=== PATIENT | female | born 1965 | race Caucasian/White ===

== ENCOUNTER → 2019-09-06 14:06 | Outpatient (BNVA) | payer SELFPAY | PROVIDERS: Family Provider Family Medicine; PCP Family Medicine; Visit Provider Family Medicine | DX: E11.9 Type 2 diabetes mellitus without complications (principal) | CPT/HCPCS: 36415; 80053; 80061; 83036; 85025 ==

== ENCOUNTER → 2019-10-10 14:45 | Outpatient (BNVA) | payer SELFPAY | PROVIDERS: Family Provider Family Medicine; PCP Family Medicine; Visit Provider Emergency Medicine | DX: J98.8 Other specified respiratory disorders (principal); I51.7 Cardiomegaly | CPT/HCPCS: 71046 ==

== ENCOUNTER 2019-11-17 16:22 | Emergency (ER) | payer SELFPAY ==
[2019-11-17 16:25] VITALS: BP 167/88; PULSE 112; RESP 20; TEMP 36.6; O2SAT 87; BMI 45.8
--- NOTE | 2019-11-17 16:35 | ED_ITS ---
Entered by Alem Mak, acting as scribe for Brandon Holder DO Documented by User: Brandon Holder DO 11/17/19 18:20 HPI - SOB/Dyspnea General: Chief Complaint: Shortness of Breath/Dyspnea Stated Complaint: SOB Time Seen by Provider: 11/17/19 16:33 Source: patient Mode of arrival: ambulatory Limitations: no limitations History of Present Illness: HPI Narrative: 54 yo Female presents to ED with complaint of shortness of breath. MD elicited complaint: shortness of breath Pertinent past history: COPD Onset (ago): day(s) Context: recent illness Timing: progressively worsening Exacerbating factors: exertion Relieving factors: rest Known history of: COPD Associated symptoms: Reports chest congestion and cough; Deny chest pain or fever(s) Treatment prior to arrival: none Review of Systems General: Reports: 10 or more systems reviewed and unremarkable except in HPI and below Const: Denies: fever Card: Denies: chest pain Resp: Reports: shortness of breath, productive cough and chest congestion PFSH ED PFSH: Medical History COPD (chronic obstructive pulmonary disease) COPD exacerbation Prediabetes Reducible umbilical hernia Type 2 diabetes mellitus, without long-term current use of insulin Surgical History H/O tubal ligation Family History Father COPD (chronic obstructive pulmonary disease) Mother CAD (coronary artery disease) Social History Smoking and tobacco status: former smoker Second hand smoke exposure: No Alcohol intake: never Physical Exam Const: COMMON NORMALS: no apparent distress, average body habitus, oriented x3, no limitations, healthy appearing, alert and well nourished HENMT: COMMON NORMALS: normocephalic, head/scalp atraumatic, hearing grossly normal bilaterally, external ears normal, EAC's normal, TM's normal bilaterally, external nose normal, nasal mucous membranes and turbinates normal, moist oral mucous membranes, oropharynx normal, dentition normal and gingiva normal HEAD & SCALP: normocephalic and atraumatic NOSE: external nose normal and nasal mucous membranes and turbinates normal EXTERNAL EAR: Yes external ears normal EXTERNAL AUDITORY CANAL: EAC's normal TYMPANIC MEMBRANE: TM's normal bilaterally Eye: COMMON NORMALS: PERRL, EOMs intact bilaterally, conjunctivae normal, no scleral icterus, no papilledema, normal visual blair by confrontation and fundi normal bilaterally CONJUNCTIVA: Yes conjunctivae normal PUPIL: Yes PERRL DIRECT OPHTHALMOSCOPY: Yes no papilledema and Yes fundi normal bilaterally Neck/C-Spine: COMMON NORMALS: full ROM, no lymphadenopathy, supple, no meningeal signs, no JVD, thyroid normal and no carotid bruits THYROID: thyroid normal Chest: COMMONS NORMALS: inspection of chest normal and palpation of chest normal Resp: COMMON NORMALS: normal respiratory effort, no retractions, no use of accessory muscles and percussion normal; negative for clear to auscultation bilaterally AUSCULTATION: not clear to auscultation bilaterally and rhonchi right upper PERCUSSION: percussion normal Cardio: COMMON NORMALS: no JVD, regular rate, regular rhythm, S1 normal heart sound, S2 normal heart sound, no gallops, no clicks, no murmurs, no rub and peripheral pulses 2+ throughout RATE: regular rate RHYTHM: regular rhythm HEART SOUNDS: S1 normal and S2 normal PERIPHERAL PULSES: pulses 2+ throughout GI: COMMON NORMALS: normal to inspection, nondistended, normoactive bowel sounds, soft to palpation, non-tender, no hepatosplenomegaly, no masses and no bruits PALPATION: Yes soft and Yes no hepatosplenomegaly : COMMON NORMALS: Yes no CVA tenderness and Yes external appearance normal BLADDER/KIDNEY EXAM: Yes no CVA tenderness Back/Pelvis: COMMON NORMALS: no CVA tenderness, thoracic and lumbar spine normal to inspection, no thoracic nor lumbar tenderness, thoraco-lumbar ROM normal and straight leg raise negative bilaterally Extremity: COMMON NORMALS: normal to inspection, full ROM, normal capillary refill, no joint enlargement, no clubbing, cyanosis or edema, no calf tenderness and no pedal edema Neuro: COMMON NORMALS: oriented x3 SENSORIUM/ORIENTATION: Yes alert MENINGEAL SIGNS: Yes no meningeal signs Skin: COMMON NORMALS: no rashes or lesions noted, no wounds, skin turgor normal, no jaundice, no petechiae and no mottling GENERAL SKIN EXAM: no rashes or lesions noted and turgor normal Course Vital Signs: Vital signs: Vital Signs Temperature 97.8 F 11/17/19 16:25 Pulse Rate 96 11/17/19 22:41 Respiratory Rate 22 H 11/17/19 22:41 Blood Pressure 138/90 11/17/19 22:41 Pulse Oximetry 90 11/17/19 22:41 MDM - SOB/Dyspnea Lab Data: Labs: Lab Results 11/17/19 11/17/19 11/17/19 Range/Units 16:55 17:01 17:37 WBC 8.3 (4.0-10.0) 10^3/ uL RBC 4.89 (4.1-5.3) 10^6/u L Hgb 15.7 H (11.5-15.3) g/dL Hct 47.7 H (37.0-47.0) % MCV 97.5 (81-99) fL MCH 32.1 (28.0-34.0) pg MCHC 32.9 (30.0-36.0) g/dL RDW 12.5 (12.1-15.1) % Plt Count 239 (130-400) 10^3/c mm MPV 11.4 H (7.4-10.4) fL Neut % (Auto) 86.8 % Lymph % (Auto) 9.0 % Vermilion % (Auto) 2.0 % Eos % (Auto) 0.0 % Baso % (Auto) 0.5 % Neut # (Auto) 7.2 (1.8-7.7) 10^3/u L Lymph # (Auto) 0.8 (0.8-4.8) 10^3/u L Vermilion # (Auto) 0.2 (0.2-0.9) 10^3/u L Eos # (Auto) 0.0 (0.0-0.8) 10^3/u L Baso # (Auto) 0.0 (0.0-0.1) 10^3/u L Nucleated RBC % (a uto) 0 % Nucleated RBCs # 0.0 /100WBC Sodium 136 (136-145) mmol/L Potassium 4.9 (3.5-5.1) mmol/L Chloride 97 L (98-107) mmol/L Carbon Dioxide 27 (22-29) mmol/L Anion Gap 16.9 (5-19) BUN 20 (6-20) mg/dL Creatinine 1.0 H (0.5-0.9) mg/dL GFR Calculation 57.6 L (90-130) mL/min Glucose 334 H (65-115) mg/dL Calculated Osmolal ity 292 (285-295) mOsm/k g Calcium 9.5 (8.5-10.5) mg/dL Total Bilirubin 0.2 (0.15-1.2) mg/dL AST 22 (0-32) U/L ALT 35 H (0-33) U/L Alkaline Phosphata se 59 (35-105) IU/L NT-Pro-B Natriuret Pep 557 H (0-125) pg/mL Total Protein 6.8 (6.6-8.7) g/dL Albumin 3.5 (3.5-5.2) g/dL Globulin 3.3 (1.3-4.6) g/dL Influenza Type A A g Negative (Negative) POC Influenza B Ag Negative (Negative) Imaging Data^: CXR: Radiologist's impression: [place] [address] XRay Report Signed Patient: Ameya Thakur #: [id number] : 1965Acct#:[id number] Age/Sex: 54 / FADM Date: 11/17/19 [facility] Attending Dr: Ordering Provider/Ordering MD: Brandon Holder DO Date of Service: 11/17/19 Procedure(s): XR chest 1V portable [id number] Accession Number(s): [id number] Report Number: [id number] PROCEDURE INFORMATION: Exam: XR Chest, 1 View Exam date and time: 11/17/2019 4:46 PM Age: 54 years old Clinical indication: Dyspnea TECHNIQUE: Imaging protocol: XR of the chest Views: 1 view. COMPARISON: CR XR chest 2V* [id number] 10/10/2019 2:54 PM FINDINGS: Lungs: Changes of emphysema. Linear atelectasis in the right lung base. Patchy opacities in the peripheral left lung base. Pleural space: Unremarkable. No pleural effusion. No pneumothorax. Heart/Mediastinum: Unremarkable. No cardiomegaly. Bones/joints: Unremarkable. XR/XR chest 1V portable [id number] IMPRESSION: 1. Left base atelectasis versus pneumonia. Dictated By:Inderjit Lopez Signed By:John Lopez Date/Time:11/17/191811 DD/ 10 Discharge Plan Discharge Patient Disposition: Home, Self-Care Clinical Impression: COPD exacerbation Community acquired pneumonia Qualifiers: Laterality: left Lung location: lower lobe of lung Qualified Code(s): J18.9 - Pneumonia, unspecified organism Condition: Stable Prescriptions: New prednisone 10 mg tablet 10 mg PO DAILY Qty: 34 RF: 0 Zithromax 250 mg tablet 250 mg PO DAILY Qty: 4 RF: 0 No Action albuterol sulfate [ProAir HFA] 90 mcg/actuation HFA aerosol inhaler 2 puff INHALATION Q6H PRNRF: 0 Trelegy Ellipta 100-62.5-25 mcg blister with device 1 inh INHALATION Q24H RF: 0 albuterol sulfate 2.5 mg /3 mL (0.083 %) solution for nebulization 2.5 mg INHALATION Q6H Qty: 90 RF: 0 metformin 500 mg tablet extended release 24 hr 500 mg PO BID RF: 0 doxycycline hyclate 100 mg capsule 100 mg PO BID 5 Days Qty: 10 RF: 0 prednisone 20 mg tablet 40 mg PO .q AM 5 Days Qty: 10 RF: 0 furosemide 20 mg tablet See Rx Instructions PO QAM 5 Days Qty: 5 RF: 0 Discharge Orders: Discharge Order (Routine); Ordered 11/17/19 Ordered By: Margarito Mills Referrals: Ann Pinon DO [Primary Care Provider] - 4-7 days Discharge Diet: Usual diet Discharge Activity: Increase activity as tolerated Patient Instructions: Chronic Obstructive Pulmonary Disease (ED), Pneumonia (ED) Activity Restrictions/Additional Instructions: Return for worsening shortness of breath despite treatment, return for fever greater than 100 despite 2 doses of antibiotics, chest discomfort, other concerning symptoms. Discharge Date/Time: 11/17/19 22:41 Coding Level of Care Code ED Ethnology Professor for Chg Fwd Exam Comprehensive Documented by User: Margarito Richardson Gene, 11/17/19 22:58 HPI - SOB/Dyspnea General: Chief Complaint: Shortness of Breath/Dyspnea Stated Complaint: SOB Time Seen by Provider: 11/17/19 16:33 PFSH ED PFSH: Medical History COPD (chronic obstructive pulmonary disease) COPD exacerbation Prediabetes Reducible umbilical hernia Type 2 diabetes mellitus, without long-term current use of insulin Surgical History H/O tubal ligation Family History Father COPD (chronic obstructive pulmonary disease) Mother CAD (coronary artery disease) Social History Smoking and tobacco status: former smoker Second hand smoke exposure: No Alcohol intake: never Course Vital Signs: Vital signs: Vital Signs Temperature 97.8 F 11/17/19 16:25 Pulse Rate 96 11/17/19 22:41 Respiratory Rate 22 H 11/17/19 22:41 Blood Pressure 138/90 11/17/19 22:41 Pulse Oximetry 90 11/17/19 22:41 MDM - SOB/Dyspnea MDM Narrative: Medical decision making narrative: 54-year-old lady checked out to me by Dr. Ochoa. She has a history of COPD. She presents short of breath. Her white blood cell count is 8.3. She has a left basilar pneumonia. She has clear sputum, it was green. She has been on doxycycline and prednisone, and is feeling better, but is been having problems lately getting her lungs to clear up. She has pulmonology appointment in a couple of weeks. She has PFT testing next week. She runs out of prednisone and antibiotics tomorrow. We will switch her antibiotic. We will put her on a slow taper of prednisone. She walked in the ER with sats sinking to 86%. She does have a condenser at home, but has not used it in quite some time. She states the filter is bad. We discussed this with her home oxygen company, and they states she should be able to pull the filter and use it until she can get a new filter tomorrow. Admission was offered, but the patient would really like to go home. Lab Data: Labs: Lab Results 11/17/19 11/17/19 11/17/19 Range/Units 16:55 17:01 17:37 WBC 8.3 (4.0-10.0) 10^3/ uL RBC 4.89 (4.1-5.3) 10^6/u L Hgb 15.7 H (11.5-15.3) g/dL Hct 47.7 H (37.0-47.0) % MCV 97.5 (81-99) fL MCH 32.1 (28.0-34.0) pg MCHC 32.9 (30.0-36.0) g/dL RDW 12.5 (12.1-15.1) % Plt Count 239 (130-400) 10^3/c mm MPV 11.4 H (7.4-10.4) fL Neut % (Auto) 86.8 % Lymph % (Auto) 9.0 % Vermilion % (Auto) 2.0 % Eos % (Auto) 0.0 % Baso % (Auto) 0.5 % Neut # (Auto) 7.2 (1.8-7.7) 10^3/u L Lymph # (Auto) 0.8 (0.8-4.8) 10^3/u L Vermilion # (Auto) 0.2 (0.2-0.9) 10^3/u L Eos # (Auto) 0.0 (0.0-0.8) 10^3/u L Baso # (Auto) 0.0 (0.0-0.1) 10^3/u L Nucleated RBC % (a uto) 0 % Nucleated RBCs # 0.0 /100WBC Sodium 136 (136-145) mmol/L Potassium 4.9 (3.5-5.1) mmol/L Chloride 97 L (98-107) mmol/L Carbon Dioxide 27 (22-29) mmol/L Anion Gap 16.9 (5-19) BUN 20 (6-20) mg/dL Creatinine 1.0 H (0.5-0.9) mg/dL GFR Calculation 57.6 L (90-130) mL/min Glucose 334 H (65-115) mg/dL Calculated Osmolal ity 292 (285-295) mOsm/k g Calcium 9.5 (8.5-10.5) mg/dL Total Bilirubin 0.2 (0.15-1.2) mg/dL AST 22 (0-32) U/L ALT 35 H (0-33) U/L Alkaline Phosphata se 59 (35-105) IU/L NT-Pro-B Natriuret Pep 557 H (0-125) pg/mL Total Protein 6.8 (6.6-8.7) g/dL Albumin 3.5 (3.5-5.2) g/dL Globulin 3.3 (1.3-4.6) g/dL Influenza Type A A g Negative (Negative) POC Influenza B Ag Negative (Negative) Discharge Plan Discharge Patient Disposition: Home, Self-Care Clinical Impression: COPD exacerbation Community acquired pneumonia Qualifiers: Laterality: left Lung location: lower lobe of lung Qualified Code(s): J18.9 - Pneumonia, unspecified organism Condition: Stable Prescriptions: New prednisone 10 mg tablet 10 mg PO DAILY Qty: 34 RF: 0 Zithromax 250 mg tablet 250 mg PO DAILY Qty: 4 RF: 0 No Action albuterol sulfate [ProAir HFA] 90 mcg/actuation HFA aerosol inhaler 2 puff INHALATION Q6H PRNRF: 0 Trelegy Ellipta 100-62.5-25 mcg blister with device 1 inh INHALATION Q24H RF: 0 albuterol sulfate 2.5 mg /3 mL (0.083 %) solution for nebulization 2.5 mg INHALATION Q6H Qty: 90 RF: 0 metformin 500 mg tablet extended release 24 hr 500 mg PO BID RF: 0 doxycycline hyclate 100 mg capsule 100 mg PO BID 5 Days Qty: 10 RF: 0 prednisone 20 mg tablet 40 mg PO .q AM 5 Days Qty: 10 RF: 0 furosemide 20 mg tablet See Rx Instructions PO QAM 5 Days Qty: 5 RF: 0 Discharge Orders: Discharge Order (Routine); Ordered 11/17/19 Ordered By: Margarito Mills Referrals: Ann Pinon DO [Primary Care Provider] - 4-7 days Discharge Diet: Usual diet Discharge Activity: Increase activity as tolerated Patient Instructions: Chronic Obstructive Pulmonary Disease (ED), Pneumonia (E D) Activity Restrictions/Additional Instructions: Return for worsening shortness of breath despite treatment, return for fever greater than 100 despite 2 doses of antibiotics, chest discomfort, other concerning symptoms. Discharge Date/Time: 11/17/19 22:41 Coding Level of Care Code ED Ethnology Professor for Connie Fwmiguel Exam Comprehensive
--- NOTE | 2019-11-17 16:43 | XRR_ITS ---
PROCEDURE INFORMATION: Exam: XR Chest, 1 View Exam date and time: 11/17/2019 4:46 PM Age: 54 years old Clinical indication: Dyspnea TECHNIQUE: Imaging protocol: XR of the chest Views: 1 view. COMPARISON: CR XR chest 2V* [id number] 10/10/2019 2:54 PM FINDINGS: Lungs: Changes of emphysema. Linear atelectasis in the right lung base. Patchy opacities in the peripheral left lung base. Pleural space: Unremarkable. No pleural effusion. No pneumothorax. Heart/Mediastinum: Unremarkable. No cardiomegaly. Bones/joints: Unremarkable. XR/XR chest 1V portable [id number] IMPRESSION: 1. Left base atelectasis versus pneumonia.
[2019-11-17 17:02] VITALS: O2SAT 91
[2019-11-17 17:17] LABS: Basophils % 0.5 %; Hematocrit 47.7 % (37.0-47.0); Hemoglobin 15.7 g/dL (11.5-15.3); Lymphocytes # 0.8 10^3/uL (0.8-4.8); Mean Corpuscular HGB Conc 32.9 g/dL (30.0-36.0); Mean Corpuscular Hemoglobin 32.1 pg (28.0-34.0); Mean Corpuscular Volume 97.5 fL (81-99); Mean Platelet Volume 11.4 fL (7.4-10.4); Monocytes # 0.2 10^3/uL (0.2-0.9); Neutrophils # 7.2 10^3/uL (1.8-7.7); Neutrophils % 86.8 %; Nucleated Red Blood Cells % 0 %; Platelet Count 239 10^3/cmm (130-400); Red Blood Count 4.89 10^6/uL (4.1-5.3); Red Cell Distribution Width 12.5 % (12.1-15.1); White Blood Count 8.3 10^3/uL (4.0-10.0)
[2019-11-17] MEDS: sodium chloride 0.9% 500 ML 999 ML IV (17:21)
--- NOTE | 2019-11-17 17:26 | PC.NURSE ---
portable chest xray at bedside
[2019-11-17] MEDS: ipratropium-albuterol 3 mL Neb INHALATION (17:30)
[2019-11-17 17:31] VITALS: PULSE 88; RESP 18; O2SAT 91
[2019-11-17 17:36] LABS: Influenza A by IFA Negative (Negative); Influenza B by IFA Negative (Negative)
[2019-11-17 17:38] VITALS: PULSE 89; RESP 18; O2SAT 94
[2019-11-17 18:29] LABS: Alanine Aminotransferase 35 U/L (0-33); Albumin Level 3.5 g/dL (3.5-5.2); Alkaline Phosphatase 59 IU/L (35-105); Anion Gap 16.9 (5-19); Blood Urea Nitrogen 20 mg/dL (6-20); Calcium 9.5 mg/dL (8.5-10.5); Carbon Dioxide 27 mmol/L (22-29); Chloride 97 mmol/L (98-107); Creatinine Clr Calc Pharmacy 78.7043; Globulin 3.3 g/dL (1.3-4.6); Glomerular Filtration Rate 57.6 mL/min (90-130); Glucose 334 mg/dL (65-115); NT Pro B Type Natriuretic Pept 557 pg/mL (0-125); Osmolality Calculated 292 mOsm/kg (285-295); Potassium 4.9 mmol/L (3.5-5.1); Sodium 136 mmol/L (136-145); Total Bilirubin 0.2 mg/dL (0.15-1.2); Total Protein 6.8 g/dL (6.6-8.7)
[2019-11-17 18:45] VITALS: BP 146/87; PULSE 105; RESP 30; O2SAT 90
[2019-11-17 19:09] LABS: Aspartate Amino Transferase 22 U/L (0-32)
[2019-11-17] MEDS: azithromycin 250 mg Tablet 500 MG PO (22:30)
[2019-11-17 22:41] VITALS: BP 138/90; PULSE 96; RESP 22; O2SAT 90
--- NOTE | 2019-11-17 22:48 | PC.NURSE ---
RN reviewed and agrees with assessment.
== END 2019-11-17 22:41 | disposition home or self-care (01) ==
PROVIDERS: Family Medicine; Emergency Provider Emergency Medicine; Family Provider Family Medicine; PCP Family Medicine
DX: J44.1 Chronic obstructive pulmonary disease with (acute) exacerbation (principal); J44.0 Chronic obstructive pulmonary disease with (acute) lower respiratory infection; J18.9 Pneumonia, unspecified organism; E11.9 Type 2 diabetes mellitus without complications; Z87.891 Personal history of nicotine dependence; Z82.5 Family history of asthma and other chronic lower respiratory diseases
CPT/HCPCS: 12345; 36415; 71045; 80053; 83880; 85025; 87040; 87804; 94640; 96374; 99283; 99284; J2930; J7040; Q0144

== ENCOUNTER 2019-11-26 15:00 | Outpatient (CLI) | payer SELFPAY ==
--- NOTE | 2019-11-26 15:45 | USCV_ITS ---
Virginia Thakur Age: 54 Gender: F : 1965 Exam Date: 11/26/2019 15:24 Ordering Phys: Ann Pinon DO Technologist: Rebecca Gonzales Exam Location: [facility] – [place] Indication: SWEET BP: 123 / 60 HR: 86 Rhythm: Sinus Technical Quality: Poor because of body habitus MEASUREMENTS (Male / Female) Normal Values 2D ECHO LV Chamber Size 3.2 cm RV Chamber Size 2.6 cm LVOT Diameter 2.1 cm LV Ejection Fraction MOD 2C 65.1 % LV Ejection Fraction 2C AL 68.8 % LA Diameter 4.8 cm LA Width 3.5 cm LA Height 4.5 cm RA Width 2.7 cm RA Height 3.0 cm Aorta at Sinotubular Diameter 2.2 cm M-MODE Aortic Annulus Diameter 3.1 cm LA Ao Ratio MM 1.5 MV E Point Septal Separation 1.3 cm DOPPLER AV Peak Velocity 127.0 cm/s LVOT Peak Velocity 100.0 cm/s AV Area Cont Eq vti 2.5 cm squared AV Area Cont Eq pk 2.6 cm squared MV Area PHT 6.9 cm squared Mitral E to A Ratio 1.1 MV E' Velocity 9.0 cm/s Mitral E to MV E' Ratio 8.1 Mitral E to LV E' Lateral Ratio 7.7 Mitral E to LV E' Septal Ratio 8.6 TR Peak Velocity 166.0 cm/s TR Peak Gradient 11.0 mmHg TV Peak E Velocity 39.0 cm/s Right Atrial Pressure 3.0 mmHg Pulmonary Artery Systolic Pressu 14.0 mmHg PV Peak Velocity 92.0 cm/s RV Acceleration Time 0.1 s RV Ejection Time 0.3 s RV AcT/ET 0.4 FINDINGS Left Ventricle Possibly normal LV size ejection fraction. Segmental wall motion analysis difficult because of the poor ultrasonic window. Right Ventricle Could not be visualized well Right Atrium Could not be visualized well Left Atrium Possibly of normal size Mitral Valve No gross abnormalities noted Aortic Valve No gross abnormalities noted Tricuspid Valve Could not be visualized well Pulmonic Valve Pulmonic valve not well visualized. Pericardium Trivial pericardial effusion. Aorta Normal aortic annulus size. CONCLUSIONS Possibly normal LV size ejection fraction. Segmental wall motion analysis difficult because of the poor ultrasonic window. Trivial pericardial effusion. Technically difficult study because of the poor ultrasonic window. Dr Rochelle Mart MD FACC (Electronically Signed) Final Date: 26 November 2019 19:41 S
== END 2019-11-26 15:01 | disposition home or self-care (01) ==
LOC: RAD 15:03
PROVIDERS: Family Provider Family Medicine; PCP Family Medicine; Visit Provider Family Medicine
DX: I31.3 Pericardial effusion (noninflammatory) (principal); R06.01 Orthopnea; R06.09 Other forms of dyspnea
CPT/HCPCS: 93306

== ENCOUNTER → 2020-01-10 08:27 | Outpatient (BNVA) | payer SELFPAY | PROVIDERS: Family Provider Family Medicine; PCP Family Medicine; Visit Provider Family Medicine | DX: E11.9 Type 2 diabetes mellitus without complications (principal); J44.1 Chronic obstructive pulmonary disease with (acute) exacerbation | CPT/HCPCS: 80053; 80061; 82044; 83036 ==

== ENCOUNTER 2020-01-14 08:35 | Outpatient (CLI) | payer SELFPAY ==
--- NOTE | 2020-01-14 | CT_ITS ---
WS: [id number] CT LUNG CANCER SCREENING DLP: 87.56 mGy.cm DIvol: 2.71 mGy CLINICAL INFORMATION SCREENING VISIT: Baseline COMPARISON: None available. FINDINGS Diagnostic quality: Satisfactory Comments: None. Lung Nodules: Nonsolid nodule nodule (groundglass nodule) RIGHT upper lobe, image 166 of series 3. Di ameter of 17 mm. There are no additional solid or nonsolid nodules. No endobronchial lesions. Lungs: Linear areas of scarring or atelectasis. These are most significant and subsegmental in the RI GHT middle and RIGHT lower lobes and also at the lingula. Heart: Normal size heart. Mild increase in pericardial fat. There are very few scattered coronary art connor calcifications. Other findings: No adenopathy. Mild atherosclerosis aorta. Pulmonary artery measures 3.4 cm at the ro ot. CT/CT lung screening [id number] IMPRESSION: LUNG-RADS: 2S-Benign Appearance or Behavior with Significant Findings FOLLOW UP: 12 Month: Continue annual screening with LDCT 1. Pulmonary arterial hypertension.
== END 2020-01-14 08:36 | disposition home or self-care (01) ==
LOC: RAD 08:37
PROVIDERS: Family Provider Family Medicine; PCP Family Medicine; Visit Provider Internal Medicine Critical Care Medicine
DX: Z12.2 Encounter for screening for malignant neoplasm of respiratory organs (principal); F17.210 Nicotine dependence, cigarettes, uncomplicated; I27.21 Secondary pulmonary arterial hypertension
CPT/HCPCS: G0297

== ENCOUNTER 2020-01-23 07:58 | Outpatient (CLI) | payer SELFPAY ==
--- NOTE | 2020-01-23 14:09 | PFTS_ITS ---
Date of Study:01/23/20 Date of Dictation: MECHANICS: Forced vital capacity (FVC) is reduced. Forced expiratory volume in one second (FEV1) is reduced. FEV1/FVC is reduced. FLOW VOLUME LOOP: Decreased flow at all lung volumes with significant scooping. LUNG VOLUMES: Not performed DIFFUSING CAPACITY FOR CARBON MONOXIDE: Not performed INTERPRETATION: The pulmonary function tests are consistent with severe obstruction. There is no significant postbronchodilator response. MTDD
== END 2020-01-23 07:59 | disposition home or self-care (01) ==
LOC: RT 08:01
PROVIDERS: PCP Family Medicine; Visit Provider Family Medicine
DX: J44.1 Chronic obstructive pulmonary disease with (acute) exacerbation (principal)
CPT/HCPCS: 94060; 94729; J7611

== ENCOUNTER 2020-02-04 20:00 | Outpatient (CLI) | payer SELFPAY | END 2020-02-04 20:01 | disposition home or self-care (01) | LOC: SLEEP 02-05 10:04 | PROVIDERS: PCP Family Medicine; Visit Provider Internal Medicine Critical Care Medicine | DX: G47.10 Hypersomnia, unspecified (principal); G47.33 Obstructive sleep apnea (adult) (pediatric) | CPT/HCPCS: 95810 ==

== ENCOUNTER → 2020-02-13 10:10 | Outpatient (BNVA) | payer SELFPAY | PROVIDERS: PCP Family Medicine; Visit Provider Family Medicine | DX: E11.9 Type 2 diabetes mellitus without complications (principal); K21.9 Gastro-esophageal reflux disease without esophagitis | CPT/HCPCS: 80053 ==

== ENCOUNTER → 2020-04-14 09:01 | Outpatient (BNVA) | payer SELFPAY | PROVIDERS: PCP Family Medicine; Visit Provider Family Medicine | DX: E11.9 Type 2 diabetes mellitus without complications (principal) | CPT/HCPCS: 80053; 83036 ==

== ENCOUNTER → 2020-05-04 08:14 | Outpatient (BNVA) | payer SELFPAY | PROVIDERS: PCP Family Medicine; Referring Provider Family Medicine; Visit Provider Family Medicine | DX: R79.89 Other specified abnormal findings of blood chemistry (principal) | CPT/HCPCS: 80053 ==

== ENCOUNTER → 2020-06-04 08:23 | Outpatient (BNVA) | payer SELFPAY | PROVIDERS: PCP Family Medicine; Visit Provider Family Medicine | DX: R79.89 Other specified abnormal findings of blood chemistry (principal) | CPT/HCPCS: 80053 ==

== ENCOUNTER → 2020-07-15 08:13 | Outpatient (BNVA) | payer SELFPAY | PROVIDERS: PCP Family Medicine; Visit Provider Family Medicine | DX: E11.9 Type 2 diabetes mellitus without complications (principal) | CPT/HCPCS: 80053; 80061; 83036; 85025 ==

== ENCOUNTER → 2021-02-03 08:40 | Outpatient (BNVA) | payer SELFPAY | PROVIDERS: PCP Family Medicine; Visit Provider Family Medicine | DX: E11.9 Type 2 diabetes mellitus without complications (principal) | CPT/HCPCS: 80053; 82043; 83036 ==

== ENCOUNTER 2021-02-05 10:50 | Outpatient (CLI) | payer SELFPAY ==
--- NOTE | 2021-02-05 11:15 | CT_ITS ---
WS: [id number] LDCT LUNG CANCER SCREENING TECHNIQUE: Noncontrast CT of the chest with coronal and sagittal reformatted images. CLINICAL INFORMATION: Z87.891 - Personal history of nicotine dependence COMPARISON: CT January 14, 2020 DLP: 53.0 mGy.cm DIvol: 1.[address] scans at [facility] use at least one of these dose optimization techniques: automat ed exposure control; mA and/or kV adjustment per patient size (includes targeted exams where dose is matched to clinical indication); or iterative reconstruction. FINDINGS: Previously described hazy groundglass nodule right upper lobe no longer visualized. Subsegmental atel ectasis in the lingula and right middle lobe and right lower lobe. No mediastinal or hilar lymphadenopathy. Aortic calcification. Normal GE junction. Adrenal glands are normal. CT/CT lung screening [id number] IMPRESSION: LUNG-RADS: 2-Benign Appearance or Behavior FOLLOW UP: 12 Month: Continue annual screening with LDCT
== END 2021-02-05 10:51 | disposition home or self-care (01) ==
LOC: RAD 10:53
PROVIDERS: PCP Family Medicine; Visit Provider Internal Medicine Critical Care Medicine
DX: Z87.891 Personal history of nicotine dependence (principal); Z12.2 Encounter for screening for malignant neoplasm of respiratory organs; I70.0 Atherosclerosis of aorta
CPT/HCPCS: 71271

== ENCOUNTER 2021-04-07 13:43 | Outpatient (CLI) | payer SELFPAY ==
--- NOTE | 2021-04-07 13:51 | USCV_ITS ---
Blaze [place] Age: 55 Gender: F : 1965 Exam Date: 04/07/2021 14:09 Ordering Phys: Arturo Crandall APN Technologist: SARBJIT GALINDO [place] [facility] [place]ication: SWELLING LLE PROCEDURES: On the left side, the common femoral, superficial femoral, profunda femoral, popliteal, posterior tibial, greater saphenous veins, and the peroneal trunk were identified and interrogated in the standard fashion. FINDINGS: Normal 2-D Doppler and augmentation and compressibility throughout the lower extremity venous structures. Additional imaging through the proximal calf veins also reveals no thrombus. Limited evaluation of the greater saphenous vein is patent with no thrombus. CONCLUSIONS No DVT left lower extremity. Dr. Marie Lamas DO (Electronically Signed) Final Date: 07 April 2021 15:52 S
== END 2021-04-07 13:44 | disposition home or self-care (01) ==
LOC: US 13:47
PROVIDERS: PCP Family Medicine; Visit Provider Nurse Practitioner Family
DX: R60.0 Localized edema (principal); M79.89 Other specified soft tissue disorders
CPT/HCPCS: 93971

== ENCOUNTER 2021-04-23 07:32 | Outpatient (CLI) | payer SELFPAY ==
--- NOTE | 2021-04-23 08:00 | USCV_ITS ---
Blaze [place] Age: 55 Gender: F : 1965 Exam Date: 04/23/2021 08:11 Ordering Phys: Arturo Crandall APN Technologist: Nadja Daley [place] [facility] [place]: localized edema Risk Factors: Previous Vascular Surgery: None RIGHT LEFT BP: / BP: 136.0/ 76.00 0 Waveform Velocity (cm/s) Velocity (cm/s) Waveform Iliac Prox 149.7 Triphasic Iliac Mid 110.5 Triphasic Iliac Distal Triphasic 124.5 BRANCH LENDING OFFICER 85.4 Triphasic SFA Prox 78.6 Triphasic SFA Mid 66.8 Triphasic SFA Dist 71.5 Triphasic POP 59.4 Triphasic BILLING REPRESENTATIVE 54.6 Biphasic DPA 40.8 Triphasic SARTHAK 0.9 FINDINGS Lt DPA - 126 LT BILLING REPRESENTATIVE - 128 Near normal Doppler waveforms SARTHAK 0.9 on the left side CONCLUSIONS 1. Borderline SARTHAK on the left side. 2. No significant arterial obstruction, based on the above findings Dr Rochelle Mart MD FACC (Electronically Signed) Final Date: 23 April 2021 18:38 S
== END 2021-04-23 07:33 | disposition home or self-care (01) ==
LOC: RAD 07:35
PROVIDERS: PCP Family Medicine; Visit Provider Nurse Practitioner Family
DX: R60.0 Localized edema (principal)
CPT/HCPCS: 93926

== ENCOUNTER 2021-11-28 07:39 | Emergency (ER) | payer SELFPAY ==
[2021-11-28 07:53] VITALS: BP 143/84; PULSE 90; RESP 21; TEMP 36.6; O2SAT 86; BMI 46.0
--- NOTE | 2021-11-28 08:02 | CTR_ITS ---
PROCEDURE INFORMATION: Exam: CT Abdomen And Pelvis With Contrast Exam date and time: 11/28/2021 8:49 AM Age: 56 years old Clinical indication: Other: Hematochezia; Additional info: Abd pain TECHNIQUE: Imaging protocol: Computed tomography of the abdomen and pelvis with contrast. Radiation optimization: All CT scans at this facility use at least one of these dose optimization techniques: automated exposure control; mA and/or kV adjustment per patient size (includes targeted exams where dose is matched to clinical indication); or iterative reconstruction. Contrast material: OMNIPAQUE 300; Contrast volume: 95 ml; Contrast route: INTRAVENOUS (IV); COMPARISON: CT lung screening [id number] 02/05/2021 11:05 AM RADIATION DOSE METRICS: Total DLP (mGy-cm): 1733.63 FINDINGS: Lungs: Streaky bibasilar atelectasis. No consolidation. Liver: There is multiple rim enhancing masses scattered throughout the liver, the largest in segment Jose Alfredo measuring 4.9 cm. Gallbladder and bile ducts: Normal. No calcified stones. No ductal dilation. Pancreas: Normal. No ductal dilation. Spleen: Normal. No splenomegaly. Adrenal glands: Normal. No mass. Kidneys and ureters: Normal. No hydronephrosis. Stomach and bowel: Unremarkable. No obstruction. No mucosal thickening. Appendix: No evidence of appendicitis. Intraperitoneal space: There is an ill-defined and spiculated soft tissue mass about the central aspect of the mesenteric fat in the upper pelvis, measuring approximately 2.6 x 3.0 x 4.3 cm, concerning for carcinoid tumor with desmoplastic reaction. No calcification identified. An additional mesenteric nodule measuring approximately 1.0 cm is seen superior to this mass. Vasculature: Unremarkable. No abdominal aortic aneurysm. Lymph nodes: Unremarkable. No enlarged lymph nodes. Urinary bladder: Unremarkable as visualized. Reproductive: Unremarkable as visualized. Bones/joints: Unremarkable. No acute fracture. Soft tissues: A small fat containing umbilical hernia is present. 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
--- NOTE | 2021-11-28 08:09 | ED_ITS ---
HPI - GI Bleed General: Chief complaint: GI Bleed Stated complaint: bloody stool Time Seen by Provider: 11/28/21 07:44 Source: patient Mode of arrival: ambulatory Limitations: no limitations History of Present Illness: 56-year-old female states she woke up this morning and has had 2 bowel movements with blood in it. States been bright red blood. She states that it was pure blood moderate amount denies any black tarry stool denies any vomiting she denies any abdominal pain no history of GI bleeds in the past. Associated symptoms: Denies chills, easy bruising, fever(s), headache(s) or rash Review of Systems Const: Denies: fever(s), chills, body aches or change in appetite Eyes: Denies: blurry vision or eye discomfort ENMT: Denies: throat pain or dental pain Card: Denies: chest pain Resp: Denies: dyspnea GI: Reports: hematochezia : Denies: dysuria Musc: Denies: neck pain or back pain Skin/Breast: Denies: rash Neuro: Denies: headache(s) Psych: Denies: depression José Luis/Lymph: Denies: easy bruising All/Imm: Denies: urticaria PFSH ED PFSH: Medical History (Updated 11/28/21 @ 09:24 by Brittany Montes De Oca MD) COPD (chronic obstructive pulmonary disease) Reducible umbilical hernia Type 2 diabetes mellitus, without long-term current use of insulin Surgical History H/O tubal ligation Family History Father COPD (chronic obstructive pulmonary disease) Mother CAD (coronary artery disease) Social History Smoking and tobacco status: former smoker (Started age 13) Quit status (tobacco): has quit using tobacco Year quit tobacco: 2012 - 1PPD x 35 years Former quit date comment: Started age 13years Second hand smoke exposure: No Alcohol intake: never Lives independently: Yes Household members: children Current occupational status: employed History of recent travel: No Current gender identity: Female Physical Exam Const: COMMON NORMALS: no acute distress, patient oriented x3 and healthy appearing HENMT: COMMON NORMALS: normocephalic and atraumatic HEAD & SCALP: normocephalic and atraumatic Eye: COMMON NORMALS: Equal, round and reactive pupils present and EOMs intact bilaterally PUPIL: Yes Equal, round and reactive pupils present Neck/C-Spine: COMMON NORMALS: full ROM and supple Chest: COMMONS NORMALS: normal inspection of the chest and normal palpation of entire chest wall Resp: COMMON NORMALS: normal respiratory effort, No retractions, No use of a ccessory muscles and clear to auscultation bilaterally AUSCULTATION: clear to auscultation bilaterally Cardio: COMMON NORMALS: regular rate, regular rhythm and No murmurs present (Cardio) RATE: regular rate RHYTHM: regular rhythm GI: COMMON NORMALS: Normal to inspection, nondistended, normoactive bowel sounds present, Soft to palpation, non-tender and no masses PALPATION: Yes Soft to palpation Extremity: COMMON NORMALS: normal to inspection and full ROM Neuro: COMMON NORMALS: patient oriented x3, moves all extremities and no focal motor deficits Psych: COMMON NORMALS: mental status grossly normal, Normal thought process present and cooperative THOUGHT PROCESS: Normal thought process present Skin: COMMON NORMALS: no rashes or lesions noted and no wounds GENERAL SKIN EXAM: no rashes or lesions noted Course Vital Signs: Vital signs: Vital Signs Temperature 97.9 F 11/28/21 07:53 Pulse Rate 92 11/28/21 09:50 Respiratory Rate 16 11/28/21 09:50 Blood Pressure 123/91 11/28/21 09:50 Pulse Oximetry 92 11/28/21 09:50 MDM - GI Bleed Medical Decision Making Patient presents with lower GI bleed her hemoglobin here is normal no signs of large amount of blood did inform her CT findings of possible carcinoid tumor with liver mets we will get her follow-up with oncology and GI she is to return if she has worsening bleeding she understands agrees to plan. 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 Laboratory Results WBC 8.2 10^3/uL (4.0-10.0) 11/28/21 08:36 RBC 4.84 10^6/uL (4.1-5.3) 11/28/21 08:36 Hgb 15.5 g/dL (11.5-15.3) H 11/28/21 08:36 Hct 46.7 % (37.0-47.0) 11/28/21 08:36 MCV 96.5 fl (81-99) 11/28/21 08:36 MCH 32.0 pg (28.0-34.0) 11/28/21 08:36 MCHC 33.2 g/dL (30.0-36.0) 11/28/21 08:36 RDW 12.7 % (12.1-15.1) 11/28/21 08:36 Plt Count 199 10^3/cmm (130-400) 11/28/21 08:36 MPV 10.6 fL (7.4-10.4) H 11/28/21 08:36 Neut % (Auto) 78.6 % 11/28/21 08:36 Lymph % (Auto) 10.1 % 11/28/21 08:36 [place] % (Auto) 6.3 % 11/28/21 08:36 Eos % (Auto) 3.7 % 11/28/21 08:36 Baso % (Auto) 0.7 % 11/28/21 08:36 Neut # (Auto) 6.45 10^3/uL (1.8-7.7) 11/28/21 08:36 Lymph # (Auto) 0.8 10^3/uL (0.8-4.8) 11/28/21 08:36 [place] # (Auto) 0.5 10^3/uL (0.2-0.9) 11/28/21 08:36 Eos # (Auto) 0.3 10^3/uL (0.0-0.8) 11/28/21 08:36 Baso # (Auto) 0.1 10^3/uL (0.0-0.1) 11/28/21 08:36 Nucleated RBC % (auto) 0 % 11/28/21 08:36 Nucleated RBCs # 0.0 /100WBC 11/28/21 08:36 Sodium 137 mmol/L (136-145) 11/28/21 08:36 Potassium 4.7 mmol/L (3.5-5.1) 11/28/21 08:36 Chloride 100 mmol/L (98-107) 11/28/21 08:36 Carbon Dioxide 27 mmol/L (22-29) 11/28/21 08:36 Anion Gap 14.7 (5-19) 11/28/21 08:36 BUN 12 mg/dL (6-20) 11/28/21 08:36 Creatinine 0.7 mg/dL (0.5-0.9) 11/28/21 08:36 GFR Calculation 86.2 mL/min (90-130) L 11/28/21 08:36 Glucose 162 mg/dL (65-115) H 11/28/21 08:36 Calculated Osmolality 287 mOsm/kg (285-295) 11/28/21 08:36 Calcium 9.4 mg/dL (8.5-10.5) 11/28/21 08:36 Total Bilirubin 0.2 mg/dL (0.15-1.2) 11/28/21 08:36 AST 38 U/L (0-32) H 11/28/21 08:36 ALT 59 U/L (0-33) H 11/28/21 08:36 Alkaline Phosphatase 79 IU/L (35-105) 11/28/21 08:36 Total Protein 7.3 g/dL (6.6-8.7) 11/28/21 08:36 Albumin 3.8 g/dL (3.5-5.2) 11/28/21 08:36 Globulin 3.5 g/dL (1.3-4.6) 11/28/21 08:36 Lipase 51 U/L (13-60) 11/28/21 08:36 Discharge Plan Discharge Patient Disposition: Home Clinical Impression: Lower gastrointestinal hemorrhage Condition: Stable Prescriptions: No Action Spiriva with HandiHaler 18 mcg capsule, w/inhalation device 1 cap INHALATION DAILY 30 Days Qty: 60 3RF Rx Instructions: puncture 1 cap using device; one dose = 2 inhalations hydrochlorothiazide 25 mg tablet 25 mg PO DAILY Qty: 30 0RF albuterol sulfate 2.5 mg /3 mL (0.083 %) solution for nebulization 2.5 mg INHALATION Q6H Qty: 90 0RF Spiriva Respimat 2.5 mcg/actuation mist 2 puff inhalation DAILY 30 Days Qty: 4 6RF albuterol sulfate [ProAir HFA] 90 mcg/actuation HFA aerosol inhaler 2 puff INHALATION Q6H PRN (Reason: shortness of breath or wheezing) Qty: 8.5 0RF Rx Instructions: 340 B [id number] [Bromfed DM] 2-30-10 mg/5 mL syrup 7.5 ml PO Q6H PRN (Reason: cold symptoms) Qty: 160 0RF (DME) lancets [Comfort EZ Lancets] 28 gauge misc See Rx Instructions .ROUTE .MEDSUPPLY Qty: 100 2RF Rx Instructions: once daily (DME) blood sugar diagnostic [Contour Next Test Strips] Strip See Rx Instructions .ROUTE .MEDSUPPLY Qty: 100 0RF Rx Instructions: three times daily budesonide-formoterol [Symbicort] 80-4.5 mcg/actuation HFA aerosol inhaler 2 puff INHALATION Q12H 30 Days Qty: 10.2 5RF metformin 500 mg tablet extended release 24 hr 500 mg PO BID Qty: 60 4RF Januvia 100 mg tablet 100 mg PO DAILY Qty: 90 1RF Rx Instructions: 340B Discharge Orders: Discharge ED (Routine); Ordered 11/28/21 Ordered By: Brittany Montes De Oca Referrals: Juan Wright MD [Physician] - 1-3 days Ann Pinon DO [Primary Care Provider] - Discharge Diet: Advance as tolerated Discharge Activity: Resume usual activity Patient Instructions: Gastrointestinal Bleeding (ED) Coding Level of Care Code ED Assistant Project Engineer for Chg Fwd Exam Comprehensive
[2021-11-28 08:25] VITALS: BP 123/91; PULSE 92; RESP 16; O2SAT 92
[2021-11-28] MEDS: iohexol 300 mg/mL 100 mL Btl IV (08:48)
[2021-11-28 09:09] LABS: Basophils # 0.1 10^3/uL (0.0-0.1); Basophils % 0.7 %; Eosinophils # 0.3 10^3/uL (0.0-0.8); Eosinophils % 3.7 %; Hematocrit 46.7 % (37.0-47.0); Hemoglobin 15.5 g/dL (11.5-15.3); Lymphocytes # 0.8 10^3/uL (0.8-4.8); Lymphocytes % 10.1 %; Mean Corpuscular HGB Conc 33.2 g/dL (30.0-36.0); Mean Corpuscular Volume 96.5 fl (81-99); Mean Platelet Volume 10.6 fL (7.4-10.4); Monocytes # 0.5 10^3/uL (0.2-0.9); Monocytes % 6.3 %; Neutrophils # 6.45 10^3/uL (1.8-7.7); Neutrophils % 78.6 %; Nucleated Red Blood Cells % 0 %; Platelet Count 199 10^3/cmm (130-400); Red Blood Count 4.84 10^6/uL (4.1-5.3); Red Cell Distribution Width 12.7 % (12.1-15.1); White Blood Count 8.2 10^3/uL (4.0-10.0)
[2021-11-28 09:25] LABS: Alanine Aminotransferase 59 U/L (0-33); Albumin Level 3.8 g/dL (3.5-5.2); Alkaline Phosphatase 79 IU/L (35-105); Anion Gap 14.7 (5-19); Aspartate Amino Transferase 38 U/L (0-32); Blood Urea Nitrogen 12 mg/dL (6-20); Calcium 9.4 mg/dL (8.5-10.5); Carbon Dioxide 27 mmol/L (22-29); Chloride 100 mmol/L (98-107); Globulin 3.5 g/dL (1.3-4.6); Glomerular Filtration Rate 86.2 mL/min (90-130); Glucose 162 mg/dL (65-115); Lipase 51 U/L (13-60); Osmolality Calculated 287 mOsm/kg (285-295); Potassium 4.7 mmol/L (3.5-5.1); Sodium 137 mmol/L (136-145); Total Bilirubin 0.2 mg/dL (0.15-1.2); Total Protein 7.3 g/dL (6.6-8.7)
[2021-11-28 09:50] VITALS: BP 123/91; PULSE 92; RESP 16; O2SAT 92
--- NOTE | 2021-11-29 15:13 | DCPLANNER ---
[employer] had message to schedule a follow up appointment for patient with Dr. Wright. [employer] faxed patients information to the office of Dr. Wright. Patients information will be reviewed, clinic will call patient with appointment information.
--- NOTE | 2021-11-29 15:49 | DCPLANNER ---
Addendum entered by Zoraida Villalba 12/08/21 15:11: Patient has a follow up appointment scheduled for Tuesday, December 14, [address] at 3:[address] Wright. Clinic will call patient with appointment information. Addendum entered by Zoraida Villalba 11/30/21 14:57: [facility] case fitter stating that patient will need to have a biopsy completed before patient is seen at the clinic. sawmill manager called the office of , and informed the clinic that patient would need a biopsy. Original Note: sawmill manager had message to refer patient to [facility]. sawmill manager called Jeanna Frias the household coordinator at the treatment center. sawmill manager was told that patients information would be printed and reviewed. Clinic will call patient with appointment information.
== END 2021-11-28 09:52 | disposition home or self-care (01) ==
PROVIDERS: Emergency Provider Emergency Medicine; PCP Family Medicine
DX: K92.2 Gastrointestinal hemorrhage, unspecified (principal); J44.9 Chronic obstructive pulmonary disease, unspecified; E11.9 Type 2 diabetes mellitus without complications; Z87.891 Personal history of nicotine dependence
CPT/HCPCS: 74177; 80053; 83690; 85025; 99283; Q9967

== ENCOUNTER → 2022-02-01 13:39 | Outpatient (BNVA) | payer SELFPAY | PROVIDERS: PCP Family Medicine; Visit Provider Internal Medicine Critical Care Medicine | DX: J44.9 Chronic obstructive pulmonary disease, unspecified (principal); R91.1 Solitary pulmonary nodule; Z87.891 Personal history of nicotine dependence; R79.89 Other specified abnormal findings of blood chemistry | CPT/HCPCS: 83497; 84156; 84260; 86316 ==

== ENCOUNTER 2022-02-08 10:20 | Oncology outpatient (recurring) (ONCR) | payer SELFPAY | END 2022-03-03 23:59 | disposition home or self-care (01) | PROVIDERS: PCP Family Medicine; Visit Provider Internal Medicine Medical Oncology | DX: R93.2 Abnormal findings on diagnostic imaging of liver and biliary tract (principal); K76.89 Other specified diseases of liver; R19.07 Generalized intra-abdominal and pelvic swelling, mass and lump | CPT/HCPCS: 99203 ==

== ENCOUNTER 2022-04-06 21:58 | Emergency (ER) | payer SELFPAY ==
[2022-04-06 22:42] VITALS: BMI 42.9
[2022-04-06 22:47] VITALS: BP 160/68; PULSE 85; RESP 17; TEMP 36.8; O2SAT 93
--- NOTE | 2022-04-07 01:50 | CTR_ITS ---
PROCEDURE INFORMATION: Exam: CT Head Without Contrast Exam date and time: 04/07/2022 2:21 AM Age: 56 years old Clinical indication: Pain; Patient HX: C/O persistent recurring headaches with hypertension; Additional info: Headache for past 3 weeks. No migraine history TECHNIQUE: Imaging protocol: Computed tomography of the head without contrast. Radiation optimization: All CT scans at this facility use at least one of these dose optimization techniques: automated exposure control; mA and/or kV adjustment per patient size (includes targeted exams where dose is matched to clinical indication); or iterative reconstruction. COMPARISON: No relevant prior studies available. RADIATION DOSE METRICS: Total DLP (mGy-cm): 1026.78 FINDINGS: Brain: No acute hemorrhage identified. No large territorial areas of hypoattenuation concerning for ischemic infarct identified. No intracranial mass effect. Cerebral ventricles: The ventricles are within normal limits. Paranasal sinuses: The visualized sinuses are unremarkable. Mastoid air cells: The visualized mastoid air cells are well aerated. Bones/joints: The osseous structures are intact. Soft tissues: Unremarkable. CT/CT head wo con* [id number] IMPRESSION: No acute intracranial abnormality.
--- NOTE | 2022-04-07 01:51 | ED_ITS ---
Documented by User: DOT Bejarano 04/07/22 17:15 HPI - Headache General: Chief Complaint: Headache Stated Complaint: High Blood Pressure Time Seen by Provider: 04/07/22 00:14 History of Present Illness: Patient is a 56-year-old female comes to the ED with headache. Patient has a history of GERD, type 2 diabetes and is having a biopsy done of some lesions found on her liver this coming Monday. Patient has been having an hour and off headache for the past 3 weeks. Headaches come and go and vary in intensity throughout the day. Today her headache is rated a 10 out of 10. Headache pain is located in the back of her head. She states that she checked her blood pressure at home today and she had a reading that was elevated where her systolic was around 200. She is not currently on any blood pressure medications. Denies any history of migraines and states she has never had headaches like this before. Denies any nausea, vomiting, fevers. Denies any neuro symptoms such as vision changes, numbness/tingling or weakness to face or extremities. Associated symptoms: Deny chest pain, fever(s), nausea, rash or vomiting Review of Systems Const: Denies: fever(s), chills or fatigue Eyes: Denies: change in vision or eye discomfort ENMT: Denies: throat pain, odynophagia, nasal discharge or nasal congestion Card: Denies: chest pain, palpitations, edema, swelling of feet/ankles, dyspnea on exertion or orthopnea Resp: Denies: dyspnea, productive cough or non-productive cough GI: Denies: abdominal pain, nausea, vomiting, diarrhea, constipation or hematochezia : Denies: flank pain, dysuria or hematuria Musc: Denies: neck pain, back pain or extremity swelling Skin/Breast: Denies: rash or new lesions Neuro: Reports: headache(s); Denies: numbness in extremities or weakness in extremities PFSH ED PFSH: Medical History COPD (chronic obstructive pulmonary disease) Obstructive sleep apnea Reducible umbilical hernia Type 2 diabetes mellitus, without long-term current use of insulin Surgical History H/O tubal ligation Family History Father COPD (chronic obstructive pulmonary disease) Lung disease Mother CAD (coronary artery disease) Grandfather CAD (coronary artery disease) Cancer Skin cancer Brother Diabetes Sister Cancer Lung cancer Grandmother Lung disease Other Hypertension Denies family history of Clotting disorder Dementia Hyperlipidemia Psychiatric illness Chronic kidney disease (CKD) Suicide Anesthesia complication Bleeding disorder Stroke Social History Smoking and tobacco status: former smoker Quit status (tobacco): has quit using tobacco Year quit tobacco: 2012 - 1PPD x 35 years Former quit date comment: Started age 13years Second hand smoke exposure: No Alcohol intake: never Lives independently: Yes Household members: children Current occupational status: employed History of recent travel: No Current gender identity: Female Physical Exam 2 Const: COMMON NORMALS: no acute distress, patient oriented x3 and alert GENERAL APPEARANCE: cooperative HENMT: COMMON NORMALS: normocephalic HEAD & SCALP: normocephalic MOUTH: Normal oral and palatal mucosa present THROAT: posterior oropharynx normal and uvula midline Eye: COMMON NORMALS: Equal, round and reactive pupils present and EOMs intact bilaterally GENERAL EYE: appearance normal, both eyes and all related structures PUPIL: Yes Equal, round and reactive pupils present Neck/C-Spine: COMMON NORMALS: supple GENERAL: Yes normal visual inspection Lymph: LYMPHATIC: no lymphadenopathy noted Resp: COMMON NORMALS: normal respiratory effort, No retractions, No use of accessory muscles and clear to auscultation bilaterally AUSCULTATION: clear to auscultation bilaterally Cardio: COMMON NORMALS: regular rate, regular rhythm, S1 normal heart sound present, S2 normal heart sound present, No gallops present (Cardio), No clicks present (Cardio), No murmurs present (Cardio) and Peripheral pulses 2+ thro ughout RATE: regular rate RHYTHM: regular rhythm HEART SOUNDS: S1 normal heart sound present and S2 normal heart sound present PERIPHERAL PULSES: Peripheral pulses 2+ throughout GI: COMMON NORMALS: Normal to inspection, nondistended, normoactive bowel sounds present, Soft to palpation, non-tender and no masses PALPATION: Yes Soft to palpation : COMMON NORMALS: Yes no CVA tenderness BLADDER/KIDNEY EXAM: Yes no CVA tenderness Back/Pelvis: COMMON NORMALS: no CVA tenderness Extremity: GENERAL: Yes normal exam except as noted Neuro: COMMON NORMALS: patient oriented x3, CN's II-XII intact bilaterally, moves all extremities, no focal motor deficits and no sensory deficits noted SENSORIUM/ORIENTATION: Yes alert SENSORY EXAM: Yes extremities (intact) MOTOR EXAM: 5/5 motor strength present throughout Skin: COMMON NORMALS: no rashes or lesions noted GENERAL SKIN EXAM: no rashes or lesions noted and dry skin Course Vital Signs: Vital signs: Vital Signs Temperature 98.3 F 04/07/22 05:15 Pulse Rate 80 04/07/22 05:15 Respiratory Rate 17 04/07/22 05:15 Blood Pressure 149/75 04/07/22 05:15 Pulse Oximetry 95 04/07/22 05:15 Oxygen Delivery Me thod 04/07/22 05:14 MDM - Headache Lab Data Radiology Impressions Head CT 04/07/22 01:50 IMPRESSION: No acute intracranial abnormality. Discharge Plan Discharge Patient Disposition: Home Clinical Impression: Hypertension Headache Qualifiers: Headache type: unspecified Headache chronicity pattern: unspecified pattern Intractability: not intractable Qualified Code(s): R51.9 - Headache, unspecified Condition: Stable Prescriptions: New Norvasc 5 mg tablet 5 mg PO DAILY Qty: 30 0RF No Action Spiriva with HandiHaler 18 mcg capsule, w/inhalation device 1 cap INHALATION DAILY 30 Days Qty: 60 3RF Rx Instructions: puncture 1 cap using device; one dose = 2 inhalations albuterol sulfate 2.5 mg /3 mL (0.083 %) solution for nebulization 2.5 mg INHALATION Q6H Qty: 90 0RF hydrochlorothiazide 25 mg tablet 25 mg PO DAILY PRN (DME) lancets [Comfort EZ Lancets] 28 gauge misc See Rx Instructions .ROUTE .MEDSUPPLY Qty: 100 2RF Rx Instructions: once daily (DME) blood sugar diagnostic [Contour Next Test Strips] Strip See Rx Instructions .ROUTE .MEDSUPPLY Qty: 100 0RF Rx Instructions: three times daily metformin 500 mg tablet extended release 24 hr 500 mg PO BID Qty: 60 4RF budesonide-formoterol [Symbicort] 160-4.5 mcg/actuation HFA aerosol inhaler 2 puff inhalation BID Qty: 10.2 3RF Januvia 100 mg tablet 100 mg PO DAILY Qty: 90 1RF Rx Instructions: 340B albuterol sulfate [ProAir HFA] 90 mcg/actuation HFA aerosol inhaler See Rx Instructions .ROUTE .COMPLEX Qty: 8.5 0RF Dose Instruction: 2 PUFF(S) EVERY 6 HOURS NEEDED FOR SHORTNESS OF BREATH/WHEEZING Rx Instructions: 2 PUFF(S) EVERY 6 HOURS NEEDED FOR SHORTNESS OF BREATH/WHEEZING Discharge Orders: Discharge ED (Routine); Ordered 04/07/22 Ordered By: Brittany Montes De Oca Referrals: Ann Pinon DO [Primary Care Provider] - 1-3 days Discharge Diet: Advance as tolerated Discharge Activity: Resume usual activity Patient Instructions: Acute Headache (ED), Hypertension (ED) Coding Level of Care Code ED Trademark Attorney for Chg Fwd Exam Comprehensive Documented by User: Brittany Montes De Oca MD 04/07/22 05:01 HPI - Headache General: Chief Complaint: Headache Stated Complaint: High Blood Pressure Time Seen by Provider: 04/07/22 00:14 [facility] PFSH: Medical History COPD (chronic obstructive pulmonary disease) Obstructive sleep apnea Reducible umbilical hernia Type 2 diabetes mellitus, without long-term current use of insulin Surgical History H/O tubal ligation Family History Father COPD (chronic obstructive pulmonary disease) Lung disease Mother CAD (coronary artery disease) Grandfather CAD (coronary artery disease) Cancer Skin cancer Brother Diabetes Sister Cancer Lung cancer Grandmother Lung disease Other Hypertension Denies family history of Clotting disorder Dementia Hyperlipidemia Psychiatric illness Chronic kidney disease (CKD) Suicide Anesthesia complication Bleeding disorder Stroke Social History Smoking and tobacco status: former smoker Quit status (tobacco): has quit using tobacco Year quit tobacco: 2012 - 1PPD x 35 years Former quit date comment: Started age 13years Second hand smoke exposure: No Alcohol intake: never Lives independently: Yes Household members: children Current occupational status: employed History of recent travel: No Current gender identity: Female Course Vital Signs: Vital signs: Vital Signs Temperature 98.3 F 04/07/22 05:15 Pulse Rate 80 04/07/22 05:15 Respiratory Rate 17 04/07/22 05:15 Blood Pressure 149/75 04/07/22 05:15 Pulse Oximetry 95 04/07/22 05:15 Oxygen Delivery Me thod 04/07/22 05:14 MDM - Headache Medical Decision Making Patient presents here with headache along with hypertension. Headaches much improved here head CT is normal we will place her on Norvasc for home she is to follow-up with PCP and return if worsening. Lab Data Radiology Impressions Head CT 04/07/22 01:50 IMPRESSION: No acute intracranial abnormality. Discharge Plan Discharge Patient Disposition: Home Clinical Impression: Hypertension Headache Qualifiers: Headache type: unspecified Headache chronicity pattern: unspecified pattern Intractability: not intractable Qualified Code(s): R51.9 - Headache, unspecified Condition: Stable Prescriptions: New Norvasc 5 mg tablet 5 mg PO DAILY Qty: 30 0RF No Action Spiriva with HandiHaler 18 mcg capsule, w/inhalation device 1 cap INHALATION DAILY 30 Days Qty: 60 3RF Rx Instructions: puncture 1 cap using device; one dose = 2 inhalations albuterol sulfate 2.5 mg /3 mL (0.083 %) solution for nebulization 2.5 mg INHALATION Q6H Qty: 90 0RF hydrochlorothiazide 25 mg tablet 25 mg PO DAILY PRN (DME) lancets [Comfort EZ Lancets] 28 gauge misc See Rx Instructions .ROUTE .MEDSUPPLY Qty: 100 2RF Rx Instructions: once daily (DME) blood sugar diagnostic [Contour Next Test Strips] Strip See Rx Instructions .ROUTE .MEDSUPPLY Qty: 100 0RF Rx Instructions: three times daily metformin 500 mg tablet extended release 24 hr 500 mg PO BID Qty: 60 4RF budesonide-formoterol [Symbicort] 160-4.5 mcg/actuation HFA aerosol inhaler 2 puff inhalation BID Qty: 10.2 3RF Januvia 100 mg tablet 100 mg PO DAILY Qty: 90 1RF Rx Instructions: 340B albuterol sulfate [ProAir HFA] 90 mcg/actuation HFA aerosol inhaler See Rx Instructions .ROUTE .COMPLEX Qty: 8.5 0RF Dose Instruction: 2 PUFF(S) EVERY 6 HOURS NEEDED FOR SHORTNESS OF BREATH/WHEEZING Rx Instructions: 2 PUFF(S) EVERY 6 HOURS NEEDED FOR SHORTNESS OF BREATH/WHEEZING Discharge Orders: Discharge ED (Routine); Ordered 04/07/22 Ordered By: Brittany Montes De Oca Referrals: Ann Pinon DO [Primary Care Provider] - 1-3 days Discharge Diet: Advance as tolerated Discharge Activity: Resume usual activity Patient Instructions: Acute Headache (ED), Hypertension (ED) Coding Level of Care Code ED Trademark Attorney for Connie Fwd Exam Comprehensive
[2022-04-07 01:53] VITALS: BP 157/81; PULSE 80; RESP 17; TEMP 36.8; O2SAT 94
[2022-04-07] MEDS: acetaminophen 500 mg Tablet 1000 MG PO (01:58)
[2022-04-07 03:00] VITALS: BP 151/78; PULSE 75; RESP 17; TEMP 36.8; O2SAT 96
[2022-04-07 05:14] VITALS: BP 149/75; PULSE 80; RESP 17; TEMP 36.8; O2SAT 95
[2022-04-07 05:15] VITALS: BP 149/75; PULSE 80; RESP 17; TEMP 36.8; O2SAT 95
== END 2022-04-07 05:18 | disposition home or self-care (01) ==
PROVIDERS: Emergency Provider Emergency Medicine; PCP Family Medicine
DX: R51.9 Headache, unspecified (principal); I10 Essential (primary) hypertension; Z79.84 Long term (current) use of oral hypoglycemic drugs; J44.9 Chronic obstructive pulmonary disease, unspecified; E11.9 Type 2 diabetes mellitus without complications; Z87.891 Personal history of nicotine dependence
CPT/HCPCS: 70450; 99284

== ENCOUNTER 2022-04-26 08:57 | Oncology outpatient (recurring) (ONCR) | payer SELFPAY | END 2022-05-04 23:59 | disposition home or self-care (01) | PROVIDERS: PCP Family Medicine; Visit Provider Internal Medicine Medical Oncology | DX: C18.7 Malignant neoplasm of sigmoid colon | CPT/HCPCS: 80503 ==

== ENCOUNTER → 2022-04-28 14:09 | Outpatient (BNVA) | payer SELFPAY | PROVIDERS: PCP Family Medicine; Visit Provider Family Medicine | DX: E11.9 Type 2 diabetes mellitus without complications (principal) | CPT/HCPCS: 80053; 83036 ==

== ENCOUNTER 2022-06-01 09:00 | Oncology outpatient (recurring) (ONCR) | payer SELFPAY ==
[2022-05-25 08:25] LABS: Basophils # 0.1 10^3/uL (0.0-0.1); Basophils % 0.7 %; Eosinophils # 0.8 10^3/uL (0.0-0.8); Eosinophils % 10.5 %; Hematocrit 44.9 % (37.0-47.0); Hemoglobin 14.6 g/dL (11.5-15.3); Lymphocytes # 1.2 10^3/uL (0.8-4.8); Lymphocytes % 15.8 %; Mean Corpuscular HGB Conc 32.5 g/dL (30.0-36.0); Mean Corpuscular Hemoglobin 29.2 pg (28.0-34.0); Mean Corpuscular Volume 89.8 fl (81-99); Mean Platelet Volume 10.1 fL (7.4-10.4); Monocytes # 0.6 10^3/uL (0.2-0.9); Monocytes % 8.2 %; Neutrophils # 4.75 10^3/uL (1.8-7.7); Neutrophils % 64.5 %; Nucleated Red Blood Cells % 0 %; Platelet Count 220 10^3/cmm (130-400); Red Cell Distribution Width 14.5 % (12.1-15.1); White Blood Count 7.4 10^3/uL (4.0-10.0)
[2022-05-25 08:46] LABS: Alanine Aminotransferase 49 U/L (0-33); Albumin Level 3.7 g/dL (3.5-5.2); Alkaline Phosphatase 91 U/L (35-105); Anion Gap 15.6 (5-19); Aspartate Amino Transferase 41 U/L (0-32); Blood Urea Nitrogen 10 mg/dL (6-20); Calcium 9.3 mg/dL (8.5-10.5); Carbon Dioxide 30 mmol/L (22-29); Chloride 97 mmol/L (98-107); Globulin 3.5 g/dL (1.3-4.6); Glomerular Filtration Rate 86.2 mL/min (90-130); Glucose 138 mg/dL (65-115); Osmolality Calculated 287 mOsm/kg (285-295); Potassium 4.6 mmol/L (3.5-5.1); Sodium 138 mmol/L (136-145); Total Bilirubin 0.4 mg/dL (0.15-1.2); Total Protein 7.2 g/dL (6.6-8.7)
[2022-05-25] MEDS: dextrose 5% 250 ML 100 ML IV (10:07)
[2022-05-25] MEDS: palonosetron 0.25 mg/5 mL SDV IVP (10:12)
[2022-05-25] MEDS: bevacizumab-awwb 400 MG, bevacizumab-awwb 160 MG in sodium chloride 0.9% (100 ml) 100 ML 45 MG IV (10:34)
[2022-05-25] MEDS: oxaliplatin 180 MG in dextrose 5% 250 ML 71.5 MG IV (12:13)
[2022-05-25] MEDS: leucovorin 860 MG in dextrose 5% 250 ML 84 MG IV (12:13)
[2022-05-25 12:26] LABS: Add Urine Culture? Yes; Bacteria Urine 2+ /hpf; Bilirubin Urine Neg (Negative); Blood Urine Neg (Negative); Glucose Urine UA Norm (Normal); Ketones Urine Negative (Negative); Leukocyte Esterase Urine Negative (Negative); Nitrate Urine Negative (Negative); Protein Urine Neg (Negative); RBC Urine 0-4 /hpf (0-2); Specific Gravity, Urine 1.005 (1.005-1.030); Squamous Epithelial Cell Urine 0-4 /hpf (0-5); Urine Appearance Clear (CLEAR); Urine Color Yellow (Yellow); Urobilinogen Urine Norm (Negative); WBC Urine 0-4 /hpf (0-5); pH Urine 6.5 (5-7)
[2022-05-25] MEDS: fluorouraciL 50 mg/ml MDV 100 mL 850 MG IVP (15:39)
[2022-05-25] MEDS: fluorouraciL 5,150 MG, elastomeric pump 1 PUMP in sodium chloride 0.9% (100 ml) 127 ML IV (15:40)
[2022-05-25 15:49] VITALS: BP 138/85; PULSE 75; RESP 18; TEMP 36.4; O2SAT 93
[2022-06-01] MEDS: alteplase 1 mg/mL SDV 2 mL 2 MG INTRACATH (09:20)
[2022-06-01 10:00] LABS: Basophils % 0.4 %; Eosinophils # 0.2 10^3/uL (0.0-0.8); Eosinophils % 3.5 %; Hematocrit 42.4 % (37.0-47.0); Hemoglobin 13.8 g/dL (11.5-15.3); Lymphocytes # 0.9 10^3/uL (0.8-4.8); Mean Corpuscular HGB Conc 32.5 g/dL (30.0-36.0); Mean Corpuscular Hemoglobin 29.2 pg (28.0-34.0); Mean Corpuscular Volume 89.6 fl (81-99); Mean Platelet Volume 10.3 fL (7.4-10.4); Monocytes # 0.2 10^3/uL (0.2-0.9); Monocytes % 3.7 %; Neutrophils # 3.57 10^3/uL (1.8-7.7); Nucleated Red Blood Cells % 0 %; Platelet Count 155 10^3/cmm (130-400); Red Blood Count 4.73 10^6/uL (4.1-5.3); White Blood Count 4.8 10^3/uL (4.0-10.0)
[2022-06-01 10:37] LABS: Alanine Aminotransferase 46 U/L (0-33); Albumin Level 3.3 g/dL (3.5-5.2); Alkaline Phosphatase 84 U/L (35-105); Anion Gap 12.2 (5-19); Aspartate Amino Transferase 36 U/L (0-32); Blood Urea Nitrogen 10 mg/dL (6-20); Calcium 8.9 mg/dL (8.5-10.5); Carbon Dioxide 30 mmol/L (22-29); Chloride 97 mmol/L (98-107); Globulin 3.5 g/dL (1.3-4.6); Glucose 183 mg/dL (65-115); Osmolality Calculated 284 mOsm/kg (285-295); Potassium 4.2 mmol/L (3.5-5.1); Sodium 135 mmol/L (136-145); Total Bilirubin 0.3 mg/dL (0.15-1.2); Total Protein 6.8 g/dL (6.6-8.7)
== END 2022-06-03 23:59 | disposition home or self-care (01) ==
PROVIDERS: Nurse Practitioner; PCP Family Medicine; Visit Provider Internal Medicine Medical Oncology
DX: C18.7 Malignant neoplasm of sigmoid colon; C78.7 Secondary malignant neoplasm of liver and intrahepatic bile duct; K12.31 Oral mucositis (ulcerative) due to antineoplastic therapy
CPT/HCPCS: 36415; 36591; 36593; 80053; 81001; 85025; 87086; 96367; 96368; 96375; 96413; 96415; 96416; 96417; 96523; J0640; J1100; J2469; J2997; J9190; J9263

== ENCOUNTER 2022-06-22 01:53 | Emergency (ER) | payer SELFPAY ==
[2022-06-22 02:02] VITALS: BP 170/95; PULSE 87; RESP 16; TEMP 36.6; O2SAT 91; BMI 37.8
--- NOTE | 2022-06-22 02:07 | CTR_ITS ---
PROCEDURE INFORMATION: Exam: CT Abdomen And Pelvis Without Contrast Exam date and time: 06/22/2022 2:16 AM Age: 56 years old Clinical indication: Abdominal pain; Localized; Prior surgery; Surgery type: Tubal ligation; Patient HX: C/O lower abd pain. History of metastatic colon cancer. TECHNIQUE: Imaging protocol: Computed tomography of the abdomen and pelvis without contrast. Radiation optimization: All CT scans at this facility use at least one of these dose optimization techniques: automated exposure control; mA and/or kV adjustment per patient size (includes targeted exams where dose is matched to clinical indication); or iterative reconstruction. COMPARISON: CT abdomen pelvis w con* [id number] 11/28/2021 8:49 AM RADIATION DOSE METRICS: Total DLP (mGy-cm): 1130.82 FINDINGS: Lungs: Minimal streaky bilateral atelectasis noted. No consolidation. No discrete lung nodule or mass identified. Liver: Interval increase in size and number of rim enhancing hepatic masses, the largest in segment Jose Alfredo, measuring approximately 7.0 cm (previously 4.9 cm). Gallbladder and bile ducts: Normal. No calcified stones. No ductal dilation. Pancreas: Normal. No ductal dilation. Spleen: Normal. No splenomegaly. Adrenal glands: Normal. No mass. Kidneys and ureters: Normal. No hydronephrosis. Stomach and bowel: See Intraperitoneal space finding. Appendix: No evidence of appendicitis. Intraperitoneal space: Interval decrease in size of ill-defined mesenteric mass in the mid pelvis, measuring approximately 4.1 x 2.0 x 3.4 cm. This mass is seen abutting the adjacent distal colon wall, which appears thickened, resulting in mild luminal narrowing, and possibly partial bowel obstruction. No discrete fluid collection or free air identified. Vasculature: Mild diffuse atherosclerotic disease is present. Lymph nodes: Unremarkable. No enlarged lymph nodes. Urinary bladder: Unremarkable as visualized. Reproductive: Unremarkable as visualized. Bones/joints: Old healed fracture deformities noted in the left ribcage. Soft tissues: A small fat containing umbilical hernia is present. CT/CT abdomen pelvis wo con [id number] IMPRESSION: 1. Interval increase in size of central pelvic mesenteric mass, involving the adjacent distal sigmoid colon wall, resulting in luminal narrowing and possible partial bowel obstruction. 2. Interval increase in size and number of hepatic metastatic lesions.
--- NOTE | 2022-06-22 02:07 | W.ED.ABDPA2 ---
HPI - Abdominal Pain General: Chief Complaint: Abdominal Pain Stated Complaint: ABD Pains Time Seen by Provider: 06/22/22 02:09 Source: patient Mode of arrival: ambulatory Limitations: no limitations History of Present Illness: 56-year-old female who has a history of colon cancer she is currently on chemotherapy states over the last 2 days she has been having worsening left lower quadrant abdominal pain states pain is sharp in nature rates it a 7 out of 10 denies any vomiting or diarrhea denies any fevers. Denies any dysuria. Associated Symptoms: Denies chills, dysuria and fever(s) Review of Systems Const: Denies: fever(s), chills, body aches or change in appetite Eyes: Denies: blurry vision or eye discomfort ENMT: Denies: throat pain or dental pain Card: Denies: chest pain Resp: Denies: dyspnea GI: Reports: abdominal pain : Denies: dysuria Musc: Denies: neck pain or back pain Skin/Breast: Denies: rash Neuro: Denies: headache(s) Psych: Denies: depression José Luis/Lymph: Denies: easy bruising All/Imm: Denies: urticaria PFSH ED PFSH: Medical History Colon cancer COPD (chronic obstructive pulmonary disease) GERD (gastroesophageal reflux disease) Obstructive sleep apnea Reducible umbilical hernia Type 2 diabetes mellitus, without long-term current use of insulin Surgical History H/O tubal ligation Port-A-Cath in place Family History Father COPD (chronic obstructive pulmonary disease) Lung disease Mother CAD (coronary artery disease) Grandfather CAD (coronary artery disease) Cancer Skin cancer Brother Diabetes Sister Cancer Lung cancer Grandmother Lung disease Other Hypertension Denies family history of Clotting disorder Dementia Hyperlipidemia Psychiatric illness Chronic kidney disease (CKD) Suicide Anesthesia complication Bleeding disorder Stroke Social History Smoking and tobacco status: former smoker Quit status (tobacco): has quit using tobacco Year quit tobacco: 2012 - 1PPD x 35 years Former quit date comment: Started age 13years Second hand smoke exposure: No Alcohol intake: never Lives independently: Yes Household members: children Current occupational status: employed History of recent travel: No Current gender identity: Female Physical Exam Const: COMMON NORMALS: no acute distress, patient oriented x3 and healthy appearing HENMT: COMMON NORMALS: normocephalic and atraumatic HEAD & SCALP: normocephalic and atraumatic Eye: COMMON NORMALS: Equal, round and reactive pupils present and EOMs intact bilaterally PUPIL: Yes Equal, round and reactive pupils present Neck/C-Spine: COMMON NORMALS: full ROM and supple Chest: COMMONS NORMALS: normal inspection of the chest and normal palpation of entire chest wall Resp: COMMON NORMALS: normal respiratory effort, No retractions, No use of accessory muscles and clear to auscultation bilaterally AUSCULTATION: clear to auscultation bilaterally Cardio: COMMON NORMALS: regular rate, regular rhythm and No murmurs present (Cardio) RATE: regular rate RHYTHM: regular rhythm GI: COMMON NORMALS: Normal to inspection, nondistended, normoactive bowel sounds present, Soft to palpation and no masses PALPATION: Yes Soft to palpation and Yes Tenderness to palpation present (GI) Details: LLQ Extremity: COMMON NORMALS: normal to inspection and full ROM Neuro: COMMON NORMALS: patient oriented x3, moves all extremities and no focal motor deficits Psych: COMMON NORMALS: mental status grossly normal, Normal thought process present and cooperative THOUGHT PROCESS: Normal thought process present Skin: COMMON NORMALS: no rashes or lesions noted and no wounds GENERAL SKIN EXAM: no rashes or lesions noted Course Vital Signs: Vital signs: Vital Signs Temperature 97.9 F 06/22/22 02:02 Pulse Rate 86 06/22/22 04:18 Respiratory Rate 18 06/22/22 04:18 Blood Pressure 122/76 06/22/22 04:18 Pulse Oximetry 94 06/22/22 04:18 Oxygen Delivery Me thod 06/22/22 04:18 Oxygen Flow Rate 2 06/22/22 04:18 MDM - Abdominal Pain Medical Decision Making Patient presents here with abdominal pain likely from her cancer CT scan showed no acute findings she has a slight UTI she has follow-up with her oncologist tomorrow we will prescribe her pain meds she is return if worsening. Lab Data : 06/22/22 02:09 06/22/22 02:09 Labs/Radiology: Radiology Impressions Abdomen/Pelvis CT 06/22/22 02:07 IMPRESSION: 1. Interval increase in size of central pelvic mesenteric mass, involving the adjacent distal sigmoid colon wall, resulting in luminal narrowing and possible partial bowel obstruction. 2. Interval increase in size and number of hepatic metastatic lesions. Laboratory Results WBC 8.5 10^3/uL (4.0-10.0) 06/22/22 02:09 RBC 4.99 10^6/uL (4.1-5.3) 06/22/22 02:09 Hgb 14.9 g/dL (11.5-15.3) 06/22/22 02:09 Hct 44.6 % (37.0-47.0) 06/22/22 02:09 MCV 89.4 fl (81-99) 06/22/22 02:09 MCH 29.9 pg (28.0-34.0) 06/22/22 02:09 MCHC 33.4 g/dL (30.0-36.0) 06/22/22 02:09 RDW 14.2 % (12.1-15.1) 06/22/22 02:09 Plt Count 117 10^3/cmm (130-400) L 06/22/22 02:09 MPV 10.9 fL (7.4-10.4) H 06/22/22 02:09 Neut % (Auto) 82.9 % 06/22/22 02:09 Lymph % (Auto) 10.6 % 06/22/22 02:09 [place] % (Auto) 4.6 % 06/22/22 02:09 Eos % (Auto) 0.6 % 06/22/22 02:09 Baso % (Auto) 0.8 % 06/22/22 02:09 Neut # (Auto) 7.01 10^3/uL (1.8-7.7) 06/22/22 02:09 Lymph # (Auto) 0.9 10^3/uL (0.8-4.8) 06/22/22 02:09 [place] # (Auto) 0.4 10^3/uL (0.2-0.9) 06/22/22 02:09 Eos # (Auto) 0.1 10^3/uL (0.0-0.8) 06/22/22 02:09 Baso # (Auto) 0.1 10^3/uL (0.0-0.1) 06/22/22 02:09 Nucleated RBC % (auto) 0 % 06/22/22 02:09 Nucleated RBCs # 0.0 /100WBC 06/22/22 02:09 Sodium 135 mmol/L (136-145) L 06/22/22 02:09 Potassium 4.2 mmol/L (3.5-5.1) 06/22/22 02:09 Chloride 98 mmol/L (98-107) 06/22/22 02:09 Carbon Dioxide 28 mmol/L (22-29) 06/22/22 02:09 Anion Gap 13.2 (5-19) 06/22/22 02:09 BUN 12 mg/dL (6-20) 06/22/22 02:09 Creatinine 0.7 mg/dL (0.5-0.9) 06/22/22 02:09 GFR Calculation 86.2 mL/min (90-130) L 06/22/22 02:09 Glucose 167 mg/dL (65-115) H 06/22/22 02:09 Calculated Osmolality 284 mOsm/kg (285-295) L 06/22/22 02:09 Calcium 9.2 mg/dL (8.5-10.5) 06/22/22 02:09 Total Bilirubin 0.5 mg/dL (0.15-1.2) 06/22/22 02:09 AST 38 U/L (0-32) H 06/22/22 02:09 ALT 76 U/L (0-33) H 06/22/22 02:09 Alkaline Phosphatase 92 U/L (35-105) 06/22/22 02:09 Total Protein 6.9 g/dL (6.6-8.7) 06/22/22 02:09 Albumin 3.6 g/dL (3.5-5.2) 06/22/22 02:09 Globulin 3.3 g/dL (1.3-4.6) 06/22/22 02:09 Lipase 185 U/L (13-60) H 06/22/22 02:09 Urine Color Dark yellow (Yellow) 06/22/22 02:09 Urine Appearance Clear (CLEAR) 06/22/22 02:09 Urine pH 5 (5-7) 06/22/22 02:09 Ur Specific [place] 1.020 (1.005-1.030) 06/22/22 02:09 Urine Protein 1+ (Negative) H 06/22/22 02:09 Urine Glucose (UA) Norm (Normal) 06/22/22 02:09 Urine Ketones 1+ (Negative) H 06/22/22 02:09 Urine Blood Neg (Negative) 06/22/22 02:09 Urine Nitrate Negative (Negative) 06/22/22 02:09 Urine Bilirubin 1+ (Negative) H 06/22/22 02:09 Urine Urobilinogen 4 mg/dL (Negative) H 06/22/22 02:09 Ur Leukocyte Esterase 1+ (Negative) H 06/22/22 02:09 Urine RBC 0-4 /hpf (0-2) H 06/22/22 02:09 Urine WBC 5-10 /hpf (0-5) H 06/22/22 02:09 Ur Squamous Epith Cells 5-10 /hpf (0-5) H 06/22/22 02:09 Amorphous Sediment Not Reportable 06/22/22 02:09 Urine Bacteria 3+ /hpf (NONE) H 06/22/22 02:09 Discharge Plan Discharge Patient Disposition: Home Clinical Impression: Abdominal pain, Acute cystitis Condition: Stable Prescriptions: New hydrocodone-acetaminophen 5-325 mg tablet 1 tab PO Q6H PRN (Reason: pain) Qty: 14 0RF cephalexin 500 mg capsule 500 mg PO TID 7 Days Qty: 21 0RF No Action Spiriva with HandiHaler 18 mcg capsule, w/inhalation device 1 cap INHALATION DAILY 30 Days Qty: 60 3RF Rx Instructions: puncture 1 cap using device; one dose = 2 inhalations albuterol sulfate 2.5 mg /3 mL (0.083 %) solution for nebulization 2.5 mg INHALATION Q6H Qty: 90 0RF hydrochlorothiazide 25 mg tablet 25 mg PO DAILY Qty: 30 1RF Compazine 10 mg tablet 10 mg PO Q4H PRN (Reason: Mild Nausea) Qty: 30 3RF famciclovir 500 mg tablet 500 mg PO Q8H PRN lorazepam 1 mg tablet 0.5 - 1 mg PO Q6H PRN (Reason: Severe Nausea) Qty: 30 3RF (DME) lancets [Comfort EZ Lancets] 28 gauge misc See Rx Instructions .ROUTE .MEDSUPPLY Qty: 100 2RF Rx Instructions: once daily (DME) blood sugar diagnostic [Contour Next Test Strips] Strip See Rx Instructions .ROUTE .MEDSUPPLY Qty: 100 0RF Rx Instructions: three times daily budesonide-formoterol [Symbicort] 160-4.5 mcg/actuation HFA aerosol inhaler 2 puff inhalation BID Qty: 10.2 3RF Januvia 100 mg tablet 100 mg PO DAILY Qty: 90 1RF Rx Instructions: 340B albuterol sulfate [ProAir HFA] 90 mcg/actuation HFA aerosol inhaler See Rx Instructions .ROUTE .COMPLEX Qty: 8.5 0RF Dose Instruction: 2 PUFF(S) EVERY 6 HOURS NEEDED FOR SHORTNESS OF BREATH/WHEEZING Rx Instructions: 2 PUFF(S) EVERY 6 HOURS NEEDED FOR SHORTNESS OF BREATH/WHEEZING Norvasc 5 mg tablet 5 mg PO DAILY Qty: 30 1RF Discharge Orders: Discharge ED (Routine); Ordered 06/22/22 Ordered By: Brittany Montes De Oca Referrals: Ann Pinon DO [Primary Care Provider] - Discharge Diet: Advance as tolerated Discharge Activity: Resume usual activity Patient Instructions: Urinary Tract Infection in Women (ED), Abdominal Pain (ED) Coding Level of Care Code ED Blown Film Extrusion Operator for Radhag Fwd Exam Comprehensive
[2022-06-22 02:11] VITALS: BP 170/95; PULSE 92; RESP 16; O2SAT 92; O2SAT 95
[2022-06-22] MEDS: sodium chloride 0.9% 1,000 ML 999 ML IV (02:11)
[2022-06-22] MEDS: ondansetron 2 mg/ML SDV 2 mL 4 MG IVP (02:11)
[2022-06-22] MEDS: HYDROmorphone 1 mg/mL INJ 1 mL 0.5 MG IVP (02:11)
[2022-06-22 02:15] LABS: Basophils # 0.1 10^3/uL (0.0-0.1); Basophils % 0.8 %; Eosinophils # 0.1 10^3/uL (0.0-0.8); Eosinophils % 0.6 %; Hematocrit 44.6 % (37.0-47.0); Hemoglobin 14.9 g/dL (11.5-15.3); Lymphocytes # 0.9 10^3/uL (0.8-4.8); Lymphocytes % 10.6 %; Mean Corpuscular HGB Conc 33.4 g/dL (30.0-36.0); Mean Corpuscular Hemoglobin 29.9 pg (28.0-34.0); Mean Corpuscular Volume 89.4 fl (81-99); Mean Platelet Volume 10.9 fL (7.4-10.4); Monocytes # 0.4 10^3/uL (0.2-0.9); Monocytes % 4.6 %; Neutrophils # 7.01 10^3/uL (1.8-7.7); Neutrophils % 82.9 %; Nucleated Red Blood Cells % 0 %; Platelet Count 117 10^3/cmm (130-400); Red Blood Count 4.99 10^6/uL (4.1-5.3); Red Cell Distribution Width 14.2 % (12.1-15.1); White Blood Count 8.5 10^3/uL (4.0-10.0)
[2022-06-22 02:34] VITALS: BP 141/74; PULSE 80; RESP 16; O2SAT 94
[2022-06-22 02:35] LABS: Alanine Aminotransferase 76 U/L (0-33); Albumin Level 3.6 g/dL (3.5-5.2); Alkaline Phosphatase 92 U/L (35-105); Anion Gap 13.2 (5-19); Aspartate Amino Transferase 38 U/L (0-32); Blood Urea Nitrogen 12 mg/dL (6-20); Calcium 9.2 mg/dL (8.5-10.5); Carbon Dioxide 28 mmol/L (22-29); Chloride 98 mmol/L (98-107); Globulin 3.3 g/dL (1.3-4.6); Glomerular Filtration Rate 86.2 mL/min (90-130); Glucose 167 mg/dL (65-115); Lipase 185 U/L (13-60); Osmolality Calculated 284 mOsm/kg (285-295); Potassium 4.2 mmol/L (3.5-5.1); Sodium 135 mmol/L (136-145); Total Bilirubin 0.5 mg/dL (0.15-1.2); Total Protein 6.9 g/dL (6.6-8.7)
[2022-06-22 03:14] LABS: Glucose Urine UA Norm (Normal); Ketones Urine 1+ (Negative); Protein Urine 1+ (Negative); Urine Appearance Clear (CLEAR); Urine Color Dark Yellow (Yellow); pH Urine 5 (5-7)
[2022-06-22 03:15] LABS: Add Urine Microscopic? YES; Bilirubin Urine 1+ (Negative); Blood Urine Neg (Negative); Leukocyte Esterase Urine 1+ (Negative); Nitrate Urine Negative (Negative); Urobilinogen Urine 4 mg/dL (Negative)
[2022-06-22 03:16] LABS: Add Urine Culture? Yes; Bacteria Urine 3+ /hpf; RBC Urine 0-4 /hpf (0-2)
[2022-06-22 04:18] VITALS: BP 122/76; PULSE 86; RESP 18; O2SAT 94
== END 2022-06-22 04:46 | disposition home or self-care (01) ==
PROVIDERS: Emergency Provider Emergency Medicine; PCP Family Medicine
DX: N30.00 Acute cystitis without hematuria (principal); Z87.891 Personal history of nicotine dependence; Z85.038 Personal history of other malignant neoplasm of large intestine; J44.9 Chronic obstructive pulmonary disease, unspecified; E11.9 Type 2 diabetes mellitus without complications
CPT/HCPCS: 74176; 80053; 81001; 83690; 85025; 96374; 96375; 99285; J1170; J2405; J7030

== ENCOUNTER 2022-07-01 10:00 | Oncology outpatient (recurring) (ONCR) | payer SELFPAY ==
[2022-06-08 08:39] LABS: Basophils % 1.5 %; Eosinophils # 0.1 10^3/uL (0.0-0.8); Hematocrit 42.7 % (37.0-47.0); Hemoglobin 13.7 g/dL (11.5-15.3); Lymphocytes # 0.7 10^3/uL (0.8-4.8); Lymphocytes % 33.3 %; Mean Corpuscular HGB Conc 32.1 g/dL (30.0-36.0); Mean Corpuscular Volume 90.5 fl (81-99); Mean Platelet Volume 10.6 fL (7.4-10.4); Monocytes # 0.5 10^3/uL (0.2-0.9); Monocytes % 23.4 %; Neutrophils % 34.8 %; Nucleated Red Blood Cells % 0 %; Platelet Count 176 10^3/cmm (130-400); Red Blood Count 4.72 10^6/uL (4.1-5.3); Red Cell Distribution Width 14.3 % (12.1-15.1)
[2022-06-08 08:55] LABS: Alanine Aminotransferase 34 U/L (0-33); Albumin Level 3.5 g/dL (3.5-5.2); Alkaline Phosphatase 96 U/L (35-105); Anion Gap 13.5 (5-19); Aspartate Amino Transferase 29 U/L (0-32); Blood Urea Nitrogen 11 mg/dL (6-20); Calcium 8.6 mg/dL (8.5-10.5); Carbon Dioxide 31 mmol/L (22-29); Chloride 97 mmol/L (98-107); Glomerular Filtration Rate 86.2 mL/min (90-130); Glucose 163 mg/dL (65-115); Osmolality Calculated 287 mOsm/kg (285-295); Potassium 4.5 mmol/L (3.5-5.1); Sodium 137 mmol/L (136-145); Total Bilirubin 0.5 mg/dL (0.15-1.2); Total Protein 6.5 g/dL (6.6-8.7)
[2022-06-08 11:50] LABS: Carcinoembryonic Antigen 863.6 ng/mL (0.0-4.7)
[2022-06-15 08:47] LABS: Basophils # 0.1 10^3/uL (0.0-0.1); Basophils % 1.4 %; Eosinophils # 0.1 10^3/uL (0.0-0.8); Eosinophils % 1.6 %; Hematocrit 43.7 % (37.0-47.0); Hemoglobin 14.6 g/dL (11.5-15.3); Lymphocytes # 1.4 10^3/uL (0.8-4.8); Lymphocytes % 27.1 %; Mean Corpuscular HGB Conc 33.4 g/dL (30.0-36.0); Mean Corpuscular Hemoglobin 30.1 pg (28.0-34.0); Mean Corpuscular Volume 90.1 fl (81-99); Mean Platelet Volume 10.3 fL (7.4-10.4); Monocytes # 0.8 10^3/uL (0.2-0.9); Monocytes % 15.9 %; Neutrophils # 2.62 10^3/uL (1.8-7.7); Neutrophils % 52.2 %; Nucleated Red Blood Cells % 0 %; Platelet Count 299 10^3/cmm (130-400); Red Blood Count 4.85 10^6/uL (4.1-5.3); Red Cell Distribution Width 14.7 % (12.1-15.1)
[2022-06-15] MEDS: palonosetron 0.25 mg/5 mL SDV IVP (10:20)
[2022-06-15] MEDS: dextrose 5% 250 ML 75 ML IV (10:20)
[2022-06-15] MEDS: bevacizumab-awwb 400 MG, bevacizumab-awwb 160 MG in sodium chloride 0.9% (100 ml) 100 ML 300 MG IV (10:41)
[2022-06-15] MEDS: leucovorin 860 MG in dextrose 5% 250 ML 84 MG IV (11:21)
[2022-06-15] MEDS: oxaliplatin 160 MG in dextrose 5% 250 ML 70.5 MG IV (11:21)
[2022-06-15] MEDS: fluorouraciL 5,150 MG, elastomeric pump 1 PUMP in sodium chloride 0.9% (100 ml) 127 ML IV (14:52)
[2022-06-15 14:55] VITALS: BP 126/82; PULSE 78; RESP 16; TEMP 36.3; O2SAT 95
[2022-06-29 08:25] LABS: Basophils % 0.4 %; Eosinophils # 0.2 10^3/uL (0.0-0.8); Eosinophils % 4.4 %; Hematocrit 42.5 % (37.0-47.0); Hemoglobin 13.6 g/dL (11.5-15.3); Lymphocytes # 0.9 10^3/uL (0.8-4.8); Lymphocytes % 19.8 %; Mean Corpuscular Hemoglobin 29.5 pg (28.0-34.0); Mean Corpuscular Volume 92.2 fl (81-99); Mean Platelet Volume 11.6 fL (7.4-10.4); Monocytes # 0.6 10^3/uL (0.2-0.9); Monocytes % 13.2 %; Neutrophils # 2.81 10^3/uL (1.8-7.7); Neutrophils % 61.8 %; Nucleated Red Blood Cells % 0 %; Platelet Count 141 10^3/cmm (130-400); Red Blood Count 4.61 10^6/uL (4.1-5.3); Red Cell Distribution Width 15.2 % (12.1-15.1); White Blood Count 4.6 10^3/uL (4.0-10.0)
[2022-06-29 08:45] LABS: Alanine Aminotransferase 68 U/L (0-33); Albumin Level 3.4 g/dL (3.5-5.2); Alkaline Phosphatase 87 U/L (35-105); Anion Gap 12.6 (5-19); Aspartate Amino Transferase 46 U/L (0-32); Blood Urea Nitrogen 9 mg/dL (6-20); Carbon Dioxide 29 mmol/L (22-29); Chloride 101 mmol/L (98-107); Globulin 2.8 g/dL (1.3-4.6); Glomerular Filtration Rate 86.2 mL/min (90-130); Glucose 183 mg/dL (65-115); Osmolality Calculated 289 mOsm/kg (285-295); Potassium 4.6 mmol/L (3.5-5.1); Sodium 138 mmol/L (136-145); Total Bilirubin 0.2 mg/dL (0.15-1.2); Total Protein 6.2 g/dL (6.6-8.7)
[2022-06-29 09:58] LABS: Carcinoembryonic Antigen 292.4 ng/mL (0.0-4.7)
[2022-06-29] MEDS: palonosetron 0.25 mg/5 mL SDV IVP (10:26)
[2022-06-29] MEDS: oxaliplatin 160 MG in dextrose 5% 250 ML 70.5 MG IV (11:29)
[2022-06-29] MEDS: leucovorin 860 MG in dextrose 5% 250 ML 62.5 MG IV (11:30)
[2022-06-29] MEDS: dextrose 5% 250 ML 75 ML IV (11:37)
[2022-06-29] MEDS: fluorouraciL 5,150 MG, elastomeric pump 1 PUMP in sodium chloride 0.9% (100 ml) 127 ML IV (15:13)
[2022-06-29 15:48] VITALS: BP 152/78; PULSE 86; RESP 18; TEMP 36.3; O2SAT 97
[2022-07-01] MEDS: pegfilgrastim-bmez 6 mg/0.6 mL SYR SUBCUT (10:15)
[2022-07-01 10:17] VITALS: BP 114/76; PULSE 76; RESP 18; TEMP 36.1; O2SAT 96
== END 2022-07-04 23:59 | disposition home or self-care (01) ==
PROVIDERS: PCP Family Medicine; Visit Provider Internal Medicine Medical Oncology
DX: Z45.2 Encounter for adjustment and management of vascular access device (principal); Z79.899 Other long term (current) drug therapy
CPT/HCPCS: 36591; 80053; 82378; 85025; 96367; 96368; 96372; 96375; 96413; 96415; 96416; 96417; 96523; J0640; J1100; J2469; J7060; J9035; J9190; J9263; Q5120

== ENCOUNTER 2022-07-21 17:57 | Emergency (ER) | payer SELFPAY ==
--- NOTE | 2022-07-21 18:03 | XRR_ITS ---
PROCEDURE INFORMATION: Exam: XR Abdomen Exam date and time: 07/21/2022 7:24 PM Age: 56 years old Clinical indication: Constipation TECHNIQUE: Imaging protocol: Radiologic exam of the abdomen. Views: Frontal supine view of the abdomen. 1 View. COMPARISON: CT abdomen pelvis con [id number] 06/22/2022 2:16 AM FINDINGS: Gastrointestinal tract: No evidence for bowel obstruction or perforation. Intraperitoneal space: No free intraperitoneal air. Organs: No organomegaly. Bones/joints: Unremarkable. XR/XR KUB [id number] IMPRESSION: No evidence for bowel obstruction or perforation.
[2022-07-21 18:23] VITALS: BMI 41.5
[2022-07-21 18:29] VITALS: BP 117/81; PULSE 91; RESP 18; TEMP 36.6; O2SAT 93
--- NOTE | 2022-07-21 20:03 | W.ED.GENADLT ---
HPI - General Adult General: Chief complaint: General Medical Stated complaint: constipation Time Seen by Provider: 07/21/22 19:50 History of Present Illness: Mr. Thakur is a 56-year-old lady with significant past medical history of stage IV colon cancer presenting to the emergency department due to constipation and discomfort. She recalls 5 to 7 days since last bowel movement and increasing lower rectal pressure and abdominal discomfort. She had a previously scheduled outpatient CT scan and was told that there was no blockage. Intensity symptoms is moderate. Does have a history of similar but not this bad. No nausea or vomiting. No fevers chills. No other specific changes in health, exacerbating, or alleviating factors identified. Onset (ago): day(s) Location: abdomen Severity: moderate Quality: other Associated symptoms: Reports other Review of Systems General: Reports: 10 or more systems reviewed and unremarkable except in HPI and below PFSH ED PFSH: Medical History Colon cancer COPD (chronic obstructive pulmonary disease) GERD (gastroesophageal reflux disease) Obstructive sleep apnea Reducible umbilical hernia Type 2 diabetes mellitus, without long-term current use of insulin Surgical History H/O tubal ligation Port-A-Cath in place Family History Father COPD (chronic obstructive pulmonary disease) Lung disease Mother CAD (coronary artery disease) Grandfather CAD (coronary artery disease) Cancer Skin cancer Brother Diabetes Sister Cancer Lung cancer Grandmother Lung disease Other Hypertension Denies family history of Clotting disorder Dementia Hyperlipidemia Psychiatric illness Chronic kidney disease (CKD) Suicide Anesthesia complication Bleeding disorder Stroke Social History Smoking and tobacco status: former smoker Quit status (tobacco): has quit using tobacco Year quit tobacco: 2013 - 1PPD x 35 years Former quit date comment: Started age 13years Second hand smoke exposure: No Alcohol intake: never Lives independently: Yes Household members: children Current occupational status: employed History of recent travel: No Current gender identity: Female Physical Exam Const: COMMON NORMALS: alert GENERAL APPEARANCE: cooperative and well developed HENMT: COMMON NORMALS: normocephalic and atraumatic HEAD & SCALP: normocephalic and atraumatic Eye: COMMON NORMALS: conjunctivae normal CONJUNCTIVA: Yes conjunctivae normal SCLERA: sclerae normal Neck/C-Spine: COMMON NORMALS: supple GENERAL: Yes trachea midline Resp: COMMON NORMALS: clear to auscultation bilaterally EFFORT & INSPECTION: Yes able to speak in complete sentences AUSCULTATION: clear to auscultation bilaterally Cardio: COMMON NORMALS: regular rate and regular rhythm RATE: regular rate RHYTHM: regular rhythm GI: COMMON NORMALS: Soft to palpation PALPATION: Yes Soft to palpation and No Tenderness to palpation present (GI) Extremity: GENERAL: Yes normal exam except as noted and No edema Neuro: COMMON NORMALS: moves all extremities SENSORIUM/ORIENTATION: Yes alert and No Orientation impaired Psych: COMMON NORMALS: mental status grossly normal and Normal thought process present THOUGHT PROCESS: Normal thought process present Course Vital Signs: Vital signs: Vital Signs Temperature 97.9 F 07/21/22 18:29 Pulse Rate 92 07/21/22 22:55 Respiratory Rate 17 07/21/22 22:55 Blood Pressure 123/92 07/21/22 22:55 Pulse Oximetry 91 07/21/22 22:55 Oxygen Delivery Me thod 07/21/22 22:29 [facility] - General Adult Medical Decision Making 56-year-old lady presenting with constipation and rectal pain. Exam as above. No evidence of acute surgical abdomen or peritonitis. No evidence of bowel obstruction or perforation on abdominal x-ray. Rectal exam performed with litigation manager present. Large stool ball palpated in the rectal vault and manual disimpaction was performed. Patient tolerated procedure without apparent complication. Patient treated with both oral and VT treatment for constipation. Also administered analgesia and antiemetic. Patient had large bowel movement with improvement in symptoms. Most likely etiology of patient symptoms is rectal fecal impaction and constipation. The results of ED evaluation were discussed with the patient including prescriptions and/or symptomatic cares (if applicable) including appropriate and responsible use, followup plan, and return precautions. The patient verbalized understanding and felt safe for discharge. Medical Records I reviewed the patient's medical records. Lab Data I reviewed the patient's lab results. Radiology Impressions KUB X-Ray 07/21/22 18:03 IMPRESSION: No evidence for bowel obstruction or perforation. Discharge Plan Discharge Patient Disposition: Home Clinical Impression: Constipation, Malignant neoplasm of sigmoid colon, Fecal impaction in rectum Condition: Stable Prescriptions: New Miralax 17 gram powder in packet 17 g PO QID Qty: 100 0RF Rx Instructions: titrate to effect for applesauce consistency stools No Action Spiriva with HandiHaler 18 mcg capsule, w/inhalation device 1 cap INHALATION DAILY 30 Days Qty: 60 3RF Rx Instructions: puncture 1 cap using device; one dose = 2 inhalations Compazine 10 mg tablet 10 mg PO Q4H PRN (Reason: Mild Nausea) Qty: 30 3RF famciclovir 500 mg tablet 500 mg PO Q8H PRN albuterol sulfate 2.5 mg /3 mL (0.083 %) solution for nebulization 2.5 mg INHALATION Q6H PRN Norvasc 5 mg tablet 5 mg PO DAILY Qty: 90 1RF hydrochlorothiazide 25 mg tablet 25 mg PO DAILY Qty: 90 1RF Januvia 100 mg tablet 100 mg PO DAILY Qty: 90 1RF Rx Instructions: 340B (DME) auto titrating CPAP and supplies See Rx Instructions .Route .MEDSUPPLY Qty: 1 0RF Rx Instructions: As directed lorazepam 1 mg tablet 0.5 - 1 mg PO Q6H PRN (Reason: Severe Nausea) Qty: 30 3RF (DME) lancets [Comfort EZ Lancets] 28 gauge misc See Rx Instructions .ROUTE .MEDSUPPLY Qty: 100 2RF Rx Instructions: once daily (DME) blood sugar diagnostic [Contour Next Test Strips] Strip See Rx Instructions .ROUTE .MEDSUPPLY Qty: 100 0RF Rx Instructions: three times daily budesonide-formoterol [Symbicort] 160-4.5 mcg/actuation HFA aerosol inhaler 2 puff inhalation BID Qty: 10.2 3RF albuterol sulfate [ProAir HFA] 90 mcg/actuation HFA aerosol inhaler See Rx Instructions .ROUTE .COMPLEX Qty: 8.5 0RF Dose Instruction: 2 PUFF(S) EVERY 6 HOURS NEEDED FOR SHORTNESS OF BREATH/WHEEZING Rx Instructions: 2 PUFF(S) EVERY 6 HOURS NEEDED FOR SHORTNESS OF BREATH/WHEEZING Ziextenzo 6 mg/0.6 mL syringe 6 mg SUBCUT Q14D Qty: 0.6 11RF hydrocodone-acetaminophen 5-325 mg tablet 1 tab PO Q6H PRN (Reason: pain) Qty: 14 0RF Discharge Orders: Discharge ED (Routine); Ordered 07/21/22 Ordered By: Hubert Reynolds Referrals: Ann Pinon DO [Primary Care Provider] - Discharge Diet: Usual diet Discharge Activity: Increase activity as tolerated Patient Instructions: Constipation (ED), Fecal Impaction (ED) Activity Restrictions/Additional Instructions: Thank you for visiting the emergency department. You were seen and evaluate for constipation. We are pleased that you had bowel movement with treatment and manual disimpaction. I recommend MiraLAX 1 capful mixed with electrolyte solution at least 4 times daily starting tomorrow and then adjust as needed for multiple applesauce consistency stools per day. Please follow-up with your oncology team and primary care provider. Return to the emergency department for recurrence of symptoms, abdominal pain, bleeding per rectum, or anything else that you are concerned about a feel needs emergency department evaluation. Coding Level of Care Code ED Therapeutic Specialist for Connie Holliday
[2022-07-21 20:31] VITALS: RESP 18
[2022-07-21] MEDS: HYDROmorphone 1 mg/mL INJ 1 mL 0.5 MG IVP (20:31)
[2022-07-21] MEDS: lidocaine 2% Urojet 20 mL TOPICAL (20:34)
[2022-07-21] MEDS: mineral oil 30 mL UDC PO (21:19)
[2022-07-21] MEDS: magnesium hydroxide 30 mL UDC PO (21:19)
[2022-07-21] MEDS: lactulose oral liq 20 gm/30 mL UDC PO (21:19)
[2022-07-21] MEDS: ondansetron 2 mg/ML SDV 2 mL 4 MG IVP (21:48)
[2022-07-21 22:29] VITALS: BP 123/92; PULSE 92; RESP 17; O2SAT 91
[2022-07-21 22:55] VITALS: BP 123/92; PULSE 92; RESP 17; O2SAT 91
== END 2022-07-21 22:56 | disposition home or self-care (01) ==
PROVIDERS: Emergency Provider Emergency Medicine; PCP Family Medicine
DX: K59.00 Constipation, unspecified (principal); C18.7 Malignant neoplasm of sigmoid colon
CPT/HCPCS: 45915; 74018; 96374; 96375; 99285; J1170; J2405

== ENCOUNTER 2022-08-02 09:00 | Oncology outpatient (recurring) (ONCR) | payer SELFPAY ==
[2022-07-06 14:35] LABS: Basophils % 0.3 %; Eosinophils # 0.3 10^3/uL (0.0-0.8); Eosinophils % 2.1 %; Hemoglobin 14.3 g/dL (11.5-15.3); Lymphocytes # 1.7 10^3/uL (0.8-4.8); Lymphocytes % 13.9 %; Mean Corpuscular HGB Conc 32.5 g/dL (30.0-36.0); Mean Corpuscular Hemoglobin 29.7 pg (28.0-34.0); Mean Corpuscular Volume 91.5 fl (81-99); Mean Platelet Volume 11.4 fL (7.4-10.4); Monocytes % 16.8 %; Neutrophils # 7.57 10^3/uL (1.8-7.7); Neutrophils % 63.5 %; Nucleated Red Blood Cells % 0.2 %; Platelet Count 141 10^3/cmm (130-400); Red Blood Count 4.81 10^6/uL (4.1-5.3); Red Cell Distribution Width 15.8 % (12.1-15.1); White Blood Count 11.9 10^3/uL (4.0-10.0)
[2022-07-06 15:30] LABS: Slide Review Slide Review Perform
[2022-07-13 09:03] LABS: Alanine Aminotransferase 89 U/L (0-33); Albumin Level 3.6 g/dL (3.5-5.2); Alkaline Phosphatase 107 U/L (35-105); Anion Gap 13.1 (5-19); Aspartate Amino Transferase 53 U/L (0-32); Blood Urea Nitrogen 12 mg/dL (6-20); Calcium 9.2 mg/dL (8.5-10.5); Carbon Dioxide 29 mmol/L (22-29); Chloride 99 mmol/L (98-107); Globulin 3.1 g/dL (1.3-4.6); Glomerular Filtration Rate 86.2 mL/min (90-130); Glucose 144 mg/dL (65-115); Osmolality Calculated 286 mOsm/kg (285-295); Potassium 4.1 mmol/L (3.5-5.1); Sodium 137 mmol/L (136-145); Total Bilirubin 0.4 mg/dL (0.15-1.2); Total Protein 6.7 g/dL (6.6-8.7)
[2022-07-13 09:05] LABS: Basophils # 0.1 10^3/uL (0.0-0.1); Basophils % 1.1 %; Eosinophils # 0.1 10^3/uL (0.0-0.8); Eosinophils % 0.8 %; Hematocrit 42.7 % (37.0-47.0); Lymphocytes % 14.1 %; Mean Corpuscular HGB Conc 32.8 g/dL (30.0-36.0); Mean Corpuscular Hemoglobin 30.5 pg (28.0-34.0); Mean Platelet Volume 12.4 fL (7.4-10.4); Monocytes # 0.5 10^3/uL (0.2-0.9); Monocytes % 7.3 %; Nucleated Red Blood Cells % 0 %; Platelet Count 65 10^3/cmm (130-400); Red Blood Count 4.59 10^6/uL (4.1-5.3); Red Cell Distribution Width 16.9 % (12.1-15.1); White Blood Count 7.2 10^3/uL (4.0-10.0)
[2022-07-13 09:54] LABS: Slide Review Slide Review Perform
[2022-07-13] MEDS: dextrose 5% 250 ML 100 ML IV (11:13)
[2022-07-13] MEDS: palonosetron 0.25 mg/5 mL SDV IVP (11:14)
[2022-07-13] MEDS: sodium chloride 0.9% (100 ml) 100 ML (11:47)
[2022-07-13] MEDS: leucovorin 860 MG in dextrose 5% 250 ML 62.5 MG IV (12:15)
[2022-07-13] MEDS: oxaliplatin 160 MG in dextrose 5% 250 ML 70.5 MG IV (12:15)
[2022-07-13] MEDS: fluorouraciL 3,850 MG, elastomeric pump 1 PUMP in sodium chloride 0.9% (100 ml) 15 ML IV (15:47)
[2022-07-13 16:00] VITALS: BP 124/80; PULSE 90; RESP 18; TEMP 36.8; O2SAT 96
[2022-07-25 09:36] LABS: Basophils % 0.2 %; Eosinophils % 0.9 %; Hematocrit 40.9 % (37.0-47.0); Hemoglobin 13.3 g/dL (11.5-15.3); Lymphocytes # 0.7 10^3/uL (0.8-4.8); Lymphocytes % 16.3 %; Mean Corpuscular HGB Conc 32.5 g/dL (30.0-36.0); Mean Corpuscular Hemoglobin 30.5 pg (28.0-34.0); Mean Corpuscular Volume 93.8 fl (81-99); Mean Platelet Volume 11.6 fL (7.4-10.4); Monocytes # 0.5 10^3/uL (0.2-0.9); Monocytes % 12.7 %; Neutrophils # 2.95 10^3/uL (1.8-7.7); Neutrophils % 69.7 %; Nucleated Red Blood Cells % 0 %; Platelet Count 118 10^3/cmm (130-400); Red Blood Count 4.36 10^6/uL (4.1-5.3); Red Cell Distribution Width 17.7 % (12.1-15.1); White Blood Count 4.2 10^3/uL (4.0-10.0)
[2022-07-25 09:56] LABS: Alanine Aminotransferase 105 U/L (0-33); Albumin Level 3.3 g/dL (3.5-5.2); Alkaline Phosphatase 80 U/L (35-105); Anion Gap 11.6 (5-19); Aspartate Amino Transferase 64 U/L (0-32); Blood Urea Nitrogen 8 mg/dL (6-20); Carbon Dioxide 30 mmol/L (22-29); Chloride 99 mmol/L (98-107); Globulin 3.3 g/dL (1.3-4.6); Glucose 155 mg/dL (65-115); Osmolality Calculated 285 mOsm/kg (285-295); Potassium 3.6 mmol/L (3.5-5.1); Sodium 137 mmol/L (136-145); Total Bilirubin 0.3 mg/dL (0.15-1.2); Total Protein 6.6 g/dL (6.6-8.7)
[2022-07-25 15:23] LABS: Carcinoembryonic Antigen 128.7 ng/mL (0.0-4.7)
[2022-08-02 09:11] VITALS: BP 119/76; PULSE 87; RESP 16; TEMP 36.4; O2SAT 95
[2022-08-02 09:24] LABS: Basophils % 0.7 %; Eosinophils # 0.1 10^3/uL (0.0-0.8); Eosinophils % 1.2 %; Hematocrit 43.5 % (37.0-47.0); Hemoglobin 14.1 g/dL (11.5-15.3); Lymphocytes # 0.9 10^3/uL (0.8-4.8); Lymphocytes % 21.1 %; Mean Corpuscular HGB Conc 32.4 g/dL (30.0-36.0); Mean Corpuscular Hemoglobin 31.2 pg (28.0-34.0); Mean Corpuscular Volume 96.2 fl (81-99); Mean Platelet Volume 11.2 fL (7.4-10.4); Monocytes # 0.5 10^3/uL (0.2-0.9); Monocytes % 13.4 %; Neutrophils # 2.55 10^3/uL (1.8-7.7); Neutrophils % 63.4 %; Nucleated Red Blood Cells % 0 %; Platelet Count 177 10^3/cmm (130-400); Red Blood Count 4.52 10^6/uL (4.1-5.3); Red Cell Distribution Width 18.1 % (12.1-15.1)
[2022-08-02] MEDS: palonosetron 0.25 mg/5 mL SDV IVP (10:08)
[2022-08-02] MEDS: dextrose 5% 250 ML 75 ML IV (10:08)
[2022-08-02] MEDS: oxaliplatin 160 MG in dextrose 5% 250 ML 70.5 MG IV (10:40)
[2022-08-02] MEDS: leucovorin 850 MG in dextrose 5% 250 ML 62.5 MG IV (10:41)
[2022-08-02] MEDS: diphenhydrAMINE 50 mg/mL SDV 1mL 25 MG IVP (14:05)
[2022-08-02 14:11] VITALS: BP 135/83; PULSE 80; RESP 16; TEMP 36.9; O2SAT 93
[2022-08-02] MEDS: fluorouraciL 3,800 MG, elastomeric pump 1 PUMP in sodium chloride 0.9% (100 ml) 16 ML IV (14:41)
[2022-08-02 15:00] VITALS: BP 126/72; PULSE 76; RESP 16; TEMP 36.8; O2SAT 93
== END 2022-08-03 23:59 | disposition home or self-care (01) ==
PROVIDERS: PCP Family Medicine; Visit Provider Internal Medicine Medical Oncology
DX: C18.7 Malignant neoplasm of sigmoid colon (principal); Z51.11 Encounter for antineoplastic chemotherapy; Z79.52 Long term (current) use of systemic steroids; Z79.899 Other long term (current) drug therapy
CPT/HCPCS: 36591; 80053; 82378; 85025; 96367; 96368; 96375; 96413; 96415; 96416; 96417; 96523; J0640; J1100; J1200; J2469; J2930; J7060; J9035; J9190; J9263

== ENCOUNTER 2022-08-18 08:30 | Oncology outpatient (recurring) (ONCR) | payer SELFPAY ==
[2022-08-04] MEDS: pegfilgrastim-bmez 6 mg/0.6 mL SYR SUBCUT (12:56)
[2022-08-16 08:18] LABS: Basophils % 0.6 %; Eosinophils # 0.1 10^3/uL (0.0-0.8); Eosinophils % 1.3 %; Hematocrit 43.5 % (37.0-47.0); Hemoglobin 14.5 g/dL (11.5-15.3); Lymphocytes # 1.2 10^3/uL (0.8-4.8); Mean Corpuscular HGB Conc 33.3 g/dL (30.0-36.0); Mean Platelet Volume 12.5 fL (7.4-10.4); Monocytes # 0.8 10^3/uL (0.2-0.9); Monocytes % 12.1 %; Neutrophils # 4.59 10^3/uL (1.8-7.7); Neutrophils % 67.1 %; Nucleated Red Blood Cells % 0 %; Platelet Count 111 10^3/cmm (130-400); Red Blood Count 4.53 10^6/uL (4.1-5.3); Red Cell Distribution Width 18.7 % (12.1-15.1); White Blood Count 6.8 10^3/uL (4.0-10.0)
[2022-08-16 08:24] LABS: Slide Review Slide Review Perform
[2022-08-16 08:40] LABS: Carcinoembryonic Antigen 74.6 ng/mL (0.0-4.7)
[2022-08-16 08:55] LABS: Alanine Aminotransferase 136 U/L (0-33); Albumin Level 3.5 g/dL (3.5-5.2); Alkaline Phosphatase 128 U/L (35-105); Blood Urea Nitrogen 9 mg/dL (6-20); Calcium 9.4 mg/dL (8.5-10.5); Carbon Dioxide 30 mmol/L (22-29); Chloride 102 mmol/L (98-107); Globulin 3.4 g/dL (1.3-4.6); Glomerular Filtration Rate 73.9 mL/min (90-130); Glucose 146 mg/dL (65-115); Osmolality Calculated 293 mOsm/kg (285-295); Sodium 141 mmol/L (136-145); Total Bilirubin 0.4 mg/dL (0.15-1.2); Total Protein 6.9 g/dL (6.6-8.7)
[2022-08-16 08:57] LABS: Anion Gap 13.5 (5-19); Aspartate Amino Transferase 91 U/L (0-32); Potassium 4.5 mmol/L (3.5-5.1)
[2022-08-16] MEDS: palonosetron 0.25 mg/5 mL SDV IVP (09:12)
[2022-08-16] MEDS: dextrose 5% 250 ML 75 ML IV (09:12)
[2022-08-16] MEDS: leucovorin 840 MG in dextrose 5% 250 ML 500 MG IV (09:50)
[2022-08-16] MEDS: fluorouraciL 3,800 MG, elastomeric pump 1 PUMP in sodium chloride 0.9% (100 ml) 16 ML IV (10:36)
[2022-08-16] MEDS: fluorouraciL 50 mg/ml MDV 100 mL 850 MG IVP (10:36)
[2022-08-16 10:49] VITALS: BP 114/74; PULSE 73; RESP 16; TEMP 36.4; O2SAT 94
== END 2022-09-03 23:59 | disposition home or self-care (01) ==
PROVIDERS: PCP Family Medicine; Visit Provider Internal Medicine Medical Oncology
DX: Z45.2 Encounter for adjustment and management of vascular access device
CPT/HCPCS: 80053; 82378; 85025; 96367; 96372; 96375; 96409; 96416; 96523; J0640; J1100; J2469; J7060; J9190; Q5120

== ENCOUNTER → 2022-08-30 13:42 | Outpatient (BNVA) | payer SELFPAY | PROVIDERS: PCP Family Medicine; Visit Provider Emergency Medicine | DX: J02.9 Acute pharyngitis, unspecified (principal); R53.81 Other malaise; R68.89 Other general symptoms and signs; R09.82 Postnasal drip; Z98.890 Other specified postprocedural states | CPT/HCPCS: 85018; 87071; 87400; 87880 ==

== ENCOUNTER 2022-09-04 11:47 | Emergency (ER) | payer SELFPAY ==
[2022-09-04 11:54] VITALS: BP 113/80; PULSE 96; RESP 16; TEMP 36.1; O2SAT 94
--- NOTE | 2022-09-04 12:25 | CTR_ITS ---
PROCEDURE INFORMATION: Exam: CT Abdomen And Pelvis With Contrast Exam date and time: 09/04/2022 1:29 PM Age: 56 years old Clinical indication: Condition or disease; Cancer; Intestine, large; Patient HX: Colon and liver CA; Additional info: Follow up on cancer with anorexia TECHNIQUE: Imaging protocol: Computed tomography of the abdomen and pelvis with contrast. Radiation optimization: All CT scans at this facility use at least one of these dose optimization techniques: automated exposure control; mA and/or kV adjustment per patient size (includes targeted exams where dose is matched to clinical indication); or iterative reconstruction. Contrast material: OMNI 350; Contrast volume: 100 ml; Contrast route: INTRAVENOUS (IV); COMPARISON: CT abdomen pelvis wo con [id number] 06/22/2022 2:16 AM RADIATION DOSE METRICS: Total DLP (mGy-cm): 1024.03 FINDINGS: Lungs: Minor atelectatic changes lower lung zones, stable. Liver: Liver is enlarged with diffuse fatty infiltration of liver with multiple hypodense liver masses measuring up to 4 cm relatively stable consistent with multiple liver metastasis. Gallbladder and bile ducts: Normal. No calcified stones. No ductal dilation. Pancreas: Normal. No ductal dilation. Spleen: Normal. No splenomegaly. Adrenal glands: Normal. No mass. Kidneys and ureters: There are few small cortical cysts otherwise kidneys are unremarkable. Stomach and bowel: Moderate degree of retained stool throughout the large bowel. Remainder of the GI tract is unremarkable. Appendix: No evidence of acute appendicitis. Intraperitoneal space: Unremarkable. No free air. No significant fluid collection. Vasculature: Abdominal aorta and iliac vessels are diffusely calcified. There is no aortic aneurysm. Lymph nodes: Unremarkable. No enlarged lymph nodes. Urinary bladder: Unremarkable as visualized. Reproductive: Unremarkable as visualized. Bones/joints: There is a 3 cm irregular shaped in partially calcified mesenteric mass within the mid pelvis abutting loop of sigmoid colon that is a unchanged Impression: Soft tissues: Small fat containing umbilical hernia, stable. CT/CT abdomen pelvis w con* [id number] IMPRESSION: 1. Hepatomegaly with fatty infiltration. Multiple liver Mets, stable. 2. Three views cm mesenteric mass mid pelvis unchanged possibly metastatic in nature or represent superimposed carcinoid tumor. 3. Moderate degree of retained stool throughout the large bowel likely reflecting some degree of constipation.
--- NOTE | 2022-09-04 12:26 | ED_ITS ---
HPI - Weakness General: Chief complaint: Weakness Stated complaint: Haven't eaten in a while, has cancer Time Seen by Provider: 09/04/22 12:00 Source: patient and family Mode of arrival: ambulatory Limitations: no limitations History of Present Illness: This patient with known history of colon cancer un dergoing chemotherapy by oncologist at this facility presents because of generalized weakness and poor appetite and intake over the past 10 to 12 days. She is been now receiving ongoing chemotherapy and then also had an embolization procedure at [facility] on 22 August. Since that last procedure she has not felt well with acid reflux, decreased appetite decreased intake, global weakness and decreased urine and stool output. She denies any fevers or chills. She has not had any vomiting that she is aware. She denies any black tarry stools etc. She has had tubal ligation but no other abdominal surgeries. MD Complaint: generalized weakness Associated symptoms: Reports nausea; Denies chest pain, chills, dysuria, fever(s), headache(s), syncope or vomiting Review of Systems Const: Reports: change in appetite; Denies: fever(s) or chills Eyes: Denies: change in vision ENMT: Denies: throat pain, odynophagia or nasal congestion Card: Denies: chest pain, palpitations, irregular heart rhythm, syncope or pre-syncope Resp: Denies: dyspnea, productive cough or non-productive cough GI: Reports: nausea; Denies: vomiting : Reports: oliguria; Denies: flank pain, dysuria or urinary frequency Musc: Denies: neck pain, back pain, extremity pain or extremity swelling Skin/Breast: Denies: rash or pruritus Neuro: Denies: headache(s) or numbness in extremities Psych: Denies: anxiety or depression PFSH ED PFSH: Medical History Colon cancer COPD (chronic obstructive pulmonary disease) GERD (gastroesophageal reflux disease) Obstructive sleep apnea Reducible umbilical hernia Type 2 diabetes mellitus, without long-term current use of insulin Surgical History H/O tubal ligation Port-A-Cath in place Family History Father COPD (chronic obstructive pulmonary disease) Lung disease Mother CAD (coronary artery disease) Grandfather CAD (coronary artery disease) Cancer Skin cancer Brother Diabetes Sister Cancer Lung cancer Grandmother Lung disease Other Hypertension Denies family history of Clotting disorder Dementia Hyperlipidemia Psychiatric illness Chronic kidney disease (CKD) Suicide Anesthesia complication Bleeding disorder Stroke Social History Smoking and tobacco status: former smoker Quit status (tobacco): has quit using tobacco Year quit tobacco: 2013 - 1PPD x 35 years Former quit date comment: Started age 13years Second hand smoke exposure: No Alcohol intake: never Lives independently: Yes Household members: children Current occupational status: employed History of recent travel: No Current gender identity: Female Physical Exam Narrative: EXAM NARRATIVE: The patient is alert makes good eye contact she appears to be in no acute distress. Const: COMMON NORMALS: patient oriented x3 and alert GENERAL APPEARANCE: cooperative and comfortable NUTRITIONAL APPEARANCE: overweight ORIENTATION/CONSCIOUSNESS: Yes awake HENMT: COMMON NORMALS: normocephalic, Normal nasal mucous membranes and turbinates present, moist oral mucous membranes and oropharynx normal HEAD & SCALP: normocephalic NOSE: Normal nasal mucous membranes and turbinates present Eye: COMMON NORMALS: Equal, round and reactive pupils present, EOMs intact bilaterally and no scleral icterus PUPIL: Yes Equal, round and reactive pupils present Neck/C-Spine: COMMON NORMALS: full ROM, no lymphadenopathy and no JVD Chest: COMMONS NORMALS: normal inspection of the chest Resp: COMMON NORMALS: normal respiratory effort, No retractions and No use of accessory muscles Cardio: COMMON NORMALS: no JVD, regular rate, No murmurs present (Cardio) and Peripheral pulses 2+ throughout RATE: regular rate PERIPHERAL PULSES: Peripheral pulses 2+ throughout GI: COMMON NORMALS: Normal to inspection, nondistended, normoactive bowel sounds present : COMMON NORMALS: Yes no CVA tenderness BLADDER/KIDNEY EXAM: Yes no CVA tenderness Back/Pelvis: COMMON NORMALS: no CVA tenderness, thoracic and lumbar spine normal to inspection and no thoracic nor lumbar tenderness Extremity: COMMON NORMALS: normal to inspection, full ROM, capillary refill normal, no calf tenderness and no pedal edema Neuro: COMMON NORMALS: patient oriented x3 SENSORIUM/ORIENTATION: Yes alert Psych: COMMON NORMALS: mental status grossly normal Skin: COMMON NORMALS: no rashes or lesions noted, turgor normal and no jaundice GENERAL SKIN EXAM: no rashes or lesions noted and turgor normal Course Reevaluation(s): Reevaluation #1: Patient was reevaluated and shared her current findings. No new or focal findings and her vital signs are normal. Patient is stable and suitable to be discharged for outpatient follow-up. Time: 15:09 Vital Signs: Vital signs: Vital Signs Temperature 97.0 F L 09/04/22 14:17 Pulse Rate 83 09/04/22 14:17 Respiratory Rate 17 09/04/22 14:17 Blood Pressure 121/83 09/04/22 14:17 Pulse Oximetry 96 09/04/22 14:17 MDM - Weakness Medical Decision Making Patient with a known history of colon cancer who has been a embolization pro cedure on 22 August at [facility] who has had diminished appetite and just general global weakness since that time was evaluated in our emergency department. Her clinical examination was nonfocal and nonrevealing for any evidence of peritoneal signs or surgical abdomen however because of her history additional laboratories and imaging were obtained in addition to IV hydration. Her imaging did not reveal any evidence of an acute change from prior imaging studies. Clearly has metastatic disease but no evidence of bowel obstruction or other surgical findings. Laboratories are unremarkable for any concerns such as anemia electrolyte disturbance etc. Her subjective symptoms may be multifact orial likely related to her ongoing medical condition as well as her recent procedure. She does have evidence of constipation on her CT scan as well as a history of significant reflux and esophagitis likely either related to her procedure, her ongoing therapy for her cancer etc. We will go and place her on Pepcid high-dose for the next 2 weeks. Of also advised her to use MiraLAX 1 packet twice daily and then once her stools are regular she can go back to 1 packet daily. Also advised her to start with protein drinks and shakes and then advance to more complete diet as she tolerates it. She voiced understanding of our discussion. She is stable discharge with return precautions also reviewed. Lab Data I reviewed the patient's lab results. 09/04/22 13:00 09/04/22 13:00 Radiology Impressions Abdomen/Pelvis CT 09/04/22 12:25 IMPRESSION: 1. Hepatomegaly with fatty infiltration. Multiple liver Mets, stable. 2. Three views cm mesenteric mass mid pelvis unchanged possibly metastatic in nature or represent superimposed carcinoid tumor. 3. Moderate degree of retained stool throughout the large bowel likely reflecting some degree of constipation. Laboratory Results WBC 5.8 10^3/uL (4.0-10.0) 09/04/22 13:00 RBC 4.63 10^6/uL (4.1-5.3) 09/04/22 13:00 Hgb 15.5 g/dL (11.5-15.3) H 09/04/22 13:00 Hct 45.3 % (37.0-47.0) 09/04/22 13:00 MCV 97.8 fl (81-99) 09/04/22 13:00 MCH 33.5 pg (28.0-34.0) 09/04/22 13:00 MCHC 34.2 g/dL (30.0-36.0) 09/04/22 13:00 RDW 17.7 % (12.1-15.1) H 09/04/22 13:00 Plt Count 296 10^3/cmm (130-400) 09/04/22 13:00 MPV 11.1 fL (7.4-10.4) H 09/04/22 13:00 Neut % (Auto) 66.0 % 09/04/22 13:00 Lymph % (Auto) 16.5 % 09/04/22 13:00 [place] % (Auto) 14.8 % 09/04/22 13:00 Eos % (Auto) 1.0 % 09/04/22 13:00 Baso % (Auto) 0.7 % 09/04/22 13:00 Neut # (Auto) 3.84 10^3/uL (1.8-7.7) 09/04/22 13:00 Lymph # (Auto) 1.0 10^3/uL (0.8-4.8) 09/04/22 13:00 [place] # (Auto) 0.9 10^3/uL (0.2-0.9) 09/04/22 13:00 Eos # (Auto) 0.1 10^3/uL (0.0-0.8) 09/04/22 13:00 Baso # (Auto) 0.0 10^3/uL (0.0-0.1) 09/04/22 13:00 Nucleated RBC % (auto) 0 % 09/04/22 13:00 Nucleated RBCs # 0.0 /100WBC 09/04/22 13:00 Sodium 130 mmol/L (136-145) L 09/04/22 13:00 Potassium 4.3 mmol/L (3.5-5.1) 09/04/22 13:00 Chloride 90 mmol/L (98-107) L 09/04/22 13:00 Carbon Dioxide 28 mmol/L (22-29) 09/04/22 13:00 Anion Gap 16.3 (5-19) 09/04/22 13:00 BUN 10 mg/dL (6-20) 09/04/22 13:00 Creatinine 0.6 mg/dL (0.5-0.9) 09/04/22 13:00 GFR Calculation 103.0 mL/min (90-130) 09/04/22 13:00 Glucose 95 mg/dL (65-115) 09/04/22 13:00 Calculated Osmolality 269 mOsm/kg (285-295) L 09/04/22 13:00 Calcium 9.4 mg/dL (8.5-10.5) 09/04/22 13:00 Total Bilirubin 0.6 mg/dL (0.15-1.2) 09/04/22 13:00 AST 30 U/L (0-32) 09/04/22 13:00 ALT 38 U/L (0-33) H 09/04/22 13:00 Alkaline Phosphatase 128 U/L (35-105) H 09/04/22 13:00 Total Protein 7.7 g/dL (6.6-8.7) 09/04/22 13:00 Albumin 3.6 g/dL (3.5-5.2) 09/04/22 13:00 Globulin 4.1 g/dL (1.3-4.6) 09/04/22 13:00 Discharge Plan Discharge Patient Disposition: Home Clinical Impression: Malignant neoplasm of sigmoid colon, Esophageal reflux, Constipation Condition: Stable Prescriptions: New famotidine [Pepcid] 40 mg tablet 40 mg PO DAILY Qty: 14 0RF No Action Spiriva with HandiHaler 18 mcg capsule, w/inhalation device 1 cap INHALATION DAILY 30 Days Qty: 60 3RF Rx Instructions: puncture 1 cap using device; one dose = 2 inhalations Compazine 10 mg tablet 10 mg PO Q4H PRN (Reason: Mild Nausea) Qty: 30 3RF famciclovir 500 mg tablet 500 mg PO Q8H PRN albuterol sulfate 2.5 mg /3 mL (0.083 %) solution for nebulization 2.5 mg INHALATION Q6H PRN fexofenadine-pseudoephedrine [Joanne-D 12 Hour] 60-120 mg tablet extended release 12 hr 1 tab PO Q12H PRN (Reason: sinus symptoms) 14 Days Qty: 30 0RF Norvasc 5 mg tablet 5 mg PO DAILY Qty: 90 1RF hydrochlorothiazide 25 mg tablet 25 mg PO DAILY Qty: 90 1RF Januvia 100 mg tablet 100 mg PO DAILY Qty: 90 1RF Rx Instructions: 340B (DME) auto titrating CPAP and supplies See Rx Instructions .Route .MEDSUPPLY Qty: 1 0RF Rx Instructions: As directed lorazepam 1 mg tablet 0.5 - 1 mg PO Q6H PRN (Reason: Severe Nausea) Qty: 30 3RF (DME) lancets [Comfort EZ Lancets] 28 gauge misc See Rx Instructions .ROUTE .MEDSUPPLY Qty: 100 2RF Rx Instructions: once daily (DME) blood sugar diagnostic [Contour Next Test Strips] Strip See Rx Instructions .ROUTE .MEDSUPPLY Qty: 100 0RF Rx Instructions: three times daily budesonide-formoterol [Symbicort] 160-4.5 mcg/actuation HFA aerosol inhaler 2 puff inhalation BID Qty: 10.2 3RF albuterol sulfate [ProAir HFA] 90 mcg/actuation HFA aerosol inhaler See Rx Instructions .ROUTE .COMPLEX Qty: 8.5 0RF Dose Instruction: 2 PUFF(S) EVERY 6 HOURS NEEDED FOR SHORTNESS OF BREATH/WHEEZING Rx Instructions: 2 PUFF(S) EVERY 6 HOURS NEEDED FOR SHORTNESS OF BREATH/WHEEZING Ziextenzo 6 mg/0.6 mL syringe 6 mg SUBCUT Q14D Qty: 0.6 11RF hydrocodone-acetaminophen 5-325 mg tablet 1 tab PO Q6H PRN (Reason: pain) Qty: 14 0RF Miralax 17 gram powder in packet 17 g PO QID Qty: 100 0RF Rx Instructions: titrate to effect for applesauce consistency stools Discharge Orders: Discharge ED (Routine); Ordered 09/04/22 Ordered By: Skyler Rider Referrals: Ann Pinon DO [Primary Care Provider] - Discharge Diet: Advance as tolerated and Full LIquid Discharge Activity: Increase activity as tolerated Patient Instructions: Opioid Safety, Pain Management Activity Restrictions/Additional Instructions: As we discussed your findings during your emergency department evaluation did not reveal any evidence of a serious condition today. You do have evidence of constipation and we recommend restarting your MiraLAX 1 packet twice daily until your stools become soft and then you may resume back to 1 packet daily. We have also provided a prescription for Pepcid to take once daily for the next 2 weeks. Aloe up with your oncologist and/or your primary care doctor as previously scheduled. If you have any increasing symptoms, persistent symptoms or other concerns return to this emergency department for reevaluation. Coding Level of Care Code ED Locker Room Supervisor for Connie Holliday Exam Comprehensive
[2022-09-04 13:09] LABS: Basophils % 0.7 %; Eosinophils # 0.1 10^3/uL (0.0-0.8); Hematocrit 45.3 % (37.0-47.0); Hemoglobin 15.5 g/dL (11.5-15.3); Lymphocytes % 16.5 %; Mean Corpuscular HGB Conc 34.2 g/dL (30.0-36.0); Mean Corpuscular Hemoglobin 33.5 pg (28.0-34.0); Mean Corpuscular Volume 97.8 fl (81-99); Mean Platelet Volume 11.1 fL (7.4-10.4); Monocytes # 0.9 10^3/uL (0.2-0.9); Monocytes % 14.8 %; Neutrophils # 3.84 10^3/uL (1.8-7.7); Nucleated Red Blood Cells % 0 %; Platelet Count 296 10^3/cmm (130-400); Red Blood Count 4.63 10^6/uL (4.1-5.3); Red Cell Distribution Width 17.7 % (12.1-15.1); White Blood Count 5.8 10^3/uL (4.0-10.0)
[2022-09-04 13:32] LABS: Alanine Aminotransferase 38 U/L (0-33); Albumin Level 3.6 g/dL (3.5-5.2); Alkaline Phosphatase 128 U/L (35-105); Blood Urea Nitrogen 10 mg/dL (6-20); Calcium 9.4 mg/dL (8.5-10.5); Carbon Dioxide 28 mmol/L (22-29); Chloride 90 mmol/L (98-107); Globulin 4.1 g/dL (1.3-4.6); Glucose 95 mg/dL (65-115); Osmolality Calculated 269 mOsm/kg (285-295); Sodium 130 mmol/L (136-145); Total Bilirubin 0.6 mg/dL (0.15-1.2); Total Protein 7.7 g/dL (6.6-8.7)
[2022-09-04 13:35] LABS: Anion Gap 16.3 (5-19); Aspartate Amino Transferase 30 U/L (0-32); Potassium 4.3 mmol/L (3.5-5.1)
[2022-09-04] MEDS: iohexol 350 mg/mL 500 mL Btl (per mL) IV (13:35)
[2022-09-04 14:17] VITALS: BP 121/83; PULSE 83; RESP 17; TEMP 36.1; O2SAT 96
[2022-09-04] MEDS: famotidine 20 mg/2 mL INJ 40 MG IVP (15:11)
== END 2022-09-04 15:25 | disposition home or self-care (01) ==
PROVIDERS: Emergency Provider Emergency Medicine; PCP Family Medicine
DX: K59.00 Constipation, unspecified (principal); K21.9 Gastro-esophageal reflux disease without esophagitis; C18.7 Malignant neoplasm of sigmoid colon; Z87.891 Personal history of nicotine dependence; J44.9 Chronic obstructive pulmonary disease, unspecified; E11.9 Type 2 diabetes mellitus without complications
CPT/HCPCS: 74177; 80053; 85025; 96374; 99285; J3490; Q9967

== ENCOUNTER → 2022-09-30 08:55 | Outpatient (BNVA) | payer SELFPAY | PROVIDERS: PCP Family Medicine; Visit Provider Family Medicine | DX: E11.9 Type 2 diabetes mellitus without complications (principal); J44.1 Chronic obstructive pulmonary disease with (acute) exacerbation | CPT/HCPCS: 80061; 83036 ==

== ENCOUNTER 2022-10-31 07:51 | Oncology outpatient (recurring) (ONCR) | payer SELFPAY ==
[2022-10-31 08:27] LABS: Basophils # 0.1 10^3/uL (0.0-0.1); Basophils % 0.8 %; Eosinophils # 0.2 10^3/uL (0.0-0.8); Eosinophils % 3.5 %; Hematocrit 42.1 % (37.0-47.0); Lymphocytes # 1.4 10^3/uL (0.8-4.8); Lymphocytes % 22.9 %; Mean Corpuscular HGB Conc 33.3 g/dL (30.0-36.0); Mean Corpuscular Hemoglobin 32.9 pg (28.0-34.0); Mean Corpuscular Volume 99.1 fl (81-99); Mean Platelet Volume 10.8 fL (7.4-10.4); Monocytes # 0.6 10^3/uL (0.2-0.9); Monocytes % 9.4 %; Neutrophils % 62.9 %; Nucleated Red Blood Cells % 0 %; Platelet Count 147 10^3/cmm (130-400); Red Blood Count 4.25 10^6/uL (4.1-5.3); Red Cell Distribution Width 12.8 % (12.1-15.1); White Blood Count 6.2 10^3/uL (4.0-10.0)
[2022-10-31 08:49] LABS: Carcinoembryonic Antigen 28.3 ng/mL (0.0-4.7)
[2022-10-31 09:00] LABS: Alanine Aminotransferase 119 U/L (0-33); Albumin Level 3.7 g/dL (3.5-5.2); Alkaline Phosphatase 80 U/L (35-105); Aspartate Amino Transferase 65 U/L (0-32); Blood Urea Nitrogen 12 mg/dL (6-20); Calcium 9.1 mg/dL (8.5-10.5); Carbon Dioxide 28 mmol/L (22-29); Chloride 99 mmol/L (98-107); Globulin 3.2 g/dL (1.3-4.6); Glomerular Filtration Rate 85.9 mL/min (90-130); Glucose 148 mg/dL (65-115); Osmolality Calculated 285 mOsm/kg (285-295); Sodium 136 mmol/L (136-145); Total Bilirubin 0.3 mg/dL (0.15-1.2); Total Protein 6.9 g/dL (6.6-8.7)
== END 2022-11-01 23:59 | disposition home or self-care (01) ==
PROVIDERS: PCP Family Medicine; Visit Provider Nurse Practitioner
DX: C18.7 Malignant neoplasm of sigmoid colon; C78.7 Secondary malignant neoplasm of liver and intrahepatic bile duct; Z79.899 Other long term (current) drug therapy
CPT/HCPCS: 80053; 82378; 85025

== ENCOUNTER → 2022-11-21 09:16 | Outpatient (BNVA) | payer MEDICAID, SELFPAY | PROVIDERS: PCP Family Medicine; Visit Provider Nurse Practitioner | DX: C78.7 Secondary malignant neoplasm of liver and intrahepatic bile duct (principal); C18.7 Malignant neoplasm of sigmoid colon | CPT/HCPCS: 99214 ==

== ENCOUNTER 2022-11-23 12:00 | Oncology outpatient (recurring) (ONCR) | payer MEDICAID, SELFPAY ==
[2022-11-09 08:40] LABS: Basophils % 0.5 %; Eosinophils # 0.3 10^3/uL (0.0-0.8); Eosinophils % 4.9 %; Hematocrit 42.3 % (37.0-47.0); Hemoglobin 13.9 g/dL (11.5-15.3); Lymphocytes # 1.1 10^3/uL (0.8-4.8); Lymphocytes % 17.6 %; Mean Corpuscular HGB Conc 32.9 g/dL (30.0-36.0); Mean Corpuscular Hemoglobin 32.7 pg (28.0-34.0); Mean Corpuscular Volume 99.5 fl (81-99); Mean Platelet Volume 10.5 fL (7.4-10.4); Monocytes # 0.4 10^3/uL (0.2-0.9); Monocytes % 6.8 %; Neutrophils # 4.28 10^3/uL (1.8-7.7); Neutrophils % 69.7 %; Nucleated Red Blood Cells % 0 %; Platelet Count 162 10^3/cmm (130-400); Red Blood Count 4.25 10^6/uL (4.1-5.3); Red Cell Distribution Width 12.6 % (12.1-15.1); White Blood Count 6.1 10^3/uL (4.0-10.0)
[2022-11-09 09:02] LABS: Alanine Aminotransferase 101 U/L (0-33); Albumin Level 3.5 g/dL (3.5-5.2); Alkaline Phosphatase 85 U/L (35-105); Anion Gap 11.1 (5-19); Aspartate Amino Transferase 58 U/L (0-32); Blood Urea Nitrogen 14 mg/dL (6-20); Calcium 9.2 mg/dL (8.5-10.5); Carbon Dioxide 31 mmol/L (22-29); Chloride 98 mmol/L (98-107); Creatinine Clr Calc Pharmacy 104.9334; Globulin 3.3 g/dL (1.3-4.6); Glomerular Filtration Rate 85.9 mL/min (90-130); Glucose 272 mg/dL (65-115); Osmolality Calculated 292 mOsm/kg (285-295); Potassium 4.1 mmol/L (3.5-5.1); Sodium 136 mmol/L (136-145); Total Bilirubin 0.3 mg/dL (0.15-1.2); Total Protein 6.8 g/dL (6.6-8.7)
[2022-11-09] MEDS: sodium chloride 0.9% 250 ML IV (10:12)
[2022-11-09] MEDS: palonosetron 0.25 mg/5 mL SDV IVP (10:12)
[2022-11-09] MEDS: leucovorin 860 MG in dextrose 5% 250 ML 500 MG IV (11:50)
[2022-11-09] MEDS: fluorouraciL 50 mg/ml MDV 100 mL 850 MG IVP (12:34)
[2022-11-09] MEDS: fluorouraciL 3,850 MG, elastomeric pump 1 PUMP in sodium chloride 0.9% (100 ml) 15 ML IV (12:35)
[2022-11-09 12:50] VITALS: BP 121/74; PULSE 75; TEMP 36.7; O2SAT 94
[2022-11-21 10:08] LABS: Basophils % 0.4 %; Eosinophils # 0.2 10^3/uL (0.0-0.8); Hematocrit 42.4 % (37.0-47.0); Lymphocytes # 1.2 10^3/uL (0.8-4.8); Lymphocytes % 16.5 %; Mean Platelet Volume 10.9 fL (7.4-10.4); Monocytes # 0.6 10^3/uL (0.2-0.9); Neutrophils # 5.32 10^3/uL (1.8-7.7); Neutrophils % 72.7 %; Nucleated Red Blood Cells % 0 %; Platelet Count 137 10^3/cmm (130-400); Red Blood Count 4.24 10^6/uL (4.1-5.3); White Blood Count 7.3 10^3/uL (4.0-10.0)
[2022-11-21 10:25] LABS: Add Urine Culture? No; Add Urine Microscopic? YES; Bacteria Urine 1+ /hpf; Bilirubin Urine Neg (Negative); Blood Urine Neg (Negative); Glucose Urine UA Trace (Normal); Ketones Urine Negative (Negative); Leukocyte Esterase Urine Trace (Negative); Nitrate Urine Negative (Negative); Protein Urine Neg (Negative); RBC Urine RARE /hpf (0-2); Urine Appearance Clear (CLEAR); Urine Color Yellow (Yellow); Urobilinogen Urine Neg (Negative); WBC Urine 0-4 /hpf (0-5); pH Urine 5 (5-7)
[2022-11-21 10:27] LABS: Specific Gravity, Urine 1.015 (1.005-1.030)
[2022-11-21 10:35] LABS: Carcinoembryonic Antigen 37.7 ng/mL (0.0-4.7)
[2022-11-21 10:46] LABS: Alanine Aminotransferase 55 U/L (0-33); Albumin Level 3.6 g/dL (3.5-5.2); Alkaline Phosphatase 70 U/L (35-105); Aspartate Amino Transferase 29 U/L (0-32); Blood Urea Nitrogen 12 mg/dL (6-20); Calcium 8.7 mg/dL (8.5-10.5); Carbon Dioxide 28 mmol/L (22-29); Chloride 97 mmol/L (98-107); Globulin 3.1 g/dL (1.3-4.6); Glomerular Filtration Rate 85.9 mL/min (90-130); Glucose 268 mg/dL (65-115); Osmolality Calculated 285 mOsm/kg (285-295); Sodium 133 mmol/L (136-145); Total Bilirubin 0.4 mg/dL (0.15-1.2); Total Protein 6.7 g/dL (6.6-8.7)
[2022-11-21 10:48] LABS: Anion Gap 12.1 (5-19); Potassium 4.1 mmol/L (3.5-5.1)
[2022-11-21] MEDS: dextrose 5% 250 ML 75 ML IV (11:58)
[2022-11-21] MEDS: palonosetron 0.25 mg/5 mL SDV IVP (12:00)
[2022-11-21] MEDS: cefTRIAXone 1,000 MG in sodium chloride 0.9% (plus) 50 ML 100 MG IV (12:45)
[2022-11-21] MEDS: leucovorin 860 MG in dextrose 5% 250 ML 500 MG IV (13:41)
[2022-11-21] MEDS: fluorouraciL 50 mg/ml MDV 100 mL 850 MG IVP (14:20)
[2022-11-21] MEDS: fluorouraciL 3,850 MG, elastomeric pump 1 PUMP in sodium chloride 0.9% (100 ml) 15 ML IV (14:20)
[2022-11-21 14:34] VITALS: BP 112/76; PULSE 72; RESP 16; TEMP 36.6; O2SAT 95
[2022-11-23 11:51] VITALS: BP 112/67; PULSE 67; O2SAT 95
[2022-11-23] MEDS: cefTRIAXone 1,000 MG in sodium chloride 0.9% (plus) 50 ML 100 MG IV (12:34)
[2022-11-23 13:10] VITALS: BP 110/71; PULSE 66; TEMP 36.7; O2SAT 93
== END 2022-12-02 23:59 | disposition home or self-care (01) ==
PROVIDERS: PCP Family Medicine; Visit Provider Nurse Practitioner
DX: C18.7 Malignant neoplasm of sigmoid colon (principal); C78.7 Secondary malignant neoplasm of liver and intrahepatic bile duct; Z79.899 Other long term (current) drug therapy
CPT/HCPCS: 80053; 81001; 82378; 85025; 96365; 96367; 96368; 96375; 96411; 96413; 96416; 96417; 96523; 99214; J0640; J0696; J1100; J2469; J7050; J7060; J9035; J9190

== ENCOUNTER → 2022-11-25 14:56 | Outpatient (BNVA) | payer MEDICAID, SELFPAY | PROVIDERS: PCP Family Medicine; Visit Provider Family Medicine | DX: L02.91 Cutaneous abscess, unspecified (principal) | CPT/HCPCS: 87070; 87075; 87077; 87184; 87205 ==

== ENCOUNTER → 2022-12-14 13:28 | Outpatient (BNVA) | payer MEDICAID, SELFPAY | PROVIDERS: PCP Family Medicine; Visit Provider Emergency Medicine | DX: J02.9 Acute pharyngitis, unspecified (principal) | CPT/HCPCS: 87071; 87420; 87880 ==

== ENCOUNTER 2022-12-21 10:30 | Oncology outpatient (recurring) (ONCR) | payer MEDICAID, SELFPAY ==
[2022-12-05 09:00] VITALS: BP 110/69; PULSE 82; TEMP 36.6; O2SAT 94
[2022-12-05 09:11] LABS: Basophils % 0.9 %; Eosinophils # 0.1 10^3/uL (0.0-0.8); Eosinophils % 1.8 %; Hematocrit 41.9 % (37.0-47.0); Hemoglobin 14.1 g/dL (11.5-15.3); Lymphocytes # 0.9 10^3/uL (0.8-4.8); Lymphocytes % 19.2 %; Mean Corpuscular HGB Conc 33.7 g/dL (30.0-36.0); Mean Corpuscular Hemoglobin 32.9 pg (28.0-34.0); Mean Corpuscular Volume 97.9 fl (81-99); Mean Platelet Volume 10.6 fL (7.4-10.4); Monocytes # 0.6 10^3/uL (0.2-0.9); Monocytes % 13.7 %; Neutrophils # 2.91 10^3/uL (1.8-7.7); Neutrophils % 64.2 %; Nucleated Red Blood Cells % 0 %; Platelet Count 123 10^3/cmm (130-400); Red Blood Count 4.28 10^6/uL (4.1-5.3); Red Cell Distribution Width 13.7 % (12.1-15.1); White Blood Count 4.5 10^3/uL (4.0-10.0)
[2022-12-05 09:51] LABS: Alanine Aminotransferase 45 U/L (0-33); Albumin Level 3.6 g/dL (3.5-5.2); Alkaline Phosphatase 79 U/L (35-105); Anion Gap 14.9 (5-19); Aspartate Amino Transferase 32 U/L (0-32); Blood Urea Nitrogen 11 mg/dL (6-20); Carbon Dioxide 25 mmol/L (22-29); Chloride 96 mmol/L (98-107); Glomerular Filtration Rate 56.9 mL/min (90-130); Glucose 211 mg/dL (65-115); Osmolality Calculated 280 mOsm/kg (285-295); Potassium 3.9 mmol/L (3.5-5.1); Sodium 132 mmol/L (136-145); Total Bilirubin 0.4 mg/dL (0.15-1.2); Total Protein 6.6 g/dL (6.6-8.7)
[2022-12-05] MEDS: alteplase 1 mg/mL SDV 2 mL 2 MG INTRACATH (12:23)
[2022-12-05] MEDS: sodium chloride 0.9% 250 ML IV (12:59)
[2022-12-05] MEDS: palonosetron 0.25 mg/5 mL SDV IVP (13:00)
[2022-12-05] MEDS: leucovorin 840 MG in dextrose 5% 250 ML 500 MG IV (14:02)
[2022-12-05] MEDS: fluorouraciL 50 mg/ml MDV 100 mL 850 MG IVP (14:39)
[2022-12-05] MEDS: fluorouraciL 3,800 MG, elastomeric pump 1 PUMP in sodium chloride 0.9% (100 ml) 16 ML IV (14:39)
[2022-12-05 14:59] VITALS: BP 103/69; PULSE 73; TEMP 36.7; O2SAT 94
[2022-12-07 13:02] VITALS: BP 112/77; PULSE 65; RESP 18; TEMP 36.3; O2SAT 91
[2022-12-19 08:00] VITALS: BP 99/68; PULSE 84; RESP 16; TEMP 36.4; O2SAT 94
[2022-12-19 08:40] LABS: Add Urine Microscopic? YES; Bilirubin Urine 1+ (Negative); Blood Urine Neg (Negative); Glucose Urine UA Norm (Normal); Ketones Urine 1+ (Negative); Leukocyte Esterase Urine Trace (Negative); Nitrate Urine Negative (Negative); Protein Urine Neg (Negative); Urine Appearance Clear (CLEAR); Urine Color Dark Yellow (Yellow); Urobilinogen Urine 1 mg/dL (Negative); pH Urine 5 (5-7)
[2022-12-19 08:44] LABS: Basophils % 0.5 %; Eosinophils # 0.1 10^3/uL (0.0-0.8); Eosinophils % 3.3 %; Hematocrit 43.3 % (37.0-47.0); Hemoglobin 14.5 g/dL (11.5-15.3); Lymphocytes # 1.1 10^3/uL (0.8-4.8); Lymphocytes % 26.3 %; Mean Corpuscular HGB Conc 33.5 g/dL (30.0-36.0); Mean Corpuscular Hemoglobin 32.9 pg (28.0-34.0); Mean Corpuscular Volume 98.2 fl (81-99); Mean Platelet Volume 10.9 fL (7.4-10.4); Monocytes # 0.6 10^3/uL (0.2-0.9); Neutrophils # 2.37 10^3/uL (1.8-7.7); Neutrophils % 56.2 %; Nucleated Red Blood Cells % 0 %; Platelet Count 111 10^3/cmm (130-400); Red Blood Count 4.41 10^6/uL (4.1-5.3); Red Cell Distribution Width 14.1 % (12.1-15.1); White Blood Count 4.2 10^3/uL (4.0-10.0)
[2022-12-19 08:45] LABS: Add Urine Culture? No; Bacteria Urine 2+ /hpf
[2022-12-19 08:56] LABS: Alanine Aminotransferase 46 U/L (0-33); Albumin Level 3.5 g/dL (3.5-5.2); Alkaline Phosphatase 79 U/L (35-105); Aspartate Amino Transferase 28 U/L (0-32); Blood Urea Nitrogen 12 mg/dL (6-20); Calcium 8.9 mg/dL (8.5-10.5); Carbon Dioxide 26 mmol/L (22-29); Chloride 97 mmol/L (98-107); Globulin 3.1 g/dL (1.3-4.6); Glomerular Filtration Rate 85.9 mL/min (90-130); Glucose 191 mg/dL (65-115); Osmolality Calculated 281 mOsm/kg (285-295); Sodium 133 mmol/L (136-145); Total Bilirubin 0.4 mg/dL (0.15-1.2); Total Protein 6.6 g/dL (6.6-8.7)
[2022-12-19] MEDS: dextrose 5% 250 ML 75 ML IV (10:06)
[2022-12-19] MEDS: palonosetron 0.25 mg/5 mL SDV IVP (10:07)
[2022-12-19] MEDS: BEVACIZUMAB AWWB IV (10:51)
[2022-12-19] MEDS: [UNRECOGNIZED DRUG - OTHER] IV (10:51)
[2022-12-19] MEDS: leucovorin 840 MG in dextrose 5% 250 ML 500 MG IV (11:25)
[2022-12-19] MEDS: fluorouraciL 50 mg/ml MDV 100 mL 850 MG IVP (12:27)
[2022-12-19] MEDS: fluorouraciL 3,800 MG, elastomeric pump 1 PUMP in sodium chloride 0.9% (100 ml) 16 ML IV (12:27)
[2022-12-19 12:40] VITALS: BP 120/79; PULSE 77; RESP 16; TEMP 36.4; O2SAT 95
[2022-12-21 11:00] VITALS: BP 94/50; PULSE 63; RESP 16; TEMP 36.3; O2SAT 93
== END 2023-01-01 23:59 | disposition home or self-care (01) ==
PROVIDERS: PCP Family Medicine; Visit Provider Nurse Practitioner
DX: C18.7 Malignant neoplasm of sigmoid colon (principal); C78.7 Secondary malignant neoplasm of liver and intrahepatic bile duct
CPT/HCPCS: 36593; 80053; 81001; 82378; 85025; 96368; 96375; 96413; 96416; 96417; 96523; J0640; J1100; J2469; J2997; J7050; J7060; J9035; J9190; Q5107

== ENCOUNTER 2022-12-22 16:41 | Outpatient (CLI) | payer MEDICAID, SELFPAY ==
--- NOTE | 2022-12-22 16:50 | XRR_ITS ---
PROCEDURE INFORMATION: Exam: XR Chest Exam date and time: 12/22/2022 4:51 PM Age: 57 years old Clinical indication: Cough and shortness of breath; Prior surgery; Surgery type: Port; Additional info: Cough, shortness of breath TECHNIQUE: Imaging protocol: Radiologic exam of the chest. Views: 2 views. COMPARISON: CT lung screening [id number] 02/05/2021 11:05 AM FINDINGS: Tubes, catheters and devices: A right IJ [id number] is noted, which terminates in the SVC. Lungs: Mild scarring versus subsegmental atelectasis is present in the lingula. The lungs are the lungs clear. Pleural spaces: Unremarkable. No pleural effusion. No pneumothorax. Heart/Mediastinum: Unremarkable. No cardiomegaly. Bones/joints: Unremarkable. XR/XR chest 2V* [id number] IMPRESSION: No acute cardiopulmonary abnormality.
== END 2022-12-22 16:42 | disposition home or self-care (01) ==
LOC: RAD 16:42
PROVIDERS: PCP Family Medicine; Visit Provider Internal Medicine Medical Oncology
DX: R06.02 Shortness of breath (principal); R05.9 Cough, unspecified
CPT/HCPCS: 71046

== ENCOUNTER → 2022-12-23 09:34 | Outpatient (BNVA) | payer MEDICAID, SELFPAY | PROVIDERS: PCP Family Medicine; Visit Provider Nurse Practitioner Family | DX: J44.9 Chronic obstructive pulmonary disease, unspecified (principal); B37.0 Candidal stomatitis; R05.9 Cough, unspecified | CPT/HCPCS: 87070 ==

== ENCOUNTER 2023-01-16 09:30 | Oncology outpatient (recurring) (ONCR) | payer MEDICAID, SELFPAY ==
[2023-01-02 09:00] VITALS: BP 125/78; PULSE 77; RESP 18; TEMP 36.4; O2SAT 94
[2023-01-02 09:59] LABS: Basophils % 0.7 %; Eosinophils # 0.1 10^3/uL (0.0-0.8); Eosinophils % 3.4 %; Hematocrit 42.9 % (37.0-47.0); Hemoglobin 14.4 g/dL (11.5-15.3); Lymphocytes # 1.2 10^3/uL (0.8-4.8); Lymphocytes % 29.7 %; Mean Corpuscular HGB Conc 33.6 g/dL (30.0-36.0); Mean Corpuscular Volume 98.4 fl (81-99); Mean Platelet Volume 11.5 fL (7.4-10.4); Monocytes # 0.5 10^3/uL (0.2-0.9); Monocytes % 12.2 %; Neutrophils # 2.21 10^3/uL (1.8-7.7); Neutrophils % 53.8 %; Nucleated Red Blood Cells % 0 %; Platelet Count 109 10^3/cmm (130-400); Red Blood Count 4.36 10^6/uL (4.1-5.3); Red Cell Distribution Width 14.7 % (12.1-15.1); White Blood Count 4.1 10^3/uL (4.0-10.0)
[2023-01-02 10:22] LABS: Add Urine Culture? No; Add Urine Microscopic? YES; Bacteria Urine 2+ /hpf; Bilirubin Urine Neg (Negative); Blood Urine Neg (Negative); Glucose Urine UA Norm (Normal); Ketones Urine Negative (Negative); Leukocyte Esterase Urine Trace (Negative); Nitrate Urine Negative (Negative); Protein Urine Neg (Negative); Urine Appearance Clear (CLEAR); Urine Color Yellow (Yellow); Urobilinogen Urine Norm (Negative); pH Urine 5 (5-7)
[2023-01-02 10:28] LABS: Carcinoembryonic Antigen 33.8 ng/mL (0.0-4.7)
[2023-01-02 10:39] LABS: Alanine Aminotransferase 32 U/L (0-33); Albumin Level 3.6 g/dL (3.5-5.2); Alkaline Phosphatase 79 U/L (35-105); Aspartate Amino Transferase 22 U/L (0-32); Blood Urea Nitrogen 13 mg/dL (6-20); Carbon Dioxide 28 mmol/L (22-29); Chloride 100 mmol/L (98-107); Globulin 2.9 g/dL (1.3-4.6); Glomerular Filtration Rate 102.7 mL/min (90-130); Glucose 135 mg/dL (65-115); Osmolality Calculated 284 mOsm/kg (285-295); Sodium 136 mmol/L (136-145); Total Bilirubin 0.4 mg/dL (0.15-1.2); Total Protein 6.5 g/dL (6.6-8.7)
[2023-01-02 10:41] LABS: Anion Gap 12.2 (5-19); Potassium 4.2 mmol/L (3.5-5.1)
[2023-01-02] MEDS: sodium chloride 0.9% 250 ML 75 ML IV (11:04)
[2023-01-02] MEDS: palonosetron 0.25 mg/5 mL SDV IVP (11:05)
[2023-01-02] MEDS: BEVACIZUMAB AWWB IV (11:42)
[2023-01-02] MEDS: [UNRECOGNIZED DRUG - OTHER] IV (11:42)
[2023-01-02] MEDS: dextrose 5% 250 ML 75 ML IV (12:19)
[2023-01-02] MEDS: leucovorin 840 MG in dextrose 5% 250 ML 500 MG IV (12:20)
[2023-01-02] MEDS: fluorouraciL 50 mg/ml MDV 100 mL 850 MG IVP (13:06)
[2023-01-02] MEDS: fluorouraciL 3,800 MG, elastomeric pump 1 PUMP in sodium chloride 0.9% (100 ml) 16 ML IV (13:06)
[2023-01-02 13:20] VITALS: BP 122/77; PULSE 70; RESP 18; TEMP 36.3; O2SAT 94
[2023-01-04 11:44] VITALS: BP 116/76; PULSE 68; TEMP 36.5; O2SAT 94
[2023-01-16 09:02] VITALS: BP 123/79; PULSE 78; RESP 16; TEMP 36; O2SAT 96
[2023-01-16 09:13] LABS: Basophils % 0.7 %; Eosinophils # 0.1 10^3/uL (0.0-0.8); Eosinophils % 2.8 %; Hematocrit 41.8 % (37.0-47.0); Hemoglobin 14.1 g/dL (11.5-15.3); Lymphocytes % 22.7 %; Mean Corpuscular HGB Conc 33.7 g/dL (30.0-36.0); Mean Corpuscular Hemoglobin 33.4 pg (28.0-34.0); Mean Corpuscular Volume 99.1 fl (81-99); Mean Platelet Volume 10.7 fL (7.4-10.4); Monocytes # 0.6 10^3/uL (0.2-0.9); Monocytes % 14.4 %; Neutrophils # 2.56 10^3/uL (1.8-7.7); Neutrophils % 59.2 %; Nucleated Red Blood Cells % 0 %; Platelet Count 113 10^3/cmm (130-400); Red Blood Count 4.22 10^6/uL (4.1-5.3); Red Cell Distribution Width 15.4 % (12.1-15.1); White Blood Count 4.3 10^3/uL (4.0-10.0)
[2023-01-16 09:37] LABS: Alanine Aminotransferase 38 U/L (0-33); Albumin Level 3.5 g/dL (3.5-5.2); Alkaline Phosphatase 82 U/L (35-105); Anion Gap 13.8 (5-19); Aspartate Amino Transferase 36 U/L (0-32); Blood Urea Nitrogen 10 mg/dL (6-20); Calcium 8.7 mg/dL (8.5-10.5); Carbon Dioxide 29 mmol/L (22-29); Chloride 98 mmol/L (98-107); Globulin 3.1 g/dL (1.3-4.6); Glomerular Filtration Rate 85.9 mL/min (90-130); Glucose 268 mg/dL (65-115); Osmolality Calculated 292 mOsm/kg (285-295); Potassium 3.8 mmol/L (3.5-5.1); Sodium 137 mmol/L (136-145); Total Bilirubin 0.4 mg/dL (0.15-1.2); Total Protein 6.6 g/dL (6.6-8.7)
[2023-01-16] MEDS: dextrose 5% 250 ML 75 ML IV (10:32)
[2023-01-16] MEDS: palonosetron 0.25 mg/5 mL SDV IVP (10:33)
[2023-01-16] MEDS: BEVACIZUMAB AWWB IV (11:04)
[2023-01-16] MEDS: [UNRECOGNIZED DRUG - OTHER] IV (11:04)
[2023-01-16] MEDS: leucovorin 840 MG in dextrose 5% 250 ML 500 MG IV (11:37)
[2023-01-16 12:24] VITALS: BP 138/88; PULSE 71; RESP 16; TEMP 36.6; O2SAT 96
[2023-01-16] MEDS: fluorouraciL 3,800 MG, elastomeric pump 1 PUMP in sodium chloride 0.9% (100 ml) 16 ML IV (12:30)
== END 2023-01-16 23:59 | disposition home or self-care (01) ==
PROVIDERS: Internal Medicine Medical Oncology; PCP Family Medicine; Visit Provider Nurse Practitioner
DX: C18.7 Malignant neoplasm of sigmoid colon (principal); Z51.11 Encounter for antineoplastic chemotherapy; C78.7 Secondary malignant neoplasm of liver and intrahepatic bile duct; Z79.899 Other long term (current) drug therapy
CPT/HCPCS: 80053; 81001; 82378; 85025; 96367; 96368; 96374; 96375; 96411; 96413; 96416; 96417; 96523; J0640; J1100; J1642; J2469; J7050; J7060; J9190; Q5107

== ENCOUNTER 2023-01-18 10:04 | Oncology outpatient (recurring) (ONCR) | payer MEDICAID, SELFPAY ==
[2023-01-18 10:21] VITALS: BP 96/66; PULSE 62; RESP 16; TEMP 36.6; O2SAT 95
== END 2023-02-01 23:59 | disposition home or self-care (01) ==
PROVIDERS: PCP Family Medicine; Visit Provider Nurse Practitioner
DX: Z45.2 Encounter for adjustment and management of vascular access device
CPT/HCPCS: 96523; J1642

== ENCOUNTER 2023-02-27 07:24 | Oncology outpatient (recurring) (ONCR) | payer MEDICAID, SELFPAY ==
[2023-02-06 09:08] VITALS: BP 142/77; PULSE 92; RESP 18; TEMP 36.2; O2SAT 92
[2023-02-06 09:25] LABS: Basophils % 0.6 %; Eosinophils # 0.2 10^3/uL (0.0-0.8); Hematocrit 44.2 % (37.0-47.0); Hemoglobin 15.2 g/dL (11.5-15.3); Lymphocytes # 1.1 10^3/uL (0.8-4.8); Lymphocytes % 21.3 %; Mean Corpuscular HGB Conc 34.4 g/dL (30.0-36.0); Mean Corpuscular Hemoglobin 33.9 pg (28.0-34.0); Mean Corpuscular Volume 98.7 fl (81-99); Mean Platelet Volume 11.1 fL (7.4-10.4); Monocytes # 0.7 10^3/uL (0.2-0.9); Monocytes % 12.2 %; Neutrophils # 3.33 10^3/uL (1.8-7.7); Neutrophils % 62.3 %; Nucleated Red Blood Cells % 0 %; Platelet Count 174 10^3/cmm (130-400); Red Blood Count 4.48 10^6/uL (4.1-5.3); Red Cell Distribution Width 14.5 % (12.1-15.1); White Blood Count 5.3 10^3/uL (4.0-10.0)
[2023-02-06 09:51] LABS: Carcinoembryonic Antigen 56.3 ng/mL (0.0-4.7)
[2023-02-06 10:02] LABS: Alanine Aminotransferase 38 U/L (0-33); Albumin Level 3.6 g/dL (3.5-5.2); Alkaline Phosphatase 85 U/L (35-105); Anion Gap 14.2 (5-19); Aspartate Amino Transferase 28 U/L (0-32); Blood Urea Nitrogen 12 mg/dL (6-20); Calcium 9.2 mg/dL (8.5-10.5); Carbon Dioxide 27 mmol/L (22-29); Chloride 97 mmol/L (98-107); Globulin 3.1 g/dL (1.3-4.6); Glomerular Filtration Rate 102.7 mL/min (90-130); Glucose 275 mg/dL (65-115); Osmolality Calculated 288 mOsm/kg (285-295); Potassium 4.2 mmol/L (3.5-5.1); Sodium 134 mmol/L (136-145); Total Bilirubin 0.4 mg/dL (0.15-1.2); Total Protein 6.7 g/dL (6.6-8.7)
[2023-02-06] MEDS: palonosetron 0.25 mg/5 mL SDV IVP (11:10)
[2023-02-06] MEDS: dextrose 5% 250 ML 75 ML IV (11:10)
[2023-02-06] MEDS: BEVACIZUMAB AWWB IV (11:55)
[2023-02-06] MEDS: [UNRECOGNIZED DRUG - OTHER] IV (11:55)
[2023-02-06] MEDS: leucovorin 840 MG in dextrose 5% 250 ML 500 MG IV (12:32)
[2023-02-06] MEDS: fluorouraciL 3,800 MG, elastomeric pump 1 PUMP in sodium chloride 0.9% (100 ml) 16 ML IV (13:12)
[2023-02-06 13:35] VITALS: BP 135/87; PULSE 69; RESP 16; TEMP 36.3; O2SAT 92
[2023-02-08 11:20] VITALS: BP 122/77; PULSE 71; RESP 16; TEMP 36.3; O2SAT 93
[2023-02-20 08:16] VITALS: BP 116/76; PULSE 92; RESP 18; TEMP 36.1; O2SAT 95
[2023-02-20 08:47] LABS: Basophils % 0.7 %; Eosinophils # 0.1 10^3/uL (0.0-0.8); Eosinophils % 2.4 %; Hematocrit 43.2 % (37.0-47.0); Hemoglobin 14.5 g/dL (11.5-15.3); Lymphocytes % 21.9 %; Mean Corpuscular HGB Conc 33.6 g/dL (30.0-36.0); Mean Corpuscular Hemoglobin 33.8 pg (28.0-34.0); Mean Corpuscular Volume 100.7 fl (81-99); Mean Platelet Volume 11.6 fL (7.4-10.4); Monocytes # 0.5 10^3/uL (0.2-0.9); Monocytes % 10.7 %; Neutrophils # 2.93 10^3/uL (1.8-7.7); Neutrophils % 64.3 %; Nucleated Red Blood Cells % 0 %; Platelet Count 130 10^3/cmm (130-400); Red Blood Count 4.29 10^6/uL (4.1-5.3); Red Cell Distribution Width 14.3 % (12.1-15.1); White Blood Count 4.6 10^3/uL (4.0-10.0)
[2023-02-20 09:03] LABS: Estmated Average Glucose 240
[2023-02-20 09:12] LABS: Carcinoembryonic Antigen 47.9 ng/mL (0.0-4.7)
[2023-02-20 09:23] LABS: Alanine Aminotransferase 51 U/L (0-33); Albumin Level 3.5 g/dL (3.5-5.2); Alkaline Phosphatase 81 U/L (35-105); Aspartate Amino Transferase 31 U/L (0-32); Blood Urea Nitrogen 11 mg/dL (6-20); Calcium 8.6 mg/dL (8.5-10.5); Carbon Dioxide 25 mmol/L (22-29); Chloride 99 mmol/L (98-107); Globulin 2.7 g/dL (1.3-4.6); Glomerular Filtration Rate 85.9 mL/min (90-130); Glucose 330 mg/dL (65-115); Osmolality Calculated 290 mOsm/kg (285-295); Sodium 134 mmol/L (136-145); Total Bilirubin 0.4 mg/dL (0.15-1.2); Total Protein 6.2 g/dL (6.6-8.7)
[2023-02-20 09:28] LABS: Anion Gap 14.3 (5-19); Potassium 4.3 mmol/L (3.5-5.1)
[2023-02-27 07:29] VITALS: BP 139/88; PULSE 82; RESP 18; TEMP 36; O2SAT 94
[2023-02-27 07:48] LABS: Add Urine Microscopic? NO; Charge for UA Resulting for Rev
[2023-02-27 07:57] LABS: Basophils % 0.8 %; Eosinophils # 0.2 10^3/uL (0.0-0.8); Eosinophils % 3.7 %; Hematocrit 47.1 % (37.0-47.0); Hemoglobin 15.9 g/dL (11.5-15.3); Lymphocytes # 1.7 10^3/uL (0.8-4.8); Mean Corpuscular HGB Conc 33.8 g/dL (30.0-36.0); Mean Corpuscular Hemoglobin 33.8 pg (28.0-34.0); Mean Platelet Volume 11.5 fL (7.4-10.4); Monocytes # 0.8 10^3/uL (0.2-0.9); Neutrophils # 2.11 10^3/uL (1.8-7.7); Neutrophils % 43.1 %; Nucleated Red Blood Cells % 0 %; Platelet Count 171 10^3/cmm (130-400); Red Blood Count 4.71 10^6/uL (4.1-5.3); Red Cell Distribution Width 13.9 % (12.1-15.1); White Blood Count 4.9 10^3/uL (4.0-10.0)
[2023-02-27 08:08] LABS: Alanine Aminotransferase 79 U/L (0-33); Albumin Level 3.8 g/dL (3.5-5.2); Alkaline Phosphatase 84 U/L (35-105); Anion Gap 14.6 (5-19); Aspartate Amino Transferase 56 U/L (0-32); Blood Urea Nitrogen 15 mg/dL (6-20); Calcium 9.6 mg/dL (8.5-10.5); Carbon Dioxide 26 mmol/L (22-29); Chloride 99 mmol/L (98-107); Globulin 3.1 g/dL (1.3-4.6); Glomerular Filtration Rate 85.9 mL/min (90-130); Glucose 205 mg/dL (65-115); Osmolality Calculated 287 mOsm/kg (285-295); Potassium 4.6 mmol/L (3.5-5.1); Sodium 135 mmol/L (136-145); Total Bilirubin 0.4 mg/dL (0.15-1.2); Total Protein 6.9 g/dL (6.6-8.7)
[2023-02-27 08:25] LABS: Bilirubin Urine Neg (Negative); Blood Urine Neg (Negative); Glucose Urine UA Norm (Normal); Ketones Urine 1+ (Negative); Leukocyte Esterase Urine Negative (Negative); Nitrate Urine Negative (Negative); Protein Urine Neg (Negative); Urine Appearance Clear (CLEAR); Urine Color Yellow (Yellow); Urobilinogen Urine Norm (Negative); pH Urine 5 (5-7)
[2023-02-27] MEDS: sodium chloride 0.9% 250 ML 75 ML IV (09:34)
[2023-02-27] MEDS: palonosetron 0.25 mg/5 mL SDV IVP (09:39)
[2023-02-27] MEDS: leucovorin 830 MG in dextrose 5% 250 ML 500 MG IV (10:21)
[2023-02-27] MEDS: fluorouraciL 3,750 MG, elastomeric pump 1 PUMP in sodium chloride 0.9% (100 ml) 17 ML IV (11:02)
[2023-02-27 11:07] VITALS: BP 125/85; PULSE 64; RESP 18; TEMP 36.2; O2SAT 95
== END 2023-02-27 23:59 | disposition home or self-care (01) ==
PROVIDERS: Internal Medicine Medical Oncology; PCP Family Medicine; Visit Provider Nurse Practitioner
DX: Z51.11 Encounter for antineoplastic chemotherapy (principal); C18.7 Malignant neoplasm of sigmoid colon; C78.7 Secondary malignant neoplasm of liver and intrahepatic bile duct
CPT/HCPCS: 80053; 81003; 82378; 83036; 85025; 96367; 96375; 96413; 96416; 96523; J0640; J1100; J1642; J2469; J7050; J7060; J9190; Q5107

== ENCOUNTER 2023-03-01 11:00 | Oncology outpatient (recurring) (ONCR) | payer MEDICAID, SELFPAY ==
[2023-03-01 11:00] VITALS: BP 113/54; BP 114/74; PULSE 54; PULSE 74; RESP 18; TEMP 36.2; TEMP 36.6; O2SAT 96; O2SAT 98
== END 2023-03-03 23:59 | disposition home or self-care (01) ==
PROVIDERS: PCP Family Medicine; Visit Provider Nurse Practitioner
DX: Z45.2 Encounter for adjustment and management of vascular access device (principal)
CPT/HCPCS: 96523; J1642

== ENCOUNTER 2023-03-14 12:53 | Outpatient (CLI) | payer MEDICAID, SELFPAY ==
--- NOTE | 2023-03-14 13:15 | CT_ITS ---
WS: [id number] LDCT LUNG CANCER SCREENING TECHNIQUE: Noncontrast CT of the chest with coronal and sagittal reformatted images. CLINICAL INFORMATION: Cancer Screen COMPARISON: February 05, 2021 and PET/CT March 25, 2022 DLP: 101.10 mGy.cm DIvol: Mean CTDIvol: 2.50 (mGy) All CT scans at [facility] use at least one of these dose optimization techniques: automat ed exposure control; mA and/or kV adjustment per patient size (includes targeted exams where dose is matched to clinical indication); or iterative reconstruction. 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 Multiple new noncalcified nodules in the RIGHT upper lobe and RIGHT lower lobe some subpleural in loc ation the largest measuring 8 mm. A few tiny nodules in the LEFT upper and lower lobes also new from previous with a LEFT upper lobe [place] bpleural nodule. Normal caliber thoracic aorta. No axillary lymphadenopathy. Adrenal glands are normal. CT/CT lung screening [id number] IMPRESSION: Multiple new bilateral pulmonary nodules have developed in patient with known carcinoid tumor. Largest in the RIGHT upper lobe subpleural in locat ion measuring 8 mm. Consider PET/CT in further evaluation. Findings suspicious for metastatic disease. LUNG-RADS: 4B-Suspicious FOLLOW UP: See Report
== END 2023-03-14 12:54 | disposition home or self-care (01) ==
LOC: RAD 12:55
PROVIDERS: PCP Family Medicine; Visit Provider Internal Medicine Pulmonary Disease
DX: Z12.2 Encounter for screening for malignant neoplasm of respiratory organs (principal); Z87.891 Personal history of nicotine dependence
CPT/HCPCS: 71271

== ENCOUNTER 2023-04-03 10:30 | Oncology outpatient (recurring) (ONCR) | payer MEDICAID, SELFPAY ==
[2023-03-20 08:35] VITALS: BP 119/77; PULSE 79; RESP 18; TEMP 36.6; O2SAT 93
[2023-03-20 08:49] LABS: Add Urine Microscopic? NO; Charge for UA Resulting for Rev
[2023-03-20 08:55] LABS: Basophils % 0.7 %; Eosinophils # 0.2 10^3/uL (0.0-0.8); Eosinophils % 4.1 %; Hematocrit 45.8 % (37.0-47.0); Hemoglobin 15.3 g/dL (11.5-15.3); Lymphocytes # 1.4 10^3/uL (0.8-4.8); Lymphocytes % 31.6 %; Mean Corpuscular HGB Conc 33.4 g/dL (30.0-36.0); Mean Corpuscular Hemoglobin 33.1 pg (28.0-34.0); Mean Corpuscular Volume 99.1 fl (81-99); Mean Platelet Volume 10.4 fL (7.4-10.4); Monocytes # 0.6 10^3/uL (0.2-0.9); Monocytes % 13.8 %; Neutrophils % 49.6 %; Nucleated Red Blood Cells % 0 %; Platelet Count 195 10^3/cmm (130-400); Red Blood Count 4.62 10^6/uL (4.1-5.3); Red Cell Distribution Width 13.4 % (12.1-15.1); White Blood Count 4.4 10^3/uL (4.0-10.0)
[2023-03-20 08:58] LABS: Bilirubin Urine Neg (Negative); Blood Urine Neg (Negative); Glucose Urine UA Norm (Normal); Ketones Urine Negative (Negative); Leukocyte Esterase Urine Negative (Negative); Nitrate Urine Negative (Negative); Protein Urine Neg (Negative); Urine Appearance Clear (CLEAR); Urine Color Yellow (Yellow); Urobilinogen Urine Norm (Negative); pH Urine 5 (5-7)
[2023-03-20 09:18] LABS: Alanine Aminotransferase 67 U/L (0-33); Albumin Level 3.8 g/dL (3.5-5.2); Alkaline Phosphatase 62 U/L (35-105); Anion Gap 11.9 (5-19); Aspartate Amino Transferase 50 U/L (0-32); Blood Urea Nitrogen 12 mg/dL (6-20); Calcium 9.7 mg/dL (8.5-10.5); Carbon Dioxide 28 mmol/L (22-29); Chloride 101 mmol/L (98-107); Globulin 2.8 g/dL (1.3-4.6); Glomerular Filtration Rate 85.9 mL/min (90-130); Glucose 115 mg/dL (65-115); Osmolality Calculated 285 mOsm/kg (285-295); Potassium 3.9 mmol/L (3.5-5.1); Sodium 137 mmol/L (136-145); Total Bilirubin 0.4 mg/dL (0.15-1.2); Total Protein 6.6 g/dL (6.6-8.7)
[2023-03-20 09:46] LABS: Carcinoembryonic Antigen 29.1 ng/mL (0.0-4.7)
[2023-03-20] MEDS: sodium chloride 0.9% 250 ML IV (11:31)
[2023-03-20] MEDS: palonosetron 0.25 mg/5 mL SDV IVP (11:34)
[2023-03-20] MEDS: leucovorin 830 MG in dextrose 5% 250 ML 500 MG IV (12:29)
[2023-03-20] MEDS: fluorouraciL 3,750 MG, elastomeric pump 1 PUMP in sodium chloride 0.9% (100 ml) 17 ML IV (13:11)
[2023-03-20] MEDS: fluorouraciL 50 mg/ml MDV 100 mL 832 MG IVP (13:11)
[2023-03-20 14:00] VITALS: BP 134/83; PULSE 61; TEMP 36.4; O2SAT 97
[2023-03-22 11:15] VITALS: BP 124/78; PULSE 74; RESP 18; TEMP 36.6; O2SAT 98
[2023-03-22 11:35] VITALS: BP 124/78; PULSE 74; RESP 18; TEMP 36.6; O2SAT 98
[2023-04-03 10:30] VITALS: BMI 39.3
[2023-04-03 10:31] VITALS: BP 121/80; PULSE 73; TEMP 36.6; O2SAT 96
[2023-04-03 10:49] LABS: Basophils % 0.5 %; Eosinophils # 0.1 10^3/uL (0.0-0.8); Eosinophils % 2.2 %; Hematocrit 44.5 % (37.0-47.0); Lymphocytes # 1.2 10^3/uL (0.8-4.8); Mean Corpuscular HGB Conc 33.7 g/dL (30.0-36.0); Mean Corpuscular Hemoglobin 33.6 pg (28.0-34.0); Mean Corpuscular Volume 99.8 fl (81-99); Mean Platelet Volume 11.1 fL (7.4-10.4); Monocytes # 0.5 10^3/uL (0.2-0.9); Monocytes % 8.3 %; Neutrophils # 4.35 10^3/uL (1.8-7.7); Neutrophils % 69.7 %; Nucleated Red Blood Cells % 0 %; Platelet Count 119 10^3/cmm (130-400); Red Blood Count 4.46 10^6/uL (4.1-5.3); Red Cell Distribution Width 13.7 % (12.1-15.1); White Blood Count 6.3 10^3/uL (4.0-10.0)
[2023-04-03 11:23] LABS: Alanine Aminotransferase 43 U/L (0-33); Albumin Level 3.9 g/dL (3.5-5.2); Alkaline Phosphatase 72 U/L (35-105); Aspartate Amino Transferase 28 U/L (0-32); Blood Urea Nitrogen 10 mg/dL (6-20); Calcium 9.2 mg/dL (8.5-10.5); Carbon Dioxide 26 mmol/L (22-29); Chloride 104 mmol/L (98-107); Globulin 2.4 g/dL (1.3-4.6); Glomerular Filtration Rate 73.7 mL/min (90-130); Glucose 110 mg/dL (65-115); Osmolality Calculated 290 mOsm/kg (285-295); Sodium 140 mmol/L (136-145); Total Bilirubin 0.4 mg/dL (0.15-1.2); Total Protein 6.3 g/dL (6.6-8.7)
[2023-04-03 11:24] LABS: Anion Gap 14.4 (5-19); Potassium 4.4 mmol/L (3.5-5.1)
[2023-04-03] MEDS: dextrose 5% 250 ML 75 ML IV (12:40)
[2023-04-03] MEDS: palonosetron 0.25 mg/5 mL SDV IVP (12:41)
[2023-04-03] MEDS: sodium chloride 0.9% 250 ML IV (12:45)
[2023-04-03] MEDS: leucovorin 830 MG in dextrose 5% 250 ML 666 MG IV (13:33)
[2023-04-03 14:15] VITALS: BP 111/76; PULSE 73; TEMP 36.5; O2SAT 94
[2023-04-03] MEDS: fluorouraciL 3,750 MG, elastomeric pump 1 PUMP in sodium chloride 0.9% (100 ml) 17 ML IV (14:16)
== END 2023-04-03 23:59 | disposition home or self-care (01) ==
PROVIDERS: PCP Family Medicine; Visit Provider Internal Medicine Medical Oncology
DX: Z51.11 Encounter for antineoplastic chemotherapy (principal); C18.7 Malignant neoplasm of sigmoid colon
CPT/HCPCS: 80053; 81003; 82378; 85025; 96367; 96375; 96413; 96416; 96417; 96523; J0640; J1642; J2469; J7050; J7060; J9190; Q5107

== ENCOUNTER 2023-05-01 08:30 | Oncology outpatient (recurring) (ONCR) | payer MEDICAID, SELFPAY ==
[2023-04-05 16:39] VITALS: BP 116/78; PULSE 73; RESP 17; TEMP 36.6; O2SAT 95
[2023-04-17 08:58] VITALS: BMI 39.3
[2023-04-17 08:59] VITALS: BP 133/84; PULSE 75; RESP 18; TEMP 36.4; O2SAT 93
[2023-04-17 09:28] LABS: Basophils % 0.6 %; Eosinophils # 0.2 10^3/uL (0.0-0.8); Eosinophils % 2.6 %; Hematocrit 45.6 % (37.0-47.0); Hemoglobin 15.3 g/dL (11.5-15.3); Lymphocytes # 1.4 10^3/uL (0.8-4.8); Lymphocytes % 19.5 %; Mean Corpuscular HGB Conc 33.6 g/dL (30.0-36.0); Mean Corpuscular Volume 98.3 fl (81-99); Mean Platelet Volume 11.1 fL (7.4-10.4); Monocytes # 0.6 10^3/uL (0.2-0.9); Monocytes % 8.8 %; Neutrophils # 4.75 10^3/uL (1.8-7.7); Neutrophils % 68.2 %; Nucleated Red Blood Cells % 0 %; Platelet Count 122 10^3/cmm (130-400); Red Blood Count 4.64 10^6/uL (4.1-5.3)
[2023-04-17 09:57] LABS: Carcinoembryonic Antigen 24.8 ng/mL (0.0-4.7)
[2023-04-17 10:08] LABS: Alanine Aminotransferase 43 U/L (0-33); Albumin Level 3.9 g/dL (3.5-5.2); Alkaline Phosphatase 71 U/L (35-105); Aspartate Amino Transferase 32 U/L (0-32); Blood Urea Nitrogen 13 mg/dL (6-20); Calcium 9.1 mg/dL (8.5-10.5); Carbon Dioxide 27 mmol/L (22-29); Chloride 104 mmol/L (98-107); Globulin 2.9 g/dL (1.3-4.6); Glomerular Filtration Rate 85.9 mL/min (90-130); Glucose 118 mg/dL (65-115); Osmolality Calculated 293 mOsm/kg (285-295); Sodium 141 mmol/L (136-145); Total Bilirubin 0.4 mg/dL (0.15-1.2); Total Protein 6.8 g/dL (6.6-8.7)
[2023-04-17 10:12] LABS: Anion Gap 14.2 (5-19); Potassium 4.2 mmol/L (3.5-5.1)
[2023-04-17] MEDS: sodium chloride 0.9% 250 ML 75 ML IV (11:45)
[2023-04-17] MEDS: palonosetron 0.25 mg/5 mL SDV IVP (11:50)
[2023-04-17] MEDS: bevacizumab-awwb 400 MG, bevacizumab-awwb 120 MG in sodium chloride 0.9% (100 ml) 100 ML 340 MG IV (12:48)
[2023-04-17] MEDS: dextrose 5% 250 ML 50 ML IV (13:36)
[2023-04-17] MEDS: leucovorin 830 MG in dextrose 5% 250 ML 500 MG IV (13:37)
[2023-04-17] MEDS: fluorouraciL 3,750 MG, elastomeric pump 1 PUMP in sodium chloride 0.9% (100 ml) 17 ML IV (14:57)
[2023-04-17 15:00] VITALS: BP 120/78; PULSE 70; RESP 16; TEMP 36.5; O2SAT 97
[2023-04-19 12:55] VITALS: BP 124/69; PULSE 85; RESP 16; TEMP 36.4; O2SAT 94
[2023-05-01 08:34] VITALS: BP 118/80; PULSE 79; RESP 18; TEMP 36.1; O2SAT 93; BMI 39.4
[2023-05-01 08:59] LABS: Basophils % 0.5 %; Eosinophils # 0.2 10^3/uL (0.0-0.8); Eosinophils % 3.1 %; Hematocrit 44.8 % (36-47); Lymphocytes # 1.4 10^3/uL (0.8-4.8); Lymphocytes % 22.8 %; Mean Corpuscular Hemoglobin 33.2 pg (27-33); Mean Corpuscular Volume 100.4 fl (85-98); Monocytes # 0.6 10^3/uL (0.2-0.9); Monocytes % 10.3 %; Neutrophils # 3.92 10^3/uL (1.8-7.7); Nucleated Red Blood Cells % 0 %; Platelet Count 122 10^3/cmm (157-399); Red Blood Count 4.46 10^6/uL (3.85-5.65); Red Cell Distribution Width 14.1 % (12.1-15.1); White Blood Count 6.22 10^3/uL (3.29-11.43)
[2023-05-01 09:17] LABS: Alanine Aminotransferase 35 U/L (0-33); Albumin Level 4.1 g/dL (3.5-5.2); Alkaline Phosphatase 69 U/L (35-105); Anion Gap 12.3 (5-19); Aspartate Amino Transferase 23 U/L (0-32); Blood Urea Nitrogen 13 mg/dL (6-20); Calcium 9.2 mg/dL (8.5-10.5); Carbon Dioxide 28 mmol/L (22-29); Chloride 103 mmol/L (98-107); Globulin 2.8 g/dL (1.3-4.6); Glomerular Filtration Rate 85.9 mL/min (90-130); Glucose 117 mg/dL (65-115); Osmolality Calculated 289 mOsm/kg (285-295); Potassium 4.3 mmol/L (3.5-5.1); Sodium 139 mmol/L (136-145); Total Bilirubin 0.3 mg/dL (0.15-1.2); Total Protein 6.9 g/dL (6.6-8.7)
[2023-05-01 10:25] VITALS: BP 133/80; PULSE 74; RESP 16; TEMP 35.9; O2SAT 97
[2023-05-01] MEDS: palonosetron 0.25 mg/5 mL SDV IVP (10:36)
[2023-05-01] MEDS: dextrose 5% 250 ML 75 ML IV (10:36)
[2023-05-01] MEDS: bevacizumab-awwb 400 MG, bevacizumab-awwb 120 MG in sodium chloride 0.9% (100 ml) 100 ML 240 MG IV (11:47)
[2023-05-01] MEDS: leucovorin 830 MG in dextrose 5% 250 ML 500 MG IV (12:36)
[2023-05-01] MEDS: fluorouraciL 50 mg/ml MDV 100 mL 850 MG IVP (13:35)
[2023-05-01] MEDS: fluorouraciL 3,750 MG, elastomeric pump 1 PUMP in sodium chloride 0.9% (100 ml) 17 ML IV (14:24)
== END 2023-05-01 23:59 | disposition home or self-care (01) ==
PROVIDERS: PCP Family Medicine; Visit Provider Internal Medicine Medical Oncology
DX: Z51.11 Encounter for antineoplastic chemotherapy (principal); C18.7 Malignant neoplasm of sigmoid colon; C78.7 Secondary malignant neoplasm of liver and intrahepatic bile duct
CPT/HCPCS: 80053; 82378; 85025; 96368; 96375; 96411; 96413; 96416; 96417; 96523; J0640; J1642; J2469; J7050; J7060; J9190; Q5107

== ENCOUNTER 2023-05-03 14:12 | Oncology outpatient (recurring) (ONCR) | payer MEDICAID, SELFPAY ==
[2023-05-03 14:48] VITALS: BP 107/62; PULSE 84; RESP 17; TEMP 36.3; O2SAT 92
== END 2023-05-04 23:59 | disposition home or self-care (01) ==
LOC: ONCMED 14:13
PROVIDERS: PCP Family Medicine; Visit Provider Internal Medicine Medical Oncology
DX: Z45.1 Encounter for adjustment and management of infusion pump
CPT/HCPCS: 96523; J1642

== ENCOUNTER 2023-05-17 11:00 | Oncology outpatient (recurring) (ONCR) | payer MEDICAID, SELFPAY ==
[2023-05-15 08:14] VITALS: BMI 38.7
[2023-05-15 08:15] VITALS: BP 114/75; PULSE 59; RESP 18; TEMP 36.2; O2SAT 92
[2023-05-15 08:29] LABS: Basophils % 0.2 %; Eosinophils # 0.1 10^3/uL (0.0-0.8); Eosinophils % 1.6 %; Hematocrit 44.7 % (36-47); Lymphocytes # 1.3 10^3/uL (0.8-4.8); Lymphocytes % 15.4 %; Mean Corpuscular HGB Conc 33.6 g/dL (30-55); Mean Corpuscular Hemoglobin 33.5 pg (27-33); Mean Corpuscular Volume 99.8 fl (85-98); Mean Platelet Volume 10.7 fL (7.4-10.4); Monocytes # 0.8 10^3/uL (0.2-0.9); Monocytes % 9.1 %; Neutrophils # 6.28 10^3/uL (1.8-7.7); Neutrophils % 73.3 %; Nucleated Red Blood Cells % 0 %; Platelet Count 137 10^3/cmm (157-399); Red Blood Count 4.48 10^6/uL (3.85-5.65); Red Cell Distribution Width 14.5 % (12.1-15.1); White Blood Count 8.57 10^3/uL (3.29-11.43)
[2023-05-15 08:42] LABS: Estmated Average Glucose 137; Hemoglobin A1C 6.4 % (4.0-6.0)
[2023-05-15 08:57] LABS: Carcinoembryonic Antigen 26.3 ng/mL (0.0-4.7)
[2023-05-15 09:07] LABS: Alanine Aminotransferase 33 U/L (0-33); Albumin Level 3.9 g/dL (3.5-5.2); Alkaline Phosphatase 73 U/L (35-105); Anion Gap 15.3 (5-19); Aspartate Amino Transferase 27 U/L (0-32); Blood Urea Nitrogen 14 mg/dL (6-20); Calcium 9.5 mg/dL (8.5-10.5); Carbon Dioxide 28 mmol/L (22-29); Chloride 99 mmol/L (98-107); Glomerular Filtration Rate 85.9 mL/min (90-130); Glucose 123 mg/dL (65-115); Osmolality Calculated 288 mOsm/kg (285-295); Potassium 4.3 mmol/L (3.5-5.1); Sodium 138 mmol/L (136-145); Total Bilirubin 0.6 mg/dL (0.15-1.2); Total Protein 6.9 g/dL (6.6-8.7)
[2023-05-15] MEDS: dextrose 5% 250 ML 75 ML IV (10:48)
[2023-05-15] MEDS: palonosetron 0.25 mg/5 mL SDV IVP (10:49)
[2023-05-15] MEDS: BEVACIZUMAB AWWB IV (11:10)
[2023-05-15] MEDS: [UNRECOGNIZED DRUG - OTHER] IV (11:10)
[2023-05-15] MEDS: sodium chloride 0.9% 250 ML 75 ML IV (11:19)
[2023-05-15] MEDS: leucovorin 820 MG in dextrose 5% 250 ML 500 MG IV (11:56)
[2023-05-15] MEDS: fluorouraciL 50 mg/ml MDV 100 mL 800 MG IVP (12:52)
[2023-05-15] MEDS: SODIUM CHLORIDE IV (13:00)
[2023-05-15] MEDS: FLUOROURACIL IV (13:00)
[2023-05-15] MEDS: ELASTOMERIC PUMP PUMP IV (13:00)
[2023-05-15 13:06] VITALS: BP 104/61; PULSE 76; RESP 16; TEMP 36.5; O2SAT 94
[2023-05-17 10:50] VITALS: BP 124/64; PULSE 77; RESP 16; TEMP 36.7; O2SAT 94
== END 2023-06-03 23:59 | disposition home or self-care (01) ==
PROVIDERS: PCP Family Medicine; Visit Provider Internal Medicine Medical Oncology
DX: Z45.1 Encounter for adjustment and management of infusion pump
CPT/HCPCS: 80053; 82378; 83036; 85025; 96375; 96413; 96416; 96417; 96523; J0640; J1642; J2469; J7050; J7060; J9190; Q5107

== ENCOUNTER 2023-05-22 20:00 | Outpatient (CLI) | payer MEDICAID, SELFPAY | END 2023-05-22 20:01 | disposition home or self-care (01) | LOC: SLEEP 05-23 06:12 | PROVIDERS: PCP Family Medicine; Visit Provider Family Medicine | DX: G47.33 Obstructive sleep apnea (adult) (pediatric) (principal) | CPT/HCPCS: 95810 ==

== ENCOUNTER 2023-05-24 13:40 | Outpatient (CLI) | payer MEDICAID, SELFPAY ==
--- NOTE | 2023-05-24 14:00 | MR_ITS ---
WS: [id number] MRI BRAIN WITH AND WITHOUT CONTRAST HISTORY: nausea, headache, colon ca COMPARISON: None available. TECHNIQUE: Multiplanar imaging performed through the brain with MultiHance 20 ml's IV. No acute infarcts are seen. Saldaña-white matter differentiation is well preserved. Very minimal scatter ed T2 and FLAIR signal hyperintensities. Prior lacunar infarcts in the LEFT cerebellum. No hemorrhage or susceptibility artifact. Ventricles and extra-axial spaces are normal. Clivus and pituitary gland are normal. Visualized posterior fossa and brainstem are also normal. Postcontrast images are negative for masses or vascular malformations. Dural venous sinuses are normal. Paranasal sinuses: Well aerated with no significant disease. Mastoid air cells: Normal. Calvarium and scalp: Normal. IMPRESSION: 1. No metastatic disease to the brain. 2. Very minimal small vessel ischemic disease. Prior lacunar infarcts in the LEFT cerebellum. 3. No hydrocephalus.
[2023-05-24] MEDS: gadobenate dimeglumine 20 mL vial IV (15:10)
== END 2023-05-24 13:41 | disposition home or self-care (01) ==
LOC: RAD 13:42
PROVIDERS: PCP Family Medicine; Visit Provider Internal Medicine Medical Oncology
DX: C18.7 Malignant neoplasm of sigmoid colon (principal); R11.0 Nausea; R51.9 Headache, unspecified
CPT/HCPCS: 70553; A9577

== ENCOUNTER → 2023-05-30 08:59 | Outpatient (BNVA) | payer MEDICAID, SELFPAY | PROVIDERS: PCP Family Medicine; Visit Provider Family Medicine | DX: G47.33 Obstructive sleep apnea (adult) (pediatric) (principal); R05.9 Cough, unspecified; R50.9 Fever, unspecified; R68.89 Other general symptoms and signs; J01.90 Acute sinusitis, unspecified; B96.89 Other specified bacterial agents as the cause of diseases classified elsewhere | CPT/HCPCS: 87400; 87426 ==

== ENCOUNTER 2023-06-19 08:30 | Oncology outpatient (recurring) (ONCR) | payer MEDICAID, SELFPAY ==
[2023-06-05 07:34] VITALS: BP 121/84; PULSE 84; RESP 16; TEMP 36.3; O2SAT 94
[2023-06-05 07:56] LABS: Basophils # 0.1 10^3/uL (0.0-0.1); Basophils % 0.7 %; Eosinophils # 0.2 10^3/uL (0.0-0.8); Eosinophils % 2.8 %; Hematocrit 44.1 % (36-47); Lymphocytes # 1.4 10^3/uL (0.8-4.8); Lymphocytes % 20.9 %; Mean Corpuscular HGB Conc 33.3 g/dL (30-55); Mean Corpuscular Hemoglobin 33.3 pg (27-33); Mean Platelet Volume 10.4 fL (7.4-10.4); Monocytes # 0.6 10^3/uL (0.2-0.9); Monocytes % 8.8 %; Neutrophils # 4.47 10^3/uL (1.8-7.7); Neutrophils % 66.1 %; Nucleated Red Blood Cells % 0 %; Platelet Count 196 10^3/cmm (157-399); Red Blood Count 4.41 10^6/uL (3.85-5.65); Red Cell Distribution Width 14.9 % (12.1-15.1); White Blood Count 6.78 10^3/uL (3.29-11.43)
[2023-06-05 08:17] LABS: Alanine Aminotransferase 14 U/L (0-33); Albumin Level 3.7 g/dL (3.5-5.2); Alkaline Phosphatase 80 U/L (35-105); Anion Gap 12.2 (5-19); Aspartate Amino Transferase 17 U/L (0-32); Blood Urea Nitrogen 10 mg/dL (6-20); Calcium 9.2 mg/dL (8.5-10.5); Carbon Dioxide 29 mmol/L (22-29); Chloride 103 mmol/L (98-107); Globulin 3.5 g/dL (1.3-4.6); Glomerular Filtration Rate 85.9 mL/min (90-130); Glucose 124 mg/dL (65-115); Osmolality Calculated 290 mOsm/kg (285-295); Potassium 4.2 mmol/L (3.5-5.1); Sodium 140 mmol/L (136-145); Total Bilirubin 0.3 mg/dL (0.15-1.2); Total Protein 7.2 g/dL (6.6-8.7)
[2023-06-05 08:28] LABS: Add Urine Culture? No; Add Urine Microscopic? YES; Bacteria Urine 1+ /hpf; Bilirubin Urine Neg (Negative); Blood Urine Neg (Negative); Glucose Urine UA Norm (Normal); Ketones Urine Negative (Negative); Leukocyte Esterase Urine Trace (Negative); Nitrate Urine Negative (Negative); Protein Urine Neg (Negative); RBC Urine 0-4 /hpf (0-2); Urine Appearance Hazy (CLEAR); Urine Color Yellow (Yellow); Urobilinogen Urine Norm (Negative); WBC Urine 0-4 /hpf (0-5); pH Urine 5 (5-7)
[2023-06-05] MEDS: sodium chloride 0.9% 250 ML IV (10:01)
[2023-06-05] MEDS: palonosetron 0.25 mg/5 mL SDV IVP (10:04)
[2023-06-05] MEDS: bevacizumab-awwb 400 MG, bevacizumab-awwb 120 MG in sodium chloride 0.9% (100 ml) 100 ML 240 MG IV (10:15)
[2023-06-05] MEDS: leucovorin 830 MG in dextrose 5% 250 ML 500 MG IV (10:51)
[2023-06-05] MEDS: fluorouraciL 50 mg/ml MDV 100 mL 850 MG IVP (11:30)
[2023-06-05] MEDS: fluorouraciL 3,750 MG, elastomeric pump 1 PUMP in sodium chloride 0.9% (100 ml) 17 ML IV (11:40)
[2023-06-05 11:50] VITALS: BP 148/76; PULSE 62; RESP 16; TEMP 36.4; O2SAT 91
[2023-06-07 13:43] VITALS: BP 126/91; PULSE 80; RESP 16; TEMP 36.6; O2SAT 91
[2023-06-19 08:51] VITALS: BP 142/80; PULSE 71; RESP 16; TEMP 36.4; O2SAT 92
[2023-06-19 09:14] LABS: Basophils % 0.6 %; Eosinophils # 0.2 10^3/uL (0.0-0.8); Lymphocytes % 21.7 %; Mean Corpuscular HGB Conc 33.1 g/dL (30-55); Mean Corpuscular Hemoglobin 33.9 pg (27-33); Mean Corpuscular Volume 102.4 fl (85-98); Mean Platelet Volume 10.5 fL (7.4-10.4); Monocytes # 0.6 10^3/uL (0.2-0.9); Monocytes % 13.5 %; Neutrophils # 2.85 10^3/uL (1.8-7.7); Nucleated Red Blood Cells % 0 %; Platelet Count 137 10^3/cmm (157-399); Red Cell Distribution Width 15.7 % (12.1-15.1); White Blood Count 4.75 10^3/uL (3.29-11.43)
[2023-06-19 09:53] LABS: Carcinoembryonic Antigen 28.6 ng/mL (0.0-4.7)
[2023-06-19 10:05] LABS: Alanine Aminotransferase 27 U/L (0-33); Albumin Level 3.5 g/dL (3.5-5.2); Alkaline Phosphatase 64 U/L (35-105); Anion Gap 11.2 (5-19); Aspartate Amino Transferase 22 U/L (0-32); Blood Urea Nitrogen 12 mg/dL (6-20); Carbon Dioxide 29 mmol/L (22-29); Chloride 105 mmol/L (98-107); Glomerular Filtration Rate 73.7 mL/min (90-130); Glucose 181 mg/dL (65-115); Osmolality Calculated 296 mOsm/kg (285-295); Potassium 4.2 mmol/L (3.5-5.1); Sodium 141 mmol/L (136-145); Total Bilirubin 0.3 mg/dL (0.15-1.2); Total Protein 6.5 g/dL (6.6-8.7)
[2023-06-19] MEDS: sodium chloride 0.9% 250 ML IV (11:04)
[2023-06-19] MEDS: palonosetron 0.25 mg/5 mL SDV IVP (11:04)
[2023-06-19] MEDS: bevacizumab-awwb 400 MG, bevacizumab-awwb 120 MG in sodium chloride 0.9% (100 ml) 100 ML 240 MG IV (11:42)
[2023-06-19] MEDS: leucovorin 830 MG in dextrose 5% 250 ML 500 MG IV (12:21)
[2023-06-19] MEDS: fluorouraciL 50 mg/ml MDV 100 mL 850 MG IVP (13:20)
[2023-06-19] MEDS: fluorouraciL 3,750 MG, elastomeric pump 1 PUMP in sodium chloride 0.9% (100 ml) 17 ML IV (13:25)
== END 2023-06-19 23:59 | disposition home or self-care (01) ==
PROVIDERS: Nurse Practitioner Family; PCP Family Medicine; Visit Provider Internal Medicine Medical Oncology
DX: Z51.11 Encounter for antineoplastic chemotherapy; C18.7 Malignant neoplasm of sigmoid colon
CPT/HCPCS: 80053; 81001; 82378; 85025; 96375; 96409; 96411; 96413; 96416; 96417; 96523; J0640; J1642; J2469; J7050; J7060; J9190; Q5107

== ENCOUNTER 2023-06-21 14:44 | Oncology outpatient (recurring) (ONCR) | payer MEDICAID, SELFPAY ==
[2023-06-21 15:09] VITALS: BP 133/72; PULSE 81; RESP 16; TEMP 36.9; O2SAT 94
== END 2023-07-04 13:48 | disposition home or self-care (01) ==
PROVIDERS: PCP Family Medicine; Visit Provider Internal Medicine Medical Oncology
DX: Z45.1 Encounter for adjustment and management of infusion pump (principal); Z51.11 Encounter for antineoplastic chemotherapy; C18.7 Malignant neoplasm of sigmoid colon; R11.0 Nausea; R51.9 Headache, unspecified; Z79.899 Other long term (current) drug therapy
CPT/HCPCS: 96523; J1642

== ENCOUNTER 2023-07-03 08:26 | Oncology outpatient (recurring) (ONCR) | payer MEDICAID, SELFPAY ==
[2023-07-03 08:58] LABS: Basophils % 0.3 %; Eosinophils # 0.2 10^3/uL (0.0-0.8); Eosinophils % 2.4 %; Hematocrit 42.3 % (36-47); Mean Corpuscular HGB Conc 32.6 g/dL (30-55); Mean Corpuscular Hemoglobin 33.2 pg (27-33); Mean Corpuscular Volume 101.7 fl (85-98); Mean Platelet Volume 10.5 fL (7.4-10.4); Monocytes # 0.6 10^3/uL (0.2-0.9); Monocytes % 9.8 %; Neutrophils # 4.37 10^3/uL (1.8-7.7); Neutrophils % 71.2 %; Nucleated Red Blood Cells % 0 %; Platelet Count 114 10^3/cmm (157-399); Red Blood Count 4.16 10^6/uL (3.85-5.65); Red Cell Distribution Width 15.2 % (12.1-15.1); White Blood Count 6.14 10^3/uL (3.29-11.43)
[2023-07-03 09:22] LABS: Alanine Aminotransferase 25 U/L (0-33); Alkaline Phosphatase 68 U/L (35-105); Anion Gap 12.5 (5-19); Aspartate Amino Transferase 20 U/L (0-32); Blood Urea Nitrogen 10 mg/dL (6-20); Calcium 9.3 mg/dL (8.5-10.5); Carbon Dioxide 29 mmol/L (22-29); Chloride 103 mmol/L (98-107); Globulin 2.6 g/dL (1.3-4.6); Glomerular Filtration Rate 102.7 mL/min (90-130); Glucose 126 mg/dL (65-115); Osmolality Calculated 291 mOsm/kg (285-295); Potassium 4.5 mmol/L (3.5-5.1); Sodium 140 mmol/L (136-145); Total Bilirubin 0.3 mg/dL (0.15-1.2); Total Protein 6.6 g/dL (6.6-8.7)
[2023-07-03] MEDS: palonosetron 0.25 mg/5 mL SDV IVP (11:12)
[2023-07-03] MEDS: sodium chloride 0.9% 250 ML IV (11:12)
[2023-07-03] MEDS: bevacizumab-awwb 400 MG, bevacizumab-awwb 120 MG in sodium chloride 0.9% (100 ml) 100 ML 300 MG IV (11:39)
[2023-07-03] MEDS: leucovorin 830 MG in dextrose 5% 250 ML 500 MG IV (12:14)
[2023-07-03] MEDS: fluorouraciL 50 mg/ml MDV 100 mL 850 MG IVP (12:45)
[2023-07-03] MEDS: fluorouraciL 3,750 MG, elastomeric pump 1 PUMP in sodium chloride 0.9% (100 ml) 17 ML IV (12:45)
[2023-07-03 12:54] VITALS: BP 133/82; PULSE 71; RESP 18; O2SAT 95
== END 2023-07-04 23:59 | disposition home or self-care (01) ==
PROVIDERS: Internal Medicine Medical Oncology; PCP Family Medicine; Visit Provider Radiology Radiation Oncology
DX: Z45.1 Encounter for adjustment and management of infusion pump (principal); Z51.11 Encounter for antineoplastic chemotherapy; C18.7 Malignant neoplasm of sigmoid colon; R51.9 Headache, unspecified; R11.0 Nausea
CPT/HCPCS: 80053; 85025; 96375; 96411; 96413; 96416; 96417; J0640; J2469; J7050; J7060; J9190; Q5107

== ENCOUNTER 2023-07-31 08:20 | Oncology outpatient (recurring) (ONCR) | payer MEDICAID, SELFPAY ==
[2023-07-05 13:26] VITALS: BP 134/82; PULSE 76; RESP 17; TEMP 36.6; O2SAT 96
[2023-07-17 08:15] VITALS: BP 136/80; PULSE 78; RESP 16; TEMP 36.8; O2SAT 94
[2023-07-17 08:39] LABS: Basophils % 0.5 %; Eosinophils # 0.1 10^3/uL (0.0-0.8); Eosinophils % 2.4 %; Hematocrit 42.2 % (36-47); Lymphocytes # 1.7 10^3/uL (0.8-4.8); Mean Corpuscular HGB Conc 32.5 g/dL (30-55); Mean Corpuscular Hemoglobin 33.6 pg (27-33); Mean Corpuscular Volume 103.4 fl (85-98); Mean Platelet Volume 10.9 fL (7.4-10.4); Monocytes # 0.7 10^3/uL (0.2-0.9); Monocytes % 11.8 %; Neutrophils # 3.28 10^3/uL (1.8-7.7); Nucleated Red Blood Cells % 0 %; Platelet Count 125 10^3/cmm (157-399); Red Blood Count 4.08 10^6/uL (3.85-5.65); Red Cell Distribution Width 14.9 % (12.1-15.1); White Blood Count 5.86 10^3/uL (3.29-11.43)
[2023-07-17 08:52] LABS: Alanine Aminotransferase 26 U/L (0-33); Albumin Level 3.6 g/dL (3.5-5.2); Alkaline Phosphatase 74 U/L (35-105); Anion Gap 12.1 (5-19); Aspartate Amino Transferase 22 U/L (0-32); Blood Urea Nitrogen 10 mg/dL (6-20); Calcium 9.1 mg/dL (8.5-10.5); Carbon Dioxide 27 mmol/L (22-29); Chloride 104 mmol/L (98-107); Globulin 3.6 g/dL (1.3-4.6); Glomerular Filtration Rate 73.7 mL/min (90-130); Glucose 102 mg/dL (65-115); Osmolality Calculated 287 mOsm/kg (285-295); Potassium 4.1 mmol/L (3.5-5.1); Sodium 139 mmol/L (136-145); Total Bilirubin 0.4 mg/dL (0.15-1.2); Total Protein 7.2 g/dL (6.6-8.7)
[2023-07-17 10:16] LABS: Carcinoembryonic Antigen 36.4 ng/mL (0.0-4.7)
[2023-07-17] MEDS: alteplase 1 mg/mL SDV 2 mL 2 MG INTRACATH (10:51)
[2023-07-17] MEDS: sodium chloride 0.9% 250 ML IV (11:38)
[2023-07-17] MEDS: palonosetron 0.25 mg/5 mL SDV IVP (11:39)
[2023-07-17] MEDS: bevacizumab-awwb 400 MG, bevacizumab-awwb 120 MG in sodium chloride 0.9% (100 ml) 100 ML IV (11:46)
[2023-07-17] MEDS: leucovorin 830 MG in dextrose 5% 250 ML 500 MG IV (12:38)
[2023-07-17] MEDS: fluorouraciL 50 mg/ml MDV 100 mL 850 MG IVP (13:14)
[2023-07-17] MEDS: fluorouraciL 3,750 MG, elastomeric pump 1 PUMP in sodium chloride 0.9% (100 ml) 17 ML IV (13:15)
[2023-07-17 13:29] VITALS: BP 139/80; PULSE 63; RESP 18; TEMP 36.3; O2SAT 94
[2023-07-19 13:40] VITALS: BP 127/82; PULSE 77; RESP 18; TEMP 36.5; O2SAT 95
[2023-07-31 08:33] VITALS: BP 151/84; PULSE 81; RESP 16; TEMP 36.6; O2SAT 94
[2023-07-31 08:52] LABS: Basophils % 0.5 %; Eosinophils # 0.1 10^3/uL (0.0-0.8); Hematocrit 43.7 % (36-47); Lymphocytes # 1.2 10^3/uL (0.8-4.8); Lymphocytes % 18.1 %; Mean Corpuscular HGB Conc 32.5 g/dL (30-55); Mean Corpuscular Hemoglobin 33.5 pg (27-33); Mean Corpuscular Volume 103.1 fl (85-98); Mean Platelet Volume 10.7 fL (7.4-10.4); Monocytes # 0.6 10^3/uL (0.2-0.9); Monocytes % 8.8 %; Neutrophils # 4.53 10^3/uL (1.8-7.7); Neutrophils % 70.3 %; Nucleated Red Blood Cells % 0 %; Platelet Count 136 10^3/cmm (157-399); Red Blood Count 4.24 10^6/uL (3.85-5.65); Red Cell Distribution Width 14.6 % (12.1-15.1); White Blood Count 6.45 10^3/uL (3.29-11.43)
[2023-07-31 09:19] LABS: Alanine Aminotransferase 22 U/L (0-33); Albumin Level 3.7 g/dL (3.5-5.2); Alkaline Phosphatase 78 U/L (35-105); Anion Gap 13.4 (5-19); Aspartate Amino Transferase 18 U/L (0-32); Blood Urea Nitrogen 15 mg/dL (6-20); Calcium 9.3 mg/dL (8.5-10.5); Carbon Dioxide 28 mmol/L (22-29); Chloride 98 mmol/L (98-107); Globulin 3.6 g/dL (1.3-4.6); Glomerular Filtration Rate 73.7 mL/min (90-130); Glucose 153 mg/dL (65-115); Osmolality Calculated 284 mOsm/kg (285-295); Potassium 4.4 mmol/L (3.5-5.1); Sodium 135 mmol/L (136-145); Total Bilirubin 0.4 mg/dL (0.15-1.2); Total Protein 7.3 g/dL (6.6-8.7)
--- NOTE | 2023-07-31 09:47 | XR_ITS ---
WS: [id number] CHEST 2 VIEWS HISTORY: shortness of breath COMPARISON: 12/22/2022, 05/29/2023 Lungs: Patient has known pulmonary nodules. No large masses are identified. There is a very vague nod ule in the central RIGHT lung measuring 5 mm which does correspond to the one of the nodule seen by C T. No areas of consolidation. No effusion. Cardiac size: Normal. Mediastinum/Aorta: Normal mediastinum. Bones: Normal. RIGHT IJ Mediport. IMPRESSION: No areas of dense consolidation or pneumonia. Patient has known pulmonary nodules. 5 mm nodule noted in the central RIGHT lung was previously described.
[2023-07-31] MEDS: sodium chloride 0.9% 250 ML IV (11:38)
[2023-07-31] MEDS: palonosetron 0.25 mg/5 mL SDV IVP (11:40)
[2023-07-31] MEDS: bevacizumab-awwb 400 MG, bevacizumab-awwb 120 MG in sodium chloride 0.9% (100 ml) 100 ML 250 MG IV (11:45)
[2023-07-31] MEDS: leucovorin 830 MG in dextrose 5% 250 ML 500 MG IV (12:32)
[2023-07-31] MEDS: fluorouraciL 50 mg/ml MDV 100 mL 850 MG IVP (13:10)
[2023-07-31] MEDS: fluorouraciL 3,750 MG, elastomeric pump 1 PUMP in sodium chloride 0.9% (100 ml) 17 ML IV (13:11)
== END 2023-07-31 23:59 | disposition home or self-care (01) ==
PROVIDERS: Nurse Practitioner Family; PCP Family Medicine; Visit Provider Radiology Radiation Oncology
DX: Z51.11 Encounter for antineoplastic chemotherapy; C18.7 Malignant neoplasm of sigmoid colon
CPT/HCPCS: 36593; 71046; 80053; 82378; 85025; 96367; 96374; 96375; 96411; 96413; 96416; 96417; 96523; J0640; J1642; J2469; J2997; J7050; J7060; J9190; Q5107

== ENCOUNTER 2023-08-02 13:07 | Oncology outpatient (recurring) (ONCR) | payer MEDICAID, SELFPAY ==
[2023-08-02 13:30] VITALS: BP 114/75; PULSE 82; RESP 17; TEMP 36; O2SAT 95
== END 2023-08-03 23:59 | disposition home or self-care (01) ==
PROVIDERS: PCP Family Medicine; Visit Provider Radiology Radiation Oncology
DX: Z45.1 Encounter for adjustment and management of infusion pump
CPT/HCPCS: 96523; J1642

== ENCOUNTER 2023-08-25 11:02 | Oncology outpatient (recurring) (ONCR) | payer MEDICAID, SELFPAY ==
[2023-08-23 07:53] VITALS: BP 140/86; PULSE 82; RESP 16; TEMP 36.1; O2SAT 95
[2023-08-23 08:07] LABS: Basophils % 0.6 %; Eosinophils # 0.2 10^3/uL (0.0-0.8); Eosinophils % 2.5 %; Hematocrit 41.7 % (36-47); Lymphocytes # 1.1 10^3/uL (0.8-4.8); Mean Corpuscular HGB Conc 32.9 g/dL (30-55); Mean Corpuscular Hemoglobin 33.2 pg (27-33); Mean Platelet Volume 10.5 fL (7.4-10.4); Monocytes # 0.6 10^3/uL (0.2-0.9); Monocytes % 8.7 %; Neutrophils # 4.59 10^3/uL (1.8-7.7); Neutrophils % 70.9 %; Nucleated Red Blood Cells % 0 %; Platelet Count 164 10^3/cmm (157-399); Red Blood Count 4.13 10^6/uL (3.85-5.65); Red Cell Distribution Width 14.4 % (12.1-15.1); White Blood Count 6.47 10^3/uL (3.29-11.43)
[2023-08-23 08:35] LABS: Carcinoembryonic Antigen 76.6 ng/mL (0.0-4.7)
[2023-08-23 08:47] LABS: Alanine Aminotransferase 29 U/L (0-33); Albumin Level 3.7 g/dL (3.5-5.2); Alkaline Phosphatase 96 U/L (35-105); Anion Gap 13.5 (5-19); Aspartate Amino Transferase 23 U/L (0-32); Blood Urea Nitrogen 11 mg/dL (6-20); Calcium 9.4 mg/dL (8.5-10.5); Carbon Dioxide 28 mmol/L (22-29); Chloride 99 mmol/L (98-107); Globulin 3.5 g/dL (1.3-4.6); Glomerular Filtration Rate 85.9 mL/min (90-130); Glucose 146 mg/dL (65-115); Osmolality Calculated 284 mOsm/kg (285-295); Potassium 4.5 mmol/L (3.5-5.1); Sodium 136 mmol/L (136-145); Total Bilirubin 0.3 mg/dL (0.15-1.2); Total Protein 7.2 g/dL (6.6-8.7)
[2023-08-23] MEDS: sodium chloride 0.9% 250 ML IV (10:48)
[2023-08-23] MEDS: palonosetron 0.25 mg/5 mL SDV IVP (10:49)
[2023-08-23] MEDS: bevacizumab-awwb 400 MG, bevacizumab-awwb 120 MG in sodium chloride 0.9% (100 ml) 100 ML 300 MG IV (11:17)
[2023-08-23] MEDS: leucovorin 830 MG in dextrose 5% 250 ML 500 MG IV (11:53)
[2023-08-23] MEDS: fluorouraciL 50 mg/ml MDV 100 mL 850 MG IVP (12:33)
[2023-08-23] MEDS: fluorouraciL 3,750 MG, elastomeric pump 1 PUMP in sodium chloride 0.9% (100 ml) 17 ML IV (12:34)
[2023-08-23 12:45] VITALS: BP 144/87; PULSE 71; RESP 16; TEMP 36.4; O2SAT 95
[2023-08-25 11:10] VITALS: BP 140/93; PULSE 77; RESP 16; TEMP 36.4; O2SAT 92
== END 2023-09-03 23:59 | disposition home or self-care (01) ==
PROVIDERS: Internal Medicine Medical Oncology; PCP Family Medicine; Visit Provider Radiology Radiation Oncology
DX: Z45.1 Encounter for adjustment and management of infusion pump; Z53.9 Procedure and treatment not carried out, unspecified reason
CPT/HCPCS: 80053; 82378; 85025; 96367; 96375; 96411; 96413; 96416; 96523; J0640; J1642; J2469; J7050; J7060; J9190; Q5107

== ENCOUNTER 2023-10-04 08:15 | Oncology outpatient (recurring) (ONCR) | payer MEDICAID, SELFPAY ==
[2023-09-06 10:35] VITALS: BP 136/85; PULSE 84; RESP 16; TEMP 36.3; O2SAT 92
[2023-09-06 10:53] LABS: Basophils % 0.4 %; Eosinophils # 0.1 10^3/uL (0.0-0.8); Eosinophils % 2.3 %; Hematocrit 43.1 % (36-47); Lymphocytes # 1.6 10^3/uL (0.8-4.8); Lymphocytes % 27.6 %; Mean Corpuscular HGB Conc 33.2 g/dL (30-55); Mean Corpuscular Hemoglobin 33.3 pg (27-33); Mean Corpuscular Volume 100.2 fl (85-98); Mean Platelet Volume 10.4 fL (7.4-10.4); Monocytes # 0.4 10^3/uL (0.2-0.9); Monocytes % 7.8 %; Neutrophils # 3.48 10^3/uL (1.8-7.7); Neutrophils % 61.4 %; Nucleated Red Blood Cells % 0 %; Platelet Count 164 10^3/cmm (157-399); Red Cell Distribution Width 14.6 % (12.1-15.1); White Blood Count 5.66 10^3/uL (3.29-11.43)
[2023-09-06 11:42] LABS: Alanine Aminotransferase 23 U/L (0-33); Albumin Level 3.6 g/dL (3.5-5.2); Alkaline Phosphatase 81 U/L (35-105); Anion Gap 13.4 (5-19); Aspartate Amino Transferase 20 U/L (0-32); Blood Urea Nitrogen 11 mg/dL (6-20); Carbon Dioxide 28 mmol/L (22-29); Chloride 99 mmol/L (98-107); Globulin 3.9 g/dL (1.3-4.6); Glomerular Filtration Rate 102.7 mL/min (90-130); Glucose 132 mg/dL (65-115); Osmolality Calculated 283 mOsm/kg (285-295); Potassium 4.4 mmol/L (3.5-5.1); Sodium 136 mmol/L (136-145); Total Bilirubin 0.4 mg/dL (0.15-1.2); Total Protein 7.5 g/dL (6.6-8.7)
[2023-09-06] MEDS: sodium chloride 0.9% 250 ML IV (12:25)
[2023-09-06] MEDS: palonosetron 0.25 mg/5 mL SDV IVP (12:26)
[2023-09-06 12:35] LABS: Carcinoembryonic Antigen 51.1 ng/mL (0.0-4.7)
[2023-09-06] MEDS: bevacizumab-awwb 400 MG, bevacizumab-awwb 120 MG in sodium chloride 0.9% (100 ml) 100 ML 250 MG IV (13:09)
[2023-09-06] MEDS: leucovorin 830 MG in dextrose 5% 250 ML 666 MG IV (13:46)
[2023-09-06] MEDS: fluorouraciL 50 mg/ml MDV 100 mL 850 MG IVP (14:29)
[2023-09-06] MEDS: fluorouraciL 3,750 MG, elastomeric pump 1 PUMP in sodium chloride 0.9% (100 ml) 17 ML IV (14:30)
[2023-09-06 14:37] VITALS: BP 132/67; PULSE 56; O2SAT 93
[2023-09-08 10:11] VITALS: BP 115/79; PULSE 73; TEMP 35.9; O2SAT 94
[2023-09-20 08:50] VITALS: BP 146/79; PULSE 93; RESP 16; TEMP 36.6; O2SAT 92
[2023-09-20 08:58] LABS: Basophils % 0.4 %; Eosinophils # 0.2 10^3/uL (0.0-0.8); Eosinophils % 2.3 %; Hematocrit 43.7 % (36-47); Lymphocytes # 1.3 10^3/uL (0.8-4.8); Lymphocytes % 17.3 %; Mean Corpuscular HGB Conc 33.4 g/dL (30-55); Mean Corpuscular Hemoglobin 33.2 pg (27-33); Mean Corpuscular Volume 99.3 fl (85-98); Mean Platelet Volume 10.5 fL (7.4-10.4); Monocytes # 0.8 10^3/uL (0.2-0.9); Monocytes % 10.1 %; Neutrophils # 5.18 10^3/uL (1.8-7.7); Neutrophils % 69.6 %; Nucleated Red Blood Cells % 0 %; Platelet Count 122 10^3/cmm (157-399); Red Cell Distribution Width 15.1 % (12.1-15.1); White Blood Count 7.44 10^3/uL (3.29-11.43)
[2023-09-20 09:22] LABS: Carcinoembryonic Antigen 93.4 ng/mL (0.0-4.7)
[2023-09-20 09:33] LABS: Alanine Aminotransferase 25 U/L (0-33); Albumin Level 3.8 g/dL (3.5-5.2); Alkaline Phosphatase 83 U/L (35-105); Anion Gap 15.6 (5-19); Aspartate Amino Transferase 24 U/L (0-32); Blood Urea Nitrogen 15 mg/dL (6-20); Calcium 9.8 mg/dL (8.5-10.5); Carbon Dioxide 29 mmol/L (22-29); Chloride 97 mmol/L (98-107); Globulin 3.7 g/dL (1.3-4.6); Glomerular Filtration Rate 85.9 mL/min (90-130); Glucose 135 mg/dL (65-115); Osmolality Calculated 287 mOsm/kg (285-295); Potassium 4.6 mmol/L (3.5-5.1); Sodium 137 mmol/L (136-145); Total Bilirubin 0.5 mg/dL (0.15-1.2); Total Protein 7.5 g/dL (6.6-8.7)
[2023-09-20] MEDS: palonosetron 0.25 mg/5 mL SDV IVP (10:29)
[2023-09-20] MEDS: leucovorin 830 MG in dextrose 5% 250 ML 666 MG IV (11:14)
[2023-09-20] MEDS: fluorouraciL 50 mg/ml MDV 100 mL 850 MG IVP (11:54)
[2023-09-20] MEDS: fluorouraciL 3,750 MG, elastomeric pump 1 PUMP in sodium chloride 0.9% (100 ml) 17 ML IV (11:54)
[2023-09-20 12:06] VITALS: BP 153/87; PULSE 77; O2SAT 94
[2023-09-22 10:21] VITALS: BP 110/73; PULSE 77; RESP 18; TEMP 36.1; O2SAT 92
[2023-10-04 08:41] VITALS: BP 122/82; PULSE 72; TEMP 36; O2SAT 93
[2023-10-04 08:53] LABS: Basophils % 0.6 %; Eosinophils # 0.2 10^3/uL (0.0-0.8); Eosinophils % 2.8 %; Hematocrit 42.9 % (36-47); Lymphocytes # 1.4 10^3/uL (0.8-4.8); Lymphocytes % 21.1 %; Mean Corpuscular HGB Conc 33.1 g/dL (30-55); Mean Corpuscular Volume 99.8 fl (85-98); Mean Platelet Volume 10.9 fL (7.4-10.4); Monocytes # 0.7 10^3/uL (0.2-0.9); Monocytes % 10.7 %; Neutrophils # 4.21 10^3/uL (1.8-7.7); Neutrophils % 64.5 %; Nucleated Red Blood Cells % 0 %; Platelet Count 132 10^3/cmm (157-399); Red Cell Distribution Width 15.4 % (12.1-15.1); White Blood Count 6.53 10^3/uL (3.29-11.43)
[2023-10-04 09:13] LABS: Alanine Aminotransferase 21 U/L (0-33); Albumin Level 3.8 g/dL (3.5-5.2); Alkaline Phosphatase 91 U/L (35-105); Anion Gap 13.4 (5-19); Aspartate Amino Transferase 20 U/L (0-32); Blood Urea Nitrogen 15 mg/dL (6-20); Calcium 9.5 mg/dL (8.5-10.5); Carbon Dioxide 28 mmol/L (22-29); Chloride 99 mmol/L (98-107); Globulin 3.6 g/dL (1.3-4.6); Glomerular Filtration Rate 102.7 mL/min (90-130); Glucose 139 mg/dL (65-115); Osmolality Calculated 285 mOsm/kg (285-295); Potassium 4.4 mmol/L (3.5-5.1); Sodium 136 mmol/L (136-145); Total Bilirubin 0.4 mg/dL (0.15-1.2); Total Protein 7.4 g/dL (6.6-8.7)
[2023-10-04] MEDS: sodium chloride 0.9% 250 ML IV (11:12)
[2023-10-04] MEDS: palonosetron 0.25 mg/5 mL SDV IVP (11:16)
[2023-10-04] MEDS: leucovorin 830 MG in dextrose 5% 250 ML 666 MG IV (11:36)
[2023-10-04] MEDS: fluorouraciL 50 mg/ml MDV 100 mL 850 MG IVP (12:19)
[2023-10-04] MEDS: fluorouraciL 3,750 MG, elastomeric pump 1 PUMP in sodium chloride 0.9% (100 ml) 17 ML IV (12:27)
[2023-10-04 12:35] VITALS: BP 148/87; PULSE 61; RESP 18; TEMP 35.9; O2SAT 95
== END 2023-10-04 23:59 | disposition home or self-care (01) ==
PROVIDERS: Internal Medicine Medical Oncology; Nurse Practitioner Family; PCP Family Medicine; Visit Provider Radiology Radiation Oncology
DX: Z51.11 Encounter for antineoplastic chemotherapy (principal); Z53.9 Procedure and treatment not carried out, unspecified reason; C18.7 Malignant neoplasm of sigmoid colon
CPT/HCPCS: 80053; 82378; 85025; 96365; 96367; 96375; 96409; 96411; 96413; 96416; 96523; J0640; J1642; J2469; J7050; J7060; J9190; Q5107

== ENCOUNTER 2023-10-07 00:06 | Emergency (ER) | payer MEDICAID, SELFPAY ==
[2023-10-07 00:12] VITALS: BP 144/83; PULSE 89; RESP 18; TEMP 36.6; O2SAT 92; BMI 37.8
[2023-10-07 00:20] VITALS: BP 128/73; PULSE 85; RESP 14; O2SAT 92
--- NOTE | 2023-10-07 00:26 | ED_ITS ---
HPI - Abdominal Pain 2 General: Stated Complaint: abdomen pain Time Seen by Provider: 10/07/23 00:21 History of Present Illness: Patient presents to the ER today complaining of abdominal pain secondary constipation. Patient s x-ray was reviewed and showed large amounts of stool. Ays she seen her oncologist today and told him about this they ordered an x-ray and said she was backed up with stool but had no blockage. Patient was told to come to the ER if she had worsening pain. Review of Systems 2 General: Reports: 10 or more systems reviewed and unremarkable except in HPI and below PFSH ED 2 PFSH: Medical History Colon cancer Obstructive sleep apnea GERD (gastroesophageal reflux disease) Type 2 diabetes mellitus, without long-term current use of insulin Reducible umbilical hernia COPD (chronic obstructive pulmonary disease) Surgical History Port-A-Cath in place H/O tubal ligation Family History Father COPD (chronic obstructive pulmonary disease) Lung disease Mother CAD (coronary artery disease) Grandfather CAD (coronary artery disease) Cancer Skin cancer Brother Diabetes Sister Cancer Lung cancer Grandmother Lung disease Other Hypertension Denies family history of Clotting disorder Dementia Hyperlipidemia Psychiatric illness Chronic kidney disease (CKD) Suicide Anesthesia complication Bleeding disorder Stroke Social History Smoking and tobacco/nicotine status: former use of tobacco/nicotine Quit status (tobacco/nicotine): has quit using Year quit tobacco: 2013 - 1PPD x 35 years Former quit date comment: Started age 13years Second hand smoke exposure: No Alcohol intake: never Substance/Drug Use: never Lives independently: Yes Household members: children Current occupational status: employed Do you think of yourself as: Straight/Heterosexual Current gender identity: Female Physical Exam 2 Const: COMMON NORMALS: no acute distress, average body habitus, patient oriented x3, no limitations, healthy appearing, alert and well nourished HENMT: COMMON NORMALS: normocephalic, atraumatic, hearing grossly normal bilaterally, external ears normal, EAC's normal, Normal external nose present, moist oral mucous membranes and oropharynx normal HEAD & SCALP: normocephalic and atraumatic NOSE: Normal external nose present EXTERNAL EAR: Yes external ears normal EXTERNAL AUDITORY CANAL: EAC's normal Neck/C-Spine: COMMON NORMALS: no JVD Chest: COMMONS NORMALS: normal inspection of the chest and normal palpation of entire chest wall Resp: COMMON NORMALS: normal respiratory effort, No retractions, No use of accessory muscles and clear to auscultation bilaterally AUSCULTATION: clear to auscultation bilaterally Cardio: COMMON NORMALS: no JVD, regular rate, regular rhythm, S1 normal heart sound present, S2 normal heart sound present, No gallops present (Cardio), No clicks present (Cardio) and No murmurs present (Cardio) RATE: regular rate RHYTHM: regular rhythm HEART SOUNDS: S1 normal heart sound present and S2 normal heart sound present GI: COMMON NORMALS: Normal to inspection, nondistended, normoactive bowel sounds present, Soft to palpation, No hepatosplenomegaly present and no masses; negative for non-tender (Mild diffuse abdominal pain) PALPATION: Yes Soft to palpation and Yes No hepatosplenomegaly present Neuro: COMMON NORMALS: patient oriented x3 SENSORIUM/ORIENTATION: Yes alert Course 2 Vital Signs: Vital signs: Vital Signs Temperature 97.9 F 10/07/23 00:12 Pulse Rate 85 10/07/23 00:20 Respiratory Rate 14 10/07/23 00:20 Blood Pressure 128/73 10/07/23 00:20 Pulse Oximetry 92 10/07/23 00:20 Oxygen Delivery Me thod Room Air 10/07/23 00:20 MDM - Abdominal Pain Medical Decision Making CBC CMP was obtained which are pending. Patient was given 2 senna. Patient be discharged home with prescription for senna and should follow-up with her PCP for further evaluation and treatment. Differential Diagnosis Likely abdominal pain and constipation; Unlikely acute appendicitis, calculus of kidney, diverticulitis, endometriosis, gastroenteritis, pancreatitis or small bowel obstruction Medical Records I reviewed the patient's medical records. Lab Data I reviewed the patient's lab results. 10/07/23 01:04 10/07/23 01:04 Labs/Radiology: Laboratory Results WBC 7.14 10^3/uL (3.29-11.43) 10/07/23 01:04 RBC 4.29 10^6/uL (3.85-5.65) 10/07/23 01:04 Hgb 14.20 g/dL (11.27-16.99) 10/07/23 01:04 Hct 43.0 % (36-47) 10/07/23 01:04 MCV 100.2 fl (85-98) H 10/07/23 01:04 MCH 33.1 pg (27-33) H 10/07/23 01:04 MCHC 33.0 g/dL (30-55) 10/07/23 01:04 RDW 15.3 % (12.1-15.1) H 10/07/23 01:04 Plt Count 155 10^3/cmm (157-399) L 10/07/23 01:04 MPV 11.1 fL (7.4-10.4) H 10/07/23 01:04 Neut % (Auto) 74.2 % 10/07/23 01:04 Lymph % (Auto) 19.0 % 10/07/23 01:04 Mcmullen % (Auto) 4.2 % 10/07/23 01:04 Eos % (Auto) 2.1 % 10/07/23 01:04 Baso % (Auto) 0.4 % 10/07/23 01:04 Neut # (Auto) 5.29 10^3/uL (1.8-7.7) 10/07/23 01:04 Lymph # (Auto) 1.4 10^3/uL (0.8-4.8) 10/07/23 01:04 Mcmullen # (Auto) 0.3 10^3/uL (0.2-0.9) 10/07/23 01:04 Eos # (Auto) 0.2 10^3/uL (0.0-0.8) 10/07/23 01:04 Baso # (Auto) 0.0 10^3/uL (0.0-0.1) 10/07/23 01:04 Nucleated RBC % (auto) 0 % 10/07/23 01:04 Nucleated RBCs # 0.0 /100WBC 10/07/23 01:04 Sodium 136 mmol/L (136-145) 10/07/23 01:04 Potassium 4.6 mmol/L (3.5-5.1) 10/07/23 01:04 Chloride 99 mmol/L (98-107) 10/07/23 01:04 Carbon Dioxide 28 mmol/L (22-29) 10/07/23 01:04 Anion Gap 13.6 (5-19) 10/07/23 01:04 BUN 14 mg/dL (6-20) 10/07/23 01:04 Creatinine 0.7 mg/dL (0.5-0.9) 10/07/23 01:04 GFR Calculation 85.9 mL/min (90-130) L 10/07/23 01:04 Glucose 161 mg/dL (65-115) H 10/07/23 01:04 Calculated Osmolality 286 mOsm/kg (285-295) 10/07/23 01:04 Calcium 9.6 mg/dL (8.5-10.5) 10/07/23 01:04 Total Bilirubin 0.5 mg/dL (0.15-1.2) 10/07/23 01:04 AST 22 U/L (0-32) 10/07/23 01:04 ALT 25 U/L (0-33) 10/07/23 01:04 Alkaline Phosphatase 95 U/L (35-105) 10/07/23 01:04 Total Protein 7.6 g/dL (6.6-8.7) 10/07/23 01:04 Albumin 3.8 g/dL (3.5-5.2) 10/07/23 01:04 Globulin 3.8 g/dL (1.3-4.6) 10/07/23 01:04 Lipase 17 U/L (13-60) 10/07/23 01:04 All radiology interpretation(s) finalized by discharge Discharge Plan Discharge Patient Disposition: Home Clinical Impression: Constipation Qualifiers: Constipation type: unspecified constipation type Qualified Code(s): K59.00 - Constipation, unspecified Condition: Stable Prescriptions: New Senna-S 8.6-50 mg tablet 2 tab-cap PO BID PRN (Reason: constipation) Qty: 30 0RF No Action Compazine 10 mg tablet 10 mg PO Q4H PRN (Reason: Mild Nausea) Qty: 30 3RF (DME) CPAP 6-16 cm with mask and supplies See Rx Instructions .Route .MEDSUPPLY Qty: 1 0RF Rx Instructions: As directed promethazine-DM 6.25-15 mg/5 mL syrup 5 ml PO Q6H PRN (Reason: cough) Qty: 118 0RF povidone-iodine [Betadine Swabsticks] 10 % swab 1 applic topical ONCE Qty: 1 0RF lidocaine (PF) 20 mg/mL (2 %) solution 3 mg SUBCUT ONCE PRN (Reason: anesthesia) Qty: 0.15 0RF albuterol sulfate 2.5 mg /3 mL (0.083 %) solution for nebulization 2.5 mg INHALATION Q6H PRN (Reason: shortness of breath or wheezing) Qty: 180 3RF (DME) Contour Next Test Strips Strip See Rx Instructions .ROUTE .MEDSUPPLY Qty: 100 5RF Rx Instructions: three times daily (DME) Blood Glucose Monitor, test strips and Lancets to be used in blood sugar testing 2 times daily See Rx Instructions .Route .MEDSUPPLY Qty: 200 0RF Rx Instructions: As directed amlodipine 5 mg tablet See Rx Instructions .ROUTE .COMPLEX PRN Dose Instruction: TAKE ONE TABLET BY MOUTH DAILY Rx Instructions: TAKE ONE TABLET BY MOUTH DAILY PRN; hydrochlorothiazide 12.5 mg capsule 12.5 mg PO DAILY PRN (Reason: blood pressure) omeprazole 20 mg capsule,delayed release(DR/EC) 20 mg PO BID Qty: 60 3RF (DME) lancets [Comfort EZ Lancets] 28 gauge misc See Rx Instructions .ROUTE .MEDSUPPLY Qty: 100 2RF Rx Instructions: once daily lidocaine-prilocaine 2.5-2.5 % cream 1 applic topical DIRECTED Qty: 30 0RF Rx Instructions: quarter size amount over port site 30-45 min prior to access, cover with plastic plastic wrap albuterol sulfate 90 mcg/actuation HFA aerosol inhaler 2 puff inhalation Q6H PRN (Reason: shortness of breath or wheezing) Qty: 8.5 3RF Januvia 100 mg tablet See Rx Instructions .ROUTE .COMPLEX Qty: 90 1RF Dose Instruction: TAKE ONE TABLET BY MOUTH EVERY DAY Rx Instructions: TAKE ONE TABLET BY MOUTH EVERY DAY metformin 500 mg tablet extended release 24 hr 500 mg PO BID Qty: 180 1RF budesonide-formoterol [Symbicort] 160-4.5 mcg/actuation HFA aerosol inhaler 2 puff inhalation BID Qty: 10.2 6RF Spiriva Respimat 2.5 mcg/actuation mist See Rx Instructions .ROUTE .COMPLEX Qty: 4 3RF Dose Instruction: 2 PUFF(S) DAILY FOR 30 DAYS Rx Instructions: 2 PUFF(S) DAILY FOR 30 DAYS ropinirole 0.25 mg tablet See Rx Instructions .ROUTE .COMPLEX Qty: 90 0RF Dose Instruction: TAKE ONE TABLET BY MOUTH DAILY AT BEDTIME Rx Instructions: TAKE ONE TABLET BY MOUTH DAILY AT BEDTIME (DME) test strips See Rx Instructions .Route .MEDSUPPLY Qty: 100 0RF Rx Instructions: use 2 times daily As directed atorvastatin 20 mg tablet See Rx Instructions .ROUTE .COMPLEX Qty: 90 0RF Dose Instruction: TAKE ONE TABLET BY MOUTH DAILY AT BEDTIME Rx Instructions: TAKE ONE TABLET BY MOUTH DAILY AT BEDTIME hydrocodone-acetaminophen 5-325 mg tablet 1 tab PO Q6H PRN (Reason: pain) Qty: 14 0RF Discharge Orders: Discharge ED (Routine); Ordered 10/07/23 Ordered By: Tre Mclean Referrals: Ann Pinon DO [Primary Care Provider] - 1 week Patient Instructions: Constipation (ED), High Fiber Diet (ED), Fleet Enema (ED) Activity Restrictions/Additional Instructions: Please take all medicine as prescribed as needed. Please follow-up with your family practice physician within the next 7 to 10 days for further evaluation and treatment. Coding Level of Care Code ED [employer] Worker for Connie Holliday
[2023-10-07] MEDS: sennosides-docusate Tablet 2 TAB PO (00:31)
[2023-10-07 01:12] LABS: Basophils % 0.4 %; Eosinophils # 0.2 10^3/uL (0.0-0.8); Eosinophils % 2.1 %; Lymphocytes # 1.4 10^3/uL (0.8-4.8); Mean Corpuscular Hemoglobin 33.1 pg (27-33); Mean Corpuscular Volume 100.2 fl (85-98); Mean Platelet Volume 11.1 fL (7.4-10.4); Monocytes # 0.3 10^3/uL (0.2-0.9); Monocytes % 4.2 %; Neutrophils # 5.29 10^3/uL (1.8-7.7); Neutrophils % 74.2 %; Nucleated Red Blood Cells % 0 %; Platelet Count 155 10^3/cmm (157-399); Red Blood Count 4.29 10^6/uL (3.85-5.65); Red Cell Distribution Width 15.3 % (12.1-15.1); White Blood Count 7.14 10^3/uL (3.29-11.43)
[2023-10-07 01:42] LABS: Alanine Aminotransferase 25 U/L (0-33); Albumin Level 3.8 g/dL (3.5-5.2); Alkaline Phosphatase 95 U/L (35-105); Anion Gap 13.6 (5-19); Aspartate Amino Transferase 22 U/L (0-32); Blood Urea Nitrogen 14 mg/dL (6-20); Calcium 9.6 mg/dL (8.5-10.5); Carbon Dioxide 28 mmol/L (22-29); Chloride 99 mmol/L (98-107); Globulin 3.8 g/dL (1.3-4.6); Glomerular Filtration Rate 85.9 mL/min (90-130); Glucose 161 mg/dL (65-115); Lipase 17 U/L (13-60); Osmolality Calculated 286 mOsm/kg (285-295); Potassium 4.6 mmol/L (3.5-5.1); Sodium 136 mmol/L (136-145); Total Bilirubin 0.5 mg/dL (0.15-1.2); Total Protein 7.6 g/dL (6.6-8.7)
== END 2023-10-07 01:44 | disposition home or self-care (01) ==
PROVIDERS: Emergency Provider Emergency Medicine; PCP Family Medicine
DX: K59.00 Constipation, unspecified (principal); Z79.84 Long term (current) use of oral hypoglycemic drugs; Z87.891 Personal history of nicotine dependence; Z85.038 Personal history of other malignant neoplasm of large intestine; E11.9 Type 2 diabetes mellitus without complications; J44.9 Chronic obstructive pulmonary disease, unspecified
CPT/HCPCS: 36415; 80053; 83690; 85025; 99283

== ENCOUNTER 2023-11-01 09:45 | Oncology outpatient (recurring) (ONCR) | payer MEDICAID, SELFPAY ==
--- NOTE | 2023-10-06 11:28 | XR_ITS ---
WS: [id number] KUB, AP view, 10/06/2023 Clinical Data: abdominal pain Comparison: KUB, 07/21/2022 Findings: No abnormal intraabdominal masses or calcifications are seen. There is no dilatated small bowel or ev idence of obstruction. There is a large amount of fecal material throughout the colon. Impression: Large amount of fecal material in the colon.
[2023-10-06 11:30] VITALS: BP 104/72; PULSE 70; RESP 17; TEMP 36.2; O2SAT 95
[2023-10-18 08:01] VITALS: BP 111/69; PULSE 79; RESP 17; TEMP 36.3; O2SAT 95
[2023-10-18 08:05] LABS: Basophils % 0.4 %; Eosinophils # 0.3 10^3/uL (0.0-0.8); Eosinophils % 3.7 %; Hematocrit 41.5 % (36-47); Lymphocytes # 1.2 10^3/uL (0.8-4.8); Lymphocytes % 14.3 %; Mean Corpuscular HGB Conc 32.8 g/dL (30-55); Mean Corpuscular Volume 100.7 fl (85-98); Mean Platelet Volume 10.5 fL (7.4-10.4); Monocytes # 0.7 10^3/uL (0.2-0.9); Monocytes % 8.6 %; Neutrophils # 5.96 10^3/uL (1.8-7.7); Neutrophils % 72.8 %; Nucleated Red Blood Cells % 0 %; Platelet Count 131 10^3/cmm (157-399); Red Blood Count 4.12 10^6/uL (3.85-5.65); Red Cell Distribution Width 15.6 % (12.1-15.1); White Blood Count 8.18 10^3/uL (3.29-11.43)
[2023-10-18 08:29] LABS: Carcinoembryonic Antigen 87.3 ng/mL (0.0-4.7)
[2023-10-18 08:40] LABS: Alanine Aminotransferase 23 U/L (0-33); Albumin Level 3.6 g/dL (3.5-5.2); Alkaline Phosphatase 99 U/L (35-105); Aspartate Amino Transferase 21 U/L (0-32); Blood Urea Nitrogen 14 mg/dL (6-20); Calcium 8.7 mg/dL (8.5-10.5); Carbon Dioxide 25 mmol/L (22-29); Chloride 100 mmol/L (98-107); Creatinine Clr Calc Pharmacy 102.8329; Globulin 3.7 g/dL (1.3-4.6); Glomerular Filtration Rate 85.6 mL/min (90-130); Glucose 164 mg/dL (65-115); Osmolality Calculated 286 mOsm/kg (285-295); Sodium 136 mmol/L (136-145); Total Bilirubin 0.4 mg/dL (0.15-1.2); Total Protein 7.3 g/dL (6.6-8.7)
[2023-10-18 08:55] LABS: Anion Gap 15.3 (5-19); Potassium 4.3 mmol/L (3.5-5.1)
[2023-10-18] MEDS: sodium chloride 0.9% 250 ML IV (10:27)
[2023-10-18] MEDS: palonosetron 0.25 mg/5 mL SDV IVP (10:30)
[2023-10-18] MEDS: leucovorin 830 MG in dextrose 5% 250 ML 500 MG IV (10:36)
[2023-10-18] MEDS: fluorouraciL 3,750 MG, elastomeric pump 1 PUMP in sodium chloride 0.9% (100 ml) 17 ML IV (11:34)
[2023-10-18] MEDS: fluorouraciL 50 mg/ml MDV 100 mL 850 MG IVP (11:34)
[2023-10-18 11:51] VITALS: BP 150/77; PULSE 72; RESP 17; O2SAT 97
[2023-10-20 10:18] VITALS: BP 110/73; PULSE 89; TEMP 36.3; O2SAT 92
[2023-11-01 09:54] LABS: Basophils % 0.4 %; Eosinophils # 0.2 10^3/uL (0.0-0.8); Eosinophils % 2.3 %; Hematocrit 40.7 % (36-47); Lymphocytes # 0.8 10^3/uL (0.8-4.8); Lymphocytes % 11.9 %; Mean Corpuscular HGB Conc 33.2 g/dL (30-55); Mean Corpuscular Hemoglobin 33.1 pg (27-33); Mean Corpuscular Volume 99.8 fl (85-98); Mean Platelet Volume 11.2 fL (7.4-10.4); Monocytes # 0.8 10^3/uL (0.2-0.9); Monocytes % 10.9 %; Neutrophils % 73.9 %; Nucleated Red Blood Cells % 0 %; Platelet Count 143 10^3/cmm (157-399); Red Blood Count 4.08 10^6/uL (3.85-5.65); Red Cell Distribution Width 16.2 % (12.1-15.1)
[2023-11-01 10:13] LABS: Alanine Aminotransferase 34 U/L (0-33); Albumin Level 3.6 g/dL (3.5-5.2); Alkaline Phosphatase 147 U/L (35-105); Anion Gap 14.6 (5-19); Aspartate Amino Transferase 22 U/L (0-32); Blood Urea Nitrogen 9 mg/dL (6-20); Calcium 9.2 mg/dL (8.5-10.5); Carbon Dioxide 27 mmol/L (22-29); Chloride 97 mmol/L (98-107); Creatinine Clr Calc Pharmacy 119.9718; Globulin 3.8 g/dL (1.3-4.6); Glomerular Filtration Rate 102.3 mL/min (90-130); Glucose 157 mg/dL (65-115); Osmolality Calculated 280 mOsm/kg (285-295); Potassium 4.6 mmol/L (3.5-5.1); Sodium 134 mmol/L (136-145); Total Bilirubin 0.6 mg/dL (0.15-1.2); Total Protein 7.4 g/dL (6.6-8.7)
[2023-11-01] MEDS: palonosetron 0.25 mg/5 mL SDV IVP (12:04)
[2023-11-01] MEDS: sodium chloride 0.9% 250 ML IV (12:04)
[2023-11-01] MEDS: leucovorin 830 MG in dextrose 5% 250 ML 500 MG IV (12:34)
[2023-11-01] MEDS: fluorouraciL 3,750 MG, elastomeric pump 1 PUMP in sodium chloride 0.9% (100 ml) 17 ML IV (13:18)
[2023-11-01] MEDS: fluorouraciL 50 mg/ml MDV 100 mL 850 MG IVP (13:18)
[2023-11-01 13:40] VITALS: BP 120/78; PULSE 78; RESP 18; TEMP 36.6; O2SAT 98
== END 2023-11-02 23:59 | disposition home or self-care (01) ==
PROVIDERS: Internal Medicine Medical Oncology; PCP Family Medicine; Visit Provider Radiology Radiation Oncology
DX: Z51.11 Encounter for antineoplastic chemotherapy (principal); Z53.9 Procedure and treatment not carried out, unspecified reason; C18.7 Malignant neoplasm of sigmoid colon
CPT/HCPCS: 36415; 74018; 80053; 82378; 85025; 96365; 96375; 96409; 96413; 96416; 96523; J0640; J1642; J2469; J7050; J7060; J9190

== ENCOUNTER 2023-12-01 11:00 | Oncology outpatient (recurring) (ONCR) | payer MEDICAID, SELFPAY ==
[2023-11-03 11:27] VITALS: BP 96/59; PULSE 82; RESP 16; TEMP 36.4; O2SAT 94
[2023-11-15 10:49] LABS: Basophils % 0.5 %; Eosinophils # 0.1 10^3/uL (0.0-0.8); Eosinophils % 2.2 %; Hematocrit 41.2 % (36-47); Lymphocytes # 0.8 10^3/uL (0.8-4.8); Lymphocytes % 14.3 %; Mean Corpuscular HGB Conc 33.5 g/dL (30-55); Mean Corpuscular Hemoglobin 33.7 pg (27-33); Mean Corpuscular Volume 100.5 fl (85-98); Mean Platelet Volume 10.6 fL (7.4-10.4); Monocytes # 0.5 10^3/uL (0.2-0.9); Monocytes % 8.3 %; Neutrophils % 74.2 %; Nucleated Red Blood Cells % 0 %; Platelet Count 137 10^3/cmm (157-399); Red Cell Distribution Width 16.1 % (12.1-15.1)
[2023-11-15 11:33] LABS: Carcinoembryonic Antigen 60.4 ng/mL (0.0-4.7)
[2023-11-15 11:46] LABS: Alanine Aminotransferase 18 U/L (0-33); Albumin Level 3.8 g/dL (3.5-5.2); Alkaline Phosphatase 113 U/L (35-105); Anion Gap 16.3 (5-19); Aspartate Amino Transferase 18 U/L (0-32); Blood Urea Nitrogen 12 mg/dL (6-20); Calcium 9.2 mg/dL (8.5-10.5); Carbon Dioxide 26 mmol/L (22-29); Chloride 97 mmol/L (98-107); Globulin 3.3 g/dL (1.3-4.6); Glomerular Filtration Rate 73.4 mL/min (90-130); Glucose 176 mg/dL (65-115); Osmolality Calculated 284 mOsm/kg (285-295); Potassium 4.3 mmol/L (3.5-5.1); Sodium 135 mmol/L (136-145); Total Bilirubin 0.5 mg/dL (0.15-1.2); Total Protein 7.1 g/dL (6.6-8.7)
[2023-11-15] MEDS: palonosetron 0.25 mg/5 mL SDV IVP (12:43)
[2023-11-15] MEDS: sodium chloride 0.9% 250 ML IV (12:43)
[2023-11-15] MEDS: leucovorin 830 MG in dextrose 5% 250 ML 500 MG IV (13:19)
[2023-11-15] MEDS: fluorouraciL 50 mg/ml MDV 100 mL 850 MG IVP (14:12)
[2023-11-15] MEDS: fluorouraciL 3,750 MG, elastomeric pump 1 PUMP in sodium chloride 0.9% (100 ml) 17 ML IV (14:12)
[2023-11-15 14:34] VITALS: BP 120/74; PULSE 84; RESP 18; TEMP 36.6; O2SAT 98
[2023-11-17 11:05] VITALS: BP 128/79; PULSE 68; RESP 16; TEMP 36; O2SAT 92
[2023-11-29 10:47] LABS: Basophils % 0.3 %; Eosinophils # 0.1 10^3/uL (0.0-0.8); Eosinophils % 2.3 %; Hematocrit 40.6 % (36-47); Lymphocytes # 0.8 10^3/uL (0.8-4.8); Lymphocytes % 14.1 %; Mean Corpuscular HGB Conc 33.3 g/dL (30-55); Mean Corpuscular Hemoglobin 33.9 pg (27-33); Mean Platelet Volume 11.2 fL (7.4-10.4); Monocytes # 0.6 10^3/uL (0.2-0.9); Monocytes % 10.6 %; Neutrophils # 4.29 10^3/uL (1.8-7.7); Nucleated Red Blood Cells % 0 %; Platelet Count 144 10^3/cmm (157-399); Red Blood Count 3.98 10^6/uL (3.85-5.65); Red Cell Distribution Width 16.2 % (12.1-15.1); White Blood Count 5.96 10^3/uL (3.29-11.43)
[2023-11-29 11:11] LABS: Carcinoembryonic Antigen 75.3 ng/mL (0.0-4.7)
[2023-11-29 11:22] LABS: Alanine Aminotransferase 27 U/L (0-33); Albumin Level 3.8 g/dL (3.5-5.2); Alkaline Phosphatase 112 U/L (35-105); Anion Gap 14.3 (5-19); Aspartate Amino Transferase 20 U/L (0-32); Blood Urea Nitrogen 12 mg/dL (6-20); Calcium 9.4 mg/dL (8.5-10.5); Carbon Dioxide 27 mmol/L (22-29); Chloride 99 mmol/L (98-107); Creatinine Clr Calc Pharmacy 101.5936; Globulin 3.4 g/dL (1.3-4.6); Glomerular Filtration Rate 85.6 mL/min (90-130); Glucose 132 mg/dL (65-115); Osmolality Calculated 284 mOsm/kg (285-295); Potassium 4.3 mmol/L (3.5-5.1); Sodium 136 mmol/L (136-145); Total Bilirubin 0.5 mg/dL (0.15-1.2); Total Protein 7.2 g/dL (6.6-8.7)
[2023-11-29] MEDS: palonosetron 0.25 mg/5 mL SDV IVP (11:47)
[2023-11-29] MEDS: leucovorin 830 MG in dextrose 5% 250 ML 500 MG IV (12:22)
[2023-11-29] MEDS: fluorouraciL 50 mg/ml MDV 100 mL 850 MG IVP (13:05)
[2023-11-29] MEDS: SODIUM CHLORIDE IV (13:14)
[2023-11-29] MEDS: ELASTOMERIC PUMP PUMP IV (13:14)
[2023-11-29] MEDS: FLUOROURACIL IV (13:14)
[2023-11-29 13:19] VITALS: BP 118/68; PULSE 71; RESP 16; TEMP 36.4; O2SAT 93
[2023-12-01 10:25] VITALS: BP 118/74; PULSE 75; O2SAT 91
== END 2023-12-03 23:59 | disposition home or self-care (01) ==
PROVIDERS: Internal Medicine; PCP Family Medicine; Visit Provider Radiology Radiation Oncology
DX: Z45.1 Encounter for adjustment and management of infusion pump (principal); Z53.9 Procedure and treatment not carried out, unspecified reason
CPT/HCPCS: 80053; 82378; 85025; 96365; 96375; 96409; 96411; 96413; 96416; 96523; J0640; J1642; J2469; J7050; J7060; J9190

== ENCOUNTER → 2023-12-18 09:38 | Outpatient (BNVA) | payer MEDICAID, SELFPAY | PROVIDERS: PCP Family Medicine; Visit Provider Family Medicine | DX: E11.9 Type 2 diabetes mellitus without complications (principal); J44.9 Chronic obstructive pulmonary disease, unspecified; F40.243 Fear of flying; I10 Essential (primary) hypertension; C18.7 Malignant neoplasm of sigmoid colon | CPT/HCPCS: 80061 ==

== ENCOUNTER 2023-12-27 09:00 | Oncology outpatient (recurring) (ONCR) | payer MEDICAID, SELFPAY ==
[2023-12-13 10:20] LABS: Basophils % 0.7 %; Eosinophils # 0.2 10^3/uL (0.0-0.8); Eosinophils % 2.7 %; Hematocrit 40.7 % (36-47); Lymphocytes # 0.9 10^3/uL (0.8-4.8); Lymphocytes % 15.4 %; Mean Corpuscular HGB Conc 33.7 g/dL (30-55); Mean Corpuscular Hemoglobin 34.1 pg (27-33); Mean Corpuscular Volume 101.2 fl (85-98); Mean Platelet Volume 10.2 fL (7.4-10.4); Monocytes # 0.5 10^3/uL (0.2-0.9); Monocytes % 8.7 %; Neutrophils # 4.23 10^3/uL (1.8-7.7); Neutrophils % 72.2 %; Nucleated Red Blood Cells % 0 %; Platelet Count 119 10^3/cmm (157-399); Red Blood Count 4.02 10^6/uL (3.85-5.65); Red Cell Distribution Width 15.8 % (12.1-15.1); White Blood Count 5.86 10^3/uL (3.29-11.43)
[2023-12-13 10:37] LABS: Alanine Aminotransferase 23 U/L (0-33); Albumin Level 3.8 g/dL (3.5-5.2); Alkaline Phosphatase 113 U/L (35-105); Anion Gap 13.2 (5-19); Aspartate Amino Transferase 21 U/L (0-32); Blood Urea Nitrogen 11 mg/dL (6-20); Calcium 9.1 mg/dL (8.5-10.5); Carbon Dioxide 26 mmol/L (22-29); Chloride 101 mmol/L (98-107); Globulin 3.3 g/dL (1.3-4.6); Glomerular Filtration Rate 73.4 mL/min (90-130); Glucose 130 mg/dL (65-115); Osmolality Calculated 283 mOsm/kg (285-295); Potassium 4.2 mmol/L (3.5-5.1); Sodium 136 mmol/L (136-145); Total Bilirubin 0.6 mg/dL (0.15-1.2); Total Protein 7.1 g/dL (6.6-8.7)
[2023-12-13 10:46] LABS: Carcinoembryonic Antigen 48.3 ng/mL (0.0-4.7)
[2023-12-13] MEDS: palonosetron 0.25 mg/5 mL SDV IVP (12:11)
[2023-12-13] MEDS: sodium chloride 0.9% 250 ML IV (12:11)
[2023-12-13 12:40] LABS: Vitamin B12 294 pg/mL (232-1245)
[2023-12-13] MEDS: bevacizumab-awwb 400 MG, bevacizumab-awwb 120 MG in sodium chloride 0.9% (100 ml) 100 ML 240 MG IV (12:44)
[2023-12-13 13:03] LABS: Folate Level > 20.0 ng/mL (4.8-37.3)
[2023-12-13] MEDS: leucovorin 830 MG in dextrose 5% 250 ML 500 MG IV (13:17)
[2023-12-13] MEDS: fluorouraciL 50 mg/ml MDV 100 mL 850 MG IVP (13:55)
[2023-12-13] MEDS: fluorouraciL 3,750 MG, elastomeric pump 1 PUMP in sodium chloride 0.9% (100 ml) 17 ML IV (13:57)
[2023-12-15 10:00] VITALS: BP 117/75; PULSE 72; RESP 16; TEMP 36.3; O2SAT 92
[2023-12-16 04:41] LABS: Methylmalonic Acid 163 nmol/L (87-318)
[2023-12-27 09:32] LABS: Basophils % 0.4 %; Eosinophils # 0.2 10^3/uL (0.0-0.8); Eosinophils % 2.5 %; Hematocrit 39.2 % (36-47); Lymphocytes # 0.7 10^3/uL (0.8-4.8); Lymphocytes % 9.4 %; Mean Corpuscular HGB Conc 33.7 g/dL (30-55); Mean Corpuscular Hemoglobin 34.6 pg (27-33); Mean Corpuscular Volume 102.6 fl (85-98); Mean Platelet Volume 10.7 fL (7.4-10.4); Monocytes # 0.5 10^3/uL (0.2-0.9); Monocytes % 7.3 %; Neutrophils # 5.78 10^3/uL (1.8-7.7); Nucleated Red Blood Cells % 0 %; Platelet Count 126 10^3/cmm (157-399); Red Blood Count 3.82 10^6/uL (3.85-5.65); Red Cell Distribution Width 15.7 % (12.1-15.1); White Blood Count 7.23 10^3/uL (3.29-11.43)
[2023-12-27 09:56] LABS: Carcinoembryonic Antigen 44.7 ng/mL (0.0-4.7)
[2023-12-27 10:07] LABS: Alanine Aminotransferase 20 U/L (0-33); Albumin Level 3.6 g/dL (3.5-5.2); Alkaline Phosphatase 117 U/L (35-105); Anion Gap 13.4 (5-19); Aspartate Amino Transferase 18 U/L (0-32); Blood Urea Nitrogen 12 mg/dL (6-20); Calcium 8.8 mg/dL (8.5-10.5); Carbon Dioxide 27 mmol/L (22-29); Chloride 101 mmol/L (98-107); Creatinine Clr Calc Pharmacy 101.8412; Globulin 3.4 g/dL (1.3-4.6); Glomerular Filtration Rate 85.6 mL/min (90-130); Glucose 171 mg/dL (65-115); Osmolality Calculated 288 mOsm/kg (285-295); Potassium 4.4 mmol/L (3.5-5.1); Sodium 137 mmol/L (136-145); Total Bilirubin 0.6 mg/dL (0.15-1.2)
[2023-12-27] MEDS: sodium chloride 0.9% 250 ML IV (11:29)
[2023-12-27] MEDS: palonosetron 0.25 mg/5 mL SDV IVP (11:33)
[2023-12-27] MEDS: bevacizumab-awwb 400 MG, bevacizumab-awwb 120 MG in sodium chloride 0.9% (100 ml) 100 ML 300 MG IV (12:48)
[2023-12-27] MEDS: leucovorin 830 MG in dextrose 5% 250 ML 500 MG IV (13:40)
[2023-12-27] MEDS: fluorouraciL 50 mg/ml MDV 100 mL 850 MG IVP (14:28)
[2023-12-27] MEDS: fluorouraciL 3,750 MG, elastomeric pump 1 PUMP in sodium chloride 0.9% (100 ml) 17 ML IV (14:29)
[2023-12-27 14:35] VITALS: BP 145/92; PULSE 68; RESP 17; TEMP 36.2; O2SAT 95
[2023-12-27 14:44] VITALS: BP 145/92; PULSE 68; RESP 16; TEMP 36.2; O2SAT 95
== END 2023-12-27 23:59 | disposition home or self-care (01) ==
PROVIDERS: Internal Medicine; Nurse Practitioner Family; PCP Family Medicine; Visit Provider Radiology Radiation Oncology
DX: Z51.11 Encounter for antineoplastic chemotherapy (principal); Z53.9 Procedure and treatment not carried out, unspecified reason; C18.7 Malignant neoplasm of sigmoid colon; Z79.899 Other long term (current) drug therapy; Z51.12 Encounter for antineoplastic immunotherapy; Z95.828 Presence of other vascular implants and grafts
CPT/HCPCS: 80053; 82378; 82607; 82746; 83921; 85025; 96365; 96367; 96375; 96409; 96411; 96413; 96416; 96523; J0640; J2469; J7050; J7060; J9190; Q5107

== ENCOUNTER 2023-12-29 09:58 | Oncology outpatient (recurring) (ONCR) | payer MEDICAID, SELFPAY ==
[2023-12-29 10:33] VITALS: BP 142/81; PULSE 72; O2SAT 96
== END 2024-01-02 23:59 | disposition home or self-care (01) ==
LOC: ONCMED 09:59
PROVIDERS: PCP Family Medicine; Visit Provider Radiology Radiation Oncology
DX: Z45.1 Encounter for adjustment and management of infusion pump
CPT/HCPCS: 96523

== ENCOUNTER 2024-01-31 08:30 | Oncology outpatient (recurring) (ONCR) | payer MEDICAID, SELFPAY ==
[2024-01-10 09:09] LABS: Basophils % 0.4 %; Eosinophils # 0.1 10^3/uL (0.0-0.8); Eosinophils % 1.5 %; Hematocrit 41.7 % (36-47); Lymphocytes # 0.8 10^3/uL (0.8-4.8); Lymphocytes % 11.2 %; Mean Corpuscular HGB Conc 33.3 g/dL (30-55); Mean Corpuscular Hemoglobin 33.7 pg (27-33); Mean Platelet Volume 11.1 fL (7.4-10.4); Monocytes # 0.7 10^3/uL (0.2-0.9); Monocytes % 9.5 %; Neutrophils # 5.52 10^3/uL (1.8-7.7); Nucleated Red Blood Cells % 0 %; Platelet Count 139 10^3/cmm (157-399); Red Blood Count 4.13 10^6/uL (3.85-5.65); Red Cell Distribution Width 15.1 % (12.1-15.1); White Blood Count 7.17 10^3/uL (3.29-11.43)
[2024-01-10 09:39] LABS: Carcinoembryonic Antigen 49.3 ng/mL (0.0-4.7)
[2024-01-10 09:51] LABS: Alanine Aminotransferase 18 U/L (0-33); Albumin Level 3.8 g/dL (3.5-5.2); Alkaline Phosphatase 118 U/L (35-105); Anion Gap 16.4 (5-19); Aspartate Amino Transferase 17 U/L (0-32); Blood Urea Nitrogen 13 mg/dL (6-20); Calcium 9.1 mg/dL (8.5-10.5); Carbon Dioxide 26 mmol/L (22-29); Chloride 99 mmol/L (98-107); Creatinine Clr Calc Pharmacy 88.4603; Globulin 3.5 g/dL (1.3-4.6); Glomerular Filtration Rate 73.4 mL/min (90-130); Glucose 132 mg/dL (65-115); Osmolality Calculated 286 mOsm/kg (285-295); Potassium 4.4 mmol/L (3.5-5.1); Sodium 137 mmol/L (136-145); Total Bilirubin 1.1 mg/dL (0.15-1.2); Total Protein 7.3 g/dL (6.6-8.7)
[2024-01-10] MEDS: sodium chloride 0.9% 250 ML IV (10:18)
[2024-01-10] MEDS: palonosetron 0.25 mg/5 mL SDV IVP (10:19)
[2024-01-10] MEDS: bevacizumab-awwb 400 MG, bevacizumab-awwb 120 MG in sodium chloride 0.9% (100 ml) 100 ML 240 MG IV (10:40)
[2024-01-10] MEDS: leucovorin 830 MG in dextrose 5% 250 ML 500 MG IV (11:11)
[2024-01-10] MEDS: fluorouraciL 50 mg/ml MDV 100 mL 850 MG IVP (11:53)
[2024-01-10] MEDS: fluorouraciL 3,750 MG, elastomeric pump 1 PUMP in sodium chloride 0.9% (100 ml) 17 ML IV (12:02)
[2024-01-10 12:23] LABS: Add Urine Microscopic? NO; Charge for UA Resulting for Rev
[2024-01-10 12:34] LABS: Blood Urine Neg (Negative); Glucose Urine UA 1+ (Normal); Ketones Urine Negative (Negative); Nitrate Urine Negative (Negative); Protein Urine Neg (Negative); Urine Appearance Clear (CLEAR); Urine Color Yellow (Yellow); pH Urine 5 (5-7)
[2024-01-10 12:35] LABS: Bilirubin Urine Neg (Negative); Leukocyte Esterase Urine Negative (Negative); Urobilinogen Urine Norm (Negative)
[2024-01-12 10:56] VITALS: BP 136/78; PULSE 72; RESP 17; TEMP 36.4; O2SAT 95
[2024-01-31 09:02] LABS: Basophils % 0.5 %; Eosinophils % 0.2 %; Hematocrit 41.1 % (36-47); Lymphocytes # 1.3 10^3/uL (0.8-4.8); Lymphocytes % 19.6 %; Mean Corpuscular HGB Conc 32.4 g/dL (30-55); Mean Corpuscular Hemoglobin 33.3 pg (27-33); Mean Corpuscular Volume 102.8 fl (85-98); Mean Platelet Volume 10.4 fL (7.4-10.4); Monocytes # 0.8 10^3/uL (0.2-0.9); Monocytes % 11.9 %; Neutrophils # 4.17 10^3/uL (1.8-7.7); Neutrophils % 64.4 %; Nucleated Red Blood Cells % 0 %; Platelet Count 170 10^3/cmm (157-399); Red Cell Distribution Width 14.7 % (12.1-15.1); White Blood Count 6.47 10^3/uL (3.29-11.43)
[2024-01-31 09:25] LABS: Carcinoembryonic Antigen 59.7 ng/mL (0.0-4.7)
[2024-01-31 09:37] LABS: Alanine Aminotransferase 15 U/L (0-33); Albumin Level 3.4 g/dL (3.5-5.2); Alkaline Phosphatase 89 U/L (35-105); Aspartate Amino Transferase 16 U/L (0-32); Blood Urea Nitrogen 13 mg/dL (6-20); Calcium 9.3 mg/dL (8.5-10.5); Carbon Dioxide 28 mmol/L (22-29); Chloride 104 mmol/L (98-107); Creatinine Clr Calc Pharmacy 101.0975; Globulin 3.5 g/dL (1.3-4.6); Glomerular Filtration Rate 85.6 mL/min (90-130); Glucose 82 mg/dL (65-115); Osmolality Calculated 289 mOsm/kg (285-295); Sodium 140 mmol/L (136-145); Total Bilirubin 0.2 mg/dL (0.15-1.2); Total Protein 6.9 g/dL (6.6-8.7)
[2024-01-31 09:38] LABS: Anion Gap 12.1 (5-19); Potassium 4.1 mmol/L (3.5-5.1)
[2024-01-31 11:35] VITALS: BMI 40.4
[2024-01-31] MEDS: palonosetron 0.25 mg/5 mL SDV IVP (11:37)
[2024-01-31] MEDS: sodium chloride 0.9% 250 ML 75 ML IV (11:37)
[2024-01-31] MEDS: bevacizumab-awwb 400 MG, bevacizumab-awwb 120 MG in sodium chloride 0.9% (100 ml) 100 ML 250 MG IV (11:53)
[2024-01-31] MEDS: leucovorin 830 MG in dextrose 5% 250 ML 500 MG IV (12:40)
[2024-01-31] MEDS: fluorouraciL 3,750 MG, elastomeric pump 1 PUMP in sodium chloride 0.9% (100 ml) 17 ML IV (13:40)
[2024-01-31] MEDS: fluorouraciL 50 mg/ml MDV 100 mL 850 MG IVP (13:40)
[2024-01-31 13:56] VITALS: BP 163/83; PULSE 67; RESP 17; TEMP 36.6; O2SAT 92
== END 2024-01-31 23:59 | disposition home or self-care (01) ==
PROVIDERS: Nurse Practitioner Family; PCP Family Medicine; Visit Provider Radiology Radiation Oncology
DX: Z51.11 Encounter for antineoplastic chemotherapy (principal); Z53.9 Procedure and treatment not carried out, unspecified reason; C18.7 Malignant neoplasm of sigmoid colon; Z79.899 Other long term (current) drug therapy
CPT/HCPCS: 80053; 81003; 82378; 85025; 96367; 96375; 96411; 96413; 96416; 96417; 96523; J0640; J2469; J7050; J7060; J9190; Q5107

== ENCOUNTER 2024-02-02 10:15 | Oncology outpatient (recurring) (ONCR) | payer MEDICAID, SELFPAY ==
[2024-02-02 11:06] VITALS: BP 127/85; PULSE 82; RESP 17; TEMP 36.3; O2SAT 93
== END 2024-02-02 23:59 | disposition home or self-care (01) ==
PROVIDERS: PCP Family Medicine; Visit Provider Radiology Radiation Oncology
DX: Z53.9 Procedure and treatment not carried out, unspecified reason (principal); Z45.1 Encounter for adjustment and management of infusion pump; Z51.11 Encounter for antineoplastic chemotherapy; C18.7 Malignant neoplasm of sigmoid colon
CPT/HCPCS: 96523

== ENCOUNTER 2024-02-28 13:00 | Oncology outpatient (recurring) (ONCR) | payer MEDICAID, SELFPAY ==
[2024-02-14 12:02] LABS: Basophils % 0.5 %; Eosinophils # 0.1 10^3/uL (0.0-0.8); Eosinophils % 1.8 %; Hematocrit 42.8 % (36-47); Lymphocytes # 0.8 10^3/uL (0.8-4.8); Lymphocytes % 14.9 %; Mean Corpuscular HGB Conc 32.9 g/dL (30-55); Mean Corpuscular Hemoglobin 32.5 pg (27-33); Mean Corpuscular Volume 98.6 fl (85-98); Mean Platelet Volume 11.1 fL (7.4-10.4); Monocytes # 0.6 10^3/uL (0.2-0.9); Monocytes % 10.5 %; Neutrophils # 4.04 10^3/uL (1.8-7.7); Neutrophils % 71.9 %; Nucleated Red Blood Cells % 0 %; Platelet Count 131 10^3/cmm (157-399); Red Blood Count 4.34 10^6/uL (3.85-5.65); Red Cell Distribution Width 14.9 % (12.1-15.1); White Blood Count 5.62 10^3/uL (3.29-11.43)
[2024-02-14 12:25] LABS: Alanine Aminotransferase 25 U/L (0-33); Albumin Level 3.9 g/dL (3.5-5.2); Alkaline Phosphatase 105 U/L (35-105); Anion Gap 12.3 (5-19); Aspartate Amino Transferase 20 U/L (0-32); Blood Urea Nitrogen 10 mg/dL (6-20); Calcium 9.4 mg/dL (8.5-10.5); Carbon Dioxide 29 mmol/L (22-29); Chloride 99 mmol/L (98-107); Globulin 3.3 g/dL (1.3-4.6); Glomerular Filtration Rate 85.6 mL/min (90-130); Glucose 156 mg/dL (65-115); Osmolality Calculated 284 mOsm/kg (285-295); Potassium 4.3 mmol/L (3.5-5.1); Sodium 136 mmol/L (136-145); Total Bilirubin 0.8 mg/dL (0.15-1.2); Total Protein 7.2 g/dL (6.6-8.7)
[2024-02-14] MEDS: sodium chloride 0.9% 250 ML IV (13:40)
[2024-02-14] MEDS: palonosetron 0.25 mg/5 mL SDV IVP (13:42)
[2024-02-14 14:49] LABS: Carcinoembryonic Antigen 96.2 ng/mL (0.0-4.7)
[2024-02-14] MEDS: leucovorin 830 MG in dextrose 5% 250 ML 500 MG IV (14:56)
[2024-02-14] MEDS: alteplase 1 mg/mL SDV 2 mL 2 MG INTRACATH (16:01)
[2024-02-14 16:40] LABS: Glucose Urine UA Norm (Normal); Ketones Urine Negative (Negative); Protein Urine Neg (Negative); Specific Gravity, Urine 1.015 (1.005-1.030); Urine Appearance Clear (CLEAR); Urine Color Yellow (Yellow); pH Urine 5 (5-7)
[2024-02-14 16:41] LABS: Bacteria Urine 1+ /hpf; Bilirubin Urine Neg (Negative); Blood Urine Neg (Negative); Leukocyte Esterase Urine Trace (Negative); Nitrate Urine Negative (Negative); RBC Urine RARE /hpf (0-2); Urobilinogen Urine Norm (Negative); WBC Urine 0-4 /hpf (0-5)
[2024-02-14] MEDS: fluorouraciL 50 mg/ml MDV 100 mL 850 MG IVP (16:44)
[2024-02-14] MEDS: fluorouraciL 3,750 MG, elastomeric pump 1 PUMP in sodium chloride 0.9% (100 ml) 17 ML IV (16:44)
[2024-02-14 16:54] VITALS: BP 134/88; PULSE 84; RESP 17; TEMP 36.5; O2SAT 96
[2024-02-16 11:30] VITALS: BP 113/69; PULSE 85; RESP 16; TEMP 36.8; O2SAT 92
[2024-02-28 12:55] VITALS: BP 143/92; PULSE 71; RESP 16; TEMP 36.8; O2SAT 96
[2024-02-28 13:10] LABS: Basophils % 0.5 %; Eosinophils # 0.1 10^3/uL (0.0-0.8); Eosinophils % 2.1 %; Lymphocytes % 17.3 %; Mean Corpuscular HGB Conc 33.3 g/dL (30-55); Mean Corpuscular Hemoglobin 32.4 pg (27-33); Mean Corpuscular Volume 97.5 fl (85-98); Mean Platelet Volume 10.9 fL (7.4-10.4); Monocytes # 0.5 10^3/uL (0.2-0.9); Monocytes % 9.1 %; Neutrophils # 4.13 10^3/uL (1.8-7.7); Neutrophils % 70.7 %; Nucleated Red Blood Cells % 0 %; Platelet Count 108 10^3/cmm (157-399); Red Blood Count 4.41 10^6/uL (3.85-5.65); Red Cell Distribution Width 15.2 % (12.1-15.1); White Blood Count 5.84 10^3/uL (3.29-11.43)
[2024-02-28 13:26] LABS: Alanine Aminotransferase 19 U/L (0-33); Alkaline Phosphatase 110 U/L (35-105); Anion Gap 13.3 (5-19); Aspartate Amino Transferase 19 U/L (0-32); Blood Urea Nitrogen 12 mg/dL (6-20); Carbon Dioxide 27 mmol/L (22-29); Chloride 100 mmol/L (98-107); Globulin 3.2 g/dL (1.3-4.6); Glomerular Filtration Rate 102.3 mL/min (90-130); Glucose 133 mg/dL (65-115); Osmolality Calculated 284 mOsm/kg (285-295); Potassium 4.3 mmol/L (3.5-5.1); Sodium 136 mmol/L (136-145); Total Bilirubin 0.6 mg/dL (0.15-1.2); Total Protein 7.2 g/dL (6.6-8.7)
[2024-02-28] MEDS: palonosetron 0.25 mg/5 mL SDV IVP (14:14)
[2024-02-28] MEDS: sodium chloride 0.9% 250 ML IV (14:14)
[2024-02-28] MEDS: bevacizumab-awwb 400 MG, bevacizumab-awwb 120 MG in sodium chloride 0.9% (100 ml) 100 ML 240 MG IV (14:33)
[2024-02-28] MEDS: leucovorin 830 MG in dextrose 5% 250 ML 500 MG IV (15:09)
[2024-02-28] MEDS: fluorouraciL 50 mg/ml MDV 100 mL 850 MG IVP (15:50)
[2024-02-28] MEDS: fluorouraciL 3,750 MG, elastomeric pump 1 PUMP in sodium chloride 0.9% (100 ml) 17 ML IV (15:59)
[2024-02-28 16:05] VITALS: BP 154/93; PULSE 84; RESP 16; O2SAT 92
[2024-02-28 16:52] LABS: Add Urine Microscopic? NO; Charge for UA Resulting for Rev
[2024-02-28 17:11] LABS: Bilirubin Urine Neg (Negative); Blood Urine Neg (Negative); Glucose Urine UA Norm (Normal); Ketones Urine Negative (Negative); Leukocyte Esterase Urine Negative (Negative); Nitrate Urine Negative (Negative); Protein Urine Neg (Negative); Specific Gravity, Urine 1.015 (1.005-1.030); Urine Appearance Clear (CLEAR); Urine Color Yellow (Yellow); Urobilinogen Urine Norm (Negative); pH Urine 6 (5-7)
== END 2024-02-28 23:59 | disposition home or self-care (01) ==
PROVIDERS: Internal Medicine Medical Oncology; Nurse Practitioner Family; PCP Family Medicine; Visit Provider Radiology Radiation Oncology
DX: Z51.11 Encounter for antineoplastic chemotherapy (principal); Z53.9 Procedure and treatment not carried out, unspecified reason; C18.7 Malignant neoplasm of sigmoid colon; C78.7 Secondary malignant neoplasm of liver and intrahepatic bile duct
CPT/HCPCS: 36593; 80053; 81001; 81003; 82378; 85025; 96367; 96375; 96409; 96411; 96413; 96416; 96417; 96523; J0640; J2469; J2997; J7050; J7060; J9190; Q5107

== ENCOUNTER 2024-03-01 10:50 | Oncology outpatient (recurring) (ONCR) | payer MEDICAID, SELFPAY ==
[2024-03-01 10:55] VITALS: BP 124/72; PULSE 78; RESP 16; TEMP 36.6; O2SAT 94
== END 2024-03-03 23:59 | disposition home or self-care (01) ==
LOC: ONCMED 10:51
PROVIDERS: PCP Family Medicine; Visit Provider Radiology Radiation Oncology
DX: Z45.1 Encounter for adjustment and management of infusion pump; C18.7 Malignant neoplasm of sigmoid colon
CPT/HCPCS: 96523

== ENCOUNTER 2024-04-03 09:30 | Oncology outpatient (recurring) (ONCR) | payer MEDICAID, SELFPAY ==
[2024-03-13 12:23] LABS: Basophils % 0.6 %; Eosinophils # 0.2 10^3/uL (0.0-0.8); Eosinophils % 2.9 %; Hematocrit 43.4 % (36-47); Lymphocytes # 0.9 10^3/uL (0.8-4.8); Lymphocytes % 13.3 %; Mean Corpuscular HGB Conc 32.9 g/dL (30-55); Mean Corpuscular Hemoglobin 32.1 pg (27-33); Mean Corpuscular Volume 97.5 fl (85-98); Monocytes # 0.6 10^3/uL (0.2-0.9); Monocytes % 8.9 %; Nucleated Red Blood Cells % 0 %; Platelet Count 124 10^3/cmm (157-399); Red Blood Count 4.45 10^6/uL (3.85-5.65); Red Cell Distribution Width 15.7 % (12.1-15.1); White Blood Count 6.62 10^3/uL (3.29-11.43)
[2024-03-13 12:52] LABS: Carcinoembryonic Antigen 81.2 ng/mL (0.0-4.7)
[2024-03-13 13:03] LABS: Alanine Aminotransferase 22 U/L (0-33); Albumin Level 3.8 g/dL (3.5-5.2); Alkaline Phosphatase 112 U/L (35-105); Aspartate Amino Transferase 22 U/L (0-32); Blood Urea Nitrogen 12 mg/dL (6-20); Calcium 9.1 mg/dL (8.5-10.5); Carbon Dioxide 25 mmol/L (22-29); Chloride 99 mmol/L (98-107); Globulin 3.2 g/dL (1.3-4.6); Glomerular Filtration Rate 85.6 mL/min (90-130); Glucose 206 mg/dL (65-115); Osmolality Calculated 288 mOsm/kg (285-295); Sodium 136 mmol/L (136-145); Total Bilirubin 0.7 mg/dL (0.15-1.2)
[2024-03-13 13:04] LABS: Anion Gap 16.1 (5-19); Potassium 4.1 mmol/L (3.5-5.1)
[2024-03-13] MEDS: sodium chloride 0.9% 250 ML 75 ML IV (14:13)
[2024-03-13] MEDS: palonosetron 0.25 mg/5 mL SDV IVP (14:15)
[2024-03-13] MEDS: bevacizumab-awwb 400 MG, bevacizumab-awwb 120 MG in sodium chloride 0.9% (100 ml) 100 ML 240 MG IV (14:46)
[2024-03-13] MEDS: leucovorin 830 MG in dextrose 5% 250 ML 500 MG IV (15:30)
[2024-03-13] MEDS: fluorouraciL 3,750 MG, elastomeric pump 1 PUMP in sodium chloride 0.9% (100 ml) 17 ML IV (16:06)
[2024-03-13] MEDS: fluorouraciL 50 mg/ml MDV 100 mL 850 MG IVP (16:06)
[2024-03-13 16:24] VITALS: BP 147/77; PULSE 78; RESP 18; TEMP 36.6; O2SAT 98
--- NOTE | 2024-03-13 16:32 | XRR_ITS ---
PROCEDURE INFORMATION: Exam: XR Bilateral Sacroiliac Joints Exam date and time: 03/13/2024 4:45 PM Age: 58 years old Clinical indication: Lumbago; Patient HX: Pain across low back and into hips x 3 weeks; Additional info: Pain, nonradiating pain across low back with negative ua TECHNIQUE: Imaging protocol: XR bilateral XR of the sacroiliac joints. Views: 3 or more views. 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 Soft tissues: Normal. 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
[2024-03-15 11:35] VITALS: BP 125/82; PULSE 88; RESP 16; TEMP 36.2; O2SAT 99
[2024-04-03 09:34] LABS: Basophils # 0.1 10^3/uL (0.0-0.1); Basophils % 0.9 %; Eosinophils # 0.2 10^3/uL (0.0-0.8); Eosinophils % 2.5 %; Hematocrit 43.1 % (36-47); Lymphocytes # 1.5 10^3/uL (0.8-4.8); Mean Corpuscular HGB Conc 32.5 g/dL (30-55); Mean Corpuscular Hemoglobin 31.8 pg (27-33); Mean Platelet Volume 10.7 fL (7.4-10.4); Monocytes # 0.8 10^3/uL (0.2-0.9); Monocytes % 11.8 %; Neutrophils % 61.3 %; Nucleated Red Blood Cells % 0 %; Platelet Count 177 10^3/cmm (157-399); Red Cell Distribution Width 15.9 % (12.1-15.1); White Blood Count 6.52 10^3/uL (3.29-11.43)
[2024-04-03 10:00] LABS: Carcinoembryonic Antigen 115.7 ng/mL (0.0-4.7)
[2024-04-03 10:14] LABS: Alanine Aminotransferase 21 U/L (0-33); Albumin Level 3.7 g/dL (3.5-5.2); Alkaline Phosphatase 115 U/L (35-105); Anion Gap 15.9 (5-19); Aspartate Amino Transferase 22 U/L (0-32); Blood Urea Nitrogen 7 mg/dL (6-20); Calcium 8.8 mg/dL (8.5-10.5); Carbon Dioxide 23 mmol/L (22-29); Chloride 102 mmol/L (98-107); Creatinine Clr Calc Pharmacy 117.6583; Globulin 3.5 g/dL (1.3-4.6); Glomerular Filtration Rate 102.3 mL/min (90-130); Glucose 131 mg/dL (65-115); Osmolality Calculated 284 mOsm/kg (285-295); Potassium 3.9 mmol/L (3.5-5.1); Sodium 137 mmol/L (136-145); Total Bilirubin 0.7 mg/dL (0.15-1.2); Total Protein 7.2 g/dL (6.6-8.7)
== END 2024-04-03 23:59 | disposition home or self-care (01) ==
PROVIDERS: Internal Medicine Medical Oncology; PCP Family Medicine; Visit Provider Radiology Radiation Oncology
DX: C18.7 Malignant neoplasm of sigmoid colon (principal); Z53.9 Procedure and treatment not carried out, unspecified reason
CPT/HCPCS: 72202; 80053; 82378; 85025; 96375; 96411; 96413; 96416; 96417; 96523; J0640; J2469; J7050; J7060; J9190; Q5107

== ENCOUNTER 2024-04-24 08:50 | Oncology outpatient (recurring) (ONCR) | payer MEDICAID, SELFPAY ==
[2024-04-24 09:26] LABS: Estmated Average Glucose 134; Hemoglobin A1C 6.3 % (4.0-6.0)
[2024-04-24 09:38] LABS: Alanine Aminotransferase 21 U/L (0-33); Albumin Level 3.5 g/dL (3.5-5.2); Alkaline Phosphatase 124 U/L (35-105); Anion Gap 14.6 (5-19); Aspartate Amino Transferase 21 U/L (0-32); Blood Urea Nitrogen 14 mg/dL (6-20); Calcium 8.7 mg/dL (8.5-10.5); Carbon Dioxide 27 mmol/L (22-29); Chloride 98 mmol/L (98-107); Globulin 3.5 g/dL (1.3-4.6); Glomerular Filtration Rate 102.3 mL/min (90-130); Glucose 191 mg/dL (65-115); Osmolality Calculated 288 mOsm/kg (285-295); Potassium 3.6 mmol/L (3.5-5.1); Sodium 136 mmol/L (136-145); Total Bilirubin 0.5 mg/dL (0.15-1.2)
[2024-04-24 09:40] LABS: Basophils % 0.4 %; Eosinophils # 0.3 10^3/uL (0.0-0.8); Eosinophils % 3.7 %; Lymphocytes # 0.9 10^3/uL (0.8-4.8); Lymphocytes % 12.4 %; Mean Corpuscular HGB Conc 32.4 g/dL (30-55); Mean Corpuscular Hemoglobin 31.6 pg (27-33); Mean Corpuscular Volume 97.4 fl (85-98); Mean Platelet Volume 10.9 fL (7.4-10.4); Monocytes # 0.8 10^3/uL (0.2-0.9); Monocytes % 10.4 %; Neutrophils # 5.25 10^3/uL (1.8-7.7); Neutrophils % 72.7 %; Nucleated Red Blood Cells % 0 %; Platelet Count 160 10^3/cmm (157-399); Red Blood Count 4.21 10^6/uL (3.85-5.65); Red Cell Distribution Width 14.6 % (12.1-15.1); White Blood Count 7.23 10^3/uL (3.29-11.43)
[2024-04-24 11:00] VITALS: BP 140/88; PULSE 88; RESP 16; TEMP 36.4; O2SAT 95
[2024-04-24] MEDS: palonosetron 0.25 mg/5 mL SDV IVP (11:14)
[2024-04-24] MEDS: sodium chloride 0.9% 250 ML 75 ML IV (11:14)
[2024-04-24] MEDS: acetaminophen 325 mg Tablet 650 MG PO (11:14)
[2024-04-24] MEDS: diphenhydrAMINE 50 mg/mL SDV 1mL 25 MG IVP (11:15)
[2024-04-24] MEDS: dexamethasone 4 mg/mL INJ 5 mL 6 MG IVP (11:38)
[2024-04-24] MEDS: SODIUM CHLORIDE 0.9% IV (12:05)
[2024-04-24] MEDS: PANITUMUMAB IV (12:05)
[2024-04-24 12:30] LABS: Carcinoembryonic Antigen 118.4 ng/mL (0.0-4.7)
[2024-04-24 13:07] VITALS: BP 141/83; PULSE 73; RESP 17; O2SAT 94
[2024-04-24] MEDS: methylPREDNISolone sod succ 40 mg/mL INJ 30 MG IVP ×2 (13:14→14:21)
[2024-04-24] MEDS: ipratropium-albuterol 3 mL Neb INHALATION ×2 (13:14→14:20)
[2024-04-24 13:21] VITALS: BP 141/82; PULSE 73; RESP 18; O2SAT 97
[2024-04-24 14:14] VITALS: BP 109/75; PULSE 90; RESP 18; O2SAT 90
[2024-04-24 15:47] VITALS: BP 129/76; PULSE 91; RESP 17; O2SAT 93
== END 2024-04-24 23:59 | disposition home or self-care (01) ==
PROVIDERS: Family Medicine; Internal Medicine Medical Oncology; Nurse Practitioner Family; Visit Provider Radiology Radiation Oncology
DX: Z51.11 Encounter for antineoplastic chemotherapy; C18.7 Malignant neoplasm of sigmoid colon; M47.818 Spondylosis without myelopathy or radiculopathy, sacral and sacrococcygeal region; Z79.899 Other long term (current) drug therapy; Z79.52 Long term (current) use of systemic steroids; E11.9 Type 2 diabetes mellitus without complications
CPT/HCPCS: 80053; 82378; 83036; 85025; 96375; 96413; A4222; J1100; J1200; J2469; J2919; J7050; J9303

== ENCOUNTER 2024-05-03 11:00 | Oncology outpatient (recurring) (ONCR) | payer MEDICAID, SELFPAY ==
[2024-05-01 08:33] LABS: Basophils % 0.3 %; Eosinophils # 0.3 10^3/uL (0.0-0.8); Eosinophils % 3.2 %; Hematocrit 45.3 % (36-47); Lymphocytes # 1.4 10^3/uL (0.8-4.8); Lymphocytes % 14.9 %; Mean Corpuscular HGB Conc 33.1 g/dL (30-55); Mean Corpuscular Hemoglobin 31.6 pg (27-33); Mean Corpuscular Volume 95.6 fl (85-98); Mean Platelet Volume 10.3 fL (7.4-10.4); Monocytes # 0.8 10^3/uL (0.2-0.9); Monocytes % 8.6 %; Neutrophils % 72.2 %; Nucleated Red Blood Cells % 0 %; Platelet Count 187 10^3/cmm (157-399); Red Blood Count 4.74 10^6/uL (3.85-5.65); Red Cell Distribution Width 14.6 % (12.1-15.1); White Blood Count 9.14 10^3/uL (3.29-11.43)
[2024-05-01 08:56] LABS: Alanine Aminotransferase 22 U/L (0-33); Albumin Level 3.6 g/dL (3.5-5.2); Alkaline Phosphatase 112 U/L (35-105); Aspartate Amino Transferase 18 U/L (0-32); Blood Urea Nitrogen 13 mg/dL (6-20); Calcium 9.1 mg/dL (8.5-10.5); Carbon Dioxide 28 mmol/L (22-29); Chloride 98 mmol/L (98-107); Creatinine Clr Calc Pharmacy 117.6583; Globulin 3.2 g/dL (1.3-4.6); Glomerular Filtration Rate 102.3 mL/min (90-130); Glucose 118 mg/dL (65-115); Osmolality Calculated 283 mOsm/kg (285-295); Sodium 136 mmol/L (136-145); Total Bilirubin 0.3 mg/dL (0.15-1.2); Total Protein 6.8 g/dL (6.6-8.7)
[2024-05-01 08:59] LABS: Anion Gap 13.7 (5-19); Potassium 3.7 mmol/L (3.5-5.1)
[2024-05-01] MEDS: sodium chloride 0.9% 250 ML 75 ML IV (09:35)
[2024-05-01] MEDS: dexamethasone 4 mg/mL INJ 5 mL 12 MG IVP (09:39)
[2024-05-01] MEDS: palonosetron 0.25 mg/5 mL SDV IVP (09:45)
[2024-05-01] MEDS: BEVACIZUMAB AWWB IV (10:02)
[2024-05-01] MEDS: [UNRECOGNIZED DRUG - OTHER] IV (10:02)
[2024-05-01] MEDS: atropine 1 mg/mL SDV 1 mL 0.4 MG IV (10:38)
[2024-05-01] MEDS: IRINOTECAN IV (10:48)
[2024-05-01] MEDS: DEXTROSE 5% IV (10:48)
[2024-05-01] MEDS: leucovorin 820 MG in dextrose 5% 250 ML 166.67 MG IV (10:49)
[2024-05-01 12:45] VITALS: BP 132/76; PULSE 79; RESP 18; TEMP 36.6; O2SAT 97
[2024-05-01] MEDS: fluorouraciL 4,950 MG in elastomeric pump 1 PUMP IV (12:45)
[2024-05-03 10:40] VITALS: BP 131/83; PULSE 92; RESP 16; TEMP 36.3; O2SAT 93
== END 2024-05-04 23:59 | disposition home or self-care (01) ==
PROVIDERS: Nurse Practitioner Family; PCP Family Medicine; Visit Provider Internal Medicine Medical Oncology
DX: Z45.1 Encounter for adjustment and management of infusion pump; Z53.9 Procedure and treatment not carried out, unspecified reason
CPT/HCPCS: 80053; 85025; 96365; 96368; 96375; 96413; 96415; 96416; 96417; 96523; J0461; J0640; J1100; J2469; J7050; J7060; J9190; J9206; Q5107

== ENCOUNTER 2024-05-19 20:29 | Emergency (ER) | payer MEDICAID, SELFPAY ==
[2024-05-19 20:34] VITALS: BP 139/82; PULSE 107; RESP 19; TEMP 36.5; O2SAT 93; BMI 39.1
--- NOTE | 2024-05-19 21:11 | CTR_ITS ---
PROCEDURE INFORMATION: Exam: CT Abdomen And Pelvis With Contrast Exam date and time: 05/19/2024 9:45 PM Age: 58 years old Clinical indication: Nausea and vomiting; Abdominal pain; Generalized; Prior surgery; Surgery date: 6+ months; Surgery type: Chemo embolization; Patient HX: C/O diffuse abd pain with n/v. Currently on chemotherapy for metastatic colon cancer. ; Additional info: Abd pain nausea and vomiting TECHNIQUE: Imaging protocol: Computed tomography of the abdomen and pelvis with contrast. Radiation optimization: All CT scans at this facility use at least one of these dose optimization techniques: automated exposure control; mA and/or kV adjustment per patient size (includes targeted exams where dose is matched to clinical indication); or iterative reconstruction. Contrast material: OMNI 350; Contrast volume: 100 ml; Contrast route: INTRAVENOUS (IV); COMPARISON: CT ch abdpel wo/w [id number] 03/27/2024 10:23 AM RADIATION DOSE METRICS: Total DLP (mGy-cm): 1010.98 FINDINGS: Tubes, catheters and devices: Embolization coils again seen in the right upper quadrant. Lungs: Unchanged nodules in the lung bases measuring up to 5 mm in the right lower lobe and 7 mm in the left lower lobe. Liver: Interval increase in size of multiple hepatic metastases. For example, a lesion in the medial segment left hepatic lobe now measures 3.9 x 3.2 cm, previously 2.8 x 2.1 cm. A lateral segment left hepatic lobe lesion measures 3.0 x 3.2 cm, previously 3.1 x 3.1 cm. A lesion in the posterior segment right hepatic lobe measures 2.5 x 2.3 cm, previously 1.4 x 1.9 cm. Additional metastatic lesions also are increased in size. Gallbladder and biliary ducts: Normal. No calcified stones. No ductal dilation. Pancreas: Normal. No ductal dilation. Spleen: Normal. No splenomegaly. Adrenal glands: Normal. No mass. Kidneys and ureters: Subcentimeter left renal cortical hypodensities remain too small to characterize but are similar to prior. Stomach and bowel: A large amount of stool is seen throughout the colon. Mural thickening and mild pericolonic fat stranding is seen along the descending colon. Mural thickening also seen within a segment of the ascending colon, though this portion may be exaggerated by underdistention. Appendix: No evidence of appendicitis. Intraperitoneal space: A partially calcified ill-defined mesenteric mass is again seen centered in the pelvis along the sigmoid colon. Vasculature: Moderate diffuse atherosclerotic calcifications. No aortic aneurysm. Lymph nodes: Slight interval increase in size of a portacaval node which now measures 1.1 cm short axis, previously 1.0 cm. Urinary bladder: Unremarkable as visualized. Reproductive: Unremarkable as visualized. Bones/joints: Unremarkable. No acute fracture. Soft tissues: Small fat containing umbilical hernia. CT/CT abdomen pelvis w con* [id number] IMPRESSION: 1. Interval increase in size of multiple hepatic metastases, concerning for disease progression. 2. Large colonic stool burden compatible with constipation. Mild mural thickening and pericolonic fat stranding along the descending colon may represent focal colitis. 3. A portion of the ascending colon is decompressed with circumferential mural thickening. While this may be exaggerated by underdistention, underlying neoplasm is not excluded. 4. Mildly enlarged portacaval node could represent metastasis.
[2024-05-19 21:27] VITALS: RESP 18
[2024-05-19 21:39] LABS: Basophils % 1.1 %; Eosinophils % 1.1 %; Hematocrit 45.4 % (36-47); Lymphocytes # 0.6 10^3/uL (0.8-4.8); Lymphocytes % 16.7 %; Mean Corpuscular HGB Conc 33.9 g/dL (30-55); Mean Corpuscular Hemoglobin 32.4 pg (27-33); Mean Corpuscular Volume 95.6 fl (85-98); Monocytes # 0.1 10^3/uL (0.2-0.9); Monocytes % 3.4 %; Neutrophils # 2.71 10^3/uL (1.8-7.7); Neutrophils % 76.9 %; Nucleated Red Blood Cells % 0 %; Platelet Count 150 10^3/cmm (157-399); Red Blood Count 4.75 10^6/uL (3.85-5.65); Red Cell Distribution Width 14.6 % (12.1-15.1); White Blood Count 3.53 10^3/uL (3.29-11.43)
--- NOTE | 2024-05-19 21:39 | W.ED.ABDPA2 ---
HPI - Abdominal Pain General: Chief Complaint: Abdominal Pain Stated Complaint: Gas Pain\Vomiting Time Seen by Provider: 05/19/24 21:09 History of Present Illness: 58-year-old female with a history of abdominal pain that started on Monday. She has vomited a few times. She has not been able to keep food down. She denies fever. She has had regular bowel movements. She has a history of colon cancer that is metastatic. She is on leucovorin, as well as other chemotherapy medications with last infusion ending Monday. She denies a history of belly surgery. Related Data Previous Rx's Medication Instructions Recorded lancets 28 gauge (Comfort EZ #100 ea 01/15/20 Lancets) blood sugar diagnostic (Contour #100 ea 02/17/23 Next Test Strips) CPAP 6-16 cm with mask and supplies #1 ea 05/30/23 test strips #100 ea 08/01/23 sennosides 8.6 mg-docusate sodium 2 tab-cap (2 x 8.6-50 mg) PO BID 10/07/23 50 mg tablet (Senna-S) PRN constipation #30 tabs lidocaine-prilocaine 2.5 %-2.5 % 1 applic topical DIRECTED #30 11/29/23 topical cream grams oxycodone 5 mg tablet 5 mg PO Q6H PRN pain 30 days #120 04/08/24 tabs albuterol sulfate 2.5 mg/3 mL 2.5 mg (3 mL) inhalation Q6H PRN 04/22/24 (0.083 %) solution for nebulization shortness of breath or wheezing #180 mL albuterol sulfate 90 mcg/actuation 2 puff inhalation Q6H PRN 04/22/24 aerosol inhaler shortness of breath or wheezing #8.5 grams amlodipine 5 mg tablet 5 mg PO DAILY 90 days #90 tabs 04/22/24 atorvastatin 20 mg tablet See Rx Instructions .Route 04/22/24 .COMPLEX #90 tabs budesonide-formoterol HFA 160 2 puff inhalation BID #10.2 grams 04/22/24 mcg-4.5 mcg/actuation aerosol inhaler (Symbicort) hydrochlorothiazide 25 mg tablet 25 mg PO DAILY PRN htn 90 days #90 04/22/24 tabs metformin 500 mg tablet,extended 500 mg PO BID #180 tabs 04/22/24 release 24 hr omeprazole 20 mg capsule,delayed 20 mg PO BID 90 days #180 caps 04/22/24 release ropinirole 0.25 mg tablet 0.25 mg PO BID 90 days #180 tabs 04/22/24 sitagliptin phosphate 100 mg See Rx Instructions .Route 04/22/24 tablet (Januvia) .COMPLEX #90 tabs tiotropium bromide 2.5 See Rx Instructions .Route 04/22/24 mcg/actuation mist for inhalation .COMPLEX #4 grams (Spiriva Respimat) lorazepam 1 mg tablet 0.5 - 1 mg (0.5 - 1 x 1 mg) PO Q6H 04/24/24 PRN Severe Nausea #30 tabs prednisone 10 mg tablet 10 mg PO DAILY #10 tabs 04/24/24 prochlorperazine maleate 10 mg 10 mg PO Q4H PRN Mild Nausea #30 04/24/24 tablet (Compazine) tabs doxycycline hyclate 100 mg tablet 100 mg PO BID 10 days #20 tabs 05/07/24 blood sugar diagnostic (OneTouch #100 strips 05/08/24 Verio test strips) prednisone 10 mg tablet 10 mg PO DAILY #7 tabs 05/15/24 metronidazole 500 mg tablet 500 mg PO Q8H 7 days #21 tabs 05/19/24 Allergies Allergy/AdvReac Type Severity Reaction Status Date / Time Cephalosporins Allergy itching Verified 05/19/24 20:37 levofloxacin [From Levaquin] Allergy Unknown Verified 05/19/24 20:37 Penicillins Allergy ALGY-Rash Verified 05/19/24 20:37 Sulfa (Sulfonamide Allergy Unknown Verified 05/19/24 20:37 Antibiotics) [facility] ED PFSH: Medical History Colon cancer Obstructive sleep apnea GERD (gastroesophageal reflux disease) Type 2 diabetes mellitus, without long-term current use of insulin Reducible umbilical hernia COPD (chronic obstructive pulmonary disease) Surgical History H/O tubal ligation Port-A-Cath in place Family History Father COPD (chronic obstructive pulmonary disease) Lung disease Mother CAD (coronary artery disease) Grandfather CAD (coronary artery disease) Cancer Skin cancer Brother Diabetes Sister Cancer Lung cancer Grandmother Lung disease Other Hypertension Denies family history of Clotting disorder Dementia Hyperlipidemia Psychiatric illness Chronic kidney disease (CKD) Suicide Anesthesia complication Bleeding disorder Stroke Social History Smoking and tobacco/nicotine status: never used tobacco/nicotine Quit status (tobacco/nicotine): has quit using Year quit tobacco: 2013 - 1PPD x 35 years Former quit date comment: Started age 13years Second hand smoke exposure: No Alcohol intake: never Substance/Drug Use: never Lives independently: Yes Household members: children Current occupational status: employed Do you think of yourself as: Straight/Heterosexual Current gender identity: Female Physical Exam Const: GENERAL APPEARANCE: cooperative and ill appearing (Mildly); not frail appearing HENMT: COMMON NORMALS: normocephalic, atraumatic and Normal external nose present HEAD & SCALP: normocephalic and atraumatic FACE & SINUS: normal facial exam and face symmetric NOSE: Normal external nose present Eye: COMMON NORMALS: Equal, round and reactive pupils present and EOMs intact bilaterally PUPIL: Yes Equal, round and reactive pupils present Neck/C-Spine: GENERAL: Yes trachea midline Chest: CHEST: Yes Symmetrical chest wall rise Resp: COMMON NORMALS: normal respiratory effort, No retractions, No use of accessory muscles and clear to auscultation bilaterally AUSCULTATION: clear to auscultation bilaterally Cardio: COMMON NORMALS: regular rhythm RATE: tachycardic RHYTHM: regular rhythm GI: INSPECTION: Yes abdominal distension PALPATION: Yes Tenderness to palpation present (GI) (Diffusely) and No Guarding due to palpation present (GI) Extremity: COMMON NORMALS: no pedal edema Neuro: JEREMIAH COMA SCALE: document GCS findings Line [place] coma scale eye opening: Spontaneous Jeremiah coma scale verbal response: Orientated Jeremiah coma scale motor response: Obey commands Line [place] coma scale total score: 15 SENSORY EXAM: Yes extremities (intact) Psych: COMMON NORMALS: speech normal SPEECH: Yes normal speech Skin: COMMON NORMALS: no rashes or lesions noted GENERAL SKIN EXAM: no rashes or lesions noted Course Vital Signs: Vital signs: Vital Signs Temperature 97.7 F 05/19/24 20:34 Pulse Rate 82 05/20/24 00:18 Respiratory Rate 16 09/16/24 00:18 Blood Pressure 124/87 05/20/24 00:18 Pulse Oximetry 93 05/20/24 00:18 Oxygen Delivery Me thod Nasal Cannula 05/19/24 23:00 Oxygen Flow Rate 2 05/19/24 23:00 MDM - Abdominal Pain Medical Decision Making Patient has been stable here. She is afebrile. Heart rate is improved. Pain is controlled. She has received a liter of fluid. Hemoglobin is 15, white blood cell count is 3.5. She is not neutropenic. Sodium is 132. Creatinine is 0.7. CT shows large colonic stool burden, as well as some descending colon colitis. There is also an interval increase in size of multiple hepatic masses. Spoke with her about results. She wishes to go home if she can. Will treat colitis with metronidazole. Would like to cover with other antibiotic, but listed allergies do not leave us a choice for gram-negative coverage. She be prescribed magnesium citrate for constipation. She knows to return for any worsening symptoms. Lab Data 05/19/24 21:24 05/19/24 21:24 Labs/Radiology: Radiology Impressions Abdomen/Pelvis CT 05/19/24 21:11 IMPRESSION: 1. Interval increase in size of multiple hepatic metastases, concerning for disease progression. 2. Large colonic stool burden compatible with constipation. Mild mural thickening and pericolonic fat stranding along the descending colon may represent focal colitis. 3. A portion of the ascending colon is decompressed with circumferential mural thickening. While this may be exaggerated by underdistention, underlying neoplasm is not excluded. 4. Mildly enlarged portacaval node could represent metastasis. Laboratory Results WBC 3.53 10^3/uL (3.29-11.43) 05/19/24 21:24 RBC 4.75 10^6/uL (3.85-5.65) 05/19/24 21:24 Hgb 15.40 g/dL (11.27-16.99) 05/19/24 21: Hct 45.4 % (36-47) 05/19/24 21:24 MCV 95.6 fl (85-98) 05/19/24 21:24 MCH 32.4 pg (27-33) 05/19/24 21: MCHC 33.9 g/dL (30-55) 05/19/24 21: RDW 14.6 % (12.1-15.1) 05/19/24: Plt Count 150 10^3/cmm (157-399) L 05/19/24: MPV 11.0 fL (7.4-10.4) H 05/19/24 21: Neut % (Auto) 76.9 % 05/19/24 21: Lymph % (Auto) 16.7 % 05/19/24: Miner % (Auto) 3.4 % 05/19/24 21: Eos % (Auto) 1.1 % 05/19/24: Baso % (Auto) 1.1 % 05/19/24: Neut # (Auto) 2.71 10^3/uL (1.8-7.7) 05/19/24: Lymph # (Auto) 0.6 10^3/uL (0.8-4.8) L 05/19/24: Miner # (Auto) 0.1 10^3/uL (0.2-0.9) L 05/19/24: Eos # (Auto) 0.0 10^3/uL (0.0-0.8) 05/19/24: Baso # (Auto) 0.0 10^3/uL (0.0-0.1) 05/19/24: Nucleated RBC % (auto) 0 % 05/19/24: Nucleated RBCs # 0.0 /100WBC 05/19/24: PT 12.70 SECONDS (12.1-14.9) 05/19/24: INR 0.92 (0.8-1.2) 05/19/24 21: Sodium 132 mmol/L (136-145) L 05/19/24: Potassium 3.8 mmol/L (3.5-5.1) 05/19/24: Chloride 93 mmol/L (98-107) L 05/19/24: Carbon Dioxide 28 mmol/L (22-29) 05/19/24: Anion Gap 14.8 (5-19) 05/19/24: BUN 13 mg/dL (6-20) 05/19/24 21:24 Creatinine 0.7 mg/dL (0.5-0.9) 05/19/24 21:24 GFR Calculation 85.6 mL/min (90-130) L 05/19/24 21: Glucose 171 mg/dL (65-115) H 05/19/24 21:24 Calculated Osmolality 278 mOsm/kg (285-295) L 05/19/24 21:24 Lactic Acid 1.5 mmol/L (0.5-2.2) 05/19/24 21:24 Calcium 8.7 mg/dL (8.5-10.5) 05/19/24 21: Total Bilirubin 1.0 mg/dL (0.15-1.2) 05/19/24 21: AST 16 U/L (0-32) 05/19/24 21: ALT 23 U/L (0-33) 05/19/24 21:24 Alkaline Phosphatase 87 U/L (35-105) 05/19/24 21:24 C-Reactive Protein 42.4 mg/L (0.0-4.9) H 05/19/24 21:24 Total Protein 6.3 g/dL (6.6-8.7) L 05/19/24 21: Albumin 3.4 g/dL (3.5-5.2) L 05/19/24 21: Globulin 2.9 g/dL (1.3-4.6) 05/19/24 21:24 Lipase 11 U/L (13-60) L 05/19/24 21:24 Urine Color Yellow (Yellow) 05/19/24 22: Urine Appearance Clear (CLEAR) 05/19/24 22:26 Urine pH 6.5 (5-7) 05/19/24 22:26 Ur Specific [place] 1.005 (1.005-1.030) 05/19/24 22: Urine Protein Trace (Negative) 05/19/24 22: Urine Glucose (UA) Norm (Normal) 05/19/24 22:26 Urine Ketones 1+ (Negative) H 05/19/24 22:26 Urine Blood Neg (Negative) 05/19/24 22:26 Urine Nitrate Negative (Negative) 05/19/24 22: Urine Bilirubin 1+ (Negative) H 05/19/24 22:26 Urine Urobilinogen 1 mg/dL (Negative) H 05/19/24 22:26 Ur Leukocyte Esterase Trace (Negative) H 05/19/24 22:26 Urine RBC Rare /hpf (0-2) 05/19/24 22:26 Urine WBC Rare /hpf (0-5) 05/19/24 22:26 Ur Squamous Epith Cells 0-4 /hpf (0-5) H 05/19/24 22:26 Amorphous Sediment Not Reportable 05/19/24 22:26 Urine Bacteria Trace /hpf (NONE) 05/19/24 22:26 All radiology interpretation(s) finalized by discharge Discharge Plan Discharge Patient Disposition: Home Clinical Impression: Colitis, Constipation Condition: Stable Prescriptions: New metronidazole 500 mg tablet 500 mg PO Q8H 7 Days Qty: 21 0RF No Action (DME) CPAP 6-16 cm with mask and supplies See Rx Instructions .Route .MEDSUPPLY Qty: 1 0RF Rx Instructions: As directed lidocaine-prilocaine 2.5-2.5 % cream 1 applic topical DIRECTED Qty: 30 2RF Rx Instructions: quarter size amount over port site 30-45 min prior to access, cover with plastic plastic wrap doxycycline hyclate 100 mg tablet 100 mg PO BID 10 Days Qty: 20 0RF povidone-iodine [Betadine Swabsticks] 10 % swab 1 applic topical ONCE Qty: 1 0RF lidocaine (PF) 20 mg/mL (2 %) solution 3 mg SUBCUT ONCE PRN (Reason: anesthesia) Qty: 0.15 0RF (DME) Contour Next Test Strips Strip See Rx Instructions .ROUTE .MEDSUPPLY Qty: 100 5RF Rx Instructions: three times daily Januvia 100 mg tablet See Rx Instructions .ROUTE .COMPLEX Qty: 90 2RF Dose Instruction: TAKE ONE TABLET BY MOUTH EVERY DAY Rx Instructions: TAKE ONE TABLET BY MOUTH EVERY DAY Spiriva Respimat 2.5 mcg/actuation mist See Rx Instructions .ROUTE .COMPLEX Qty: 4 6RF Dose Instruction: 2 PUFF(S) DAILY FOR 30 DAYS Rx Instructions: 2 PUFF(S) DAILY FOR 30 DAYS ropinirole 0.25 mg tablet 0.25 mg PO BID 90 Days Qty: 180 2RF omeprazole 20 mg capsule,delayed release(DR/EC) 20 mg PO BID 90 Days Qty: 180 2RF metformin 500 mg tablet extended release 24 hr 500 mg PO BID Qty: 180 2RF hydrochlorothiazide 25 mg tablet 25 mg PO DAILY PRN (Reason: htn) 90 Days Qty: 90 2RF budesonide-formoterol [Symbicort] 160-4.5 mcg/actuation HFA aerosol inhaler 2 puff inhalation BID Qty: 10.2 6RF atorvastatin 20 mg tablet See Rx Instructions .ROUTE .COMPLEX Qty: 90 3RF Dose Instruction: TAKE ONE TABLET BY MOUTH DAILY AT BEDTIME Rx Instructions: TAKE ONE TABLET BY MOUTH DAILY AT BEDTIME amlodipine 5 mg tablet 5 mg PO DAILY 90 Days Qty: 90 2RF albuterol sulfate 90 mcg/actuation HFA aerosol inhaler 2 puff inhalation Q6H PRN (Reason: shortness of breath or wheezing) Qty: 8.5 3RF albuterol sulfate 2.5 mg /3 mL (0.083 %) solution for nebulization 2.5 mg INHALATION Q6H PRN (Reason: shortness of breath or wheezing) Qty: 180 3RF prochlorperazine maleate [Compazine] 10 mg tablet 10 mg PO Q4H PRN (Reason: Mild Nausea) Qty: 30 3RF lorazepam 1 mg tablet 0.5 - 1 mg PO Q6H PRN (Reason: Severe Nausea) Qty: 30 3RF prednisone 10 mg tablet 10 mg PO DAILY Qty: 10 0RF Rx Instructions: 1 tab BID x3 days then daily prednisone 10 mg tablet 10 mg PO DAILY Qty: 7 0RF (DME) lancets [Comfort EZ Lancets] 28 gauge misc See Rx Instructions .ROUTE .MEDSUPPLY Qty: 100 2RF Rx Instructions: once daily (DME) test strips See Rx Instructions .Route .MEDSUPPLY Qty: 100 0RF Rx Instructions: use 2 times daily As directed oxycodone 5 mg tablet 5 mg PO Q6H PRN (Reason: pain) 30 Days Qty: 120 0RF (DME) OneTouch Verio test strips Strip See Rx Instructions .ROUTE .COMPLEX Qty: 100 0RF Dose Instruction: USE 2 TIMES DAILY DIRECTED Rx Instructions: USE 2 TIMES DAILY DIRECTED Senna-S 8.6-50 mg tablet 2 tab-cap PO BID PRN (Reason: constipation) Qty: 30 0RF Discharge Orders: Discharge ED (Routine); Ordered 05/19/24 Ordered By: Margarito Mills Referrals: Graciela Head MD [Primary Care Provider] - 4-7 days Patient Instructions: Constipation (ED), Colitis (ED), Opioid Safety, Pain Management Activity Restrictions/Additional Instructions: Plan plenty of clear liquids. Antibiotics as directed. Follow a liquid diet for the first 24 hours, then you may add food back in if no vomiting. Take magnesium citrate when you get home. This should help with constipation. Return for fever despite 1 or 2 doses of antibiotics, vomiting liquids or medications, worsening pain despite treatment, blood in the stool, other concerning symptoms. Coding Level of Care Code ED Methods Analyst for Connie Holliday
[2024-05-19] MEDS: iohexol 350 mg/mL 500 mL Btl (per mL) IV (21:48)
[2024-05-19 21:56] LABS: Alanine Aminotransferase 23 U/L (0-33); Albumin Level 3.4 g/dL (3.5-5.2); Alkaline Phosphatase 87 U/L (35-105); Anion Gap 14.8 (5-19); Aspartate Amino Transferase 16 U/L (0-32); Blood Urea Nitrogen 13 mg/dL (6-20); C Reactive Protein 42.4 mg/L (0.0-4.9); Calcium 8.7 mg/dL (8.5-10.5); Carbon Dioxide 28 mmol/L (22-29); Chloride 93 mmol/L (98-107); Creatinine Clr Calc Pharmacy 101.3456; Globulin 2.9 g/dL (1.3-4.6); Glomerular Filtration Rate 85.6 mL/min (90-130); Glucose 171 mg/dL (65-115); Lactic Sepsis W/Reflex 1.5 mmol/L (0.5-2.2); Lipase 11 U/L (13-60); Osmolality Calculated 278 mOsm/kg (285-295); Potassium 3.8 mmol/L (3.5-5.1); Sodium 132 mmol/L (136-145); Total Protein 6.3 g/dL (6.6-8.7)
[2024-05-19] MEDS: sodium chloride 0.9% 1,000 ML 999 ML IV (22:00)
[2024-05-19] MEDS: ondansetron 2 mg/ML SDV 2 mL 4 MG IVP (22:00)
[2024-05-19 22:01] VITALS: BP 134/91; PULSE 91; RESP 16; O2SAT 94
[2024-05-19 22:02] VITALS: RESP 16; O2SAT 94
[2024-05-19] MEDS: morphine 4 mg/mL SDV 1 mL IVP (22:02)
[2024-05-19 22:21] LABS: INR 0.92 (0.8-1.2)
[2024-05-19 23:00] VITALS: BP 113/79; PULSE 90; RESP 16; O2SAT 94
[2024-05-19 23:09] LABS: Add Urine Microscopic? YES; Bacteria Urine TRACE /hpf; Bilirubin Urine 1+ (Negative); Blood Urine Neg (Negative); Glucose Urine UA Norm (Normal); Ketones Urine 1+ (Negative); Leukocyte Esterase Urine Trace (Negative); Nitrate Urine Negative (Negative); Protein Urine Trace (Negative); RBC Urine RARE /hpf (0-2); Specific Gravity, Urine 1.005 (1.005-1.030); Squamous Epithelial Cell Urine 0-4 /hpf (0-5); UA Manual Slide Review YES; UA Slide Review UA Slide Review Perf; Urine Appearance Clear (CLEAR); Urine Color Yellow (Yellow); Urobilinogen Urine 1 mg/dL (Negative); WBC Urine RARE /hpf (0-5); pH Urine 6.5 (5-7)
[2024-05-20] MEDS: metroNIDAZOLE 500 MG Tablet PO (00:08)
--- NOTE | 2024-05-20 00:13 | PC.NURSE ---
Pt was sent home with a bottle of Magnesium Citrate per Dr Mills's order.
[2024-05-20 00:18] VITALS: BP 124/87; PULSE 82; RESP 16; O2SAT 93
== END 2024-05-20 00:19 | disposition home or self-care (01) ==
PROVIDERS: Emergency Provider Emergency Medicine; PCP Family Medicine
DX: K52.9 Noninfective gastroenteritis and colitis, unspecified (principal); K59.00 Constipation, unspecified; Z79.84 Long term (current) use of oral hypoglycemic drugs; Z87.891 Personal history of nicotine dependence; Z85.038 Personal history of other malignant neoplasm of large intestine; E11.9 Type 2 diabetes mellitus without complications; J44.9 Chronic obstructive pulmonary disease, unspecified
CPT/HCPCS: 74177; 80053; 81001; 83605; 83690; 85025; 85610; 86140; 96374; 96375; 99285; J2270; J2405; J7030

== ENCOUNTER 2024-05-29 08:00 | Oncology outpatient (recurring) (ONCR) | payer MEDICAID, SELFPAY ==
[2024-05-15 08:14] LABS: Basophils % 0.5 %; Eosinophils # 0.1 10^3/uL (0.0-0.8); Eosinophils % 2.8 %; Hematocrit 42.1 % (36-47); Lymphocytes # 1.1 10^3/uL (0.8-4.8); Mean Corpuscular Volume 94.2 fl (85-98); Mean Platelet Volume 10.6 fL (7.4-10.4); Monocytes # 0.5 10^3/uL (0.2-0.9); Neutrophils % 54.4 %; Nucleated Red Blood Cells % 0 %; Platelet Count 143 10^3/cmm (157-399); Red Blood Count 4.47 10^6/uL (3.85-5.65); Red Cell Distribution Width 14.6 % (12.1-15.1); White Blood Count 3.86 10^3/uL (3.29-11.43)
[2024-05-15 08:52] LABS: Alanine Aminotransferase 22 U/L (0-33); Albumin Level 3.5 g/dL (3.5-5.2); Alkaline Phosphatase 96 U/L (35-105); Anion Gap 14.5 (5-19); Aspartate Amino Transferase 17 U/L (0-32); Blood Urea Nitrogen 11 mg/dL (6-20); Calcium 8.8 mg/dL (8.5-10.5); Carbon Dioxide 28 mmol/L (22-29); Chloride 98 mmol/L (98-107); Creatinine Clr Calc Pharmacy 99.6107; Globulin 2.5 g/dL (1.3-4.6); Glomerular Filtration Rate 85.6 mL/min (90-130); Glucose 132 mg/dL (65-115); Osmolality Calculated 285 mOsm/kg (285-295); Potassium 3.5 mmol/L (3.5-5.1); Sodium 137 mmol/L (136-145); Total Bilirubin 0.3 mg/dL (0.15-1.2)
[2024-05-15 10:20] VITALS: BP 101/71; PULSE 82; RESP 16; TEMP 36.4; O2SAT 92
[2024-05-15] MEDS: sodium chloride 0.9% 250 ML 75 ML IV (10:28)
[2024-05-15] MEDS: palonosetron 0.25 mg/5 mL SDV IVP (10:29)
[2024-05-15] MEDS: dexamethasone 4 mg/mL INJ 5 mL 12 MG IVP (10:30)
[2024-05-15 10:35] LABS: Bilirubin Urine Negative (Negative); Blood Urine Negative (Negative); Glucose Urine UA Negative (Normal); Ketones Urine Negative (Negative); Leukocyte Esterase Urine Negative (Negative); Nitrate Urine Negative (Negative); Protein Urine Negative (Negative); Specific Gravity, Urine 1.021 (1.005-1.030); Urine Appearance Cloudy (CLEAR); Urine Color Yellow (Yellow)
[2024-05-15 10:40] LABS: Bacteria Urine None Seen /hpf; Hyaline Casts Urine 0.81 /lpf; RBC Urine 0-2 /hpf (0-2); Squamous Epithelial Cell Urine 0-5 /hpf (0-5); WBC Urine 0-5 /hpf (0-5)
[2024-05-15 10:47] LABS: Add Urine Culture? No
[2024-05-15] MEDS: [UNRECOGNIZED DRUG - OTHER] IV (10:50)
[2024-05-15] MEDS: BEVACIZUMAB AWWB IV (10:50)
[2024-05-15] MEDS: atropine 1 mg/mL SDV 1 mL 0.4 MG IV (11:23)
[2024-05-15] MEDS: DEXTROSE 5% IV (11:40)
[2024-05-15] MEDS: IRINOTECAN IV (11:40)
[2024-05-15] MEDS: leucovorin 820 MG in dextrose 5% 250 ML 166.67 MG IV (11:40)
[2024-05-15 13:25] VITALS: BP 122/80; PULSE 76; RESP 16; TEMP 36.4; O2SAT 92
[2024-05-15] MEDS: fluorouraciL 4,950 MG in elastomeric pump 1 PUMP IV (13:26)
[2024-05-17 11:27] VITALS: BP 122/66; PULSE 76; RESP 16; TEMP 36.4; O2SAT 98
[2024-05-29 08:16] LABS: Basophils % 0.7 %; Eosinophils # 0.1 10^3/uL (0.0-0.8); Eosinophils % 2.7 %; Hematocrit 38.3 % (36-47); Lymphocytes % 32.3 %; Mean Corpuscular HGB Conc 33.7 g/dL (30-55); Mean Corpuscular Hemoglobin 32.4 pg (27-33); Mean Corpuscular Volume 96.2 fl (85-98); Mean Platelet Volume 10.3 fL (7.4-10.4); Monocytes # 0.5 10^3/uL (0.2-0.9); Neutrophils # 1.42 10^3/uL (1.8-7.7); Neutrophils % 47.3 %; Nucleated Red Blood Cells % 0 %; Platelet Count 165 10^3/cmm (157-399); Red Blood Count 3.98 10^6/uL (3.85-5.65); Red Cell Distribution Width 15.4 % (12.1-15.1)
[2024-05-29 08:47] LABS: Carcinoembryonic Antigen 64.6 ng/mL (0.0-4.7)
[2024-05-29 08:58] LABS: Alanine Aminotransferase 26 U/L (0-33); Albumin Level 3.5 g/dL (3.5-5.2); Alkaline Phosphatase 134 U/L (35-105); Anion Gap 14.4 (5-19); Aspartate Amino Transferase 23 U/L (0-32); Blood Urea Nitrogen 7 mg/dL (6-20); Calcium 9.1 mg/dL (8.5-10.5); Carbon Dioxide 27 mmol/L (22-29); Chloride 100 mmol/L (98-107); Creatinine Clr Calc Pharmacy 100.3543; Globulin 2.9 g/dL (1.3-4.6); Glomerular Filtration Rate 85.6 mL/min (90-130); Glucose 124 mg/dL (65-115); Osmolality Calculated 285 mOsm/kg (285-295); Potassium 3.4 mmol/L (3.5-5.1); Sodium 138 mmol/L (136-145); Total Bilirubin 0.4 mg/dL (0.15-1.2); Total Protein 6.4 g/dL (6.6-8.7)
== END 2024-06-03 23:59 | disposition home or self-care (01) ==
PROVIDERS: Nurse Practitioner Family; PCP Family Medicine; Visit Provider Internal Medicine Medical Oncology
DX: C18.7 Malignant neoplasm of sigmoid colon (principal); Z53.9 Procedure and treatment not carried out, unspecified reason
CPT/HCPCS: 80053; 81001; 82378; 85025; 96368; 96375; 96413; 96415; 96416; 96417; 96523; J0461; J0640; J1100; J2469; J7050; J7060; J9190; J9206; Q5107

== ENCOUNTER → 2024-06-06 14:44 | Outpatient (BNVA) | payer MEDICAID, SELFPAY | PROVIDERS: PCP Family Medicine; Visit Provider Family Medicine | DX: E87.6 Hypokalemia (principal) | CPT/HCPCS: 80048 ==

== ENCOUNTER 2024-07-03 07:30 | Oncology outpatient (recurring) (ONCR) | payer MEDICAID, SELFPAY ==
[2024-06-12 09:24] LABS: Basophils % 0.5 %; Eosinophils # 0.2 10^3/uL (0.0-0.8); Eosinophils % 2.5 %; Hematocrit 40.8 % (36-47); Lymphocytes # 0.9 10^3/uL (0.8-4.8); Lymphocytes % 11.5 %; Mean Corpuscular HGB Conc 33.8 g/dL (30-55); Mean Corpuscular Hemoglobin 32.6 pg (27-33); Mean Corpuscular Volume 96.5 fl (85-98); Mean Platelet Volume 10.8 fL (7.4-10.4); Monocytes # 1.2 10^3/uL (0.2-0.9); Neutrophils # 5.18 10^3/uL (1.8-7.7); Nucleated Red Blood Cells % 0 %; Platelet Count 191 10^3/cmm (157-399); Red Blood Count 4.23 10^6/uL (3.85-5.65); Red Cell Distribution Width 15.9 % (12.1-15.1); White Blood Count 7.51 10^3/uL (3.29-11.43)
[2024-06-12 09:45] LABS: Alanine Aminotransferase 24 U/L (0-33); Albumin Level 3.7 g/dL (3.5-5.2); Alkaline Phosphatase 130 U/L (35-105); Anion Gap 11.7 (5-19); Aspartate Amino Transferase 27 U/L (0-32); Blood Urea Nitrogen 8 mg/dL (6-20); Calcium 9.1 mg/dL (8.5-10.5); Carbon Dioxide 29 mmol/L (22-29); Chloride 91 mmol/L (98-107); Globulin 3.4 g/dL (1.3-4.6); Glomerular Filtration Rate 73.4 mL/min (90-130); Glucose 128 mg/dL (65-115); Osmolality Calculated 266 mOsm/kg (285-295); Potassium 3.7 mmol/L (3.5-5.1); Sodium 128 mmol/L (136-145); Total Protein 7.1 g/dL (6.6-8.7)
[2024-06-12] MEDS: dexamethasone 4 mg/mL INJ 5 mL 12 MG IVP (10:59)
[2024-06-12] MEDS: sodium chloride 0.9% 250 ML 75 ML IV (10:59)
[2024-06-12] MEDS: palonosetron 0.25 mg/5 mL SDV IVP (11:05)
[2024-06-12] MEDS: BEVACIZUMAB AWWB IV (11:36)
[2024-06-12] MEDS: SODIUM CHLORIDE 0.9% IV (11:36)
[2024-06-12] MEDS: atropine 1 mg/mL SDV 1 mL 0.4 MG IV (12:15)
[2024-06-12] MEDS: DEXTROSE 5% IV (12:34)
[2024-06-12] MEDS: IRINOTECAN IV (12:34)
[2024-06-12] MEDS: leucovorin 820 MG in dextrose 5% 250 ML 166.67 MG IV (12:34)
[2024-06-12] MEDS: fluorouraciL 4,850 MG in elastomeric pump 1 PUMP IV (14:13)
[2024-06-12 14:15] VITALS: BP 119/82; PULSE 91; RESP 16; TEMP 36.3; O2SAT 90
[2024-06-14] MEDS: prochlorperazine 10 mg Tablet PO (11:30)
[2024-06-14 11:31] VITALS: BP 125/84; PULSE 81; TEMP 36.1; O2SAT 95
--- NOTE | 2024-06-21 09:30 | PETR_ITS ---
PROCEDURE INFORMATION: Exam: PET/CT Skull Base to Mid-thigh Exam date and time: 06/21/2024 10:20 AM Age: 58 years old Clinical indication: Condition or disease; Primary cancer: Malignant neoplasm of sigmoid colon; Follow-up oncological assessment; Prior surgery; Surgery date: 6+ months; Surgery type: Chemoembolization; Additional info: Restaging; Progression of liver mets LABS AND CLINICAL REPORTS: Glucose: 102 mg/dl Treatment strategy for malignancy (PET staging): Restaging (PS) TECHNIQUE: Imaging protocol: Following at least four-hour fasting and following the injection of radiopharmaceutical, low dose CT images were obtained. Then, PET images were obtained. Attenuation corrected images were constructed using the CT scan. Fused images of PET and CT were reviewed. The standardized uptake values (SUV) reported below are maximum values within a region of interest, expressed in gm/ml. Exam includes orbital meatal line to mid-thigh. Radiopharmaceutical: 11.55 mCi F-18 FDG (Fluorodeoxyglucose), IV. Time of imaging post radiopharmaceutical administration: 1 hour Injection site: LEFT AC COMPARISON: CT abdomen pelvis 05/19/2024, CT chest abdomen pelvis 03/27/2024, [facility] PET Scan 03/25/2022 FINDINGS: Tubes, catheters and devices: Port catheter placed via the right internal jugular vein terminates in the superior vena cava. Brain: Visualized brain has normal physiologic uptake. Pharynx: No abnormal uptake. Larynx: No abnormal uptake. Lungs, pleura and trachea: Small bilateral lung nodules measuring up to 1.3 cm with the highest uptake of 10.1 SUV are morphologically stable since 03/27/2024. No pleural effusion. Heart: Normal physiologic uptake. There is no cardiomegaly. Mild coronary artery calcification is present. There is no pericardial effusion. Mediastinal space: No abnormal uptake. Liver: Bilobar liver metastases with the highest uptake of 10.6 SUV increased in size in comparison with 03/27/2024. For example, the largest centrally necrotic metastases in the segment 4 increased from 2.9 cm to 5.1 cm. The 2nd largest metastasis in the segment 3 increased from 3.9 cm to 4.5 cm. The lesions appear stable in size since 05/19/2024. Gallbladder and biliary ducts: No abnormal uptake. Pancreas: No abnormal uptake. Spleen: No abnormal uptake. Adrenal glands: Increased uptake of 5.7 SUV in the anterior limb of the left adrenal the with no discrete nodule or a normal thickening is indeterminate. No abnormal uptake in the right adrenal. Kidneys and ureters: Normal physiologic uptake. Stomach and bowel: Intense diffuse uptake in the colon with no corresponding CT abnormality is likely benign. Intraperitoneal and retroperitoneal spaces: Densely calcified 3 x 2 cm spiculated nodule in the sigmoid mesocolon on series 202, image 112 measures 6.8 SUV suggestive of mesenteric metastasis. It decreased in size from 4.7 x 2.6 cm in 202. No ascites. Bladder: Normal physiologic uptake. Reproductive: No abnormal uptake. Vasculature: No abnormal uptake. No aortic aneurysm. Lymph nodes: Portacaval lymph node with increased uptake of 7.1 SUV with a short axis of 1.1 cm is stable in size since 2021. No FDG avid lymphadenopathy in the head, neck, chest, pelvis, and extremities. Skeleton: 1.8 cm lytic metastasis in the left iliac bone measures 11.6 SUV. In retrospect, subtle focus in the corresponding area of the bone on 05/19/2024 measures 1.2 cm on series 3, image 48. Soft tissues: No abnormal uptake in the visualized head, neck, chest, abdomen, pelvis, and extremities. PET/PET skull to thigh SUBS [id number] IMPRESSION: There is disseminated FDG avid malignancy as follows: 1. Bilobar liver metastases measuring up to 5.1 cm stable since 05/19/2024 increased since 03/27/2024. 2. Small bilateral lung metastases measuring up to 1.3 cm are stable since 03/27/2024. 3. Lytic metastasis in the left iliac bone with highest uptake of 11.6 SUV is progressive in the short interval since 05/19/2024 increased from 1.2 cm to 1.8 cm. 4. Locoregional metastatic spiculated mass in the mesosigmoid decreased in size with new calcifications since 2021. 5. Small portacaval lymph node stable in size since 2021. Increased uptake within normal size left adrenal with no discrete nodule is indeterminate.
[2024-07-03 07:57] LABS: Basophils % 1.1 %; Eosinophils # 0.3 10^3/uL (0.0-0.8); Eosinophils % 7.6 %; Hematocrit 40.2 % (36-47); Lymphocytes # 1.2 10^3/uL (0.8-4.8); Lymphocytes % 33.7 %; Mean Corpuscular HGB Conc 32.3 g/dL (30-55); Mean Corpuscular Hemoglobin 31.1 pg (27-33); Mean Corpuscular Volume 96.2 fl (85-98); Mean Platelet Volume 10.8 fL (7.4-10.4); Monocytes # 0.6 10^3/uL (0.2-0.9); Monocytes % 16.6 %; Neutrophils # 1.43 10^3/uL (1.8-7.7); Neutrophils % 40.2 %; Nucleated Red Blood Cells % 0 %; Platelet Count 235 10^3/cmm (157-399); Red Blood Count 4.18 10^6/uL (3.85-5.65); Red Cell Distribution Width 16.2 % (12.1-15.1); White Blood Count 3.56 10^3/uL (3.29-11.43)
[2024-07-03 08:34] LABS: Carcinoembryonic Antigen 106.1 ng/mL (0.0-4.7)
[2024-07-03 08:45] LABS: Alanine Aminotransferase 22 U/L (0-33); Albumin Level 3.7 g/dL (3.5-5.2); Alkaline Phosphatase 142 U/L (35-105); Anion Gap 14.7 (5-19); Aspartate Amino Transferase 22 U/L (0-32); Blood Urea Nitrogen 8 mg/dL (6-20); Calcium 8.7 mg/dL (8.5-10.5); Carbon Dioxide 28 mmol/L (22-29); Chloride 99 mmol/L (98-107); Creatinine Clr Calc Pharmacy 98.1856; Globulin 2.9 g/dL (1.3-4.6); Glomerular Filtration Rate 85.6 mL/min (90-130); Glucose 123 mg/dL (65-115); Lactate Dehydrogenase 193 U/L (135-214); Magnesium 1.6 mg/dL (1.7-2.3); Osmolality Calculated 286 mOsm/kg (285-295); Potassium 3.7 mmol/L (3.5-5.1); Sodium 138 mmol/L (136-145); Total Bilirubin 0.5 mg/dL (0.15-1.2); Total Protein 6.6 g/dL (6.6-8.7)
== END 2024-07-04 23:59 | disposition home or self-care (01) ==
PROVIDERS: Internal Medicine Hematology & Oncology; PCP Family Medicine; Visit Provider Nurse Practitioner Family
DX: C78.7 Secondary malignant neoplasm of liver and intrahepatic bile duct; R11.0 Nausea; Z53.9 Procedure and treatment not carried out, unspecified reason; C18.7 Malignant neoplasm of sigmoid colon
CPT/HCPCS: 36591; 78815; 80053; 82378; 83615; 83735; 85025; 96368; 96375; 96413; 96415; 96416; 96417; 96523; A9552; J0461; J0640; J1100; J2469; J7050; J7060; J9190; J9206; Q0164; Q5107

== ENCOUNTER 2024-07-24 08:15 | Oncology outpatient (recurring) (ONCR) | payer MEDICAID, SELFPAY ==
[2024-07-10 08:41] LABS: Basophils # 0.1 10^3/uL (0.0-0.1); Basophils % 0.9 %; Eosinophils # 0.3 10^3/uL (0.0-0.8); Eosinophils % 4.7 %; Hematocrit 40.9 % (36-47); Lymphocytes # 1.1 10^3/uL (0.8-4.8); Lymphocytes % 16.7 %; Mean Corpuscular HGB Conc 32.3 g/dL (30-55); Mean Corpuscular Hemoglobin 31.2 pg (27-33); Mean Corpuscular Volume 96.7 fl (85-98); Mean Platelet Volume 10.7 fL (7.4-10.4); Monocytes # 0.8 10^3/uL (0.2-0.9); Monocytes % 11.7 %; Neutrophils # 4.36 10^3/uL (1.8-7.7); Neutrophils % 65.5 %; Nucleated Red Blood Cells % 0 %; Platelet Count 148 10^3/cmm (157-399); Red Blood Count 4.23 10^6/uL (3.85-5.65); Red Cell Distribution Width 15.8 % (12.1-15.1); White Blood Count 6.65 10^3/uL (3.29-11.43)
[2024-07-10 08:55] LABS: Alanine Aminotransferase 25 U/L (0-33); Albumin Level 3.8 g/dL (3.5-5.2); Alkaline Phosphatase 136 U/L (35-105); Anion Gap 13.9 (5-19); Aspartate Amino Transferase 22 U/L (0-32); Blood Urea Nitrogen 7 mg/dL (6-20); Calcium 9.1 mg/dL (8.5-10.5); Carbon Dioxide 28 mmol/L (22-29); Chloride 101 mmol/L (98-107); Globulin 2.4 g/dL (1.3-4.6); Glomerular Filtration Rate 102.3 mL/min (90-130); Glucose 108 mg/dL (65-115); Osmolality Calculated 287 mOsm/kg (285-295); Potassium 3.9 mmol/L (3.5-5.1); Sodium 139 mmol/L (136-145); Total Bilirubin 0.8 mg/dL (0.15-1.2); Total Protein 6.2 g/dL (6.6-8.7)
[2024-07-10 09:30] VITALS: BMI 37.0
[2024-07-10 09:34] VITALS: BP 122/89; PULSE 82; RESP 16; TEMP 36.4; O2SAT 98
[2024-07-10] MEDS: sodium chloride 0.9% 250 ML 75 ML IV (09:49)
[2024-07-10] MEDS: dexamethasone 4 mg/mL INJ 5 mL 12 MG IVP (09:49)
[2024-07-10] MEDS: palonosetron 0.25 mg/5 mL SDV IVP (09:55)
[2024-07-10] MEDS: SODIUM CHLORIDE 0.9% IV (10:14)
[2024-07-10] MEDS: BEVACIZUMAB AWWB IV (10:14)
[2024-07-10] MEDS: IRINOTECAN IV (10:55)
[2024-07-10] MEDS: leucovorin 820 MG in dextrose 5% 250 ML 166.67 MG IV (10:55)
[2024-07-10] MEDS: DEXTROSE 5% IV (10:55)
[2024-07-10] MEDS: atropine 1 mg/mL SDV 1 mL 0.4 MG IV (10:59)
[2024-07-10] MEDS: dextrose 5% 250 ML 75 ML IV (11:00)
[2024-07-10] MEDS: fluorouraciL 4,850 MG in elastomeric pump 1 PUMP IV (12:44)
[2024-07-10 12:50] VITALS: BP 143/83; PULSE 77; RESP 17; TEMP 36.4; O2SAT 95
[2024-07-12] MEDS: sodium chloride 0.9% 1,000 ML 999 ML IV (11:07)
[2024-07-12] MEDS: aprepitant 130 mg/18 ml SDV IVP (11:13)
[2024-07-12 12:05] VITALS: BP 125/84; PULSE 81; RESP 16; TEMP 36.6; O2SAT 91
[2024-07-24 08:24] LABS: Basophils % 0.9 %; Eosinophils # 0.2 10^3/uL (0.0-0.8); Eosinophils % 6.7 %; Hematocrit 38.4 % (36-47); Lymphocytes # 0.8 10^3/uL (0.8-4.8); Lymphocytes % 22.2 %; Mean Corpuscular HGB Conc 33.6 g/dL (30-55); Mean Corpuscular Hemoglobin 32.4 pg (27-33); Mean Corpuscular Volume 96.5 fl (85-98); Monocytes # 0.5 10^3/uL (0.2-0.9); Monocytes % 13.4 %; Neutrophils # 1.93 10^3/uL (1.8-7.7); Neutrophils % 56.2 %; Nucleated Red Blood Cells % 0 %; Platelet Count 176 10^3/cmm (157-399); Red Blood Count 3.98 10^6/uL (3.85-5.65); Red Cell Distribution Width 15.7 % (12.1-15.1); White Blood Count 3.43 10^3/uL (3.29-11.43)
[2024-07-24 08:43] LABS: Estmated Average Glucose 108; Hemoglobin A1C 5.4 % (4.0-6.0)
[2024-07-24 08:51] LABS: Carcinoembryonic Antigen 129.4 ng/mL (0.0-4.7)
[2024-07-24 09:02] LABS: Albumin Level 3.8 g/dL (3.5-5.2); Chloride 98 mmol/L (98-107); Potassium 3.9 mmol/L (3.5-5.1); Sodium 137 mmol/L (136-145)
[2024-07-24 09:19] LABS: Alanine Aminotransferase 20 U/L (0-33); Alkaline Phosphatase 162 U/L (35-105); Anion Gap 14.9 (5-19); Aspartate Amino Transferase 20 U/L (0-32); Blood Urea Nitrogen 6 mg/dL (6-20); Calcium 8.5 mg/dL (8.5-10.5); Carbon Dioxide 28 mmol/L (22-29); Creatinine Clr Calc Pharmacy 113.6102; Glomerular Filtration Rate 102.3 mL/min (90-130); Glucose 93 mg/dL (65-115); Magnesium 1.7 mg/dL (1.7-2.3); Osmolality Calculated 281 mOsm/kg (285-295); Total Bilirubin 0.4 mg/dL (0.15-1.2); Total Protein 6.8 g/dL (6.6-8.7)
[2024-07-24] MEDS: sodium chloride 0.9% 250 ML 75 ML IV (10:06)
[2024-07-24] MEDS: palonosetron 0.25 mg/5 mL SDV IVP (10:07)
[2024-07-24] MEDS: dexamethasone 4 mg/mL INJ 5 mL 12 MG IVP (10:09)
[2024-07-24 10:11] VITALS: BP 110/77; PULSE 81; RESP 16; TEMP 36.6; O2SAT 92
[2024-07-24] MEDS: aprepitant 130 mg/18 ml SDV IVP (10:26)
[2024-07-24] MEDS: SODIUM CHLORIDE 0.9% IV (10:36)
[2024-07-24] MEDS: BEVACIZUMAB AWWB IV (10:36)
[2024-07-24] MEDS: atropine 1 mg/mL SDV 1 mL 0.4 MG IV (11:28)
[2024-07-24] MEDS: leucovorin 800 MG in dextrose 5% 250 ML 166.67 MG IV (11:47)
[2024-07-24] MEDS: DEXTROSE 5% IV (11:48)
[2024-07-24] MEDS: IRINOTECAN IV (11:48)
[2024-07-24 13:22] VITALS: BP 130/69; PULSE 71; TEMP 36.1; O2SAT 93
[2024-07-24] MEDS: fluorouraciL 4,800 MG, elastomeric pump 1 PUMP in sodium chloride 0.9% (100 ml) 0 ML IV (13:24)
== END 2024-07-24 23:59 | disposition home or self-care (01) ==
PROVIDERS: Internal Medicine; PCP Family Medicine; Visit Provider Nurse Practitioner Family
DX: Z51.12 Encounter for antineoplastic immunotherapy (principal); Z53.9 Procedure and treatment not carried out, unspecified reason; Z51.11 Encounter for antineoplastic chemotherapy; C18.7 Malignant neoplasm of sigmoid colon; E11.9 Type 2 diabetes mellitus without complications; Z79.899 Other long term (current) drug therapy; Z79.52 Long term (current) use of systemic steroids
CPT/HCPCS: 80053; 82378; 83036; 83735; 85025; 96360; 96365; 96368; 96375; 96413; 96415; 96416; 96417; 96523; J0185; J0461; J0640; J1100; J2469; J7030; J7050; J7060; J9190; J9206; Q5107

== ENCOUNTER 2024-07-26 10:20 | Oncology outpatient (recurring) (ONCR) | payer MEDICAID, SELFPAY ==
[2024-07-26 10:25] VITALS: BP 104/73; PULSE 64; TEMP 36.5; O2SAT 96
== END 2024-08-03 23:59 | disposition home or self-care (01) ==
LOC: ONCMED 10:20
PROVIDERS: PCP Family Medicine; Visit Provider Nurse Practitioner Family
DX: Z45.1 Encounter for adjustment and management of infusion pump
CPT/HCPCS: 96523

== ENCOUNTER → 2024-07-31 11:11 | Outpatient (BNVA) | payer MEDICAID, SELFPAY | PROVIDERS: PCP Family Medicine; Visit Provider Emergency Medicine | DX: J02.9 Acute pharyngitis, unspecified (principal); B34.9 Viral infection, unspecified; J20.8 Acute bronchitis due to other specified organisms; B96.89 Other specified bacterial agents as the cause of diseases classified elsewhere | CPT/HCPCS: 87400; 87426 ==

== ENCOUNTER 2024-08-21 09:30 | Oncology outpatient (recurring) (ONCR) | payer MEDICAID, SELFPAY ==
[2024-08-07 08:11] LABS: Basophils % 0.6 %; Eosinophils # 0.1 10^3/uL (0.0-0.8); Eosinophils % 2.7 %; Hematocrit 40.1 % (36-47); Lymphocytes % 31.1 %; Mean Corpuscular HGB Conc 32.9 g/dL (30-55); Mean Corpuscular Volume 97.3 fl (85-98); Monocytes # 0.5 10^3/uL (0.2-0.9); Monocytes % 15.3 %; Neutrophils # 1.66 10^3/uL (1.8-7.7); Neutrophils % 49.7 %; Nucleated Red Blood Cells % 0 %; Platelet Count 153 10^3/cmm (157-399); Red Blood Count 4.12 10^6/uL (3.85-5.65); Red Cell Distribution Width 15.9 % (12.1-15.1); White Blood Count 3.34 10^3/uL (3.29-11.43)
[2024-08-07 08:38] LABS: Alanine Aminotransferase 16 U/L (0-33); Albumin Level 3.9 g/dL (3.5-5.2); Alkaline Phosphatase 145 U/L (35-105); Anion Gap 15.5 (5-19); Aspartate Amino Transferase 20 U/L (0-32); Blood Urea Nitrogen 8 mg/dL (6-20); Calcium 9.1 mg/dL (8.5-10.5); Carbon Dioxide 27 mmol/L (22-29); Chloride 99 mmol/L (98-107); Creatinine Clr Calc Pharmacy 96.3884; Globulin 2.9 g/dL (1.3-4.6); Glomerular Filtration Rate 85.6 mL/min (90-130); Glucose 105 mg/dL (65-115); Osmolality Calculated 285 mOsm/kg (285-295); Potassium 3.5 mmol/L (3.5-5.1); Sodium 138 mmol/L (136-145); Total Bilirubin 0.5 mg/dL (0.15-1.2); Total Protein 6.8 g/dL (6.6-8.7)
[2024-08-07 08:56] VITALS: BP 128/85; PULSE 75; RESP 16; TEMP 36.6; O2SAT 95
[2024-08-07] MEDS: sodium chloride 0.9% 250 ML 75 ML IV (09:07)
[2024-08-07] MEDS: palonosetron 0.25 mg/5 mL SDV IVP (09:10)
[2024-08-07] MEDS: dexamethasone 4 mg/mL INJ 5 mL 12 MG IVP (09:15)
[2024-08-07] MEDS: BEVACIZUMAB AWWB IV (09:19)
[2024-08-07] MEDS: SODIUM CHLORIDE 0.9% IV (09:19)
[2024-08-07] MEDS: atropine 1 mg/mL SDV 1 mL 0.4 MG IV (10:00)
[2024-08-07] MEDS: leucovorin 820 MG in dextrose 5% 250 ML 166.67 MG IV (10:05)
[2024-08-07] MEDS: DEXTROSE 5% IV (10:09)
[2024-08-07] MEDS: IRINOTECAN IV (10:09)
[2024-08-07] MEDS: fluorouraciL 4,850 MG in elastomeric pump 1 PUMP IV (11:57)
[2024-08-07 12:06] VITALS: BP 127/54; PULSE 66; RESP 18; TEMP 36.4; O2SAT 97
[2024-08-09 11:00] VITALS: BP 135/71; PULSE 70; RESP 17; TEMP 36.2; O2SAT 96
[2024-08-21 09:47] LABS: Basophils % 0.7 %; Eosinophils # 0.1 10^3/uL (0.0-0.8); Eosinophils % 2.8 %; Hematocrit 38.7 % (36-47); Lymphocytes # 0.9 10^3/uL (0.8-4.8); Mean Corpuscular HGB Conc 32.6 g/dL (30-55); Mean Corpuscular Hemoglobin 32.6 pg (27-33); Mean Corpuscular Volume 100.3 fl (85-98); Mean Platelet Volume 10.8 fL (7.4-10.4); Monocytes # 0.7 10^3/uL (0.2-0.9); Monocytes % 16.5 %; Neutrophils # 2.47 10^3/uL (1.8-7.7); Neutrophils % 58.5 %; Nucleated Red Blood Cells % 0 %; Platelet Count 165 10^3/cmm (157-399); Red Blood Count 3.86 10^6/uL (3.85-5.65); Red Cell Distribution Width 16.9 % (12.1-15.1); White Blood Count 4.23 10^3/uL (3.29-11.43)
[2024-08-21 10:27] LABS: Alanine Aminotransferase 22 U/L (0-33); Albumin Level 3.8 g/dL (3.5-5.2); Alkaline Phosphatase 136 U/L (35-105); Anion Gap 17.6 (5-19); Aspartate Amino Transferase 22 U/L (0-32); Blood Urea Nitrogen 11 mg/dL (6-20); Calcium 9.3 mg/dL (8.5-10.5); Carbon Dioxide 26 mmol/L (22-29); Chloride 98 mmol/L (98-107); Creatinine Clr Calc Pharmacy 96.3884; Globulin 2.9 g/dL (1.3-4.6); Glomerular Filtration Rate 85.6 mL/min (90-130); Glucose 106 mg/dL (65-115); Osmolality Calculated 286 mOsm/kg (285-295); Potassium 3.6 mmol/L (3.5-5.1); Sodium 138 mmol/L (136-145); Total Bilirubin 0.4 mg/dL (0.15-1.2); Total Protein 6.7 g/dL (6.6-8.7)
[2024-08-21] MEDS: dexamethasone 4 mg/mL INJ 5 mL 12 MG IVP (12:29)
[2024-08-21] MEDS: sodium chloride 0.9% 250 ML 50 ML IV (12:29)
[2024-08-21] MEDS: palonosetron 0.25 mg/5 mL SDV IVP (12:40)
[2024-08-21] MEDS: SODIUM CHLORIDE 0.9% IV (13:17)
[2024-08-21] MEDS: BEVACIZUMAB AWWB IV (13:17)
[2024-08-21] MEDS: IRINOTECAN IV (13:57)
[2024-08-21] MEDS: DEXTROSE 5% IV (13:57)
[2024-08-21] MEDS: leucovorin 800 MG in dextrose 5% 250 ML 166.67 MG IV (13:57)
[2024-08-21] MEDS: atropine 1 mg/mL SDV 1 mL 0.4 MG IV (13:58)
[2024-08-21] MEDS: fluorouraciL 4,850 MG in elastomeric pump 1 PUMP IV (15:38)
[2024-08-21 16:03] VITALS: BP 139/83; PULSE 77; RESP 16; TEMP 36.7; O2SAT 96
== END 2024-08-21 23:59 | disposition home or self-care (01) ==
PROVIDERS: Internal Medicine Medical Oncology; PCP Family Medicine; Visit Provider Nurse Practitioner Family
DX: Z53.9 Procedure and treatment not carried out, unspecified reason (principal); Z51.11 Encounter for antineoplastic chemotherapy; Z79.631 Long term (current) use of antimetabolite agent; Z79.52 Long term (current) use of systemic steroids; C18.7 Malignant neoplasm of sigmoid colon
CPT/HCPCS: 80053; 82378; 85025; 96368; 96375; 96413; 96415; 96416; 96417; 96523; J0461; J0640; J1100; J2469; J7050; J7060; J9190; J9206; Q5107

== ENCOUNTER 2024-08-23 10:48 | Oncology outpatient (recurring) (ONCR) | payer MEDICAID, SELFPAY ==
[2024-08-23 11:06] VITALS: BP 107/71; PULSE 77; RESP 16; TEMP 36.2; O2SAT 92
== END 2024-09-03 23:59 | disposition home or self-care (01) ==
PROVIDERS: PCP Family Medicine; Visit Provider Nurse Practitioner Family
DX: Z45.1 Encounter for adjustment and management of infusion pump
CPT/HCPCS: 96523

== ENCOUNTER 2024-09-14 05:41 | Emergency (ER) | payer MEDICAID, SELFPAY ==
[2024-09-14 05:50] VITALS: BP 129/84; PULSE 92; RESP 20; O2SAT 92; BMI 34.7
--- NOTE | 2024-09-14 06:35 | ED_ITS ---
HPI - Back Pain/Injury 2 General: Chief Complaint: Back Pain/Injury Stated Complaint: pain lower back Time Seen by Provider: 09/14/24 06:20 History of Present Illness: 58-year-old female with a known history of stage IV P colon cancer comes in complaining of left-sided low back pain which has been chronic. Patient has a history of mets to the left iliac bone. This was noted in June 2024 on a PET scan. She also has mets to the liver. She has oxycodone she uses for pain at home she has been using as prescribed pain has not been well-controlled. No recent falls or trauma. Associated symptoms: Deny abdominal pain, chills, dysuria, fever(s) or urinary urgency Related Data Home Medications Medication Instructions Recorded Confirmed acetaminophen 325 mg tablet 325 mg PO QID PRN pain or fever 09/14/24 09/14/24 (Tylenol) atorvastatin 20 mg tablet 20 mg PO BEDTIME 09/14/24 09/14/24 sitagliptin phosphate 100 mg 100 mg PO DAILY 09/14/24 09/14/24 tablet (Januvia) tiotropium bromide 2.5 2 puff inhalation DAILY 09/14/24 09/14/24 mcg/actuation mist for inhalation (Spiriva Respimat) Previous Rx's Medication Instructions Recorded lancets 28 gauge (Comfort EZ #100 ea 01/15/20 Lancets) blood sugar diagnostic (Contour #100 ea 02/17/23 Next Test Strips) CPAP 6-16 cm with mask and supplies #1 ea 05/30/23 test strips #100 ea 08/01/23 sennosides 8.6 mg-docusate sodium 2 tab-cap (2 x 8.6-50 mg) PO BID 10/07/23 50 mg tablet (Senna-S) PRN constipation #30 tabs lidocaine-prilocaine 2.5 %-2.5 % 1 applic topical DIRECTED #30 11/29/23 topical cream grams oxycodone 5 mg tablet 5 mg PO Q6H PRN pain 30 days #120 04/08/24 tabs amlodipine 5 mg tablet 5 mg PO DAILY 90 days #90 tabs 04/22/24 budesonide-formoterol HFA 160 2 puff inhalation BID #10.2 grams 04/22/24 mcg-4.5 mcg/actuation aerosol inhaler (Symbicort) hydrochlorothiazide 25 mg tablet 25 mg PO DAILY PRN htn 90 days #90 04/22/24 tabs metformin 500 mg tablet,extended 500 mg PO BID #180 tabs 04/22/24 release 24 hr omeprazole 20 mg capsule,delayed 20 mg PO BID 90 days #180 caps 04/22/24 release prochlorperazine maleate 10 mg 10 mg PO Q4H PRN Mild Nausea #30 04/24/24 tablet (Compazine) tabs blood sugar diagnostic (OneTouch #100 strips 05/08/24 Verio test strips) ondansetron 8 mg disintegrating 8 mg PO Q8H PRN nausea and 06/12/24 tablet vomiting #30 tabs prochlorperazine 25 mg rectal 25 mg WA Q12H PRN nausea and 06/14/24 suppository (Compazine) vomiting #12 ea promethazine 25 mg rectal 25 mg WA Q6H PRN nausea and 07/12/24 suppository vomiting #12 ea albuterol sulfate 2.5 mg/3 mL 2.5 mg (3 mL) inhalation Q6H PRN 07/23/24 (0.083 %) solution for nebulization shortness of breath or wheezing #180 mL albuterol sulfate 90 mcg/actuation 2 puff inhalation Q6H PRN 07/23/24 aerosol inhaler shortness of breath or wheezing #8.5 grams ropinirole 0.5 mg tablet 0.5 mg PO BID 90 days #180 tabs 07/23/24 famotidine 20 mg tablet 20 mg PO BID breakthrough 07/24/24 heartburn #60 tabs azithromycin 250 mg tablet 250 mg PO DAILY 6 days #6 tabs 09/10/24 potassium chloride 10 mEq 10 meq PO DAILY #30 tabs 09/11/24 tablet,extended release naloxone 4 mg/actuation nasal 1 spray intranasal Q2M PRN opioid 09/14/24 spray (Narcan) overdose #2 ea oxycodone 10 mg tablet,crush 10 mg PO BID #30 tabs 09/14/24 resistant,extended release 12 hr Allergies Allergy/AdvReac Type Severity Reaction Status Date / Time Cephalosporins Allergy itching Verified 09/10/24 10:12 levofloxacin [From Levaquin] Allergy Unknown Verified 09/10/24 10:12 Penicillins Allergy ALGY-Rash Verified 09/10/24 10:12 Sulfa (Sulfonamide Allergy Unknown Verified 09/10/24 10:12 Antibiotics) Review of Systems 2 Const: Denies: fever(s) or chills Card: Denies: chest pain Resp: Denies: dyspnea GI: Denies: abdominal pain : Denies: dysuria, urinary frequency or urinary urgency Musc: Denies: neck pain or back pain Skin/Breast: Denies: rash PFSH ED 2 PFSH: Medical History Colon cancer Obstructive sleep apnea GERD (gastroesophageal reflux disease) Type 2 diabetes mellitus, without long-term current use of insulin Reducible umbilical hernia COPD (chronic obstructive pulmonary disease) Surgical History Port-A-Cath in place H/O tubal ligation Family History Father COPD (chronic obstructive pulmonary disease) Lung disease Mother CAD (coronary artery disease) Grandfather CAD (coronary artery disease) Cancer Skin cancer Brother Diabetes Sister Cancer Lung cancer Grandmother Lung disease Other Hypertension Denies family history of Clotting disorder Dementia Hyperlipidemia Psychiatric illness Chronic kidney disease (CKD) Suicide Anesthesia complication Bleeding disorder Stroke Social History Smoking and tobacco/nicotine status: never used tobacco/nicotine Quit status (tobacco/nicotine): has quit using Year quit tobacco: 2013 - 1PPD x 35 years Former quit date comment: Started age 13years Second hand smoke exposure: No Alcohol intake: never Substance/Drug Use: never Lives independently: Yes Household members: children Current occupational status: employed Do you think of yourself as: Straight/Heterosexual Current gender identity: Female Physical Exam 2 Const: GENERAL APPEARANCE: cooperative ORIENTATION/CONSCIOUSNESS: Yes awake, Yes oriented to person, Yes oriented to place and Yes oriented to time HENMT: COMMON NORMALS: normocephalic, atraumatic and hearing grossly normal bilaterally HEAD & SCALP: normocephalic and atraumatic Resp: COMMON NORMALS: normal respiratory effort, No retractions, No use of accessory muscles and clear to auscultation bilaterally AUSCULTATION: clear to auscultation bilaterally Cardio: COMMON NORMALS: regular rate, regular rhythm and No murmurs present (Cardio) RATE: regular rate RHYTHM: regular rhythm GI: COMMON NORMALS: Soft to palpation and No hepatosplenomegaly present A USCULTATION: Yes normoactive bowel sounds PALPATION: Yes Soft to palpation, No Tenderness to palpation present (GI), No Guarding due to palpation present (GI) and Yes No hepatosplenomegaly present Extremity: COMMON NORMALS: normal to inspection, capillary refill normal, no clubbing, cyanosis or edema, no calf tenderness and no pedal edema Neuro: SENSORIUM/ORIENTATION: Yes oriented to person, Yes oriented to place and Yes oriented to time Skin: COMMON NORMALS: no rashes or lesions noted GENERAL SKIN EXAM: no rashes or lesions noted Course 2 Vital Signs: Vital signs: Vital Signs Pulse Rate 79 09/14/24 08:40 Respiratory Rate 18 09/14/24 06:36 Blood Pressure 139/82 09/14/24 08:40 Pulse Oximetry 96 09/14/24 08:40 Oxygen Delivery Me thod Nasal Cannula 09/14/24 07:19 Oxygen Flow Rate 2 09/14/24 07:19 MDM - Back Pain/Injury Medical Decision Making Pain improved with pain medications given will discharge patient home switch her to extended release oxycodone 10 mg twice daily can use a 5 mg tablets for breakthrough pain. Patient given Narcan discussed with her family member follow-up with her primary care and oncology team next week. Medical Records PET scan 06/24/2024 IMPRESSION: There is disseminated FDG avid malignancy as follows: 1. Bilobar liver metastases measuring up to 5.1 cm stable since 05/19/2024 increased since 03/27/2024. 2. Small bilateral lung metastases measuring up to 1.3 cm are stable since 03/27/2024. 3. Lytic metastasis in the left iliac bone with highest uptake of 11.6 SUV is progressive in the short interval since 05/19/2024 increased from 1.2 cm to 1.8 cm. 4. Locoregional metastatic spiculated mass in the mesosigmoid decreased in size with new calcifications since 2021. 5. Small portacaval lymph node stable in size since 2021. Increased uptake within normal size left adrenal with no discrete nodule is indeterminate. Dictated By: Tena Link MD Signed By: Tena Link MD Signed Date/Time 06/24/24 1205 DD/ 1020 Labs 09/14/24 07:09 09/14/24 07:09 Radiology Impressions Lumbar Spine X-Ray 09/14/24 06:45 IMPRESSION: No acute findings. Pelvis X-Ray 09/14/24 06:45 IMPRESSION: No acute findings. Chest X-Ray 09/14/24 06:46 IMPRESSION: 1. No acute findings. 2. Moderate enlargement of the cardiac silhouette. Pericardial effusion not excluded. Laboratory Results WBC 6.58 10^3/uL (3.29-11.43) 09/14/24 07:09 RBC 3.95 10^6/uL (3.85-5.65) 09/14/24 07:09 Hgb 12.50 g/dL (11.27-16.99) 09/14/24 07:09 Hct 38.7 % (36-47) 09/14/24 07:09 MCV 98.0 fl (85-98) 09/14/24 07:09 MCH 31.6 pg (27-33) 09/14/24 07:09 MCHC 32.3 g/dL (30-55) 09/14/24 07:09 RDW 16.4 % (12.1-15.1) H 09/14/24 07:09 Plt Count 151 10^3/cmm (157-399) L 09/14/24 07:09 MPV 10.6 fL (7.4-10.4) H 09/14/24 07:09 Neut % (Auto) 88.0 % 09/14/24 07:09 Lymph % (Auto) 9.0 % 09/14/24 07:09 Bailey % (Auto) 1.7 % 09/14/24 07:09 Eos % (Auto) 0.5 % 09/14/24 07:09 Baso % (Auto) 0.5 % 09/14/24 07:09 Neut # (Auto) 5.80 10^3/uL (1.8-7.7) 09/14/24 07:09 Lymph # (Auto) 0.6 10^3/uL (0.8-4.8) L 09/14/24 07:09 Bailey # (Auto) 0.1 10^3/uL (0.2-0.9) L 09/14/24 07:09 Eos # (Auto) 0.0 10^3/uL (0.0-0.8) 09/14/24 07:09 Baso # (Auto) 0.0 10^3/uL (0.0-0.1) 09/14/24 07:09 Nucleated RBC % (auto) 0 % 09/14/24 07:09 Nucleated RBCs # 0.0 /100WBC 09/14/24 07:09 Sodium 134 mmol/L (136-145) L 09/14/24 07:09 Potassium 4.4 mmol/L (3.5-5.1) 09/14/24 07:09 Chloride 94 mmol/L (98-107) L 09/14/24 07:09 Carbon Dioxide 27 mmol/L (22-29) 09/14/24 07:09 Anion Gap 17.4 (5-19) 09/14/24 07:09 BUN 14 mg/dL (6-20) 09/14/24 07:09 Creatinine 0.7 mg/dL (0.5-0.9) 09/14/24 07:09 GFR Calculation 85.6 mL/min (90-130) L 09/14/24 07:09 Glucose 132 mg/dL (65-115) H 09/14/24 07:09 Calculated Osmolality 280 mOsm/kg (285-295) L 09/14/24 07:09 Calcium 9.1 mg/dL (8.5-10.5) 09/14/24 07:09 Total Bilirubin 0.8 mg/dL (0.15-1.2) 09/14/24 07:09 AST 20 U/L (0-32) 09/14/24 07:09 ALT 24 U/L (0-33) 09/14/24 07:09 Alkaline Phosphatase 146 U/L (35-105) H 09/14/24 07:09 Total Protein 6.3 g/dL (6.6-8.7) L 09/14/24 07:09 Albumin 3.9 g/dL (3.5-5.2) 09/14/24 07:09 Globulin 2.4 g/dL (1.3-4.6) 09/14/24 07:09 All radiology interpretation(s) finalized by discharge Discharge Plan Discharge Patient Disposition: Home Clinical Impression: Malignant neoplasm of sigmoid colon, Malignant neoplasm of colon metastatic to bone Condition: Stable Prescriptions: New oxycodone 10 mg tablet,oral only,ext.rel.12 hr 10 mg PO BID Qty: 30 0RF naloxone [Narcan] 4 mg/actuation spray,non-aerosol 1 spray intranasal Q2M PRN (Reason: opioid overdose) Qty: 2 0RF Rx Instructions: spray 1 dose into ONE nostril; alternate nostrils w each dose until help arrives No Action (DME) CPAP 6-16 cm with mask and supplies See Rx Instructions .Route .MEDSUPPLY Qty: 1 0RF Rx Instructions: As directed lidocaine-prilocaine 2.5-2.5 % cream 1 applic topical DIRECTED Qty: 30 2RF Rx Instructions: quarter size amount over port site 30-45 min prior to access, cover with plastic plastic wrap azithromycin 250 mg tablet 250 mg PO DAILY 6 Days Qty: 6 0RF Rx Instructions: Take 2 tabs today and then 1 tab daily until gone (DME) Contour Next Test Strips Strip See Rx Instructions .ROUTE .MEDSUPPLY Qty: 100 5RF Rx Instructions: three times daily omeprazole 20 mg capsule,delayed release(DR/EC) 20 mg PO BID 90 Days Qty: 180 2RF metformin 500 mg tablet extended release 24 hr 500 mg PO BID Qty: 180 2RF hydrochlorothiazide 25 mg tablet 25 mg PO DAILY PRN (Reason: htn) 90 Days Qty: 90 2RF budesonide-formoterol [Symbicort] 160-4.5 mcg/actuation HFA aerosol inhaler 2 puff inhalation BID Qty: 10.2 6RF amlodipine 5 mg tablet 5 mg PO DAILY 90 Days Qty: 90 2RF prochlorperazine maleate [Compazine] 10 mg tablet 10 mg PO Q4H PRN (Reason: Mild Nausea) Qty: 30 3RF albuterol sulfate 90 mcg/actuation HFA aerosol inhaler 2 puff inhalation Q6H PRN (Reason: shortness of breath or wheezing) Qty: 8.5 3RF albuterol sulfate 2.5 mg /3 mL (0.083 %) solution for nebulization 2.5 mg INHALATION Q6H PRN (Reason: shortness of breath or wheezing) Qty: 180 3RF ropinirole 0.5 mg tablet 0.5 mg PO BID 90 Days Qty: 180 2RF ondansetron 8 mg tablet,disintegrating 8 mg PO Q8H PRN (Reason: nausea and vomiting) Qty: 30 2RF famotidine 20 mg tablet 20 mg PO BID Qty: 60 2RF (DME) lancets [Comfort EZ Lancets] 28 gauge misc See Rx Instructions .ROUTE .MEDSUPPLY Qty: 100 2RF Rx Instructions: once daily (DME) test strips See Rx Instructions .Route .MEDSUPPLY Qty: 100 0RF Rx Instructions: use 2 times daily As directed oxycodone 5 mg tablet 5 mg PO Q6H PRN (Reason: pain) 30 Days Qty: 120 0RF (DME) OneTouch Verio test strips Strip See Rx Instructions .ROUTE .COMPLEX Qty: 100 0RF Dose Instruction: USE 2 TIMES DAILY DIRECTED Rx Instructions: USE 2 TIMES DAILY DIRECTED prochlorperazine [Compazine] 25 mg suppository 25 mg WA Q12H PRN (Reason: nausea and vomiting) Qty: 12 1RF promethazine 25 mg suppository 25 mg WA Q6H PRN (Reason: nausea and vomiting) Qty: 12 1RF potassium chloride 10 mEq tablet extended release 10 meq PO DAILY Qty: 30 0RF sennosides-docusate sodium [Senna-S] 8.6-50 mg tablet 2 tab-cap PO BID PRN (Reason: constipation) Qty: 30 0RF atorvastatin 20 mg tablet 20 mg PO BEDTIME Rx Instructions: TAKE ONE TABLET BY MOUTH DAILY AT BEDTIME Januvia 100 mg tablet 100 mg PO DAILY Rx Instructions: TAKE ONE TABLET BY MOUTH EVERY DAY Spiriva Respimat 2.5 mcg/actuation mist 2 puff inhalation DAILY Rx Instructions: 2 PUFF(S) DAILY FOR 30 DAYS acetaminophen [Tylenol] 325 mg Tablet 325 mg PO QID PRN (Reason: pain or fever ) Discharge Orders: Discharge ED (Routine); Ordered 09/14/24 Ordered By: Wilder Soriano Referrals: Graciela Head MD [Primary Care Provider] - Discharge Diet: Usual diet Discharge Activity: Increase activity as tolerated Patient Instructions: Opioid Safety, Pain Management Activity Restrictions/Additional Instructions: Thank you for choosing [facility] for your healthcare needs today. It is very important that you follow up as instructed or that you return to the Emergency Department should you have concerns or if your condition changes or worsens in any way. Your surgeon in the emergency room with uncontrolled pain secondary to metastasis of your colon cancer. Recommend that you start on sustained-release oxycodone 10 mg twice a day you can use the 5 mg tablets for breakthrough pain. You are also given Narcan to use if needed if you experience side effects from the narcotics. Coding Level of Care Code ED Hinging Machine Operator for Connie Holliday
[2024-09-14 06:36] VITALS: RESP 18
[2024-09-14] MEDS: morphine 4 mg/mL SDV 1 mL IVP (06:36)
[2024-09-14] MEDS: dexamethasone 10 mg/mL INJ IM (06:36)
[2024-09-14] MEDS: ketorolac 30 mg/mL INJ IVP (06:37)
--- NOTE | 2024-09-14 06:45 | XRR_ITS ---
PROCEDURE INFORMATION: Exam: XR Lumbosacral Spine Exam date and time: 09/14/2024 6:57 AM Age: 58 years old Clinical indication: Low back pain; Additional info: Pain history of bone mets TECHNIQUE: Imaging protocol: Radiologic exam of the lumbosacral spine. Views: 2 or 3 views. COMPARISON: CR (PELVIS, ) 09/14/2024 6:57 AM FINDINGS: Tubes, catheters and devices: Right paraspinal embolization coils noted. Bones/joints: No radiographic evidence of bone lesion. No fracture. Endplate spurring at all lumbar levels. Disc space height maintained. No listhesis. Minor dextrocurvature. Soft tissues: Unremarkable. XR/XR lumbar spine 2-3V* [id number] IMPRESSION: No acute findings.
--- NOTE | 2024-09-14 06:45 | XRR_ITS ---
PROCEDURE INFORMATION: Exam: XR Pelvis Exam date and time: 09/14/2024 6:57 AM Age: 58 years old Clinical indication: Pelvic pain; Additional info: Pain history bone mets TECHNIQUE: Imaging protocol: Radiologic exam of the pelvis. Views: 1 or 2 view. COMPARISON: CT abdomen pelvis w con* [id number] 05/19/2024 9:45 PM FINDINGS: Bones/joints: No radiographic evidence of bone lesion. No radiographic evidence of fracture. Soft tissues: Unremarkable. XR/XR pelvis 1-2V* [id number] IMPRESSION: No acute findings.
--- NOTE | 2024-09-14 06:46 | XRR_ITS ---
PROCEDURE INFORMATION: Exam: XR Chest Exam date and time: 09/14/2024 7:02 AM Age: 58 years old Clinical indication: Cough and dyspnea; Additional info: Dyspnea/cough TECHNIQUE: Imaging protocol: Radiologic exam of the chest. Views: 1 view. COMPARISON: [place]/w [id number] 03/27/2024 10:23 AM FINDINGS: Tubes, catheters and devices: Central line tip terminates in the distal superior vena cava. Lungs: No infiltrate. Pleural spaces: Unremarkable. No pleural effusion. No pneumothorax. Heart/Mediastinum: Moderate enlargement of the cardiac silhouette. Pericardial effusion not excluded. Bones/joints: Unremarkable. XR/XR chest 1V portable [id number] IMPRESSION: 1. No acute findings. 2. Moderate enlargement of the cardiac silhouette. Pericardial effusion not excluded.
[2024-09-14 07:16] LABS: Basophils % 0.5 %; Eosinophils % 0.5 %; Hematocrit 38.7 % (36-47); Lymphocytes # 0.6 10^3/uL (0.8-4.8); Mean Corpuscular HGB Conc 32.3 g/dL (30-55); Mean Corpuscular Hemoglobin 31.6 pg (27-33); Mean Platelet Volume 10.6 fL (7.4-10.4); Monocytes # 0.1 10^3/uL (0.2-0.9); Monocytes % 1.7 %; Nucleated Red Blood Cells % 0 %; Platelet Count 151 10^3/cmm (157-399); Red Blood Count 3.95 10^6/uL (3.85-5.65); Red Cell Distribution Width 16.4 % (12.1-15.1); White Blood Count 6.58 10^3/uL (3.29-11.43)
[2024-09-14 07:19] VITALS: PULSE 90; O2SAT 95
[2024-09-14 07:42] LABS: Alanine Aminotransferase 24 U/L (0-33); Albumin Level 3.9 g/dL (3.5-5.2); Alkaline Phosphatase 146 U/L (35-105); Anion Gap 17.4 (5-19); Aspartate Amino Transferase 20 U/L (0-32); Blood Urea Nitrogen 14 mg/dL (6-20); Calcium 9.1 mg/dL (8.5-10.5); Carbon Dioxide 27 mmol/L (22-29); Chloride 94 mmol/L (98-107); Creatinine Clr Calc Pharmacy 94.9015; Globulin 2.4 g/dL (1.3-4.6); Glomerular Filtration Rate 85.6 mL/min (90-130); Glucose 132 mg/dL (65-115); Osmolality Calculated 280 mOsm/kg (285-295); Potassium 4.4 mmol/L (3.5-5.1); Sodium 134 mmol/L (136-145); Total Bilirubin 0.8 mg/dL (0.15-1.2); Total Protein 6.3 g/dL (6.6-8.7)
[2024-09-14 08:20] VITALS: BP 130/70; O2SAT 95
[2024-09-14 08:40] VITALS: BP 139/82; PULSE 79; O2SAT 96
== END 2024-09-14 08:41 | disposition home or self-care (01) ==
PROVIDERS: Emergency Provider Family Medicine; PCP Family Medicine
DX: C18.7 Malignant neoplasm of sigmoid colon (principal); C79.51 Secondary malignant neoplasm of bone; Z79.84 Long term (current) use of oral hypoglycemic drugs; Z87.891 Personal history of nicotine dependence; J44.9 Chronic obstructive pulmonary disease, unspecified; E11.9 Type 2 diabetes mellitus without complications
CPT/HCPCS: 71045; 72100; 72170; 80053; 85025; 96372; 96374; 96375; 99284; J1100; J1885; J2270

== ENCOUNTER → 2024-09-23 14:33 | Outpatient (BNVA) | payer MEDICAID, SELFPAY | PROVIDERS: PCP Family Medicine; Visit Provider Nurse Practitioner | DX: R05.9 Cough, unspecified (principal) | CPT/HCPCS: 85025 ==

== ENCOUNTER 2024-10-02 09:02 | Oncology outpatient (recurring) (ONCR) | payer MEDICAID, SELFPAY ==
[2024-09-10 10:28] LABS: Basophils % 0.7 %; Eosinophils # 0.2 10^3/uL (0.0-0.8); Eosinophils % 3.6 %; Hematocrit 41.3 % (36-47); Lymphocytes # 0.9 10^3/uL (0.8-4.8); Lymphocytes % 19.3 %; Mean Corpuscular HGB Conc 32.7 g/dL (30-55); Mean Corpuscular Hemoglobin 31.8 pg (27-33); Mean Corpuscular Volume 97.4 fl (85-98); Mean Platelet Volume 10.7 fL (7.4-10.4); Monocytes # 0.8 10^3/uL (0.2-0.9); Monocytes % 17.3 %; Neutrophils # 2.64 10^3/uL (1.8-7.7); Neutrophils % 58.7 %; Nucleated Red Blood Cells % 0 %; Platelet Count 227 10^3/cmm (157-399); Red Blood Count 4.24 10^6/uL (3.85-5.65); Red Cell Distribution Width 16.9 % (12.1-15.1)
[2024-09-10 10:56] LABS: Carcinoembryonic Antigen 135.5 ng/mL (0.0-4.7)
[2024-09-10 11:07] LABS: Alanine Aminotransferase 26 U/L (0-33); Albumin Level 3.9 g/dL (3.5-5.2); Alkaline Phosphatase 148 U/L (35-105); Anion Gap 18.2 (5-19); Aspartate Amino Transferase 25 U/L (0-32); Blood Urea Nitrogen 10 mg/dL (6-20); Calcium 9.4 mg/dL (8.5-10.5); Carbon Dioxide 26 mmol/L (22-29); Chloride 97 mmol/L (98-107); Creatinine Clr Calc Pharmacy 96.2643; Globulin 3.2 g/dL (1.3-4.6); Glomerular Filtration Rate 85.6 mL/min (90-130); Glucose 122 mg/dL (65-115); Osmolality Calculated 284 mOsm/kg (285-295); Potassium 4.2 mmol/L (3.5-5.1); Sodium 137 mmol/L (136-145); Total Bilirubin 0.4 mg/dL (0.15-1.2); Total Protein 7.1 g/dL (6.6-8.7)
[2024-09-10] MEDS: sodium chloride 0.9% 250 ML 75 ML IV (12:01)
[2024-09-10] MEDS: palonosetron 0.25 mg/5 mL SDV IVP (12:04)
[2024-09-10] MEDS: dexamethasone 4 mg/mL INJ 5 mL 12 MG IVP (12:06)
[2024-09-10] MEDS: SODIUM CHLORIDE 0.9% IV (12:38)
[2024-09-10] MEDS: BEVACIZUMAB AWWB IV (12:38)
[2024-09-10] MEDS: atropine 1 mg/mL SDV 1 mL 0.4 MG IV (13:17)
[2024-09-10] MEDS: leucovorin 800 MG in dextrose 5% 250 ML 166.67 MG IV (13:32)
[2024-09-10] MEDS: IRINOTECAN IV (13:33)
[2024-09-10] MEDS: DEXTROSE 5% IV (13:33)
[2024-09-10] MEDS: fluorouraciL 4,850 MG in elastomeric pump 1 PUMP IV (15:16)
[2024-09-10 15:27] VITALS: BP 110/70; PULSE 84; RESP 17; TEMP 36.4; O2SAT 94
[2024-09-12 14:10] VITALS: BP 135/79; PULSE 72; RESP 18; TEMP 36.3; O2SAT 95
[2024-09-26 09:17] LABS: Eosinophils # 0.1 10^3/uL (0.0-0.8); Hematocrit 37.7 % (36-47); Lymphocytes # 0.6 10^3/uL (0.8-4.8); Lymphocytes % 14.9 %; Mean Corpuscular HGB Conc 32.9 g/dL (30-55); Mean Corpuscular Hemoglobin 31.8 pg (27-33); Mean Corpuscular Volume 96.7 fl (85-98); Mean Platelet Volume 11.8 fL (7.4-10.4); Monocytes % 24.1 %; Nucleated Red Blood Cells % 0 %; Platelet Count 214 10^3/cmm (157-399); Red Cell Distribution Width 16.5 % (12.1-15.1); White Blood Count 4.03 10^3/uL (3.29-11.43)
[2024-09-26 09:38] LABS: Alanine Aminotransferase 29 U/L (0-33); Albumin Level 3.5 g/dL (3.5-5.2); Alkaline Phosphatase 142 U/L (35-105); Anion Gap 13.1 (5-19); Aspartate Amino Transferase 16 U/L (0-32); Blood Urea Nitrogen 7 mg/dL (6-20); Calcium 9.2 mg/dL (8.5-10.5); Carbon Dioxide 29 mmol/L (22-29); Chloride 94 mmol/L (98-107); Creatinine Clr Calc Pharmacy 113.3207; Globulin 3.4 g/dL (1.3-4.6); Glomerular Filtration Rate 102.3 mL/min (90-130); Glucose 123 mg/dL (65-115); Osmolality Calculated 273 mOsm/kg (285-295); Potassium 4.1 mmol/L (3.5-5.1); Sodium 132 mmol/L (136-145); Total Bilirubin 0.7 mg/dL (0.15-1.2); Total Protein 6.9 g/dL (6.6-8.7)
[2024-09-26] MEDS: ipratropium-albuterol 3 mL Neb INHALATION (10:50)
[2024-09-26] MEDS: sodium chloride 0.9% 500 ML IV (10:50)
[2024-09-26] MEDS: amoxicillin-clav 500-125 mg Tablet 1 TAB PO (11:38)
[2024-09-26 12:30] VITALS: BP 109/70; PULSE 99; TEMP 37.1; O2SAT 90
--- NOTE | 2024-10-02 10:47 | N.ONRAD NP_ITS ---
Radiation Oncology New Patient Visit Patient: Virginia Thakur MR#: [id number] : 1965 Age: 58 Sex: Female Dictated by: Dr. Antonella Carrasco Date of Service: 10/02/2024 Referring Physician(s) : Dr. Pacheco Diagnosis: Stage IV colon cancer, liver, lung, adenopathy, bone mets Radiotherapy to date: Summary > No prior radiation therapy. Chief Complaint / History of Present Illness: Patient was initially diagnosed back in 2021 with colon cancer and liver metastasis along with adenopathy. She initially was treated for the FOLFOX and Avastin but by March 2024 have progressed and was switched to FOLFIRI and bevacizumab. A recent scan showed that she had had a mild increase in the above disease but had developed a new lesion in the left iliac wing. She says 3 weeks ago when the temperature was extremely cold she actually went to the emergency room with pain in that SI joint area. She had OxyContin added to her oxycodone at that time. Since then her pain has been much more tolerable. At most it is an ache. I am seeing her today to discuss using radiation as a tool to help manage that pain. Current Medications: acetaminophen (Tylenol) 325 mg PO QID PRN albuterol sulfate 90 mcg/actuation 2 puffs inhalation Q6H PRN albuterol sulfate 2.5 mg (3 mL) inhalation Q6H PRN amlodipine 5 mg PO DAILY 90 days amoxicillin-pot clavulanate 500-125 mg (Augmentin) 1 tab PO Q12H atorvastatin 20 mg PO BEDTIME blood sugar diagnostic (OneTouch Verio test strips) USE 2 TIMES DAILY DIRECTED blood sugar diagnostic (Contour Next Test Strips) three times daily [id number]-[id number] 2-30-10 mg/5 mL (Bromfed DM) 5 mL PO Q6H PRN budesonide-formoterol 160-4.5 mcg/actuation (Symbicort) 2 puffs inhalation BID [CPAP 6-16 cm with mask and supplies As directed] famotidine 20 mg PO BID hydrochlorothiazide 25 mg PO DAILY PRN 90 days ipratropium-albuterol 0.5 mg-3 mg(2.5 mg base)/3 mL 3 mL inhalation Q6H PRN lancets (Comfort EZ Lancets) once daily lidocaine-prilocaine 2.5-2.5 % 1 applic topical DIRECTED metformin ER 500 mg PO BID naloxone 4 mg/actuation (Narcan) 1 spray intranasal Q2M PRN ondansetron 8 mg PO Q8H PRN oxycodone 5 mg PO Q6H PRN 30 days oxycodone ER 10 mg PO BID [Oxygen Continuous use of oxygen at 3L to keep oxygen saturation >92%. Bleed into CPAP overnight.] pantoprazole 20 mg PO DAILY potassium chloride ER TAKE ONE TABLET BY MOUTH DAILY prednisone 20 mg PO DAILY prochlorperazine (Compazine) 25 mg KS Q12H PRN prochlorperazine maleate (Compazine) 10 mg PO Q4H PRN promethazine 25 mg KS Q6H PRN ropinirole 0.5 mg PO BID 90 days sennosides-docusate sodium 8.6-50 mg (Senna-S) 2 tab-caps (2 x 8.6-50 mg) PO BID PRN sitagliptin phosphate (Januvia) 100 mg PO DAILY [test strips use 2 times daily As directed] tiotropium bromide 2.5 mcg/actuation (Spiriva Respimat) 2 puffs inhalation DAILY Allergies: Cephalosporins Allergy (Verified 09/26/24 08:56) itching levofloxacin [From Levaquin] Allergy (Verified 09/26/24 08:56) Unknown Penicillins Allergy (Verified 09/26/24 08:56) ALGY-Rash Sulfa (Sulfonamide Antibiotics) Allergy (Verified 09/26/24 08:56) Unknown Medical History: No history of collagen vascular disease. No previous radiation therapy. COPD (chronic obstructive pulmonary disease) Colon cancer Obstructive sleep apnea GERD (gastroesophageal reflux disease) Type 2 diabetes mellitus, without long-term current use of insulin Reducible umbilical hernia Surgical History: Port-A-Cath in place H/O tubal ligation Family History: Father COPD (chronic obstructive pulmonary disease) Lung disease Mother CAD (coronary artery disease) Grandfather CAD (coronary artery disease) Cancer Skin cancer Brother Diabetes Sister Cancer Lung cancer Grandmother Lung disease Other Hypertension Denies family history of Clotting disorder Dementia Hyperlipidemia Psychiatric illness Chronic kidney disease (CKD) Suicide Anesthesia complication Bleeding disorder Stroke Social History: Smoking and tobacco/nicotine status: never used tobacco/nicotine Quit status (tobacco/nicotine): has quit using Year quit tobacco: 2013 - 1PPD x 35 years Former quit date comment: Started age 13years Second hand smoke exposure: No Alcohol intake: never Substance/Drug Use: never Lives independently: Yes Household members: children Current occupational status: employed Do you think of yourself as: Straight/Heterosexual Current gender identity: Female Current Complaints / Review of Systems: . Vital Signs: Performed on 10/02/2024 9:54 AM BMI - 36.047 kg/m2 (high), Height - 64 in, Weight - 210 lbs, Temperature - 98.7 f, Pulse - 105 /min (high), Respiration - 17 /min, O2 Sat - 93 % (low), Pain - 0, Fatigue - 0 and BP - 98/ 57 mm(hg)(/low). Physical Exam: General: Patient is in no apparent distress. She sitting comfortably in her wheelchair. She is accompanied by her daughter HEENT: Normocephalic atraumatic. Pupils are equal, sclera clear, extraocular muscles intact Pulmonary: Respiratory rate is regular nonlabored Cardiovascular: Regular rate and rhythm Abdomen: Moderately protuberant and android pattern Musculoskeletal: She has no areas of palpable tenderness in the SI joint area Neurological: Alert and orient x 3, speech intact Psych: Affect appropriate for current situation Performance Status: 90 Pathology: Lab: Imaging: See HPI Impression: Stage IV colon cancer Plan: Next week she will continue on with her current therapy. I reviewed with her the use of radiation for pain management. We talked about the simulation process. We reviewed the daily treatment regiment of 10 treatments. We discussed the risks and side effects both acute and long-term for treatment to the SI joint area. We talked about trying to make sure we started any type of treatment prior to her pain becoming unbearable. She will be back next Monday and I will meet with her again at that time to see if she is ready to proceed with treatment. She did say she might be tentatively ready to proceed with at least simulation at that time. Signed by: 10/02/2024 10:45:04 AM <<Signature on File>> Time spent on patient: 35 CPT Code: CPT Code:
== END 2024-10-04 23:59 | disposition home or self-care (01) ==
PROVIDERS: Internal Medicine Medical Oncology; PCP Family Medicine; Visit Provider Nurse Practitioner Family
DX: Z53.9 Procedure and treatment not carried out, unspecified reason (principal)
CPT/HCPCS: 80053; 82378; 85025; 96365; 96366; 96375; 96413; 96415; 96416; 96417; 96523; J0461; J0640; J1100; J2469; J7040; J7050; J7060; J9190; J9206; Q5107

== ENCOUNTER 2024-10-22 10:03 | Oncology outpatient (recurring) (ONCR) | payer MEDICAID, SELFPAY ==
[2024-10-09 08:03] LABS: Basophils # 0.1 10^3/uL (0.0-0.1); Basophils % 0.7 %; Eosinophils # 0.1 10^3/uL (0.0-0.8); Eosinophils % 0.9 %; Hematocrit 38.5 % (36-47); Lymphocytes # 0.9 10^3/uL (0.8-4.8); Lymphocytes % 10.7 %; Mean Corpuscular HGB Conc 32.5 g/dL (30-55); Mean Corpuscular Hemoglobin 32.4 pg (27-33); Mean Corpuscular Volume 99.7 fl (85-98); Mean Platelet Volume 11.5 fL (7.4-10.4); Monocytes # 0.9 10^3/uL (0.2-0.9); Monocytes % 10.4 %; Neutrophils # 6.55 10^3/uL (1.8-7.7); Neutrophils % 76.6 %; Nucleated Red Blood Cells % 0 %; Platelet Count 184 10^3/cmm (157-399); Red Blood Count 3.86 10^6/uL (3.85-5.65); Red Cell Distribution Width 16.5 % (12.1-15.1); White Blood Count 8.56 10^3/uL (3.29-11.43)
[2024-10-09 08:37] LABS: Carcinoembryonic Antigen 151.1 ng/mL (0.0-4.7)
[2024-10-09 08:48] LABS: Alanine Aminotransferase 32 U/L (0-33); Albumin Level 3.4 g/dL (3.5-5.2); Alkaline Phosphatase 170 U/L (35-105); Anion Gap 14.2 (5-19); Aspartate Amino Transferase 22 U/L (0-32); Blood Urea Nitrogen 9 mg/dL (6-20); Calcium 9.2 mg/dL (8.5-10.5); Carbon Dioxide 28 mmol/L (22-29); Chloride 97 mmol/L (98-107); Creatinine Clr Calc Pharmacy 136.0935; Globulin 3.4 g/dL (1.3-4.6); Glomerular Filtration Rate 126.3 mL/min (90-130); Glucose 158 mg/dL (65-115); Magnesium 1.8 mg/dL (1.7-2.3); Osmolality Calculated 282 mOsm/kg (285-295); Potassium 4.2 mmol/L (3.5-5.1); Sodium 135 mmol/L (136-145); Total Bilirubin 0.3 mg/dL (0.15-1.2); Total Protein 6.8 g/dL (6.6-8.7)
[2024-10-09] MEDS: palonosetron 0.25 mg/5 mL SDV IVP (09:53)
[2024-10-09] MEDS: sodium chloride 0.9% 250 ML 70 ML IV (09:53)
[2024-10-09] MEDS: dexamethasone 4 mg/mL INJ 5 mL 12 MG IVP (09:54)
[2024-10-09] MEDS: SODIUM CHLORIDE 0.9% IV (10:22)
[2024-10-09] MEDS: BEVACIZUMAB AWWB IV (10:22)
[2024-10-09] MEDS: atropine 1 mg/mL SDV 1 mL 0.4 MG IV (11:27)
[2024-10-09] MEDS: leucovorin 800 MG in dextrose 5% 250 ML 166.67 MG IV (11:37)
[2024-10-09] MEDS: DEXTROSE 5% IV (11:37)
[2024-10-09] MEDS: IRINOTECAN IV (11:37)
[2024-10-09] MEDS: fluorouraciL 4,850 MG in elastomeric pump 1 PUMP IV (13:18)
[2024-10-09] MEDS: ipratropium-albuterol 3 mL Neb INHALATION (13:19)
[2024-10-09 13:27] VITALS: BP 126/85; PULSE 83; RESP 18; TEMP 36.8; O2SAT 98
[2024-10-11 10:52] VITALS: BP 111/80; PULSE 111; RESP 18; TEMP 36.1; O2SAT 91
--- NOTE | 2024-10-11 11:55 | XR_ITS ---
WS: [id number] KUB, AP view, 10/11/2024 Clinical Data: Malignant neoplasm of sigmoid colon Comparison: None. Findings: No abnormal intraabdominal masses or calcifications are seen. There is no dilatated small bowel or evidence of obstruction. There is a large amount of fecal material throughout the colon. There are radiopaque coils possibly in a vascular structure overlying the L1 and L2 vertebra. XR/XR abdomen 1V* [id number] Impression: Large amount of fecal material in the colon.
--- NOTE | 2024-10-22 10:45 | ONCRAD TMN_ITS ---
Radiation Oncology Weekly Treatment Management Patient: Blaze Gibbs MR#: [id number] : 1965> Attending Physician: Dr. Antonella Carrasco Date of Service: 10/22/2024 Fractions: 5 out of 10 Referring Physician(s) : Diagnosis: C79.51 - Secondary malignant neoplasm of bone, Diagnosed 10/03/2024 (Active) Radiotherapy to date: Course: L SI joint, Treatment Site: L SI joint, Ref. ID: CTV, Energy: 15X, Dose/Fx (cGy): 300, #Fx: 5 / 10, Dose Correction (cGy): 0, Total Dose Delivered (cGy): 1,500, Start Date: 10/16/2024, Elapsed Days: 6 Reason for visit: The patient is being seen today as part of their regularly scheduled weekly on treatment visits to assess for acute toxicities from radiotherapy. Review of Systems: Patient is currently pain-free Vital Signs: Performed on 10/22/2024 10:20 AM BMI - 34.879 kg/m2 (high), Height - 64 in, Weight - 203.2 lbs, Temperature - 98.2 f, Pulse - 90 /min, Respiration - 18 /min, O2 Sat - 94 % (low), Pain - 0, Fatigue - 0 and BP - 105/ 73 mm(hg). Physical Exam: No changes on exam Imaging: Radiation therapy imaging related to accurate target localization (i.e. KV, MV and CBCT) was reviewed. Appropriate changes, if any, were made to ensure treatment accuracy. Plan: Will continue with treatments as planned. She has tolerated treatment well with no toxicity and good improvement of her pain control. Signed by: Dr. Antonella Carrasco 10/22/2024 10:42:59 AM
== END 2024-10-22 23:59 | disposition home or self-care (01) ==
PROVIDERS: Nurse Practitioner Family; PCP Family Medicine; Visit Provider Radiology Radiation Oncology
DX: Z51.0 Encounter for antineoplastic radiation therapy (principal); C18.7 Malignant neoplasm of sigmoid colon; C79.51 Secondary malignant neoplasm of bone; C78.7 Secondary malignant neoplasm of liver and intrahepatic bile duct
CPT/HCPCS: 74018; 77290; 77295; 77300; 77334; 77387; 77412; 80053; 82378; 83735; 85025; 96413; 96415; 96523; J0461; J0640; J1100; J2469; J7050; J7060; J9190; J9206; Q5107

== ENCOUNTER 2024-11-01 10:45 | Oncology outpatient (recurring) (ONCR) | payer MEDICAID, SELFPAY ==
--- NOTE | 2024-10-29 11:12 | ONCRAD TMN_ITS ---
Radiation Oncology Weekly Treatment Management Patient: Virginia Thakur MR#: [id number] : 1965 Attending Physician: Dennis Dhillon Date of Service: 10/29/2024 Referring Physician(s) : Diagnosis: C79.51 - Secondary malignant neoplasm of bone, Diagnosed 10/03/2024 (Active) Radiotherapy to date: Course: L SI joint, Treatment Site: L SI joint, Ref. ID: CTV, Energy: 15X, Dose/Fx (cGy): 300, #Fx: 9 / 10, Dose Correction (cGy): 0, Total Dose Delivered (cGy): 2,700, Start Date: 10/16/2024, Elapsed Days: 13 Reason for visit: The patient is being seen today as part of their regularly scheduled weekly on treatment visits to assess for acute toxicities from radiotherapy. Patient has any problems and will complete treatment tomorrow. She begins chemotherapy tomorrow also. She denies any pain at this time. Review of Systems: As above Vital Signs: Performed on 10/29/2024 10:47 AM BMI - 34.845 kg/m2 (high), Height - 64 in, Weight - 203 lbs, Temperature - 97.6 f, Pulse - 99 /min, Respiration - 16 /min, O2 Sat - 93 % (low), Pain - 0, Fatigue - 0 and BP - 129/ 82 mm(hg). Physical Exam: Alert and oriented and answers questions appropriately. Imaging: Radiation therapy imaging related to accurate target localization (i.e. KV, MV and CBCT) was reviewed. Appropriate changes, if any, were made to ensure treatment accuracy. Plan: Continue XRT. Completes treatment tomorrow RTC 1 month or sooner if need be. Begins chemotherapy on 10/30. Signed by: Dennis Dhillon 10/29/2024 11:11:19 AM
[2024-10-30 08:28] LABS: Basophils % 0.7 %; Eosinophils # 0.1 10^3/uL (0.0-0.8); Hematocrit 36.6 % (36-47); Lymphocytes # 0.7 10^3/uL (0.8-4.8); Lymphocytes % 22.2 %; Mean Corpuscular HGB Conc 32.2 g/dL (30-55); Mean Corpuscular Hemoglobin 32.6 pg (27-33); Mean Corpuscular Volume 101.1 fl (85-98); Mean Platelet Volume 10.6 fL (7.4-10.4); Monocytes # 0.5 10^3/uL (0.2-0.9); Monocytes % 16.2 %; Neutrophils # 1.73 10^3/uL (1.8-7.7); Neutrophils % 57.2 %; Nucleated Red Blood Cells % 0 %; Platelet Count 154 10^3/cmm (157-399); Red Blood Count 3.62 10^6/uL (3.85-5.65); Red Cell Distribution Width 16.8 % (12.1-15.1); White Blood Count 3.02 10^3/uL (3.29-11.43)
[2024-10-30 08:52] LABS: Alanine Aminotransferase 20 U/L (0-33); Albumin Level 3.5 g/dL (3.5-5.2); Alkaline Phosphatase 163 U/L (35-105); Anion Gap 15.1 (5-19); Aspartate Amino Transferase 20 U/L (0-32); Blood Urea Nitrogen 8 mg/dL (8-23); Calcium 8.6 mg/dL (8.5-10.5); Carbon Dioxide 25 mmol/L (22-29); Chloride 106 mmol/L (98-107); Globulin 2.9 g/dL (1.3-4.6); Glomerular Filtration Rate 125.9 mL/min (90-130); Glucose 114 mg/dL (65-115); Osmolality Calculated 293 mOsm/kg (285-295); Potassium 4.1 mmol/L (3.5-5.1); Sodium 142 mmol/L (136-145); Total Bilirubin 0.4 mg/dL (0.15-1.2); Total Protein 6.4 g/dL (6.6-8.7)
[2024-10-30] MEDS: sodium chloride 0.9% 250 ML 75 ML IV (10:25)
[2024-10-30] MEDS: dexamethasone 4 mg/mL INJ 5 mL 12 MG IVP (10:30)
[2024-10-30] MEDS: palonosetron 0.25 mg/5 mL SDV IVP (10:34)
[2024-10-30] MEDS: SODIUM CHLORIDE 0.9% IV (11:14)
[2024-10-30] MEDS: BEVACIZUMAB AWWB IV (11:14)
[2024-10-30] MEDS: IRINOTECAN IV (12:07)
[2024-10-30] MEDS: DEXTROSE 5% IV (12:07)
[2024-10-30] MEDS: leucovorin 800 MG in dextrose 5% 250 ML 166.67 MG IV (12:07)
[2024-10-30] MEDS: FLUOROURACIL IV (14:09)
[2024-10-30] MEDS: [UNRECOGNIZED DRUG - OTHER] IV (14:09)
[2024-10-30] MEDS: ELASTOMERIC PUMP PUMP IV (14:09)
[2024-10-30 14:18] VITALS: BP 155/80; PULSE 68; RESP 16; TEMP 36.7; O2SAT 95
--- NOTE | 2024-11-01 10:26 | N.ONRD TS_ITS ---
Radiation Oncology Treatment Summary Patient: Virginia Thakur MR#: [id number] : 1965 Age: 59 Sex: Female Dictated by: Dennis Dhillon Date of Service: 10/30/2024 Referring Physician(s) : Diagnosis: C79.51 - Secondary malignant neoplasm of bone, Diagnosed 10/03/2024 (Active) Radiotherapy to Date: Course: L SI joint, Treatment Site: L SI joint, Ref. ID: CTV, Energy: 15X, Dose/Fx (cGy): 300, #Fx: 10 / 10, Dose Correction (cGy): 0, Total Dose Delivered (cGy): 3,000, Start Date: 10/16/2024, End Date: 10/30/2024, Elapsed Days: 14 Clinical Summary: The patient tolerated RT well. Pain very well controlled. Plan: End of treatment today. Continue on the above medication until the skin reaction resolves. Follow up with Med Onc for all future appointments. Signed by: Dennis Dhillon>11/01/2024 10:24:42 AM <<Signature on File>>
[2024-11-01] MEDS: sodium chloride 0.9% 500 ML 999 ML IV (10:53)
[2024-11-01] MEDS: promethazine 25 mg/mL SDV 1 mL IM (11:04)
== END 2024-11-01 23:59 | disposition home or self-care (01) ==
PROVIDERS: Nurse Practitioner Family; PCP Family Medicine; Visit Provider Radiology Radiation Oncology
DX: Z53.9 Procedure and treatment not carried out, unspecified reason; Z51.0 Encounter for antineoplastic radiation therapy; C18.7 Malignant neoplasm of sigmoid colon; R11.2 Nausea with vomiting, unspecified; T45.1X5A Adverse effect of antineoplastic and immunosuppressive drugs, initial encounter
CPT/HCPCS: 77336; 77387; 77412; 80053; 85025; 96360; 96365; 96366; 96372; 96375; 96413; 96415; 96416; 96417; 96523; J0640; J1100; J2469; J2550; J7040; J7050; J7060; J9190; J9206; Q5107

== ENCOUNTER → 2024-11-07 13:11 | Outpatient (BNVA) | payer MEDICAID, SELFPAY | PROVIDERS: PCP Family Medicine; Visit Provider Nurse Practitioner | DX: J10.1 Influenza due to other identified influenza virus with other respiratory manifestations (principal) | CPT/HCPCS: 81000; 87086; 87400; 87426 ==

== ENCOUNTER 2024-11-10 15:05 | Emergency (ER) | payer MEDICAID, SELFPAY ==
[2024-11-10 15:10] VITALS: BP 121/57; PULSE 85; RESP 17; TEMP 36.3; O2SAT 88; BMI 34.8
--- NOTE | 2024-11-10 18:09 | W.ED.WEAKNES ---
HPI - Weakness General: Chief complaint: Weakness Stated complaint: n/v Time Seen by Provider: 11/10/24 17:46 History of Present Illness: This patient is a 59-year-old white female who presents to the emergency department with nausea and vomiting. Patient states she was diagnosed with influenza A yesterday. She is not sure why she is having the nausea and vomiting. She states she cannot keep any fluids down and feels like she may be getting dehydrated. She does complain of generalized weakness. Associated symptoms: Reports nausea and vomiting Review of Systems General: Reports: 10 or more systems reviewed and unremarkable except in HPI and below GI: Reports: nausea and vomiting PFSH ED PFSH: Medical History COPD (chronic obstructive pulmonary disease) Colon cancer Obstructive sleep apnea GERD (gastroesophageal reflux disease) Type 2 diabetes mellitus, without long-term current use of insulin Reducible umbilical hernia Surgical History Port-A-Cath in place H/O tubal ligation Family History Father COPD (chronic obstructive pulmonary disease) Lung disease Mother CAD (coronary artery disease) Grandfather CAD (coronary artery disease) Cancer Skin cancer Brother Diabetes Sister Cancer Lung cancer Grandmother Lung disease Other Hypertension Denies family history of Clotting disorder Dementia Hyperlipidemia Psychiatric illness Chronic kidney disease (CKD) Suicide Anesthesia complication Bleeding disorder Stroke Social History Smoking and tobacco/nicotine status: never used tobacco/nicotine Quit status (tobacco/nicotine): has quit using Year quit tobacco: 2013 - 1PPD x 35 years Former quit date comment: Started age 13years Second hand smoke exposure: No Alcohol intake: never Substance/Drug Use: never Lives independently: Yes Household members: children Current occupational status: employed Do you think of yourself as: Straight/Heterosexual Current gender identity: Female Physical Exam Const: COMMON NORMALS: no acute distress, patient oriented x3 and no limitations GENERAL APPEARANCE: cooperative and comfortable HENMT: COMMON NORMALS: normocephalic, atraumatic, Normal nasal mucous membranes and turbinates present, moist oral mucous membranes and oropharynx normal HEAD & SCALP: normal to inspection, normocephalic and atraumatic FACE & SINUS: normal facial exam NOSE: Normal nasal mucous membranes and turbinates present Eye: COMMON NORMALS: Equal, round and reactive pupils present, EOMs intact bilaterally and conjunctivae normal GENERAL EYE: appearance normal, both eyes and all related structures CONJUNCTIVA: Yes conjunctivae normal PUPIL: Yes Equal, round and reactive pupils present Neck/C-Spine: COMMON NORMALS: supple and no JVD Chest: COMMONS NORMALS: normal inspection of the chest Resp: COMMON NORMALS: normal respiratory effort and clear to auscultation bilaterally AUSCULTATION: clear to auscultation bilaterally Cardio: COMMON NORMALS: no JVD, regular rate, regular rhythm, No gallops present (Cardio), No murmurs present (Cardio) and No rub (Cardio) RATE: regular rate RHYTHM: regular rhythm GI: COMMON NORMALS: Normal to inspection, nondistended, normoactive bowel sounds present, Soft to palpation and non-tender AUSCULTATION: Yes normoactive bowel sounds PALPATION: Yes Soft to palpation : COMMON NORMALS: Yes no CVA tenderness BLADDER/KIDNEY EXAM: Yes no CVA tenderness Back/Pelvis: COMMON NORMALS: no CVA tenderness and thoracic and lumbar spine normal to inspection Extremity: COMMON NORMALS: normal to inspection Neuro: COMMON NORMALS: patient oriented x3 and CN's II-XII intact bilaterally Psych: COMMON NORMALS: mental status grossly normal, Normal thought process present and cooperative THOUGHT PROCESS: Normal thought process present Skin: COMMON NORMALS: no rashes or lesions noted, turgor normal and no jaundice GENERAL SKIN EXAM: no rashes or lesions noted and turgor normal Course Vital Signs: Vital signs: Vital Signs Temperature 97.4 F L 11/10/24 15:10 Pulse Rate 85 11/10/24 15:10 Respiratory Rate 17 11/10/24 15:10 Blood Pressure 121/57 11/10/24 15:10 Pulse Oximetry 88 L 11/10/24 15:10 Oxygen Delivery Me thod Nasal Cannula 11/10/24 15:10 Oxygen Flow Rate 2 11/10/24 15:10 MDM - Weakness Medical Decision Making Patient declined IV fluids. We did give her 4 mg of Zofran ODT. I did prescribe Zofran ODT. Recommended she push fluids and get some rest. Take Tylenol and/or Motrin for fever, aches and pains. Follow-up with primary care physician as needed. No radiology studies performed this visit Discharge Plan Discharge Patient Disposition: Home Clinical Impression: Nausea, Influenza A Condition: Stable Prescriptions: New ondansetron HCl 4 mg tablet 4 mg PO Q4H PRN (Reason: nausea and vomiting) Qty: 30 0RF No Action (DME) CPAP 6-16 cm with mask and supplies See Rx Instructions .Route .MEDSUPPLY Qty: 1 0RF Rx Instructions: As directed lidocaine-prilocaine 2.5-2.5 % cream 1 applic topical DIRECTED Qty: 30 2RF Rx Instructions: quarter size amount over port site 30-45 min prior to access, cover with plastic plastic wrap (DME) Contour Next Test Strips Strip See Rx Instructions .ROUTE .MEDSUPPLY Qty: 100 5RF Rx Instructions: three times daily metformin 500 mg tablet extended release 24 hr 500 mg PO BID Qty: 180 2RF hydrochlorothiazide 25 mg tablet 25 mg PO DAILY PRN (Reason: htn) 90 Days Qty: 90 2RF budesonide-formoterol [Symbicort] 160-4.5 mcg/actuation HFA aerosol inhaler 2 puff inhalation BID Qty: 10.2 6RF amlodipine 5 mg tablet 5 mg PO DAILY 90 Days Qty: 90 2RF prochlorperazine maleate [Compazine] 10 mg tablet 10 mg PO Q4H PRN (Reason: Mild Nausea) Qty: 30 3RF albuterol sulfate 90 mcg/actuation HFA aerosol inhaler 2 puff inhalation Q6H PRN (Reason: shortness of breath or wheezing) Qty: 8.5 3RF albuterol sulfate 2.5 mg /3 mL (0.083 %) solution for nebulization 2.5 mg INHALATION Q6H PRN (Reason: shortness of breath or wheezing) Qty: 180 3RF ropinirole 0.5 mg tablet 0.5 mg PO BID 90 Days Qty: 180 2RF ondansetron 8 mg tablet,disintegrating 8 mg PO Q8H PRN (Reason: nausea and vomiting) Qty: 30 2RF famotidine 20 mg tablet 20 mg PO BID Qty: 60 2RF pantoprazole 20 mg tablet,delayed release (DR/EC) 20 mg PO DAILY [id number] [Bromfed DM] 2-30-10 mg/5 mL syrup 5 ml PO Q6H PRN (Reason: cold symptoms) Qty: 118 0RF prednisone 20 mg tablet 20 mg PO DAILY Qty: 5 0RF ipratropium-albuterol 0.5 mg-3 mg(2.5 mg base)/3 mL solution for nebulization 3 ml inhalation Q6H PRN (Reason: wheezing and shortness of breath) Qty: 180 0RF lactulose 20 gram/30 mL solution 20 g PO Q2H PRN (Reason: constipation) Qty: 1200 2RF Rx Instructions: Take every 2 hours until bowel movement; may repeat if no bowel movement after 3 days oseltamivir [Tamiflu] 75 mg capsule 75 mg PO BID 5 Days Qty: 10 0RF (DME) lancets [Comfort EZ Lancets] 28 gauge misc See Rx Instructions .ROUTE .MEDSUPPLY Qty: 100 2RF Rx Instructions: once daily (DME) test strips See Rx Instructions .Route .MEDSUPPLY Qty: 100 0RF Rx Instructions: use 2 times daily As directed (DME) OneTouch Verio test strips Strip See Rx Instructions .ROUTE .COMPLEX Qty: 100 0RF Dose Instruction: USE 2 TIMES DAILY DIRECTED Rx Instructions: USE 2 TIMES DAILY DIRECTED prochlorperazine [Compazine] 25 mg suppository 25 mg WI Q12H PRN (Reason: nausea and vomiting) Qty: 12 1RF promethazine 25 mg suppository 25 mg WI Q6H PRN (Reason: nausea and vomiting) Qty: 12 1RF (DME) Oxygen See Rx Instructions .Route .MEDSUPPLY Qty: 1 0RF Rx Instructions: Continuous use of oxygen at 3L to keep oxygen saturation >92%. Bleed into CPAP overnight. potassium chloride 10 mEq tablet extended release See Rx Instructions .ROUTE .COMPLEX Qty: 30 0RF Dose Instruction: TAKE ONE TABLET BY MOUTH DAILY Rx Instructions: TAKE ONE TABLET BY MOUTH DAILY oxycodone 5 mg tablet 5 mg PO Q6H PRN (Reason: pain) 30 Days Qty: 120 0RF sennosides-docusate sodium [Senna-S] 8.6-50 mg tablet 2 tab-cap PO BID PRN (Reason: constipation) Qty: 30 0RF atorvastatin 20 mg tablet 20 mg PO BEDTIME Rx Instructions: TAKE ONE TABLET BY MOUTH DAILY AT BEDTIME Januvia 100 mg tablet 100 mg PO DAILY Rx Instructions: TAKE ONE TABLET BY MOUTH EVERY DAY Spiriva Respimat 2.5 mcg/actuation mist 2 puff inhalation DAILY Rx Instructions: 2 PUFF(S) DAILY FOR 30 DAYS acetaminophen [Tylenol] 325 mg Tablet 325 mg PO QID PRN (Reason: pain or fever ) oxycodone 10 mg tablet,oral only,ext.rel.12 hr 10 mg PO BID Qty: 30 0RF naloxone [Narcan] 4 mg/actuation spray,non-aerosol 1 spray intranasal Q2M PRN (Reason: opioid overdose) Qty: 2 0RF Rx Instructions: spray 1 dose into ONE nostril; alternate nostrils w each dose until help arrives Discharge Orders: Discharge ED (Routine); Ordered 11/10/24 Ordered By: Kristofer Weeks Referrals: Graciela Head MD [Primary Care Provider] - Patient Instructions: Influenza (DC) Print Language: Telugu Coding Level of Care Code ED Hearing Aide Technician for Chg Fwd Related Data Home Medications ?Medication ?Instructions ?Recorded ?Confirmed acetaminophen 325 mg tablet 325 mg PO QID PRN pain or fever 09/14/24 11/07/24 (Tylenol) atorvastatin 20 mg tablet 20 mg PO BEDTIME 09/14/24 11/07/24 sitagliptin phosphate 100 mg 100 mg PO DAILY 09/14/24 11/07/24 tablet (Januvia) tiotropium bromide 2.5 2 puff inhalation DAILY 09/14/24 11/07/24 mcg/actuation mist for inhalation (Spiriva Respimat) pantoprazole 20 mg tablet,delayed 20 mg PO DAILY 09/26/24 11/07/24 release Previous Rx's ?Medication ?Instructions ?Recorded lancets 28 gauge (Comfort EZ #100 ea 01/15/20 Lancets) blood sugar diagnostic (Contour #100 ea 02/17/23 Next Test Strips) CPAP 6-16 cm with mask and supplies #1 ea 05/30/23 test strips #100 ea 08/01/23 sennosides 8.6 mg-docusate sodium 2 tab-cap (2 x 8.6-50 mg) PO BID 10/07/23 50 mg tablet (Senna-S) PRN constipation #30 tabs lidocaine-prilocaine 2.5 %-2.5 % 1 applic topical DIRECTED #30 11/29/23 topical cream grams amlodipine 5 mg tablet 5 mg PO DAILY 90 days #90 tabs 04/22/24 budesonide-formoterol HFA 160 2 puff inhalation BID #10.2 grams 04/22/24 mcg-4.5 mcg/actuation aerosol inhaler (Symbicort) hydrochlorothiazide 25 mg tablet 25 mg PO DAILY PRN htn 90 days #90 04/22/24 tabs metformin 500 mg tablet,extended 500 mg PO BID #180 tabs 04/22/24 release 24 hr prochlorperazine maleate 10 mg 10 mg PO Q4H PRN Mild Nausea #30 04/24/24 tablet (Compazine) tabs blood sugar diagnostic (OneTouch #100 strips 05/08/24 Verio test strips) ondansetron 8 mg disintegrating 8 mg PO Q8H PRN nausea and 06/12/24 tablet vomiting #30 tabs prochlorperazine 25 mg rectal 25 mg WI Q12H PRN nausea and 06/14/24 suppository (Compazine) vomiting #12 ea promethazine 25 mg rectal 25 mg WI Q6H PRN nausea and 07/12/24 suppository vomiting #12 ea albuterol sulfate 2.5 mg/3 mL 2.5 mg (3 mL) inhalation Q6H PRN 07/23/24 (0.083 %) solution for nebulization shortness of breath or wheezing #180 mL albuterol sulfate 90 mcg/actuation 2 puff inhalation Q6H PRN 07/23/24 aerosol inhaler shortness of breath or wheezing #8.5 grams ropinirole 0.5 mg tablet 0.5 mg PO BID 90 days #180 tabs 07/23/24 famotidine 20 mg tablet 20 mg PO BID breakthrough 07/24/24 heartburn #60 tabs naloxone 4 mg/actuation nasal 1 spray intranasal Q2M PRN opioid 09/14/24 spray (Narcan) overdose #2 ea oxycodone 10 mg tablet,crush 10 mg PO BID #30 tabs 09/14/24 resistant,extended release 12 hr lbgppwmadqjeqcp-felafdjblgmoopp-BS 5 ml PO Q6H PRN cold symptoms #118 09/26/24 2 mg-30 mg-10 mg/5 mL oral syrup mL (Bromfed DM) ipratropium 0.5 mg-albuterol 3 mg 3 ml inhalation Q6H PRN wheezing 09/26/24 (2.5 mg base)/3 mL nebulization and shortness of breath #180 mL soln prednisone 20 mg tablet 20 mg PO DAILY #5 tabs 09/26/24 Oxygen #1 ea 09/30/24 potassium chloride 10 mEq See Rx Instructions .Route 09/30/24 tablet,extended release .COMPLEX #30 tabs lactulose 20 gram/30 mL oral 20 g (30 mL) PO Q2H PRN 10/09/24 solution constipation #1,200 mL oxycodone 5 mg tablet 5 mg PO Q6H PRN pain 30 days #120 11/01/24 tabs oseltamivir 75 mg capsule (Tamiflu) 75 mg PO BID 5 days #10 caps 11/07/24 ondansetron HCl 4 mg tablet 4 mg PO Q4H PRN nausea and 11/10/24 vomiting #30 tabs Allergies Allergy/AdvReac Type Severity Reaction Status Date / Time Cephalosporins Allergy itching Verified 11/07/24 12:55 levofloxacin (From Levaquin) Allergy Unknown Verified 11/07/24 12:55 Penicillins Allergy ALGY-Rash Verified 11/07/24 12:55 Sulfa (Sulfonamide Allergy Unknown Verified 11/07/24 12:55 Antibiotics)
[2024-11-10] MEDS: ondansetron hcl ODT 4 mg Tab PO (18:11)
[2024-11-10 18:12] VITALS: BP 119/61; PULSE 89; O2SAT 95
[2024-11-10 18:43] VITALS: BP 121/86; PULSE 75; O2SAT 95
== END 2024-11-10 18:40 | disposition home or self-care (01) ==
PROVIDERS: Emergency Provider Emergency Medicine; PCP Family Medicine
DX: R11.0 Nausea (principal); J10.1 Influenza due to other identified influenza virus with other respiratory manifestations; Z79.84 Long term (current) use of oral hypoglycemic drugs; Z87.891 Personal history of nicotine dependence; J44.9 Chronic obstructive pulmonary disease, unspecified; Z85.038 Personal history of other malignant neoplasm of large intestine; E11.9 Type 2 diabetes mellitus without complications
CPT/HCPCS: 99283; Q0162

== ENCOUNTER 2024-11-14 22:15 | Emergency (ER) | payer MEDICAID, SELFPAY ==
[2024-11-14 22:38] VITALS: BP 104/74; PULSE 102; RESP 15; TEMP 36.8; O2SAT 90; BMI 33.7
--- NOTE | 2024-11-14 23:06 | XRR_ITS ---
PROCEDURE INFORMATION: Exam: XR Chest Exam date and time: 11/14/2024 11:15 PM Age: 59 years old Clinical indication: Cough and shortness of breath; Additional info: Cough, SOB TECHNIQUE: Imaging protocol: Radiologic exam of the chest. Views: 1 view. COMPARISON: [place]/w [id number] 09/25/2024 9:11 AM FINDINGS: Tubes, catheters and devices: Chest port. Lungs: Bilateral lower lobe consolidation. Pleural spaces: No pleural effusion. No pneumothorax. Heart/Mediastinum: No cardiomegaly. Bones/joints: No acute findings. XR/XR chest 1V portable [id number] IMPRESSION: Bilateral lower lobe consolidation concerning for pneumonia.
[2024-11-14 23:22] VITALS: PULSE 97; RESP 20; O2SAT 91
[2024-11-14 23:30] LABS: Eosinophils % 1.4 %; Hematocrit 38.5 % (36-47); Lymphocytes # 0.5 10^3/uL (0.8-4.8); Lymphocytes % 21.5 %; Mean Corpuscular HGB Conc 32.2 g/dL (30-55); Mean Corpuscular Hemoglobin 31.7 pg (27-33); Mean Corpuscular Volume 98.5 fl (85-98); Mean Platelet Volume 11.5 fL (7.4-10.4); Monocytes # 0.4 10^3/uL (0.2-0.9); Monocytes % 19.1 %; Neutrophils # 1.11 10^3/uL (1.8-7.7); Neutrophils % 53.2 %; Nucleated Red Blood Cells % 0 %; Platelet Count 158 10^3/cmm (157-399); Red Blood Count 3.91 10^6/uL (3.85-5.65); White Blood Count 2.09 10^3/uL (3.29-11.43)
[2024-11-14 23:35] LABS: ABG PCO2 45.6 mmHg (35-45); ABG PH Result 7.44 (7.35-7.45); Arterial Blood Gas Hematocrit 38.4 % (37-47); Base Excess ABG 5.8 mmol/L (-2.0-2.0); Blood Gas Allen Test Pos; Blood Gas Operator Identificat gerca; Blood Gas Sample Site Radial, right; Blood Gas Sample Type Arterial; Carboxyhemoglobin 1.3 %THgb (0.4-20.1); HCO3 ABG 30.9 mmol/L (22-26); HGB O2 Sat 93.1 % (95-100); Methemoglobin < 0.0 % (0.4-1.5); Oxygen Device NC; PO2 ABG 66.7 mmHg (80.0-100.0); Total Hemoglobin 12.5 g/dL (12-16)
[2024-11-14 23:39] VITALS: PULSE 103; RESP 22; O2SAT 90
[2024-11-14] MEDS: ipratropium-albuterol 3 mL Neb INHALATION (23:39)
[2024-11-14 23:43] LABS: D Dimer 0.92 ug/mLFEU (0-0.59)
[2024-11-14 23:45] LABS: Alanine Aminotransferase 12 U/L (0-33); Albumin Level 3.4 g/dL (3.5-5.2); Alkaline Phosphatase 150 U/L (35-105); Anion Gap 15.9 (5-19); Aspartate Amino Transferase 17 U/L (0-32); Blood Urea Nitrogen 5 mg/dL (8-23); Calcium 9.3 mg/dL (8.5-10.5); Carbon Dioxide 30 mmol/L (22-29); Chloride 95 mmol/L (98-107); Creatinine Clr Calc Pharmacy 129.5083; Glomerular Filtration Rate 125.9 mL/min (90-130); Glucose 92 mg/dL (65-115); Osmolality Calculated 281 mOsm/kg (285-295); Potassium 3.9 mmol/L (3.5-5.1); Sodium 137 mmol/L (136-145); Total Bilirubin 0.9 mg/dL (0.15-1.2); Total Protein 7.4 g/dL (6.6-8.7)
[2024-11-15] VITALS (7 sets, daily range): BP systolic 125–146; BP diastolic 79–99; PULSE 85–108; O2SAT 90–93
--- NOTE | 2024-11-15 00:04 | CTR_ITS ---
PROCEDURE INFORMATION: Exam: CTA Chest With Contrast Exam date and time: 11/15/2024 12:42 AM Age: 59 years old Clinical indication: Cough and shortness of breath; Additional info: SOB, elevated d-dimer, cancer TECHNIQUE: Imaging protocol: Computed tomographic angiography of the chest with contrast. Exam focused on the arteries. 3D rendering (Not supervised by radiologist): MIP and/or 3D reconstructed images were created by the technologist. Radiation optimization: All CT scans at this facility use at least one of these dose optimization techniques: automated exposure control; mA and/or kV adjustment per patient size (includes targeted exams where dose is matched to clinical indication); or iterative reconstruction. Contrast material: OMNI 350; Contrast volume: 100 ml; Contrast route: INTRAVENOUS (IV); COMPARISON: [place]/w [id number] 09/25/2024 9:11 AM RADIATION DOSE METRICS: Total DLP (mGy-cm): 426.62 FINDINGS: Pulmonary arteries: Normal. No pulmonary emboli. Aorta: Unremarkable. No aortic aneurysm. No aortic dissection. Lungs: There are multiple bilateral pulmonary nodularities are present, the largest is seen in the right upper lobe laterally measuring approximately 1 cm in diameter. These may represent benign granulomas metastatic lesions can not be excluded. These appear stable compared with 09/25/2024. There are patchy opacity seen in the lung bases bilaterally, left more prominent than right. Superimposed atelectasis or pulmonary infiltrates pneumonia can not be excluded. Pleural spaces: Unremarkable. No pneumothorax. No pleural effusion. Heart: Unremarkable. No cardiomegaly. No pericardial effusion. Coronary arteries: There are moderate coronary artery calcifications. Lymph nodes: There are mildly prominent mediastinal lymph nodes seen the CT criteria. Liver: There are multiple heterogeneous hepatic masses present corresponding with the patient's known metastatic lesions. Gallbladder and biliary ducts: Status post cholecystectomy. Bones/joints: Unremarkable. No acute fracture. Soft tissues: Unremarkable. CT/CT angio chest PE protcl [id number] IMPRESSION: 1. There are multiple bilateral pulmonary nodularities again seen. Stable compared with 09/25/2024. 2. There are patchy peripheral opacity seen in the lung bases bilaterally, left more prominent than right. Superimposed atelectasis or pulmonary infiltrates and pneumonia can not be entirely excluded. 3. Multiple somewhat indistinct hepatic masses are again seen likely corresponding to the patient's known metastatic lesions.
[2024-11-15 00:14] LABS: Bacteria Urine 4+ /hpf; Hyaline Casts Urine 7.01 /lpf; RBC Urine 0-2 /hpf (0-2); Squamous Epithelial Cell Urine 21-50 /hpf (0-5); WBC Urine 21-50 /hpf (0-5)
[2024-11-15] MEDS: sodium chloride 0.9% 1,000 ML 999 ML IV (00:23)
[2024-11-15 00:24] LABS: Add Urine Microscopic? YES; Bilirubin Urine 2+ (Negative); Blood Urine Negative (Negative); Glucose Urine UA Negative (Normal); Ketones Urine 3+ (Negative); Leukocyte Esterase Urine 2+ (Negative); Nitrate Urine Positive (Negative); Protein Urine 1+ (Negative); Specific Gravity, Urine 1.026 (1.005-1.030); Urine Appearance Cloudy (CLEAR); pH Urine 5.5 (5-7)
[2024-11-15 00:29] LABS: Urine Color Orange (Yellow)
[2024-11-15 00:31] LABS: UA Slide Review UA Slide Review Perf
[2024-11-15 00:32] LABS: Add Urine Culture? No; Mucus Urine 2+ /hpf
[2024-11-15] MEDS: iohexol 350 mg/mL 500 mL Btl (per mL) IV (00:54)
[2024-11-15 01:52] LABS: Bilirubin Urine Negative (Negative); Blood Urine Negative (Negative); Glucose Urine UA Negative (Normal); Ketones Urine 1+ (Negative); Leukocyte Esterase Urine Negative (Negative); Nitrate Urine Negative (Negative); Protein Urine Trace (Negative); Urine Appearance Cloudy (CLEAR); Urine Color Yellow (Yellow); pH Urine 6.5 (5-7)
[2024-11-15 01:57] LABS: Bacteria Urine 4+ /hpf; Hyaline Casts Urine 1.21 /lpf; RBC Urine 0-2 /hpf (0-2); Squamous Epithelial Cell Urine 21-50 /hpf (0-5); WBC Urine 21-50 /hpf (0-5)
[2024-11-15 02:12] LABS: Specific Gravity, Urine 1.081 (1.005-1.030); UA Slide Review UA Slide Review Perf
[2024-11-15] MEDS: diphenhydrAMINE 50 mg/mL SDV 1mL IVP (02:53)
[2024-11-15] MEDS: levofloxacin-dextrose 5 % 500 MG/100 ML PREMIX 100 MG IV (02:58)
--- NOTE | 2024-11-15 20:36 | ED_ITS ---
HPI - General Adult 2 General: Chief complaint: General Medical Stated complaint: sick [id number] Time Seen by Provider: 11/14/24 22:56 History of Present Illness: This patient is a 59-year-old white female who presents to the emergency department stating that she has had a decreased appetite for 2 weeks. She is not eating or drinking much. Family member states that her O2 sats dropped down to 77% today while on oxygen. She is on 3 L of oxygen at home. Patient has recently been diagnosed with influenza A. She does have history of colon cancer with mets to the lungs and is currently on chemotherapy. She also has COPD. O2 sats upon arrival here were 92% on 4 L. Associated symptoms: Reports dyspnea Related Data Home Medications ?Medication ?Instructions ?Recorded ?Confirmed acetaminophen 325 mg tablet 325 mg PO QID PRN pain or fever 09/14/24 11/12/24 (Tylenol) atorvastatin 20 mg tablet 20 mg PO BEDTIME 09/14/24 sitagliptin phosphate 100 mg 100 mg PO DAILY 09/14/24 11/12/24 tablet (Januvia) tiotropium bromide 2.5 2 puff inhalation DAILY 09/0411/12/24 mcg/actuation mist for inhalation (Spiriva Respimat) pantoprazole 20 mg tablet,delayed 20 mg PO DAILY 09/2611/12/24 release Previous Rx's ?Medication ?Instructions ?Recorded lancets 28 gauge (Comfort EZ #100 ea 01/15/20 Lancets) blood sugar diagnostic (Contour #100 ea 02/17/23 Next Test Strips) CPAP 6-16 cm with mask and supplies #1 ea 05/30/23 test strips #100 ea 08/01/23 sennosides 8.6 mg-docusate sodium 2 tab-cap (2 x 8.6-5 0 mg) PO BID 10/07/23 50 mg tablet (Senna-S) PRN constipation #30 tabs lidocaine-prilocaine 2.5 %-2.5 % 1 applic topical D IRECTED #30 11/29/23 topical cream grams amlodipine 5 mg tablet 5 mg PO DAILY 90 days #90 ta bs 04/22/24 budesonide-formoterol HFA 160 2 puff inhalation BID #1 0.2 grams 04/22/24 mcg-4.5 mcg/actuation aerosol inhaler (Symbicort) hydrochlorothiazide 25 mg tablet 25 mg PO DAILY PRN ht n 90 days #90 04/22/24 tabs metformin 500 mg tablet,extended 500 mg PO BID #180 ta bs 04/22/24 release 24 hr prochlorperazine maleate 10 mg 10 mg PO Q4H PRN Mild N ausea #30 04/24/24 tablet (Compazine) tabs blood sugar diagnostic (OneTouch #100 strips 05/08/24 Verio test strips) ondansetron 8 mg disintegrating 8 mg PO Q8H PRN nausea and 06/12/24 tablet vomiting #30 tabs prochlorperazine 25 mg rectal 25 mg NC Q12H PRN nausea and 06/14/24 suppository (Compazine) vomiting #12 ea promethazine 25 mg rectal 25 mg NC Q6H PRN nausea and 07/12/24 suppository vomiting #12 ea albuterol sulfate 2.5 mg/3 mL 2.5 mg (3 mL) inhalation Q6H PRN 07/23/24 (0.083 %) solution for nebulization shortness of breat h or wheezing #180 mL albuterol sulfate 90 mcg/actuation 2 puff inhalation Q 6H PRN 07/23/24 aerosol inhaler shortness of breath or wheez ing #8.5 grams ropinirole 0.5 mg tablet 0.5 mg PO BID 90 days #180 t abs 07/23/24 famotidine 20 mg tablet 20 mg PO BID breakthrough heartburn #60 tabs naloxone 4 mg/actuation nasal 1 spray intranasal Q2M P RN opioid 09/14/24 spray (Narcan) overdose #2 ea oxycodone 10 mg tablet,crush 10 mg PO BID #30 tabs 07/29 resistant,extended release 12 hr ipratropium 0.5 mg-albuterol 3 mg 3 ml inhalation Q6H PRN wheezing 09/26/24 (2.5 mg base)/3 mL nebulization and shortness of breat h #180 mL soln Oxygen #1 ea 09/30/24 potassium chloride 10 mEq See Rx Instructions .Route 0 09/30/24 tablet,extended release .COMPLEX #30 tabs lactulose 20 gram/30 mL oral 20 g (30 mL) PO Q2H PRN 0 10/09/24 solution constipation #1,200 mL oxycodone 5 mg tablet 5 mg PO Q6H PRN pain 30 days #120 11/01/24 tabs ondansetron HCl 4 mg tablet 4 mg PO Q4H PRN nausea and 11/10/24 vomiting #30 tabs ailafxcwusoxywj-jqqvysgfbvqjejk-DY 5 ml PO Q6H PRN col d symptoms #118 11/12/24 2 mg-30 mg-10 mg/5 mL oral syrup mL (Bromfed DM) doxycycline hyclate 100 mg tablet 100 mg PO BID #20 ta bs 11/12/24 levofloxacin 500 mg tablet 500 mg PO DAILY 10 days #9 tabs 11/15/24 Allergies Allergy/AdvReac Type Severity Reaction Status Date / Time Cephalosporins Allergy itching Verified 11/12/24 14:17 levofloxacin (From Levaquin) Allergy Unknown Verified 11/12/24 14:17 Penicillins Allergy ALGY-Rash Verified 11/12/24 14:17 Sulfa (Sulfonamide Allergy Unknown Verified 11/12/24 14:17 Antibiotics) Review of Systems 2 General: Reports: 10 or more systems reviewed and unremarkable except in HPI and below Const: Reports: change in appetite and fatigue Resp: Reports: dyspnea PFSH ED 2 PFSH: Medical History COPD (chronic obstructive pulmonary disease) Colon cancer Obstructive sleep apnea GERD (gastroesophageal reflux disease) Type 2 diabetes mellitus, without long-term current use of insulin Reducible umbilical hernia Surgical History Port-A-Cath in place H/O tubal ligation Family History Father COPD (chronic obstructive pulmonary disease) Lung disease Mother CAD (coronary artery disease) Grandfather CAD (coronary artery disease) Cancer Skin cancer Brother Diabetes Sister Cancer Lung cancer Grandmother Lung disease Other Hypertension Denies family history of Clotting disorder Dementia Hyperlipidemia Psychiatric illness Chronic kidney disease (CKD) Suicide Anesthesia complication Bleeding disorder Stroke Social History Smoking and tobacco/nicotine status: never used tobacco/nicotine Quit status (tobacco/nicotine): has quit using Year quit tobacco: 2013 - 1PPD x 35 years Former quit date comment: Started age 13years Second hand smoke exposure: No Alcohol intake: never Substance/Drug Use: never Lives independently: Yes Household members: children Current occupational status: employed Do you think of yourself as: Straight/Heterosexual Current gender identity: Female Physical Exam 2 Const: COMMON NORMALS: no acute distress, patient oriented x3 and no limitations GENERAL APPEARANCE: cooperative and comfortable HENMT: COMMON NORMALS: normocephalic, atraumatic, Normal nasal mucous membranes and turbinates present, moist oral mucous membranes and oropharynx normal HEAD & SCALP: normal to inspection, normocephalic and atraumatic F NURA & SINUS: normal facial exam NOSE: Normal nasal mucous membranes and turbinates present Eye: COMMON NORMALS: Equal, round and reactive pupils present, EOMs intact bilaterally and conjunctivae normal GENERAL EYE: appearance normal, both eyes and all related structures CONJUNCTIVA: Yes conjunctivae normal PUPIL: Yes Equal, round and reactive pupils present Neck/C-Spine: COMMON NORMALS: supple and no JVD Chest: COMMONS NORMALS: normal inspection of the chest Resp: COMMON NORMALS: normal respiratory effort and clear to auscultation bilaterally AUSCULTATION: clear to auscultation bilaterally Cardio: COMMON NORMALS: no JVD, regular rate, regular rhythm, No gallops present (Cardio), No murmurs present (Cardio) and No rub (Cardio) RATE: r egular rate RHYTHM: regular rhythm GI: COMMON NORMALS: Normal to inspection, nondistended, normoactive bowel sounds present, Soft to palpation and non-tender AUSCULTATION: Yes normoactive bowel sounds PALPATION: Yes Soft to palpation : COMMON NORMALS: Yes no CVA tenderness BLADDER/KIDNEY EXAM: Yes no CVA tenderness Back/Pelvis: COMMON NORMALS: no CVA tenderness and thoracic and lumbar spine normal to inspection Extremity: COMMON NORMALS: normal to inspection Neuro: COMMON NORMALS: patient oriented x3 and CN's II-XII intact bilaterally Psych: COMMON NORMALS: mental status grossly normal, Normal thought process present and cooperative THOUGHT PROCESS: Normal thought process present Skin: COMMON NORMALS: no rashes or lesions noted, turgor normal and no jaundice GENERAL SKIN EXAM: no rashes or lesions noted and turgor normal Course 2 Vital Signs: Vital signs: Vital Signs Temperature 98.2 F 11/14/24 22:38 Pulse Rate 85 11/15/24 04:39 Respiratory Rate 22 H 11/14/24 23:39 Blood Pressure 141/90 11/15/24 04:39 Pulse Oximetry 93 11/15/24 04:39 Oxygen Delivery Me thod Room Air 11/15/24 01:16 Oxygen Flow Rate 4 11/14/24 23:39 MDM - General Adult Medical Decision Making Chest x-ray revealed some possible infiltrates versus atelectasis in the lower lobes. CT angiogram rule out pulmonary emboli was read as negative for PEs by the radiologist. Again questionable infiltrates versus atelectasis in the lung bases. CBC revealed a white blood cell count of 2.1. CMP was normal. D-dimer was 0.92. Urinalysis does reveal urinary tract infection. Arterial blood gases on 4 L revealed a pH of 7.44 with a pCO2 of 46 and a pO2 of 67. Patient was given a DuoNeb treatment in emergency department. Also gave her 500 mg of Levaquin IV with 50 mg of Benadryl IV since she does get some itching with Levaquin. She is allergic to all classes of antibiotics. Levaquin is most appropriate in this case with her having possibly pneumonia as well as urinary tract infection and she is high risk with history of cancer on chemotherapy. I discussed all of the results with her. Patient is feeling well enough to go home. She certainly does not appear to be dehydrated she is getting plenty of fluids even though she states otherwise. I did prescribe Levaquin 500 mg p.o. daily for 9 days. Recommended she follow-up with her primary care provider and/or oncologist next week for recheck. She was discharged with her daughters in stable condition. Lab Data 11/14/24 23:22 11/14/24 23:22 Radiology Impressions Chest X-Ray 11/14/24 23:06 IMPRESSION: Bilateral lower lobe consolidation concerning for pneumonia. Chest CTA 11/15/24 00:04 IMPRESSION: 1. There are multiple bilateral pulmonary nodularities again seen. Stable compared with 09/25/2024. 2. There are patchy peripheral opacity seen in the lung bases bilaterally, left more prominent than right. Superimposed atelectasis or pulmonary infiltrates and pneumonia can not be entirely excluded. 3. Multiple somewhat indistinct hepatic masses are again seen likely corresponding to the patient's known metastatic lesions. Laboratory Results WBC 2.09 10^3/uL (3.29-11.43) L 11/14/24 23:22 RBC 3.91 10^6/uL (3.85-5.65) 11/14/24 23:22 Hgb 12.40 g/dL (11.27-16.99) 11/14/24 23:22 Hct 38.5 % (36-47) 11/14/24 23:22 MCV 98.5 fl (85-98) H 11/14/24 23:22 MCH 31.7 pg (27-33) 11/14/24 23: MCHC 32.2 g/dL (30-55) 11/14/24 23: RDW 16.0 % (12.1-15.1) H 11/14/24 23:22 Plt Count 158 10^3/cmm (157-399) 11/14/24 23: MPV 11.5 fL (7.4-10.4) H 11/14/24 23:22 Neut % (Auto) 53.2 % 11/14/24 23:22 Lymph % (Auto) 21.5 % 11/14/24 23:22 Garfield % (Auto) 19.1 % 11/14/24 23: Eos % (Auto) 1.4 % 11/14/24 23: Baso % (Auto) 1.0 % 11/14/24 23: Neut # (Auto) 1.11 10^3/uL (1.8-7.7) L 11/14/24 23: Lymph # (Auto) 0.5 10^3/uL (0.8-4.8) L 11/14/24 23:22 Garfield # (Auto) 0.4 10^3/uL (0.2-0.9) 11/14/24 23: Eos # (Auto) 0.0 10^3/uL (0.0-0.8) 11/14/24 23: Baso # (Auto) 0.0 10^3/uL (0.0-0.1) 11/14/24 23: Nucleated RBC % (auto) 0 % 11/14/24 23:22 Nucleated RBCs # 0.0 /100WBC 11/14/24 23:22 D-Dimer 0.92 ug/mLFEU (0-0.59) H 11/14/24 23:22 Specimen Type Arterial 11/14/24 23:24 Sample Site Radial, right 11/14/24 23:24 ABG pH 7.44 (7.35-7.45) 11/14/24 23:24 ABG pCO2 45.6 mmHg (35-45) H 11/14/24 23:24 ABG pO2 66.7 mmHg (80.0-100.0) L 11/14/24 23:24 ABG HCO3 30.9 mmol/L (22-26) H 11/14/24 23:24 ABG Base Excess 5.8 mmol/L (-2.0-2.0) H 11/14/24 23:24 Alfredo Test Pos 11/14/24 23:24 Hematocrit 38.4 % (37-47) 11/14/24 23:24 Hgb O2 Saturation 93.1 % (95-100) L 11/14/24 23:24 Carboxyhemoglobin 1.3 %THgb (0.4-20.1) 11/14/24 23:24 Methemoglobin < 0.0 % (0.4-1.5) L 11/14/24 23:24 Total Hemoglobin 12.5 g/dL (12-16) 11/14/24 23:24 O2 Delivery Device Nc 11/14/24 23:24 O2 Liters/Min 4.0 % 11/14/24 23:24 Interim Controller ID [email or web address] 11/14/24 23:24 Sodium 137 mmol/L (136-145) 11/14/24 23:22 Potassium 3.9 mmol/L (3.5-5.1) 11/14/24 23:22 Chloride 95 mmol/L (98-107) L 11/14/24 23:22 Carbon Dioxide 30 mmol/L (22-29) H 11/14/24 23:22 Anion Gap 15.9 (5-19) 11/14/24 23:22 BUN 5 mg/dL (8-23) L 11/14/24 23:22 Creatinine 0.5 mg/dL (0.5-0.9) 11/14/24 23:22 GFR Calculation 125.9 mL/min (90-130) 11/14/24 23:22 Glucose 92 mg/dL (65-115) 11/14/24 23:22 Calculated Osmolality 281 mOsm/kg (285-295) L 11/14/24 23:22 Calcium 9.3 mg/dL (8.5-10.5) 11/14/24 23:22 Total Bilirubin 0.9 mg/dL (0.15-1.2) 11/14/24 23: AST 17 U/L (0-32) 11/14/24 23: ALT 12 U/L (0-33) 11/14/24 23: Alkaline Phosphatase 150 U/L (35-105) H 11/14/24 23:22 Total Protein 7.4 g/dL (6.6-8.7) 11/14/24 23: Albumin 3.4 g/dL (3.5-5.2) L 11/14/24 23: Globulin 4.0 g/dL (1.3-4.6) 11/14/24 23:22 Urine Color Yellow (Yellow) 11/15/24 01:30 Urine Appearance Cloudy (CLEAR) A 11/15/24 01:30 Urine pH 6.5 (5-7) 11/15/24 01:30 Ur Specific Lolita 1.081 (1.005-1.030) H 11/15/24 01:30 Urine Protein Trace (Negative) A 11/15/24 01:30 Urine Glucose (UA) Negative (Normal) 11/15/24 01:30 Urine Ketones 1+ (Negative) H 11/15/24 01:30 Urine Blood Negative (Negative) 11/15/24 01:30 Urine Nitrate Negative (Negative) 11/15/24 01:30 Urine Bilirubin Negative (Negative) 11/15/24 01:30 Urine Urobilinogen 1.0 mg/dL (Negative) 11/15/24 01:30 Ur Leukocyte Esterase Negative (Negative) 11/15/24 01:30 Urine RBC 0-2 /hpf (0-2) 11/15/24 01:30 Urine WBC 21-50 /hpf (0-5) H 11/15/24 01:30 Ur Squamous Epith Cells 21-50 /hpf (0-5) H 11/15/24 01:30 Amorphous Sediment Not Reportable 11/15/24 01:30 Urine Bacteria 4+ /hpf (NONE) H 11/15/24 01:30 Hyaline Casts 1.21 /lpf 11/15/24 01:30 Urine Mucus 2+ /hpf 11/15/24 00:00 All radiology interpretation(s) finalized by discharge Discharge Plan Discharge Patient Disposition: Home Clinical Impression: UTI (urinary tract infection) Qualifiers: Urinary tract infection type: site unspecified Hematuria presence: without hematuria Qualified Code(s): N39.0 - Urinary tract infection, site not specified Pneumonia Qualifiers: Pneumonia type: due to unspecified organism Laterality: bilateral Lung location: lower lobe of lung Qualified Code(s): J18.9 - Pneumonia, unspecified organism Condition: Stable Prescriptions: New levofloxacin 500 mg tablet 500 mg PO DAILY 10 Days Qty: 9 0RF No Action (DME) CPAP 6-16 cm with mask and supplies See Rx Instructions .Route .MEDSUPPLY Qty: 1 0RF Rx Instructions: As directed lidocaine-prilocaine 2.5-2.5 % cream 1 applic topical DIRECTED Qty: 30 2RF Rx Instructions: quarter size amount over port site 30-45 min prior to access, cover with plastic plastic wrap doxycycline hyclate 100 mg tablet 100 mg PO BID Qty: 20 0RF faoydfzxuhywwar-vufkdmzpc-LH [Bromfed DM] 2-30-10 mg/5 mL syrup 5 ml PO Q6H PRN (Reason: cold symptoms) Qty: 118 0RF (DME) Contour Next Test Strips Strip See Rx Instructions .ROUTE .MEDSUPPLY Qty: 100 5RF Rx Instructions: three times daily metformin 500 mg tablet extended release 24 hr 500 mg PO BID Qty: 180 2RF hydrochlorothiazide 25 mg tablet 25 mg PO DAILY PRN (Reason: htn) 90 Days Qty: 90 2RF budesonide-formoterol [Symbicort] 160-4.5 mcg/actuation HFA aerosol inhaler 2 puff inhalation BID Qty: 10.2 6RF amlodipine 5 mg tablet 5 mg PO DAILY 90 Days Qty: 90 2RF prochlorperazine maleate [Compazine] 10 mg tablet 10 mg PO Q4H PRN (Reason: Mild Nausea) Qty: 30 3RF albuterol sulfate 90 mcg/actuation HFA aerosol inhaler 2 puff inhalation Q6H PRN (Reason: shortness of breath or wheezing) Qty: 8.5 3RF albuterol sulfate 2.5 mg /3 mL (0.083 %) solution for nebulization 2.5 mg INHALATION Q6H PRN (Reason: shortness of breath or wheezing) Qty: 180 3RF ropinirole 0.5 mg tablet 0.5 mg PO BID 90 Days Qty: 180 2RF ondansetron 8 mg tablet,disintegrating 8 mg PO Q8H PRN (Reason: nausea and vomiting) Qty: 30 2RF famotidine 20 mg tablet 20 mg PO BID Qty: 60 2RF pantoprazole 20 mg tablet,delayed release (DR/EC) 20 mg PO DAILY ipratropium-albuterol 0.5 mg-3 mg(2.5 mg base)/3 mL solution for nebulization 3 ml inhalation Q6H PRN (Reason: wheezing and shortness of breath) Qty: 180 0RF lactulose 20 gram/30 mL solution 20 g PO Q2H PRN (Reason: constipation) Qty: 1200 2RF Rx Instructions: Take every 2 hours until bowel movement; may repeat if no bowel movement after 3 days (DME) lancets [Comfort EZ Lancets] 28 gauge misc See Rx Instructions .ROUTE .MEDSUPPLY Qty: 100 2RF Rx Instructions: once daily (DME) test strips See Rx Instructions .Route .MEDSUPPLY Qty: 100 0RF Rx Instructions: use 2 times daily As directed (DME) OneTouch Verio test strips Strip See Rx Instructions .ROUTE .COMPLEX Qty: 100 0RF Dose Instruction: USE 2 TIMES DAILY DIRECTED Rx Instructions: USE 2 TIMES DAILY DIRECTED prochlorperazine [Compazine] 25 mg suppository 25 mg NC Q12H PRN (Reason: nausea and vomiting) Qty: 12 1RF promethazine 25 mg suppository 25 mg NC Q6H PRN (Reason: nausea and vomiting) Qty: 12 1RF (DME) Oxygen See Rx Instructions .Route .MEDSUPPLY Qty: 1 0RF Rx Instructions: Continuous use of oxygen at 3L to keep oxygen saturation >92%. Bleed into CPAP overnight. potassium chloride 10 mEq tablet extended release See Rx Instructions .ROUTE .COMPLEX Qty: 30 0RF Dose Instruction: TAKE ONE TABLET BY MOUTH DAILY Rx Instructions: TAKE ONE TABLET BY MOUTH DAILY oxycodone 5 mg tablet 5 mg PO Q6H PRN (Reason: pain) 30 Days Qty: 120 0RF sennosides-docusate sodium [Senna-S] 8.6-50 mg tablet 2 tab-cap PO BID PRN (Reason: constipation) Qty: 30 0RF atorvastatin 20 mg tablet 20 mg PO BEDTIME Rx Instructions: TAKE ONE TABLET BY MOUTH DAILY AT BEDTIME Januvia 100 mg tablet 100 mg PO DAILY Rx Instructions: TAKE ONE TABLET BY MOUTH EVERY DAY Spiriva Respimat 2.5 mcg/actuation mist 2 puff inhalation DAILY Rx Instructions: 2 PUFF(S) DAILY FOR 30 DAYS acetaminophen [Tylenol] 325 mg Tablet 325 mg PO QID PRN (Reason: pain or fever ) oxycodone 10 mg tablet,oral only,ext.rel.12 hr 10 mg PO BID Qty: 30 0RF naloxone [Narcan] 4 mg/actuation spray,non-aerosol 1 spray intranasal Q2M PRN (Reason: opioid overdose) Qty: 2 0RF Rx Instructions: spray 1 dose into ONE nostril; alternate nostrils w each dose until help arrives ondansetron HCl 4 mg tablet 4 mg PO Q4H PRN (Reason: nausea and vomiting) Qty: 30 0RF Discharge Orders: Discharge ED (Routine); Ordered 11/15/24 Ordered By: Kristofer Weeks Referrals: Graciela Head MD [Primary Care Provider] - Patient Instructions: Urinary Tract Infection in Women (ED), Pneumonia (ED) Activity Restrictions/Additional Instructions: Follow-up with your primary care provider and oncologist next week. Print Language: Czech Coding Level of Care Code ED Principal Clerk Typist for Connie Holliday
== END 2024-11-15 04:40 | disposition home or self-care (01) ==
PROVIDERS: Emergency Provider Emergency Medicine; PCP Family Medicine
DX: N39.0 Urinary tract infection, site not specified (principal); J18.9 Pneumonia, unspecified organism; Z87.891 Personal history of nicotine dependence; J44.9 Chronic obstructive pulmonary disease, unspecified; Z85.038 Personal history of other malignant neoplasm of large intestine; E11.9 Type 2 diabetes mellitus without complications
CPT/HCPCS: 36415; 36600; 71045; 71275; 80053; 81001; 82805; 85025; 85378; 94640; 96361; 96365; 96375; 99285; J1200; J1956; J7030; J9999

== ENCOUNTER 2024-11-22 11:00 | Oncology outpatient (recurring) (ONCR) | payer MEDICAID, SELFPAY ==
[2024-11-20 09:49] LABS: Basophils % 0.8 %; Eosinophils # 0.1 10^3/uL (0.0-0.8); Eosinophils % 1.5 %; Hematocrit 36.3 % (36-47); Lymphocytes # 0.7 10^3/uL (0.8-4.8); Lymphocytes % 17.9 %; Mean Corpuscular HGB Conc 32.5 g/dL (30-55); Mean Corpuscular Hemoglobin 32.3 pg (27-33); Mean Corpuscular Volume 99.5 fl (85-98); Mean Platelet Volume 11.7 fL (7.4-10.4); Monocytes # 0.4 10^3/uL (0.2-0.9); Monocytes % 10.5 %; Neutrophils # 2.67 10^3/uL (1.8-7.7); Nucleated Red Blood Cells % 0 %; Platelet Count 173 10^3/cmm (157-399); Red Blood Count 3.65 10^6/uL (3.85-5.65); Red Cell Distribution Width 16.4 % (12.1-15.1); White Blood Count 3.92 10^3/uL (3.29-11.43)
[2024-11-20 10:17] LABS: Carcinoembryonic Antigen 116.9 ng/mL (0.0-4.7)
[2024-11-20 10:28] LABS: Alanine Aminotransferase 10 U/L (0-33); Albumin Level 3.3 g/dL (3.5-5.2); Alkaline Phosphatase 125 U/L (35-105); Anion Gap 13.5 (5-19); Aspartate Amino Transferase 21 U/L (0-32); Blood Urea Nitrogen 5 mg/dL (8-23); Carbon Dioxide 28 mmol/L (22-29); Chloride 100 mmol/L (98-107); Creatinine Clr Calc Pharmacy 108.2088; Globulin 3.5 g/dL (1.3-4.6); Glucose 116 mg/dL (65-115); Osmolality Calculated 284 mOsm/kg (285-295); Potassium 3.5 mmol/L (3.5-5.1); Sodium 138 mmol/L (136-145); Total Bilirubin 0.5 mg/dL (0.15-1.2); Total Protein 6.8 g/dL (6.6-8.7)
[2024-11-20] MEDS: dexamethasone 4 mg/mL INJ 5 mL 12 MG IVP (11:20)
[2024-11-20] MEDS: sodium chloride 0.9% 250 ML 25 ML IV (11:20)
[2024-11-20] MEDS: palonosetron 0.25 mg/5 mL SDV IVP (11:24)
[2024-11-20] MEDS: leucovorin 780 MG in dextrose 5% 250 ML 166.67 MG IV (12:30)
[2024-11-20] MEDS: fluorouraciL 4,700 MG in elastomeric pump 1 PUMP IV (14:15)
[2024-11-20 14:30] VITALS: BP 151/103; PULSE 73; RESP 18; TEMP 36.7; O2SAT 90
[2024-11-22 10:56] VITALS: O2SAT 91
== END 2024-12-02 23:59 | disposition home or self-care (01) ==
PROVIDERS: Nurse Practitioner Family; PCP Family Medicine; Visit Provider Radiology Radiation Oncology
DX: Z53.9 Procedure and treatment not carried out, unspecified reason; Z45.1 Encounter for adjustment and management of infusion pump
CPT/HCPCS: 80053; 82378; 85025; 96375; 96413; 96415; 96416; 96417; 96523; J0640; J1100; J2469; J7050; J7060; J9190; J9206; Q5107

== ENCOUNTER 2024-12-25 21:32 | Emergency (ER) | payer MEDICAID, SELFPAY ==
[2024-12-25 21:37] VITALS: BP 146/86; PULSE 97; RESP 16; TEMP 36.5; O2SAT 95; BMI 33.5
--- NOTE | 2024-12-25 21:43 | ECG_ITS ---
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 Measurements Intervals Switzer Rate: 91 P: 68 MO: 112 QRS: 62 QRSD: 101 T: 61 QT: 361 QTc: 446 Interpretive Statements SINUS RHYTHM WITH SHORT MO INTERVAL No previous ECG available for comparison Electronically Signed On 12-27-2024 10:38:14 CDT by Rochelle Mart M.D. [email or web address]
[2024-12-25 22:08] VITALS: BP 151/102; PULSE 89; RESP 17; O2SAT 93
--- NOTE | 2024-12-25 22:09 | CTR_ITS ---
PROCEDURE INFORMATION: Exam: CT Head Without Contrast Exam date and time: 12/25/2024 10:20 PM Age: 59 years old Clinical indication: Pain; Headache not specified; Additional info: Headache, HX of colon cancer TECHNIQUE: Imaging protocol: Computed tomography of the head without contrast. Radiation optimization: All CT scans at this facility use at least one of these dose optimization techniques: automated exposure control; mA and/or kV adjustment per patient size (includes targeted exams where dose is matched to clinical indication); or iterative reconstruction. COMPARISON: MR head wo/w con [id number] 05/24/2023 2:19 PM RADIATION DOSE METRICS: Total DLP (mGy-cm): 1190.78 FINDINGS: Brain: No hemorrhage. No mass effect or midline shift. No significant white matter disease. Cerebral ventricles: No ventriculomegaly. Paranasal sinuses: Visualized sinuses are unremarkable. No fluid levels. Mastoid air cells: Visualized mastoid air cells are well aerated. Bones: Unremarkable. No acute fracture. Soft tissues: Unremarkable. CT/CT head wo con* [id number] IMPRESSION: No acute intracranial findings.
--- NOTE | 2024-12-25 22:10 | W.ED.HA ---
HPI - Headache General: Chief Complaint: Headache Stated Complaint: High BP headache Time Seen by Provider: 12/25/24 22:02 Source: patient History of Present Illness: Patient is a well-appearing 59-year-old obese female who has a history of metastatic colorectal cancer and is undergoing chemotherapy states her last chemotherapy was around the ninth of this month and presents with complaints of headache and concern for high blood pressure. She previously took 5 mg of amlodipine daily and 25 mg of hydrochlorothiazide. She has been off of those medicines for quite a while due to control of her blood pressure however she noticed she had a mild headache this morning and was not feeling particularly well and checked her blood pressure and it was around 140-150 systolic. She took 5 mg of amlodipine this morning and later took a dose of her hydrochlorothiazide but became more concerned about this evening prompting her to come to the ER to get evaluated. She states her headache is mild and is dull. She denies any chest pain or shortness of breath. No fevers or chills. She does states she was recently getting over influenza-like illness from last week. She is not on any corticosteroids. Severity: mild Associated symptoms: Deny chest pain, fever(s), nausea, rash or vomiting Related Data Home Medications ?Medication ?Instructions ?Recorded ?Confirmed acetaminophen 325 mg tablet 325 mg PO QID PRN pain or fever 09/14/24 12/18/24 (Tylenol) atorvastatin 20 mg tablet 20 mg PO BEDTIME 09/14/24 12/18/24 tiotropium bromide 2.5 2 puff inhalation DAILY 09/14/24 12/18/24 mcg/actuation mist for inhalation (Spiriva Respimat) pantoprazole 20 mg tablet,delayed 20 mg PO DAILY 09/26/24 12/18/24 release Previous Rx's ?Medication ?Instructions ?Recorded lancets 28 gauge (Comfort EZ #100 ea 01/15/20 Lancets) blood sugar diagnostic (Contour #100 ea 02/17/23 Next Test Strips) CPAP 6-16 cm with mask and supplies #1 ea 05/30/23 test strips #100 ea 08/01/23 sennosides 8.6 mg-docusate sodium 2 tab-cap (2 x 8.6-50 mg) PO BID 10/07/23 50 mg tablet (Senna-S) PRN constipation #30 tabs lidocaine-prilocaine 2.5 %-2.5 % 1 applic topical DIRECTED #30 11/29/23 topical cream grams prochlorperazine maleate 10 mg 10 mg PO Q4H PRN Mild Nausea #30 04/24/24 tablet (Compazine) tabs blood sugar diagnostic (OneTouch #100 strips 05/08/24 Verio test strips) ondansetron 8 mg disintegrating 8 mg PO Q8H PRN nausea and 06/12/24 tablet vomiting #30 tabs prochlorperazine 25 mg rectal 25 mg [place] Q12H PRN nausea and 06/14/24 suppository (Compazine) vomiting #12 ea promethazine 25 mg rectal 25 mg KY Q6H PRN nausea and 07/12/24 suppository vomiting #12 ea albuterol sulfate 2.5 mg/3 mL 2.5 mg (3 mL) inhalation Q6H PRN 07/23/24 (0.083 %) solution for nebulization shortness of breath or wheezing #180 mL albuterol sulfate 90 mcg/actuation 2 puff inhalation Q6H PRN 07/23/24 aerosol inhaler shortness of breath or wheezing #8.5 grams ropinirole 0.5 mg tablet 0.5 mg PO BID 90 days #180 tabs 07/23/24 famotidine 20 mg tablet 20 mg PO BID breakthrough 07/24/24 heartburn #60 tabs naloxone 4 mg/actuation nasal 1 spray intranasal Q2M PRN opioid 09/14/24 spray (Narcan) overdose #2 ea oxycodone 10 mg tablet,crush 10 mg PO BID #30 tabs 09/14/24 resistant,extended release 12 hr ipratropium 0.5 mg-albuterol 3 mg 3 ml inhalation Q6H PRN wheezing 09/26/24 (2.5 mg base)/3 mL nebulization and shortness of breath #180 mL soln Oxygen #1 ea 09/30/24 lactulose 20 gram/30 mL oral 20 g (30 mL) PO Q2H PRN 10/09/24 solution constipation #1,200 mL oxycodone 5 mg tablet 5 mg PO Q6H PRN pain 30 days #120 11/01/24 tabs ondansetron HCl 4 mg tablet 4 mg PO Q4H PRN nausea and 11/10/24 vomiting #30 tabs potassium chloride 10 mEq See Rx Instructions .Route 11/26/24 tablet,extended release .COMPLEX #30 tabs fluticasone propionate 50 2 spray intranasal DAILY #16 grams 12/06/24 mcg/actuation nasal spray,suspension (Flonase Allergy Relief) azithromycin 250 mg tablet See Rx Instructions PO .COMPLEX #6 12/10/24 (Zithromax Z-Raymon) tabs sitagliptin phosphate 50 mg tablet 50 mg PO DAILY #90 tabs 12/10/24 (Januvia) fluconazole 200 mg tablet 200 mg PO DAILY #14 tabs 12/13/24 budesonide-formoterol HFA 160 See Rx Instructions .Route 12/16/24 mcg-4.5 mcg/actuation aerosol .COMPLEX #10.2 grams inhaler (Symbicort) sucralfate 1 gram tablet (Carafate) 1 g PO .every 6 hours #12 tabs 12/17/24 valacyclovir 1 gram tablet 1,000 mg PO BID #14 tabs 12/19/24 (Valtrex) Allergies Allergy/AdvReac Type Severity Reaction Status Date / Time Cephalosporins Allergy itching Verified 12/25/24 21:43 Penicillins Allergy ALGY-Rash Verified 12/25/24 21:43 Review of Systems Const: Denies: fever(s) or chills Card: Denies: chest pain or palpitations Resp: Denies: dyspnea or productive cough GI: Denies: abdominal pain, nausea or vomiting Skin/Breast: Denies: rash PFSH ED PFSH: Medical History COPD (chronic obstructive pulmonary disease) Colon cancer Obstructive sleep apnea GERD (gastroesophageal reflux disease) Type 2 diabetes mellitus, without long-term current use of insulin Reducible umbilical hernia Surgical History Port-A-Cath in place H/O tubal ligation Family History Father COPD (chronic obstructive pulmonary disease) Lung disease Mother CAD (coronary artery disease) Grandfather CAD (coronary artery disease) Cancer Skin cancer Brother Diabetes Sister Cancer Lung cancer Grandmother Lung disease Other Hypertension Denies family history of Clotting disorder Dementia Hyperlipidemia Psychiatric illness Chronic kidney disease (CKD) Suicide Anesthesia complication Bleeding disorder Stroke Social History Smoking and tobacco/nicotine status: former use of tobacco/nicotine Quit status (tobacco/nicotine): has quit using Year quit tobacco: 2013 - 1PPD x 35 years Former quit date comment: Started age 13years Second hand smoke exposure: No Alcohol intake: never Substance/Drug Use: never Lives independently: Yes Household members: children Current occupational status: employed Do you think of yourself as: Straight/Heterosexual Current gender identity: Female Physical Exam Const: COMMON NORMALS: no acute distress, average body habitus, alert and well nourished GENERAL APPEARANCE: cooperative ORIENTATION/CONSCIOUSNESS: Yes awake HENMT: COMMON NORMALS: normocephalic and atraumatic HEAD & SCALP: normocephalic and atraumatic Eye: COMMON NORMALS: conjunctivae normal CONJUNCTIVA: Yes conjunctivae normal Neck/C-Spine: GENERAL: Yes normal visual inspection Resp: COMMON NORMALS: normal respiratory effort, No retractions and No use of accessory muscles Cardio: COMMON NORMALS: regular rhythm and Peripheral pulses 2+ throughout RHYTHM: regular rhythm PERIPHERAL PULSES: Peripheral pulses 2+ throughout GI: COMMON NORMALS: Soft to palpation and non-tender PALPATION: Yes Soft to palpation Extremity: COMMON NORMALS: full ROM and no pedal edema Neuro: COMMON NORMALS: no focal motor deficits SENSORIUM/ORIENTATION: Yes alert Skin: COMMON NORMALS: no rashes or lesions noted GENERAL SKIN EXAM: no rashes or lesions noted Course Vital Signs: Vital signs: Vital Signs Temperature 97.7 F 12/25/24 21:37 Pulse Rate 84 12/25/24 23:00 Respiratory Rate 17 12/25/24 22:08 Blood Pressure 139/83 12/25/24 23:00 Pulse Oximetry 91 12/25/24 23:00 Oxygen Delivery Me thod Room Air 12/25/24 21:37 MDM - Headache Medical Decision Making Patient is a nontoxic 59-year-old female who presents due to concern for high blood pressure and mild headache. She has no focal neurologic deficits and is in no acute distress. Blood pressure was mild to moderately elevated here. She denies any chest pain or shortness of breath. Head CT was obtained and is negative for acute pathology. Basic labs including a CBC and CMP are unremarkable. She was given 1 dose of labetalol with improvement of her blood pressure down to 139/83. She is currently prescribed 5 mg of amlodipine which she took earlier today. I recommended she increase that to 10 mg of amlodipine daily and restart her hydrochlorothiazide and follow-up with her PCP in 2 to 3 days. She expressed understanding and is comfortable with the plan. She was given return precautions. Differential Diagnosis Likely headache Lab Data I reviewed the patient's lab results. 12/25/24 22:06 12/25/24 22:[address] 12/25/24 22:09 IMPRESSION: No acute intracranial findings. Laboratory Results WBC 3.48 10^3/uL (3.29-11.43) 12/25/24 22:06 RBC 3.87 10^6/uL (3.85-5.65) 12/25/24 22:06 Hgb 12.60 g/dL (11.27-16.99) 12/25/24 22:06 Hct 39.3 % (36-47) 12/25/24 22:06 MCV 101.6 fl (85-98) H 12/25/24 22:06 MCH 32.6 pg (27-33) 12/25/24 22:06 MCHC 32.1 g/dL (30-55) 12/25/24 22:06 RDW 18.3 % (12.1-15.1) H 12/25/24 22:06 Plt Count 175 10^3/cmm (157-399) 12/25/24 22:06 MPV 11.7 fL (7.4-10.4) H 12/25/24 22:06 Neut % (Auto) 55.7 % 12/25/24 22:06 Lymph % (Auto) 23.6 % 12/25/24 22:06 Casey % (Auto) 15.8 % 12/25/24 22:06 Eos % (Auto) 3.4 % 12/25/24 22:06 Baso % (Auto) 0.9 % 12/25/24 22:06 Neut # (Auto) 1.94 10^3/uL (1.8-7.7) 12/25/24 22:06 Lymph # (Auto) 0.8 10^3/uL (0.8-4.8) 12/25/24 22:06 Casey # (Auto) 0.6 10^3/uL (0.2-0.9) 12/25/24 22:06 Eos # (Auto) 0.1 10^3/uL (0.0-0.8) 12/25/24 22:06 Baso # (Auto) 0.0 10^3/uL (0.0-0.1) 12/25/24 22:06 Nucleated RBC % (auto) 0 % 12/25/24 22:06 Nucleated RBCs # 0.0 /100WBC 12/25/24 22:06 Sodium 136 mmol/L (136-145) 12/25/24 22:06 Potassium 3.8 mmol/L (3.5-5.1) 12/25/24 22:06 Chloride 99 mmol/L (98-107) 12/25/24 22:06 Carbon Dioxide 26 mmol/L (22-29) 12/25/24 22:06 Anion Gap 14.8 (5-19) 12/25/24 22:06 BUN 9 mg/dL (8-23) 12/25/24 22:06 Creatinine 0.5 mg/dL (0.5-0.9) 12/25/24 22:06 GFR Calculation 125.9 mL/min (90-130) 12/25/24 22:06 Glucose 151 mg/dL (65-115) H 12/25/24 22:06 Calculated Osmolality 284 mOsm/kg (285-295) L 12/25/24 22:06 Calcium 9.1 mg/dL (8.5-10.5) 12/25/24 22:06 Total Bilirubin 0.4 mg/dL (0.15-1.2) 12/25/24 22:06 AST 38 U/L (0-32) H 12/25/24 22:06 ALT 38 U/L (0-33) H 12/25/24 22:06 Alkaline Phosphatase 236 U/L (35-105) H 12/25/24 22:06 Total Protein 7.3 g/dL (6.6-8.7) 12/25/24 22:06 Albumin 4.0 g/dL (3.5-5.2) 12/25/24 22:06 Globulin 3.3 g/dL (1.3-4.6) 12/25/24 22:06 All radiology interpretation(s) finalized by discharge Discharge Plan Discharge Patient Disposition: Home Clinical Impression: Hypertension, Headache Condition: Stable Prescriptions: No Action (DME) CPAP 6-16 cm with mask and supplies See Rx Instructions .Route .MEDSUPPLY Qty: 1 0RF Rx Instructions: As directed lidocaine-prilocaine 2.5-2.5 % cream 1 applic topical DIRECTED Qty: 30 2RF Rx Instructions: quarter size amount over port site 30-45 min prior to access, cover with plastic plastic wrap (DME) Contour Next Test Strips Strip See Rx Instructions .ROUTE .MEDSUPPLY Qty: 100 5RF Rx Instructions: three times daily prochlorperazine maleate [Compazine] 10 mg tablet 10 mg PO Q4H PRN (Reason: Mild Nausea) Qty: 30 3RF albuterol sulfate 90 mcg/actuation HFA aerosol inhaler 2 puff inhalation Q6H PRN (Reason: shortness of breath or wheezing) Qty: 8.5 3RF albuterol sulfate 2.5 mg /3 mL (0.083 %) solution for nebulization 2.5 mg INHALATION Q6H PRN (Reason: shortness of breath or wheezing) Qty: 180 3RF ropinirole 0.5 mg tablet 0.5 mg PO BID 90 Days Qty: 180 2RF ondansetron 8 mg tablet,disintegrating 8 mg PO Q8H PRN (Reason: nausea and vomiting) Qty: 30 2RF famotidine 20 mg tablet 20 mg PO BID Qty: 60 2RF pantoprazole 20 mg tablet,delayed release (DR/EC) 20 mg PO DAILY ipratropium-albuterol 0.5 mg-3 mg(2.5 mg base)/3 mL solution for nebulization 3 ml inhalation Q6H PRN (Reason: wheezing and shortness of breath) Qty: 180 0RF lactulose 20 gram/30 mL solution 20 g PO Q2H PRN (Reason: constipation) Qty: 1200 2RF Rx Instructions: Take every 2 hours until bowel movement; may repeat if no bowel movement after 3 days fluticasone propionate [Flonase Allergy Relief] 50 mcg/actuation spray,suspension 2 spray intranasal DAILY Qty: 16 3RF Rx Instructions: administer into each nostril fluconazole 200 mg tablet 200 mg PO DAILY Qty: 14 0RF (DME) lancets [Comfort EZ Lancets] 28 gauge misc See Rx Instructions .ROUTE .MEDSUPPLY Qty: 100 2RF Rx Instructions: once daily (DME) test strips See Rx Instructions .Route .MEDSUPPLY Qty: 100 0RF Rx Instructions: use 2 times daily As directed (DME) OneTouch Verio test strips Strip See Rx Instructions .ROUTE .COMPLEX Qty: 100 0RF Dose Instruction: USE 2 TIMES DAILY DIRECTED Rx Instructions: USE 2 TIMES DAILY DIRECTED prochlorperazine [Compazine] 25 mg suppository 25 mg [place] Q12H PRN (Reason: nausea and vomiting) Qty: 12 1RF promethazine 25 mg suppository 25 mg [place] Q6H PRN (Reason: nausea and vomiting) Qty: 12 1RF (DME) Oxygen See Rx Instructions .Route .MEDSUPPLY Qty: 1 0RF Rx Instructions: Continuous use of oxygen at 3L to keep oxygen saturation >92%. Bleed into CPAP overnight. oxycodone 5 mg tablet 5 mg PO Q6H PRN (Reason: pain) 30 Days Qty: 120 0RF potassium chloride 10 mEq tablet extended release See Rx Instructions .ROUTE .COMPLEX Qty: 30 0RF Dose Instruction: TAKE ONE TABLET BY MOUTH DAILY Rx Instructions: TAKE ONE TABLET BY MOUTH DAILY Januvia 50 mg tablet 50 mg PO DAILY Qty: 90 0RF azithromycin [Zithromax Z-Raymon] 250 mg tablet See Rx Instructions PO .COMPLEX Qty: 6 0RF Rx Instructions: For 250 mg dose pack: take 500 mg today (day 1), then 250 mg for 4 days (days 2-5) PO budesonide-formoterol [Symbicort] 160-4.5 mcg/actuation HFA aerosol inhaler See Rx Instructions .ROUTE .COMPLEX Qty: 10.2 6RF Dose Instruction: INHALE 2 PUFFS BY MOUTH TWICE DAILY Rx Instructions: INHALE 2 PUFFS BY MOUTH TWICE DAILY sucralfate [Carafate] 1 gram tablet 1 g PO .every 6 hours Qty: 12 0RF Rx Instructions: Every 6 hours - mix with 15 ml of water valacyclovir [Valtrex] 1 gram tablet 1,000 mg PO BID Qty: 14 0RF sennosides-docusate sodium [Senna-S] 8.6-50 mg tablet 2 tab-cap PO BID PRN (Reason: constipation) Qty: 30 0RF atorvastatin 20 mg tablet 20 mg PO BEDTIME Rx Instructions: TAKE ONE TABLET BY MOUTH DAILY AT BEDTIME Spiriva Respimat 2.5 mcg/actuation mist 2 puff inhalation DAILY Rx Instructions: 2 PUFF(S) DAILY FOR 30 DAYS acetaminophen [Tylenol] 325 mg Tablet 325 mg PO QID PRN (Reason: pain or fever ) oxycodone 10 mg tablet,oral only,ext.rel.12 hr 10 mg PO BID Qty: 30 0RF naloxone [Narcan] 4 mg/actuation spray,non-aerosol 1 spray intranasal Q2M PRN (Reason: opioid overdose) Qty: 2 0RF Rx Instructions: spray 1 dose into ONE nostril; alternate nostrils w each dose until help arrives ondansetron HCl 4 mg tablet 4 mg PO Q4H PRN (Reason: nausea and vomiting) Qty: 30 0RF Discharge Orders: Discharge ED (Routine); Ordered 12/25/24 Ordered By: Dennis Howard Referrals: Ann Pinon DO [Primary Care Provider] - Discharge Diet: Low Salt Discharge Activity: Resume usual activity Patient Instructions: Hypertension (ED) Activity Restrictions/Additional Instructions: Restart your amlodipine at 10 mg (2 tablets) daily as well as your previous dose of hydrochlorothiazide. Contact your primary care provider tomorrow to discuss follow-up in clinic in the next 3 to 5 days. Return to the emergency department for any new or worsening symptoms, chest pain, shortness of breath, difficulty breathing, or any other concerns. Print Language: Turkmen Coding Level of Care Code ED Leather Cleaner for Connie Holliday
[2024-12-25 22:14] LABS: Basophils % 0.9 %; Eosinophils # 0.1 10^3/uL (0.0-0.8); Eosinophils % 3.4 %; Hematocrit 39.3 % (36-47); Lymphocytes # 0.8 10^3/uL (0.8-4.8); Lymphocytes % 23.6 %; Mean Corpuscular HGB Conc 32.1 g/dL (30-55); Mean Corpuscular Hemoglobin 32.6 pg (27-33); Mean Corpuscular Volume 101.6 fl (85-98); Mean Platelet Volume 11.7 fL (7.4-10.4); Monocytes # 0.6 10^3/uL (0.2-0.9); Monocytes % 15.8 %; Neutrophils # 1.94 10^3/uL (1.8-7.7); Neutrophils % 55.7 %; Nucleated Red Blood Cells % 0 %; Platelet Count 175 10^3/cmm (157-399); Red Blood Count 3.87 10^6/uL (3.85-5.65); Red Cell Distribution Width 18.3 % (12.1-15.1); White Blood Count 3.48 10^3/uL (3.29-11.43)
[2024-12-25] MEDS: labetalol 5 mg/mL SDV 20mL 10 MG IVP (22:15)
[2024-12-25 22:27] LABS: Alanine Aminotransferase 38 U/L (0-33); Alkaline Phosphatase 236 U/L (35-105); Anion Gap 14.8 (5-19); Aspartate Amino Transferase 38 U/L (0-32); Blood Urea Nitrogen 9 mg/dL (8-23); Calcium 9.1 mg/dL (8.5-10.5); Carbon Dioxide 26 mmol/L (22-29); Chloride 99 mmol/L (98-107); Globulin 3.3 g/dL (1.3-4.6); Glomerular Filtration Rate 125.9 mL/min (90-130); Glucose 151 mg/dL (65-115); Osmolality Calculated 284 mOsm/kg (285-295); Potassium 3.8 mmol/L (3.5-5.1); Sodium 136 mmol/L (136-145); Total Bilirubin 0.4 mg/dL (0.15-1.2); Total Protein 7.3 g/dL (6.6-8.7)
[2024-12-25 22:30] VITALS: BP 141/70; PULSE 79; O2SAT 93
[2024-12-25 23:00] VITALS: BP 139/83; PULSE 84; O2SAT 91
[2024-12-25 23:30] VITALS: BP 163/107; PULSE 89; O2SAT 92
[2024-12-25 23:49] VITALS: BP 163/107; PULSE 83; O2SAT 83
== END 2024-12-25 23:52 | disposition home or self-care (01) ==
PROVIDERS: Emergency Provider Student in an Organized Health Care Education/Training Program; PCP Family Medicine
DX: I10 Essential (primary) hypertension (principal); R51.9 Headache, unspecified; Z87.891 Personal history of nicotine dependence; C78.5 Secondary malignant neoplasm of large intestine and rectum; J44.9 Chronic obstructive pulmonary disease, unspecified; E11.9 Type 2 diabetes mellitus without complications
CPT/HCPCS: 36415; 70450; 80053; 85025; 93005; 96374; 99285; J3490

== ENCOUNTER 2025-01-01 09:45 | Oncology outpatient (recurring) (ONCR) | payer MEDICAID, SELFPAY ==
[2024-12-04 08:39] LABS: Basophils % 0.7 %; Eosinophils # 0.1 10^3/uL (0.0-0.8); Hematocrit 35.8 % (36-47); Lymphocytes # 0.7 10^3/uL (0.8-4.8); Lymphocytes % 22.9 %; Mean Corpuscular HGB Conc 32.1 g/dL (30-55); Mean Corpuscular Hemoglobin 31.9 pg (27-33); Mean Corpuscular Volume 99.2 fl (85-98); Mean Platelet Volume 11.9 fL (7.4-10.4); Monocytes # 0.4 10^3/uL (0.2-0.9); Monocytes % 12.6 %; Neutrophils # 1.82 10^3/uL (1.8-7.7); Neutrophils % 60.5 %; Nucleated Red Blood Cells % 0 %; Platelet Count 143 10^3/cmm (157-399); Red Blood Count 3.61 10^6/uL (3.85-5.65); Red Cell Distribution Width 17.8 % (12.1-15.1); White Blood Count 3.01 10^3/uL (3.29-11.43)
[2024-12-04 08:53] LABS: Alanine Aminotransferase 19 U/L (0-33); Albumin Level 3.5 g/dL (3.5-5.2); Alkaline Phosphatase 171 U/L (35-105); Anion Gap 14.8 (5-19); Aspartate Amino Transferase 22 U/L (0-32); Blood Urea Nitrogen 5 mg/dL (8-23); Carbon Dioxide 26 mmol/L (22-29); Chloride 102 mmol/L (98-107); Globulin 3.1 g/dL (1.3-4.6); Glucose 118 mg/dL (65-115); Osmolality Calculated 286 mOsm/kg (285-295); Potassium 3.8 mmol/L (3.5-5.1); Sodium 139 mmol/L (136-145); Total Bilirubin 0.6 mg/dL (0.15-1.2); Total Protein 6.6 g/dL (6.6-8.7)
[2024-12-04 10:18] LABS: Reticulocyte % 4.2 % (0.5-2.0)
[2024-12-04] MEDS: palonosetron 0.25 mg/5 mL SDV IVP (10:25)
[2024-12-04] MEDS: dexamethasone 4 mg/mL INJ 5 mL 12 MG IVP (10:26)
[2024-12-04] MEDS: SODIUM CHLORIDE 0.9% IV (11:07)
[2024-12-04] MEDS: BEVACIZUMAB AWWB IV (11:07)
[2024-12-04 11:26] LABS: Folate Level > 20.0 ng/mL (4.8-37.3)
[2024-12-04 11:39] LABS: Iron 75 ug/dL (37-145); Lactate Dehydrogenase 199 U/L (135-214); Percent Saturation 27.6 % (20-50); Total Iron Binding Capacity 271 mcg/dl; Unsaturated Iron Binding 196 ug/dL (112-347)
[2024-12-04] MEDS: leucovorin 800 MG in dextrose 5% 250 ML 166.67 MG IV (11:48)
[2024-12-04] MEDS: IRINOTECAN IV (11:49)
[2024-12-04] MEDS: DEXTROSE 5% IV (11:49)
[2024-12-04 11:55] LABS: Vitamin B12 245 pg/mL (232-1245)
[2024-12-04] MEDS: famotidine 20 mg/2 mL INJ IVP (13:11)
[2024-12-04] MEDS: aprepitant 130 mg/18 ml SDV IVP (13:52)
[2024-12-04] MEDS: fluorouraciL 4,850 MG in elastomeric pump 1 PUMP IV (14:00)
[2024-12-04 14:18] VITALS: BP 147/89; PULSE 74; TEMP 36.1; O2SAT 91
[2024-12-18 08:20] VITALS: BP 163/109; PULSE 82; RESP 16; TEMP 36.3; O2SAT 93
[2024-12-18 08:35] LABS: Basophils % 0.9 %; Eosinophils # 0.1 10^3/uL (0.0-0.8); Eosinophils % 5.6 %; Hematocrit 34.8 % (36-47); Lymphocytes # 0.6 10^3/uL (0.8-4.8); Lymphocytes % 23.6 %; Mean Corpuscular HGB Conc 31.9 g/dL (30-55); Mean Corpuscular Hemoglobin 32.4 pg (27-33); Mean Corpuscular Volume 101.5 fl (85-98); Mean Platelet Volume 12.6 fL (7.4-10.4); Monocytes # 0.4 10^3/uL (0.2-0.9); Monocytes % 15.9 %; Neutrophils # 1.25 10^3/uL (1.8-7.7); Neutrophils % 53.6 %; Nucleated Red Blood Cells % 0 %; Platelet Count 124 10^3/cmm (157-399); Red Blood Count 3.43 10^6/uL (3.85-5.65); Red Cell Distribution Width 18.3 % (12.1-15.1); White Blood Count 2.33 10^3/uL (3.29-11.43)
[2024-12-18 09:01] LABS: Carcinoembryonic Antigen 142.9 ng/mL (0.0-4.7)
[2024-12-18 09:12] LABS: Alanine Aminotransferase 29 U/L (0-33); Albumin Level 3.7 g/dL (3.5-5.2); Alkaline Phosphatase 199 U/L (35-105); Anion Gap 16.1 (5-19); Aspartate Amino Transferase 30 U/L (0-32); Blood Urea Nitrogen 7 mg/dL (8-23); Calcium 8.9 mg/dL (8.5-10.5); Carbon Dioxide 25 mmol/L (22-29); Chloride 101 mmol/L (98-107); Creatinine Clr Calc Pharmacy 129.5083; Glomerular Filtration Rate 125.9 mL/min (90-130); Glucose 136 mg/dL (65-115); Lactate Dehydrogenase 210 U/L (135-214); Osmolality Calculated 286 mOsm/kg (285-295); Potassium 4.1 mmol/L (3.5-5.1); Sodium 138 mmol/L (136-145); Total Bilirubin 0.3 mg/dL (0.15-1.2); Total Protein 6.7 g/dL (6.6-8.7)
[2025-01-01 10:04] LABS: Basophils % 0.7 %; Eosinophils # 0.2 10^3/uL (0.0-0.8); Eosinophils % 2.8 %; Hematocrit 39.8 % (36-47); Lymphocytes # 0.8 10^3/uL (0.8-4.8); Lymphocytes % 14.5 %; Mean Corpuscular HGB Conc 31.9 g/dL (30-55); Mean Corpuscular Hemoglobin 31.8 pg (27-33); Mean Corpuscular Volume 99.5 fl (85-98); Mean Platelet Volume 11.2 fL (7.4-10.4); Monocytes # 0.8 10^3/uL (0.2-0.9); Monocytes % 13.3 %; Neutrophils # 3.96 10^3/uL (1.8-7.7); Neutrophils % 68.4 %; Nucleated Red Blood Cells % 0 %; Platelet Count 171 10^3/cmm (157-399); Red Cell Distribution Width 16.6 % (12.1-15.1); White Blood Count 5.79 10^3/uL (3.29-11.43)
[2025-01-01 10:36] LABS: Carcinoembryonic Antigen 246.1 ng/mL (0.0-4.7)
[2025-01-01 10:47] LABS: Alanine Aminotransferase 34 U/L (0-33); Albumin Level 3.8 g/dL (3.5-5.2); Alkaline Phosphatase 255 U/L (35-105); Anion Gap 14.7 (5-19); Aspartate Amino Transferase 37 U/L (0-32); Blood Urea Nitrogen 10 mg/dL (8-23); Calcium 9.4 mg/dL (8.5-10.5); Carbon Dioxide 28 mmol/L (22-29); Chloride 95 mmol/L (98-107); Creatinine Clr Calc Pharmacy 106.7808; Globulin 3.7 g/dL (1.3-4.6); Glucose 123 mg/dL (65-115); Osmolality Calculated 278 mOsm/kg (285-295); Potassium 3.7 mmol/L (3.5-5.1); Sodium 134 mmol/L (136-145); Total Bilirubin 0.6 mg/dL (0.15-1.2); Total Protein 7.5 g/dL (6.6-8.7)
== END 2025-01-01 23:59 | disposition home or self-care (01) ==
PROVIDERS: Internal Medicine; Internal Medicine Medical Oncology; Nurse Practitioner Family; PCP Family Medicine; Visit Provider Radiology Radiation Oncology
DX: Z53.9 Procedure and treatment not carried out, unspecified reason (principal); C18.9 Malignant neoplasm of colon, unspecified; C79.51 Secondary malignant neoplasm of bone
CPT/HCPCS: 36591; 80053; 82378; 82607; 82746; 83010; 83036; 83540; 83550; 83615; 85025; 85045; 87880; 96368; 96375; 96413; 96415; 96416; 96523; J0185; J0640; J1100; J2469; J3490; J7060; J9190; J9206; Q5107

== ENCOUNTER 2025-01-29 11:03 | Oncology outpatient (recurring) (ONCR) | payer MEDICAID, SELFPAY | END 2025-02-01 23:59 | disposition home or self-care (01) | PROVIDERS: PCP Family Medicine; Visit Provider Radiology Radiation Oncology | DX: Z53.9 Procedure and treatment not carried out, unspecified reason (principal) ==

== ENCOUNTER 2025-02-06 12:28 | Emergency (ER) | payer MEDICAID, SELFPAY ==
[2025-02-06 12:41] VITALS: BP 117/76; PULSE 77; RESP 16; TEMP 36.3; O2SAT 94; BMI 32.4
--- NOTE | 2025-02-06 13:23 | CT_ITS ---
WS: [id number] CT HEAD TECHNIQUE: Noncontrast CT of the head obtained from the skullbase to the vertex. CLINICAL INFORMATION: Facial Twitching COMPARISON: 12/25/2024 DLP: 1080.[address] scans at [facility] use at least one of these dose optimization techniques: automated exposure control; mA and/or kV adjustment per patient size (includes targeted exams where dose is matched to clinical indication); or iterative reconstruction. FINDINGS: No evidence of intracranial hemorrhage or mass effect. Ventricular system and basal cisterns are patent. Mild small vessel changes with mild parenchymal volume loss. No extra-axial fluid collections. No evidence of mass or mass effect. Several small chronic lacunar infarcts in the LEFT greater than RIGHT cerebellum. Vascular calcification. Trace fluid LEFT maxillary sinus. Mild mucosal thickening ethmoid air cells. Mastoid air cells are well aerated. Normal posterior nasopharynx. CT/CT head wo con* [id number] IMPRESSION: 1. No evidence of intracranial hemorrhage or mass effect. 2. Several small chronic lacunar infarcts in the LEFT greater than RIGHT cereb ellum. 3. Vascular calcification. 4. No acute intracranial findings.
[2025-02-06 13:38] LABS: Hematocrit 38.2 % (36-47); Mean Corpuscular HGB Conc 31.4 g/dL (30-55); Mean Corpuscular Hemoglobin 31.1 pg (27-33); Mean Platelet Volume 10.7 fL (7.4-10.4); Platelet Count 87 10^3/cmm (157-399); Red Blood Count 3.86 10^6/uL (3.85-5.65); White Blood Count 5.61 10^3/uL (3.29-11.43)
[2025-02-06 13:52] LABS: Alanine Aminotransferase 32 U/L (0-33); Albumin Level 3.5 g/dL (3.5-5.2); Alkaline Phosphatase 224 U/L (35-105); Anion Gap 14.1 (5-19); Aspartate Amino Transferase 43 U/L (0-32); Blood Urea Nitrogen 12 mg/dL (8-23); Calcium 8.9 mg/dL (8.5-10.5); Carbon Dioxide 29 mmol/L (22-29); Chloride 96 mmol/L (98-107); Creatinine Clr Calc Pharmacy 105.6386; Globulin 3.5 g/dL (1.3-4.6); Glucose 84 mg/dL (65-115); Magnesium 1.9 mg/dL (1.7-2.3); Osmolality Calculated 279 mOsm/kg (285-295); Potassium 4.1 mmol/L (3.5-5.1); Sodium 135 mmol/L (136-145); Total Bilirubin 0.3 mg/dL (0.15-1.2)
[2025-02-06 14:11] LABS: Absolute Segmented Neutrophil 4.2 10/cmm (1.6-7.1); Band Neutrophils Absolute 0.2 10^3/cmm (0.0-1.2); Eosinophils 0 %; Lymphocytes 13 %; Lymphocytes Absolute 0.7 10^3/cmm (1.2-3.4); Monocytes Absolute 0.2 10^3/cmm (0.1-0.6); Segmented Neutrophils 75 %; Slide Review Slide Review Perform; Total Cells Counted 100 (0-100)
[2025-02-06 14:12] LABS: Absolute Neutrophil 4.4 10^3/cmm (1.4-6.5); Anisocytosis 1+; Giant Platelets Trace; Platelet Estimate Decreased (Normal)
[2025-02-06 14:17] VITALS: BP 139/86; RESP 17; O2SAT 90
[2025-02-06 15:00] VITALS: BP 145/91; RESP 18; O2SAT 93
--- NOTE | 2025-02-06 15:13 | W.ED.NEUROSD ---
HPI - Neuro Symptoms/Deficit General: Chief Complaint: Neuro Symptoms/Deficit Stated Complaint: right hand drawing up, drooling out of mouth Time Seen by Provider: 02/06/25 12:52 History of Present Illness: This patient is a 59-year-old white female who presents to the emergency department stating that she has been having episodes of her lips twitching and her lower lip drawing up. She states she has also had some drawing up of her right hand. Symptoms been going on for a few days. Patient states she has had similar symptoms in the past following chemotherapy treatment. She did have chemo on Monday. She states she is having several of these episodes per day. No chest pain. She does have chronic shortness of breath secondary to COPD. She does have colon cancer with metastasis. Related Data Home Medications ?Medication ?Instructions ?Recorded ?Confirmed acetaminophen 325 mg tablet 325 mg PO QID PRN pain or fever 09/14/24 01/31/25 (Tylenol) atorvastatin 20 mg tablet 20 mg PO BEDTIME 09/14/24 01/31/25 tiotropium bromide 2.5 2 puff inhalation DAILY 09/14/24 01/31/25 mcg/actuation mist for inhalation (Spiriva Respimat) pantoprazole 20 mg tablet,delayed 20 mg PO DAILY 09/26/24 01/31/25 release Previous Rx's ?Medication ?Instructions ?Recorded lancets 28 gauge (Comfort EZ #100 ea 01/15/20 Lancets) blood sugar diagnostic (Contour #100 ea 02/17/23 Next Test Strips) CPAP 6-16 cm with mask and supplies #1 ea 05/30/23 test strips #100 ea 08/01/23 sennosides 8.6 mg-docusate sodium 2 tab-cap (2 x 8.6-50 mg) PO BID 10/07/23 50 mg tablet (Senna-S) PRN constipation #30 tabs lidocaine-prilocaine 2.5 %-2.5 % 1 applic topical DIRECTED #30 11/29/23 topical cream grams blood sugar diagnostic (OneTouch #100 strips 05/08/24 Verio test strips) ondansetron 8 mg disintegrating 8 mg PO Q8H PRN nausea and 06/12/24 tablet vomiting #30 tabs prochlorperazine 25 mg rectal 25 mg MS Q12H PRN nausea and 06/14/24 suppository (Compazine) vomiting #12 ea promethazine 25 mg rectal 25 mg MS Q6H PRN nausea and 07/12/24 suppository vomiting #12 ea albuterol sulfate 2.5 mg/3 mL 2.5 mg (3 mL) inhalation Q6H PRN 07/23/24 (0.083 %) solution for nebulization shortness of breath or wheezing #180 mL albuterol sulfate 90 mcg/actuation 2 puff inhalation Q6H PRN 07/23/24 aerosol inhaler shortness of breath or wheezing #8.5 grams ropinirole 0.5 mg tablet 0.5 mg PO BID 90 days #180 tabs 07/23/24 famotidine 20 mg tablet 20 mg PO BID breakthrough 07/24/24 heartburn #60 tabs naloxone 4 mg/actuation nasal 1 spray intranasal Q2M PRN opioid 09/14/24 spray (Narcan) overdose #2 ea oxycodone 10 mg tablet,crush 10 mg PO BID #30 tabs 09/14/24 resistant,extended release 12 hr ipratropium 0.5 mg-albuterol 3 mg 3 ml inhalation Q6H PRN wheezing 09/26/24 (2.5 mg base)/3 mL nebulization and shortness of breath #180 mL soln Oxygen #1 ea 09/30/24 lactulose 20 gram/30 mL oral 20 g (30 mL) PO Q2H PRN 10/09/24 solution constipation #1,200 mL oxycodone 5 mg tablet 5 mg PO Q6H PRN pain 30 days #120 11/01/24 tabs fluticasone propionate 50 2 spray intranasal DAILY #16 grams 12/06/24 mcg/actuation nasal spray,suspension (Flonase Allergy Relief) budesonide-formoterol HFA 160 See Rx Instructions .Route 12/16/24 mcg-4.5 mcg/actuation aerosol .COMPLEX #10.2 grams inhaler (Symbicort) sucralfate 1 gram tablet (Carafate) 1 g PO .every 6 hours #12 tabs 12/17/24 clonidine HCl 0.1 mg tablet 0.1 mg PO TID PRN BP >180/110 #14 12/27/24 tabs potassium chloride 10 mEq See Rx Instructions .Route 12/30/24 tablet,extended release .COMPLEX #30 tabs sitagliptin phosphate 50 mg tablet 50 mg PO DAILY #90 tabs 01/21/25 (Januvia) ondansetron HCl 4 mg tablet 4 mg PO Q6H PRN nausea and 01/29/25 vomiting #30 tabs prochlorperazine maleate 10 mg 10 mg PO Q4H PRN Mild Nausea #30 01/29/25 tablet (Compazine) tabs amlodipine 5 mg tablet 5 mg PO .qhs #30 tabs 01/31/25 hydrochlorothiazide 25 mg tablet 25 mg PO QAM #30 tabs 01/31/25 Allergies Allergy/AdvReac Type Severity Reaction Status Date / Time Cephalosporins Allergy itching Verified 01/31/25 11:20 Penicillins Allergy ALGY-Rash Verified 01/31/25 11:20 Review of Systems General: Reports: 10 or more systems reviewed and unremarkable except in HPI and below ENMT: Reports: other (Lips twitching) PFS ED PFSH: Medical History COPD (chronic obstructive pulmonary disease) Colon cancer Obstructive sleep apnea GERD (gastroesophageal reflux disease) Type 2 diabetes mellitus, without long-term current use of insulin Reducible umbilical hernia Surgical History Port-A-Cath in place H/O tubal ligation Family History Father COPD (chronic obstructive pulmonary disease) Lung disease Mother CAD (coronary artery disease) Grandfather CAD (coronary artery disease) Cancer Skin cancer Brother Diabetes Sister Cancer Lung cancer Grandmother Lung disease Other Hypertension Denies family history of Clotting disorder Dementia Hyperlipidemia Psychiatric illness Chronic kidney disease (CKD) Suicide Anesthesia complication Bleeding disorder Stroke Social History Smoking and tobacco/nicotine status: former use of tobacco/nicotine Second hand smoke exposure: No Alcohol intake: never Substance/Drug Use: never Lives independently: Yes Household members: children Current occupational status: employed Do you think of yourself as: Straight/Heterosexual Current gender identity: Female Physical Exam Const: COMMON NORMALS: no acute distress, patient oriented x3 and no limitations GENERAL APPEARANCE: cooperative and comfortable HENMT: COMMON NORMALS: normocephalic, atraumatic, Normal nasal mucous membranes and turbinates present, moist oral mucous membranes and oropharynx normal HEAD & SCALP: normal to inspection, normocephalic and atraumatic FACE & SINUS: normal facial exam NOSE: Normal nasal mucous membranes and turbinates present Eye: COMMON NORMALS: Equal, round and reactive pupils present, EOMs intact bilaterally and conjunctivae normal GENERAL EYE: appearance normal, both eyes and all related structures CONJUNCTIVA: Yes conjunctivae normal PUPIL: Yes Equal, round and reactive pupils present Neck/C-Spine: COMMON NORMALS: supple and no JVD Chest: COMMONS NORMALS: normal inspection of the chest Resp: COMMON NORMALS: normal respiratory effort and clear to auscultation bilaterally AUSCULTATION: clear to auscultation bilaterally Cardio: COMMON NORMALS: no JVD, regular rate, regular rhythm, No gallops present (Cardio), No murmurs present (Cardio) and No rub (Cardio) RATE: regular rate RHYTHM: regular rhythm GI: COMMON NORMALS: Normal to inspection, nondistended, normoactive bowel sounds present, Soft to palpation and non-tender AUSCULTATION: Yes normoactive bowel sounds PALPATION: Yes Soft to palpation : COMMON NORMALS: Yes no CVA tenderness BLADDER/KIDNEY EXAM: Yes no CVA tenderness Back/Pelvis: COMMON NORMALS: no CVA tenderness and thoracic and lumbar spine normal to inspection Extremity: COMMON NORMALS: normal to inspection Neuro: COMMON NORMALS: patient oriented x3 and CN's II-XII intact bilaterally Psych: COMMON NORMALS: mental status grossly normal, Normal thought process present and cooperative THOUGHT PROCESS: Normal thought process present Skin: COMMON NORMALS: no rashes or lesions noted, turgor normal and no jaundice GENERAL SKIN EXAM: no rashes or lesions noted and turgor normal Course Vital Signs: Vital signs: Vital Signs Temperature 97.4 F L 02/06/25 12:41 Pulse Rate 77 02/06/25 12:41 Respiratory Rate 18 02/06/25 15:00 Blood Pressure 145/91 02/06/25 15:00 Pulse Oximetry 93 02/06/25 15:00 Oxygen Delivery Me thod Room Air 02/06/25 15:00 MDM - Neuro Symptoms/Deficit Medical Decision Making CBC was normal except for platelet count of 87. CMP was normal except for alk phos of 224. Both of these are chronic. Head CT was read by the radiologist. She does have some small lacunar infarcts. Nothing acute. Not sure what is causing her symptoms. May be related to her chemotherapy. I recommended she discuss this with her oncologist as well as her primary care physician and she may need referral to neurology for further evaluation. She was discharged in stable condition. Lab Data 02/06/25 13:31 02/06/25 13:[address] 02/06/25 13:23 IMPRESSION: 1. No evidence of intracranial hemorrhage or mass effect. 2. Several small chronic lacunar infarcts in the LEFT greater than RIGHT cerebellum. 3. Vascular calcification. 4. No acute intracranial findings. Laboratory Results WBC 5.61 10^3/uL (3.29-11.43) 02/06/25 13:31 RBC 3.86 10^6/uL (3.85-5.65) 02/06/25 13:31 Hgb 12.00 g/dL (11.27-16.99) 02/06/25 13:31 Hct 38.2 % (36-47) 02/06/25 13:31 MCV 99.0 fl (85-98) H 02/06/25 13:31 MCH 31.1 pg (27-33) 02/06/25 13:31 MCHC 31.4 g/dL (30-55) 02/06/25 13:31 RDW 17.0 % (12.1-15.1) H 02/06/25 13:31 Plt Count 87 10^3/cmm (157-399) L 02/06/25 13:31 MPV 10.7 fL (7.4-10.4) H 02/06/25 13:31 Lymph % (Auto) Not Reportable 02/06/25 13:31 [place] % (Auto) Not Reportable 02/06/25 13:31 Lymph # (Auto) Not Reportable 02/06/25 13:31 [place] # (Auto) Not Reportable 02/06/25 13:31 Total Counted 100 (0-100) 02/06/25 13:31 Atypical Lymphs % 0.0 % (0-5) 02/06/25 13:31 Absolute Neutrophils 4.4 10^3/cmm (1.4-6.5) 02/06/25 13:31 Segmented Neutrophils 75 % 02/06/25 13:31 Band Neutrophils 3.0 % 02/06/25 13:31 Absolute Lymphocytes 0.7 10^3/cmm (1.2-3.4) L 02/06/25 13:31 Lymphocytes (Manual) 13 % 02/06/25 13:31 Monocytes (Manual) 4.0 % 02/06/25 13:31 Absolute Monocytes 0.2 10^3/cmm (0.1-0.6) 02/06/25 13:31 Eosinophils (Manual) 0 % 02/06/25 13:31 Absolute Eosinophils 0.0 10^3/cmm (0.0-0.7) 02/06/25 13:31 Basophils (Manual) 0.0 % 02/06/25 13:31 Absolute Basophils 0.0 10^3/cmm (0.0-0.2) 02/06/25 13:31 Metamyelocytes 4.0 % 02/06/25 13:31 Nucleated RBCs 1.0 /100WBC (0-1) 02/06/25 13:31 Platelet Estimate Decreased (Normal) L 02/06/25 13:31 Giant Platelets Trace 02/06/25 13:31 Anisocytosis 1+ H 02/06/25 13:31 Sodium 135 mmol/L (136-145) L 02/06/25 13:31 Potassium 4.1 mmol/L (3.5-5.1) 02/06/25 13:31 Chloride 96 mmol/L (98-107) L 02/06/25 13:31 Carbon Dioxide 29 mmol/L (22-29) 02/06/25 13:31 Anion Gap 14.1 (5-19) 02/06/25 13:31 BUN 12 mg/dL (8-23) 02/06/25 13:31 Creatinine 0.6 mg/dL (0.5-0.9) 02/06/25 13:31 GFR Calculation 102.0 mL/min (90-130) 02/06/25 13:31 Glucose 84 mg/dL (65-115) 02/06/25 13:31 Calculated Osmolality 279 mOsm/kg (285-295) L 02/06/25 13:31 Calcium 8.9 mg/dL (8.5-10.5) 02/06/25 13:31 Magnesium 1.9 mg/dL (1.7-2.3) 02/06/25 13:31 Total Bilirubin 0.3 mg/dL (0.15-1.2) 02/06/25 13:31 AST 43 U/L (0-32) H 02/06/25 13:31 ALT 32 U/L (0-33) 02/06/25 13:31 Alkaline Phosphatase 224 U/L (35-105) H 02/06/25 13:31 Total Protein 7.0 g/dL (6.6-8.7) 02/06/25 13:31 Albumin 3.5 g/dL (3.5-5.2) 02/06/25 13:31 Globulin 3.5 g/dL (1.3-4.6) 02/06/25 13:31 All radiology interpretation(s) finalized by discharge Discharge Plan Discharge Patient Disposition: Home Clinical Impression: Muscle twitching Condition: Stable Prescriptions: No Action (DME) CPAP 6-16 cm with mask and supplies See Rx Instructions .Route .MEDSUPPLY Qty: 1 0RF Rx Instructions: As directed lidocaine-prilocaine 2.5-2.5 % cream 1 applic topical DIRECTED Qty: 30 2RF Rx Instructions: quarter size amount over port site 30-45 min prior to access, cover with plastic plastic wrap amlodipine 5 mg tablet 5 mg PO .qhs Qty: 30 5RF hydrochlorothiazide 25 mg tablet 25 mg PO QAM Qty: 30 5RF (DME) Contour Next Test Strips Strip See Rx Instructions .ROUTE .MEDSUPPLY Qty: 100 5RF Rx Instructions: three times daily albuterol sulfate 90 mcg/actuation HFA aerosol inhaler 2 puff inhalation Q6H PRN (Reason: shortness of breath or wheezing) Qty: 8.5 3RF albuterol sulfate 2.5 mg /3 mL (0.083 %) solution for nebulization 2.5 mg INHALATION Q6H PRN (Reason: shortness of breath or wheezing) Qty: 180 3RF ropinirole 0.5 mg tablet 0.5 mg PO BID 90 Days Qty: 180 2RF ondansetron 8 mg tablet,disintegrating 8 mg PO Q8H PRN (Reason: nausea and vomiting) Qty: 30 2RF famotidine 20 mg tablet 20 mg PO BID Qty: 60 2RF pantoprazole 20 mg tablet,delayed release (DR/EC) 20 mg PO DAILY ipratropium-albuterol 0.5 mg-3 mg(2.5 mg base)/3 mL solution for nebulization 3 ml inhalation Q6H PRN (Reason: wheezing and shortness of breath) Qty: 180 0RF lactulose 20 gram/30 mL solution 20 g PO Q2H PRN (Reason: constipation) Qty: 1200 2RF Rx Instructions: Take every 2 hours until bowel movement; may repeat if no bowel movement after 3 days fluticasone propionate [Flonase Allergy Relief] 50 mcg/actuation spray,suspension 2 spray intranasal DAILY Qty: 16 3RF Rx Instructions: administer into each nostril clonidine HCl 0.1 mg tablet 0.1 mg PO TID PRN (Reason: BP >180/110) Qty: 14 0RF (DME) lancets [Comfort EZ Lancets] 28 gauge misc See Rx Instructions .ROUTE .MEDSUPPLY Qty: 100 2RF Rx Instructions: once daily (DME) test strips See Rx Instructions .Route .MEDSUPPLY Qty: 100 0RF Rx Instructions: use 2 times daily As directed (DME) OneTouch Verio test strips Strip See Rx Instructions .ROUTE .COMPLEX Qty: 100 0RF Dose Instruction: USE 2 TIMES DAILY DIRECTED Rx Instructions: USE 2 TIMES DAILY DIRECTED prochlorperazine [Compazine] 25 mg suppository 25 mg MS Q12H PRN (Reason: nausea and vomiting) Qty: 12 1RF promethazine 25 mg suppository 25 mg MS Q6H PRN (Reason: nausea and vomiting) Qty: 12 1RF (DME) Oxygen See Rx Instructions .Route .MEDSUPPLY Qty: 1 0RF Rx Instructions: Continuous use of oxygen at 3L to keep oxygen saturation >92%. Bleed into CPAP overnight. oxycodone 5 mg tablet 5 mg PO Q6H PRN (Reason: pain) 30 Days Qty: 120 0RF budesonide-formoterol [Symbicort] 160-4.5 mcg/actuation HFA aerosol inhaler See Rx Instructions .ROUTE .COMPLEX Qty: 10.2 6RF Dose Instruction: INHALE 2 PUFFS BY MOUTH TWICE DAILY Rx Instructions: INHALE 2 PUFFS BY MOUTH TWICE DAILY sucralfate [Carafate] 1 gram tablet 1 g PO .every 6 hours Qty: 12 0RF Rx Instructions: Every 6 hours - mix with 15 ml of water potassium chloride 10 mEq tablet extended release See Rx Instructions .ROUTE .COMPLEX Qty: 30 1RF Dose Instruction: TAKE 1 TABLET BY MOUTH DAILY Rx Instructions: TAKE 1 TABLET BY MOUTH DAILY Januvia 50 mg tablet 50 mg PO DAILY Qty: 90 0RF prochlorperazine maleate [Compazine] 10 mg tablet 10 mg PO Q4H PRN (Reason: Mild Nausea) Qty: 30 3RF ondansetron HCl 4 mg tablet 4 mg PO Q6H PRN (Reason: nausea and vomiting) Qty: 30 3RF sennosides-docusate sodium [Senna-S] 8.6-50 mg tablet 2 tab-cap PO BID PRN (Reason: constipation) Qty: 30 0RF atorvastatin 20 mg tablet 20 mg PO BEDTIME Rx Instructions: TAKE ONE TABLET BY MOUTH DAILY AT BEDTIME Spiriva Respimat 2.5 mcg/actuation mist 2 puff inhalation DAILY Rx Instructions: 2 PUFF(S) DAILY FOR 30 DAYS acetaminophen [Tylenol] 325 mg Tablet 325 mg PO QID PRN (Reason: pain or fever ) oxycodone 10 mg tablet,oral only,ext.rel.12 hr 10 mg PO BID Qty: 30 0RF naloxone [Narcan] 4 mg/actuation spray,non-aerosol 1 spray intranasal Q2M PRN (Reason: opioid overdose) Qty: 2 0RF Rx Instructions: spray 1 dose into ONE nostril; alternate nostrils w each dose until help arrives Discharge Orders: Discharge ED (Routine); Ordered 02/06/25 Ordered By: Kristofer Weeks Referrals: Ann Pinon DO [Primary Care Provider, Family Practice] Activity Restrictions/Additional Instructions: Discussed these symptoms with your oncologist to see if they might be secondary to the chemotherapy. Print Language: Macanese Coding Level of Care Code ED Medical Sales Associate for Connie Holliday
[2025-02-06 15:26] VITALS: BP 124/82; PULSE 83; O2SAT 94
== END 2025-02-06 15:27 | disposition home or self-care (01) ==
PROVIDERS: Emergency Provider Emergency Medicine; PCP Family Medicine
DX: R25.3 Fasciculation (principal); Z87.891 Personal history of nicotine dependence; E11.9 Type 2 diabetes mellitus without complications; J44.9 Chronic obstructive pulmonary disease, unspecified; Z85.038 Personal history of other malignant neoplasm of large intestine
CPT/HCPCS: 36415; 70450; 80053; 83735; 85007; 85025; 99284

== ENCOUNTER 2025-02-19 07:30 | Oncology outpatient (recurring) (ONCR) | payer MEDICAID, SELFPAY ==
[2025-02-03 08:28] LABS: Basophils % 0.2 %; Eosinophils % 0.2 %; Lymphocytes # 1.7 10^3/uL (0.8-4.8); Lymphocytes % 10.6 %; Mean Corpuscular HGB Conc 31.6 g/dL (30-55); Mean Corpuscular Hemoglobin 31.3 pg (27-33); Mean Corpuscular Volume 99.2 fl (85-98); Mean Platelet Volume 11.7 fL (7.4-10.4); Monocytes # 1.6 10^3/uL (0.2-0.9); Monocytes % 10.2 %; Neutrophils # 10.47 10^3/uL (1.8-7.7); Neutrophils % 65.1 %; Nucleated Red Blood Cells # 0.1 /100WBC; Nucleated Red Blood Cells % 0.4 %; Platelet Count 162 10^3/cmm (157-399); Red Blood Count 3.83 10^6/uL (3.85-5.65); Red Cell Distribution Width 16.9 % (12.1-15.1); White Blood Count 16.09 10^3/uL (3.29-11.43)
[2025-02-03 08:44] LABS: Alanine Aminotransferase 18 U/L (0-33); Albumin Level 3.4 g/dL (3.5-5.2); Alkaline Phosphatase 262 U/L (35-105); Anion Gap 14.9 (5-19); Aspartate Amino Transferase 29 U/L (0-32); Blood Urea Nitrogen 7 mg/dL (8-23); Calcium 9.2 mg/dL (8.5-10.5); Carbon Dioxide 27 mmol/L (22-29); Chloride 98 mmol/L (98-107); Globulin 3.7 g/dL (1.3-4.6); Glomerular Filtration Rate 85.4 mL/min (90-130); Glucose 110 mg/dL (65-115); Osmolality Calculated 281 mOsm/kg (285-295); Potassium 3.9 mmol/L (3.5-5.1); Sodium 136 mmol/L (136-145); Total Bilirubin 0.3 mg/dL (0.15-1.2); Total Protein 7.1 g/dL (6.6-8.7)
[2025-02-03 08:57] LABS: Slide Review Slide Review Perform
[2025-02-19 07:54] LABS: Basophils % 0.9 %; Eosinophils # 0.1 10^3/uL (0.0-0.8); Eosinophils % 2.3 %; Hematocrit 33.9 % (36-47); Lymphocytes # 0.7 10^3/uL (0.8-4.8); Lymphocytes % 20.7 %; Mean Corpuscular HGB Conc 32.2 g/dL (30-55); Mean Corpuscular Hemoglobin 31.2 pg (27-33); Mean Corpuscular Volume 97.1 fl (85-98); Mean Platelet Volume 12.5 fL (7.4-10.4); Monocytes # 0.5 10^3/uL (0.2-0.9); Neutrophils # 2.07 10^3/uL (1.8-7.7); Neutrophils % 59.7 %; Nucleated Red Blood Cells % 0 %; Platelet Count 102 10^3/cmm (157-399); Red Blood Count 3.49 10^6/uL (3.85-5.65); Red Cell Distribution Width 17.6 % (12.1-15.1); White Blood Count 3.47 10^3/uL (3.29-11.43)
[2025-02-19 08:12] LABS: Alanine Aminotransferase 26 U/L (0-33); Albumin Level 3.2 g/dL (3.5-5.2); Alkaline Phosphatase 198 U/L (35-105); Anion Gap 15.9 (5-19); Aspartate Amino Transferase 26 U/L (0-32); Blood Urea Nitrogen 9 mg/dL (8-23); Calcium 8.8 mg/dL (8.5-10.5); Carbon Dioxide 25 mmol/L (22-29); Chloride 101 mmol/L (98-107); Creatinine Clr Calc Pharmacy 129.5083; Globulin 3.8 g/dL (1.3-4.6); Glomerular Filtration Rate 125.9 mL/min (90-130); Glucose 126 mg/dL (65-115); Lactate Dehydrogenase 220 U/L (135-214); Osmolality Calculated 286 mOsm/kg (285-295); Potassium 3.9 mmol/L (3.5-5.1); Sodium 138 mmol/L (136-145); Total Bilirubin 0.3 mg/dL (0.15-1.2)
[2025-02-19 08:37] LABS: Carcinoembryonic Antigen 176.4 ng/mL (0.0-4.7)
[2025-02-19] MEDS: sodium chloride 0.9% 250 ML 25 ML IV (08:57)
[2025-02-19] MEDS: palonosetron 0.25 mg/5 mL SDV IVP (08:57)
[2025-02-19] MEDS: dexamethasone 4 mg/mL INJ 5 mL 12 MG IVP (09:00)
[2025-02-19] MEDS: SODIUM CHLORIDE 0.9% IV (09:17)
[2025-02-19] MEDS: BEVACIZUMAB BVZR IV (09:17)
[2025-02-19] MEDS: dextrose 5% 250 ML 75 ML IV (10:06)
[2025-02-19] MEDS: leucovorin 780 MG in dextrose 5% 250 ML 62.5 MG IV (10:06)
[2025-02-19] MEDS: oxaliplatin 140 MG in dextrose 5% 250 ML 46.33 MG IV (10:07)
[2025-02-19] MEDS: fluorouraciL 4,650 MG in elastomeric pump 1 PUMP IV (16:08)
[2025-02-19 16:26] VITALS: BP 146/80; PULSE 83; RESP 16; TEMP 36.6; O2SAT 98
== END 2025-03-03 23:59 | disposition home or self-care (01) ==
PROVIDERS: PCP Family Medicine; Visit Provider Internal Medicine
DX: C18.7 Malignant neoplasm of sigmoid colon; Z51.11 Encounter for antineoplastic chemotherapy; Z79.52 Long term (current) use of systemic steroids; Z79.631 Long term (current) use of antimetabolite agent; Z79.899 Other long term (current) drug therapy; Z53.9 Procedure and treatment not carried out, unspecified reason
CPT/HCPCS: 36415; 80053; 82378; 83615; 85025; 96368; 96375; 96413; 96415; 96416; 96417; J0640; J1100; J2469; J7050; J7060; J9190; J9263; Q5118

== ENCOUNTER 2025-03-24 09:02 | Oncology outpatient (recurring) (ONCR) | payer MEDICARE, MEDICAID, SELFPAY ==
[2025-03-05 08:46] LABS: Hematocrit 35.4 % (36-47); Hemoglobin 11.20 g/dL (11.27-16.99); Mean Corpuscular HGB Conc 31.6 g/dL (30-55); Mean Corpuscular Hemoglobin 30.8 pg (27-33); Mean Corpuscular Volume 97.3 fl (85-98); Nucleated Red Blood Cells % 0 %; Platelet Count 66 10^3/cmm (157-399); Red Blood Count 3.64 10^6/uL (3.85-5.65); White Blood Count 3.16 10^3/uL (3.29-11.43)
[2025-03-05 09:04] LABS: Alanine Aminotransferase 22 U/L (0-33); Albumin Level 3.4 g/dL (3.5-5.2); Alkaline Phosphatase 185 U/L (35-105); Aspartate Amino Transferase 27 U/L (0-32); Blood Urea Nitrogen 9 mg/dL (8-23); Calcium 8.8 mg/dL (8.5-10.5); Carbon Dioxide 26 mmol/L (22-29); Chloride 101 mmol/L (98-107); Creatinine Clr Calc Pharmacy 129.1652; Ferritin 125 ng/mL (15-150); Globulin 4.1 g/dL (1.3-4.6); Glucose 137 mg/dL (65-115); Iron 68 ug/dL (37-145); Osmolality Calculated 289 mOsm/kg (285-295); Sodium 139 mmol/L (136-145); Total Iron Binding Capacity 298 mcg/dl; Total Protein 7.5 g/dL (6.6-8.7); Unsaturated Iron Binding 230 ug/dL (112-347)
[2025-03-05 09:07] LABS: Anion Gap 15.8 (5-19); Potassium 3.8 mmol/L (3.5-5.1)
[2025-03-05 09:17] LABS: Glucose Urine UA Negative (Normal); Nitrate Urine Negative (Negative); Specific Gravity, Urine 1.019 (1.005-1.030)
[2025-03-05 09:18] LABS: Vitamin B12 298 pg/mL (232-1245)
[2025-03-05 09:19] LABS: Add Urine Microscopic? YES
[2025-03-10 08:36] LABS: Hematocrit 35.8 % (36-47); Hemoglobin 11.30 g/dL (11.27-16.99); Mean Corpuscular HGB Conc 31.6 g/dL (30-55); Mean Corpuscular Hemoglobin 30.8 pg (27-33); Mean Corpuscular Volume 97.5 fl (85-98); Nucleated Red Blood Cells % 0 %; Platelet Count 118 10^3/cmm (157-399); Red Blood Count 3.67 10^6/uL (3.85-5.65); White Blood Count 2.71 10^3/uL (3.29-11.43)
[2025-03-10 08:54] LABS: Alanine Aminotransferase 23 U/L (0-33); Albumin Level 3.3 g/dL (3.5-5.2); Alkaline Phosphatase 184 U/L (35-105); Anion Gap 11.9 (5-19); Aspartate Amino Transferase 27 U/L (0-32); Blood Urea Nitrogen 6 mg/dL (8-23); Calcium 8.9 mg/dL (8.5-10.5); Carbon Dioxide 26 mmol/L (22-29); Chloride 103 mmol/L (98-107); Creatinine Clr Calc Pharmacy 129.8505; Globulin 4.1 g/dL (1.3-4.6); Glucose 124 mg/dL (65-115); Osmolality Calculated 283 mOsm/kg (285-295); Potassium 3.9 mmol/L (3.5-5.1); Sodium 137 mmol/L (136-145); Total Protein 7.4 g/dL (6.6-8.7)
[2025-03-10] MEDS: dexamethasone 4 mg/mL INJ 5 mL 12 MG IVP (10:37)
[2025-03-10] MEDS: BEVACIZUMAB BVZR IV (10:53)
[2025-03-10] MEDS: SODIUM CHLORIDE 0.9% IV (10:53)
[2025-03-10] MEDS: leucovorin 780 MG in dextrose 5% 250 ML 46.7 MG IV (11:51)
[2025-03-10] MEDS: fluorouraciL 4,700 MG in elastomeric pump 1 PUMP IV (18:15)
[2025-03-10 18:27] VITALS: BP 128/89; PULSE 81; RESP 16; TEMP 36.4; O2SAT 93
[2025-03-17 09:42] LABS: Hematocrit 32.1 % (36-47); Hemoglobin 10.40 g/dL (11.27-16.99); Mean Corpuscular HGB Conc 32.4 g/dL (30-55); Mean Corpuscular Hemoglobin 31.0 pg (27-33); Mean Corpuscular Volume 95.5 fl (85-98); Nucleated Red Blood Cells % 0 %; Platelet Count 56 10^3/cmm (157-399); Red Blood Count 3.36 10^6/uL (3.85-5.65); White Blood Count 3.23 10^3/uL (3.29-11.43)
[2025-03-17 09:58] LABS: Estmated Average Glucose 134; Hemoglobin A1C 6.3 % (4.0-6.0)
[2025-03-17 10:11] LABS: Carcinoembryonic Antigen 177.1 ng/mL (0.0-4.7)
[2025-03-17 10:22] LABS: Alanine Aminotransferase 27 U/L (0-33); Albumin Level 3.2 g/dL (3.5-5.2); Alkaline Phosphatase 188 U/L (35-105); Anion Gap 11.5 (5-19); Aspartate Amino Transferase 33 U/L (0-32); Blood Urea Nitrogen 7 mg/dL (8-23); Calcium 8.7 mg/dL (8.5-10.5); Carbon Dioxide 27 mmol/L (22-29); Chloride 102 mmol/L (98-107); Creatinine Clr Calc Pharmacy 162.3132; Globulin 3.9 g/dL (1.3-4.6); Glucose 101 mg/dL (65-115); Osmolality Calculated 280 mOsm/kg (285-295); Potassium 4.5 mmol/L (3.5-5.1); Sodium 136 mmol/L (136-145); Total Protein 7.1 g/dL (6.6-8.7)
== END 2025-04-03 23:59 | disposition home or self-care (01) ==
PROVIDERS: Internal Medicine; Nurse Practitioner Family; PCP Family Medicine; Visit Provider Internal Medicine Medical Oncology
DX: C18.7 Malignant neoplasm of sigmoid colon (principal); C78.7 Secondary malignant neoplasm of liver and intrahepatic bile duct; C78.00 Secondary malignant neoplasm of unspecified lung; Z95.828 Presence of other vascular implants and grafts; Z87.891 Personal history of nicotine dependence; Z92.21 Personal history of antineoplastic chemotherapy; Z92.3 Personal history of irradiation
CPT/HCPCS: 36591; 80053; 81001; 82378; 82607; 82728; 82746; 83010; 83036; 83540; 83550; 83615; 85025; 96365; 96366; 96375; 96413; 96415; 96416; 96417; 99213; 99214; J0640; J1100; J2469; J7050; J7060; J9190; J9263; Q5118

== ENCOUNTER 2025-04-21 09:00 | Oncology outpatient (recurring) (ONCR) | payer MEDICARE, MEDICAID, SELFPAY ==
[2025-04-15 09:44] LABS: Hematocrit 32.9 % (36-47); Hemoglobin 10.80 g/dL (11.27-16.99); Mean Corpuscular HGB Conc 32.8 g/dL (30-55); Mean Corpuscular Hemoglobin 31.1 pg (27-33); Mean Corpuscular Volume 94.8 fl (85-98); Nucleated Red Blood Cells % 0 %; Platelet Count 121 10^3/cmm (157-399); Red Blood Count 3.47 10^6/uL (3.85-5.65); White Blood Count 4.65 10^3/uL (3.29-11.43)
[2025-04-15 10:11] LABS: Carcinoembryonic Antigen 235.0 ng/mL (0.0-4.7)
[2025-04-15 10:22] LABS: Alanine Aminotransferase 33 U/L (0-33); Albumin Level 3.1 g/dL (3.5-5.2); Alkaline Phosphatase 281 U/L (35-105); Anion Gap 13.9 (5-19); Aspartate Amino Transferase 43 U/L (0-32); Blood Urea Nitrogen 8 mg/dL (8-23); Calcium 8.8 mg/dL (8.5-10.5); Carbon Dioxide 27 mmol/L (22-29); Chloride 97 mmol/L (98-107); Creatinine Clr Calc Pharmacy 128.8230; Globulin 4.6 g/dL (1.3-4.6); Glucose 112 mg/dL (65-115); Osmolality Calculated 277 mOsm/kg (285-295); Potassium 3.9 mmol/L (3.5-5.1); Sodium 134 mmol/L (136-145); Total Protein 7.7 g/dL (6.6-8.7)
[2025-04-21 09:27] LABS: Hematocrit 31.7 % (36-47); Hemoglobin 10.00 g/dL (11.27-16.99); Mean Corpuscular HGB Conc 31.5 g/dL (30-55); Mean Corpuscular Hemoglobin 30.7 pg (27-33); Mean Corpuscular Volume 97.2 fl (85-98); Nucleated Red Blood Cells % 0 %; Platelet Count 124 10^3/cmm (157-399); Red Blood Count 3.26 10^6/uL (3.85-5.65); White Blood Count 3.24 10^3/uL (3.29-11.43)
[2025-04-21 09:46] LABS: Alanine Aminotransferase 27 U/L (0-33); Albumin Level 3.2 g/dL (3.5-5.2); Alkaline Phosphatase 261 U/L (35-105); Anion Gap 8.7 (5-19); Aspartate Amino Transferase 35 U/L (0-32); Blood Urea Nitrogen 10 mg/dL (8-23); Calcium 8.7 mg/dL (8.5-10.5); Carbon Dioxide 29 mmol/L (22-29); Chloride 97 mmol/L (98-107); Creatinine Clr Calc Pharmacy 128.8230; Globulin 3.9 g/dL (1.3-4.6); Glucose 112 mg/dL (65-115); Osmolality Calculated 272 mOsm/kg (285-295); Potassium 3.7 mmol/L (3.5-5.1); Sodium 131 mmol/L (136-145); Total Protein 7.1 g/dL (6.6-8.7)
[2025-04-21] MEDS: BEVACIZUMAB BVZR IV (11:56)
[2025-04-21] MEDS: SODIUM CHLORIDE 0.9% IV (11:56)
[2025-04-21 12:39] VITALS: BP 137/84; PULSE 77; RESP 18; TEMP 36.6; O2SAT 95
[2025-04-21 21:44] LABS: Carcinoembryonic Antigen 236.9 ng/mL (0.0-4.7)
== END 2025-05-04 23:59 | disposition home or self-care (01) ==
PROVIDERS: PCP Family Medicine; Visit Provider Internal Medicine Medical Oncology
DX: Z51.12 Encounter for antineoplastic immunotherapy; C18.7 Malignant neoplasm of sigmoid colon; C78.7 Secondary malignant neoplasm of liver and intrahepatic bile duct; C78.00 Secondary malignant neoplasm of unspecified lung; Z79.899 Other long term (current) drug therapy; Z95.828 Presence of other vascular implants and grafts; Z87.891 Personal history of nicotine dependence; Z53.9 Procedure and treatment not carried out, unspecified reason
CPT/HCPCS: 36415; 80053; 82378; 85025; 96413; 99214; J7050; Q5118

== ENCOUNTER 2025-05-20 13:00 | Oncology outpatient (recurring) (ONCR) | payer MEDICARE, MEDICAID, SELFPAY ==
[2025-05-06] MEDS: alteplase 1 mg/mL SDV 2 mL 2 MG INTRACATH (13:33)
[2025-05-06 13:37] LABS: Hematocrit 35.7 % (36-47); Hemoglobin 11.40 g/dL (11.27-16.99); Mean Corpuscular HGB Conc 31.9 g/dL (30-55); Mean Corpuscular Hemoglobin 31.5 pg (27-33); Mean Corpuscular Volume 98.6 fl (85-98); Nucleated Red Blood Cells % 0 %; Platelet Count 91 10^3/cmm (157-399); Red Blood Count 3.62 10^6/uL (3.85-5.65); White Blood Count 2.32 10^3/uL (3.29-11.43)
[2025-05-06 13:52] LABS: Glucose Urine UA Negative (Normal); Nitrate Urine Negative (Negative); Specific Gravity, Urine 1.026 (1.005-1.030)
[2025-05-06 13:55] LABS: Carcinoembryonic Antigen 346.8 ng/mL (0.0-4.7)
[2025-05-06 13:58] LABS: Add Urine Microscopic? YES
[2025-05-06 14:04] LABS: UA Slide Review UA Slide Review Perf
[2025-05-06 14:07] LABS: Alanine Aminotransferase 22 U/L (0-33); Albumin Level 3.4 g/dL (3.5-5.2); Alkaline Phosphatase 267 U/L (35-105); Anion Gap 15.0 (5-19); Aspartate Amino Transferase 28 U/L (0-32); Blood Urea Nitrogen 10 mg/dL (8-23); Calcium 8.8 mg/dL (8.5-10.5); Carbon Dioxide 27 mmol/L (22-29); Chloride 98 mmol/L (98-107); Creatinine Clr Calc Pharmacy 107.6377; Globulin 4.3 g/dL (1.3-4.6); Glucose 153 mg/dL (65-115); Osmolality Calculated 284 mOsm/kg (285-295); Potassium 4.0 mmol/L (3.5-5.1); Sodium 136 mmol/L (136-145); Total Protein 7.7 g/dL (6.6-8.7)
[2025-05-06] MEDS: SODIUM CHLORIDE 0.9% IV (15:48)
[2025-05-06] MEDS: BEVACIZUMAB BVZR IV (15:48)
[2025-05-06 16:38] VITALS: BP 147/82; PULSE 75; RESP 16; TEMP 36.2; O2SAT 95
[2025-05-13 10:17] LABS: Hematocrit 33.2 % (36-47); Hemoglobin 11.00 g/dL (11.27-16.99); Mean Corpuscular HGB Conc 33.1 g/dL (30-55); Mean Corpuscular Hemoglobin 32.2 pg (27-33); Mean Corpuscular Volume 97.1 fl (85-98); Nucleated Red Blood Cells % 0 %; Platelet Count 73 10^3/cmm (157-399); Red Blood Count 3.42 10^6/uL (3.85-5.65); White Blood Count 2.64 10^3/uL (3.29-11.43)
[2025-05-13 10:34] LABS: Alanine Aminotransferase 32 U/L (0-33); Albumin Level 3.3 g/dL (3.5-5.2); Alkaline Phosphatase 269 U/L (35-105); Anion Gap 10.7 (5-19); Aspartate Amino Transferase 42 U/L (0-32); Blood Urea Nitrogen 12 mg/dL (8-23); Calcium 8.7 mg/dL (8.5-10.5); Carbon Dioxide 27 mmol/L (22-29); Chloride 104 mmol/L (98-107); Creatinine Clr Calc Pharmacy 129.1652; Globulin 3.9 g/dL (1.3-4.6); Glucose 104 mg/dL (65-115); Osmolality Calculated 286 mOsm/kg (285-295); Potassium 3.7 mmol/L (3.5-5.1); Sodium 138 mmol/L (136-145); Total Protein 7.2 g/dL (6.6-8.7)
[2025-05-13 12:27] VITALS: RESP 16
[2025-05-13] MEDS: morphine 4 mg/mL SDV 1 mL 2 MG IM (12:27)
[2025-05-20 13:14] LABS: Hematocrit 30.9 % (36-47); Hemoglobin 10.20 g/dL (11.27-16.99); Mean Corpuscular HGB Conc 33.0 g/dL (30-55); Mean Corpuscular Hemoglobin 32.0 pg (27-33); Mean Corpuscular Volume 96.9 fl (85-98); Nucleated Red Blood Cells % 0 %; Platelet Count 69 10^3/cmm (157-399); Red Blood Count 3.19 10^6/uL (3.85-5.65); White Blood Count 2.36 10^3/uL (3.29-11.43)
[2025-05-20 13:20] LABS: Glucose Urine UA Negative (Normal); Nitrate Urine Negative (Negative); Specific Gravity, Urine 1.016 (1.005-1.030)
[2025-05-20 13:25] LABS: Add Urine Microscopic? YES
[2025-05-20 13:34] LABS: Alanine Aminotransferase 42 U/L (0-33); Albumin Level 3.6 g/dL (3.5-5.2); Alkaline Phosphatase 261 U/L (35-105); Anion Gap 12.8 (5-19); Aspartate Amino Transferase 44 U/L (0-32); Blood Urea Nitrogen 9 mg/dL (8-23); Calcium 8.9 mg/dL (8.5-10.5); Carbon Dioxide 27 mmol/L (22-29); Chloride 100 mmol/L (98-107); Creatinine Clr Calc Pharmacy 129.5083; Globulin 3.7 g/dL (1.3-4.6); Glucose 153 mg/dL (65-115); Osmolality Calculated 284 mOsm/kg (285-295); Potassium 3.8 mmol/L (3.5-5.1); Sodium 136 mmol/L (136-145); Total Protein 7.3 g/dL (6.6-8.7)
[2025-05-20 13:35] LABS: Slide Review Slide Review Perform
[2025-05-20] MEDS: SODIUM CHLORIDE 0.9% IV (14:40)
[2025-05-20] MEDS: BEVACIZUMAB BVZR IV (14:40)
[2025-05-20 15:28] VITALS: BP 132/82; PULSE 83; RESP 17; TEMP 36.8; O2SAT 95
[2025-05-20 22:10] LABS: Carcinoembryonic Antigen 332.7 ng/mL (0.0-4.7)
== END 2025-06-03 23:59 | disposition home or self-care (01) ==
PROVIDERS: Nurse Practitioner; Nurse Practitioner Family; PCP Family Medicine; Visit Provider Internal Medicine Medical Oncology
DX: Z51.12 Encounter for antineoplastic immunotherapy; C18.7 Malignant neoplasm of sigmoid colon; C78.7 Secondary malignant neoplasm of liver and intrahepatic bile duct; C78.00 Secondary malignant neoplasm of unspecified lung; R06.02 Shortness of breath; R51.9 Headache, unspecified; Z87.891 Personal history of nicotine dependence; Z95.828 Presence of other vascular implants and grafts; Z79.899 Other long term (current) drug therapy; Z53.9 Procedure and treatment not carried out, unspecified reason
CPT/HCPCS: 17110; 36415; 36591; 36593; 80053; 81001; 82378; 85025; 96372; 96413; 99203; 99214; J2270; J2997; J7050; Q5118

== ENCOUNTER → 2025-05-28 10:48 | Outpatient (BNVA) | payer MEDICARE, MEDICAID, SELFPAY | PROVIDERS: PCP Family Medicine; Visit Provider Dermatology | DX: L98.8 Other specified disorders of the skin and subcutaneous tissue (principal); L82.1 Other seborrheic keratosis; D48.5 Neoplasm of uncertain behavior of skin | CPT/HCPCS: 11102; 99213 ==

== ENCOUNTER → 2025-06-09 13:37 | Outpatient (BNVA) | payer MEDICARE, MEDICAID, SELFPAY | PROVIDERS: PCP Family Medicine; Visit Provider Dermatology | DX: Z48.817 Encounter for surgical aftercare following surgery on the skin and subcutaneous tissue (principal) | CPT/HCPCS: 99212 ==

== ENCOUNTER 2025-07-01 08:30 | Oncology outpatient (recurring) (ONCR) | payer MEDICARE, SELFPAY ==
[2025-06-10 11:13] LABS: Glucose Urine UA Negative (Normal); Nitrate Urine Negative (Negative); Specific Gravity, Urine 1.015 (1.005-1.030)
[2025-06-10 11:15] LABS: Hematocrit 29.6 % (36-47); Hemoglobin 9.90 g/dL (11.27-16.99); Mean Corpuscular HGB Conc 33.4 g/dL (30-55); Mean Corpuscular Hemoglobin 33.1 pg (27-33); Mean Corpuscular Volume 99.0 fl (85-98); Nucleated Red Blood Cells % 0 %; Platelet Count 71 10^3/cmm (157-399); Red Blood Count 2.99 10^6/uL (3.85-5.65); White Blood Count 2.67 10^3/uL (3.29-11.43)
[2025-06-10 11:38] LABS: Carcinoembryonic Antigen 454.4 ng/mL (0.0-4.7)
[2025-06-10 11:51] LABS: Slide Review Slide Review Perform
[2025-06-10 11:52] LABS: Add Urine Microscopic? YES
[2025-06-10 11:53] LABS: Alanine Aminotransferase 30 U/L (0-33); Albumin Level 3.4 g/dL (3.5-5.2); Alkaline Phosphatase 310 U/L (35-105); Anion Gap 12.7 (5-19); Aspartate Amino Transferase 41 U/L (0-32); Blood Urea Nitrogen 9 mg/dL (8-23); Calcium 8.6 mg/dL (8.5-10.5); Carbon Dioxide 27 mmol/L (22-29); Chloride 99 mmol/L (98-107); Globulin 3.8 g/dL (1.3-4.6); Glucose 114 mg/dL (65-115); Osmolality Calculated 280 mOsm/kg (285-295); Potassium 3.7 mmol/L (3.5-5.1); Sodium 135 mmol/L (136-145); Total Protein 7.2 g/dL (6.6-8.7)
--- NOTE | 2025-06-10 12:15 | CTR_ITS ---
PROCEDURE INFORMATION: Exam: CT Chest With Contrast; Diagnostic Exam date and time: 06/10/2025 12:22 PM Age: 59 years old Clinical indication: Condition or disease; Other: Colon cancer mets; Prior surgery; Surgery date: 6+ months; Surgery type: Port, tubal; Cancer (type)--colon, liver, bone; Additional info: Surveillance TECHNIQUE: Imaging protocol: Diagnostic computed tomography of the chest with contrast. Radiation optimization: All CT scans at this facility use at least one of these dose optimization techniques: automated exposure control; mA and/or kV adjustment per patient size (includes targeted exams where dose is matched to clinical indication); or iterative reconstruction. Contrast material: OMNI 350; Contrast volume: 100 ml; Contrast route: INTRAVENOUS (IV); COMPARISON: CT chest abdpel w/*[id number] 03/13/2025 9:15 AM RADIATION DOSE METRICS: Total DLP (mGy-cm): 1110.86 FINDINGS: Tubes, catheters and devices: Right internal jugular Port-A-Cath in place, with the tip in the distal superior vena cava. Lungs: Numerous bilateral pulmonary nodules are again , the majority have enlarged by 1 mm. Largest 15 mm subpleural nodule medially in the right lower lobe previously measured 14 mm. Pleural spaces: Unremarkable. No pneumothorax. No pleural effusion. Heart: See Mediastinal space finding. Coronary arteries: Small amount of coronary artery calcification. Mediastinal space: A well-defined 2.7 cm tubular focus gas is present in the prevascular mediastinum. No other mediastinal gas. Unchanged small amount of pericardial fluid. No mediastinal mass or caitie enlargement. Lymph nodes: Unremarkable. No enlarged lymph nodes. Vasculature: Unremarkable. No aortic aneurysm. Bones/joints: 13 mm lytic lesion has developed in the T12 vertebral body. Additional 8 mm subchondral lytic lesion superiorly in the T12 vertebral body could represent Schmorl's node or neoplastic disease. 8 mm subchondral lytic lesion in T2. Old, healed lateral left 9th rib fracture. Soft tissues: Unremarkable. PROCEDURE INFORMATION: Exam: CT Abdomen And Pelvis With Contrast Exam date and time: 06/10/2025 12:22 PM Age: 59 years old Clinical indication: Condition or disease; Other: Colon cancer mets; Prior surgery; Surgery date: 6+ months; Surgery type: Port, tubal; Cancer (type)--colon, liver, bone; Additional info: Surveillance TECHNIQUE: Imaging protocol: Computed tomography of the abdomen and pelvis with contrast. Radiation optimization: All CT scans at this facility use at least one of these dose optimization techniques: automated exposure control; mA and/or kV adjustment per patient size (includes targeted exams where dose is matched to clinical indication); or iterative reconstruction. Contrast material: OMNI 350; Contrast volume: 100 ml; Contrast route: INTRAVENOUS (IV); COMPARISON: CT chest abdpel w/*[id number] 03/13/2025 9:15 AM RADIATION DOSE METRICS: Total DLP (mGy-cm): 1110.86 FINDINGS: Liver: Hepatic masses have increased in size and number. 9.2 cm inferior right lobe mass previously measured 8.1 cm. Gallbladder and biliary ducts: Mild fundal gallbladder wall thickening is again noted, possibly relating to adjacent hepatic metastases. Small dense focus in the gallbladder fundus may represent a gallstone. No biliary dilatation. Pancreas: Visualized pancreas is unremarkable. Unchanged dense vascular coils abut the pancreatic head, creating streak artifact that obscures portions of the pancreas. The pancreas is normal. No mass. Spleen: Unchanged borderline splenomegaly. Spleen density is within normal limits. Adrenal glands: Normal. No mass. Kidneys and ureters: Unchanged 1 cm left renal cyst. No solid renal mass or hydronephrosis. Stomach and bowel: No bowel dilatation. Unchanged focal sigmoid colon narrowing at the level of the calcified mesenteric mass. Additional nonspecific colonic narrowing involves the distal sigmoid and mid rectum. Appendix: No evidence of appendicitis. Intraperitoneal space: Mild strand-like peritoneal soft tissue density projects in the right paracolic gutter. Unchanged 2.7 cm spiculated, calcified mass in the central mesenteric fat of the pelvis. Vasculature: Aortic caliber is normal. Lymph nodes: Unremarkable. No enlarged lymph nodes. Urinary bladder: No focal wall thickening of the urinary bladder. Reproductive: Small amount of fluid density in the fundal endometrial cavity is unchanged. The ovaries are unchanged in appearance and normal in size. Bones/joints: Persistent 2.6 cm lytic lesion in the left iliac crest. Soft tissues: Fat containing umbilical hernia. CT/CT chest abdpel w/*[id number] IMPRESSION: 1. Well-defined tubular gas collection in the prevascular mediastinum, likely representing inadvertent venous gas injection during IV contrast administration. 2. Bilateral pulmonary metastases have increased in size by 1 mm. 3. Lytic lesions in T2 and T12 most consistent with metastatic disease. 4. A well-defined 2.7 cm tubular focus gas is present in the prevascular mediastinum. IMPRESSION: 1. Increasing hepatic metastatic disease. 2. Persistent lytic lesion in the left iliac crest, suspicious for metastatic disease. 3. Unchanged calcified mesenteric mass in the pelvis with adjacent sigmoid colon narrowing. The mesenteric mass may represent postsurgical scarring, although carcinoid tumor can demonstrate this appearance. Additional nonspecific narrowing of the distal sigmoid colon and rectum could reflect neoplastic disease. 4. Soft tissue thickening of the peritoneal reflection in the right paracolic gutter may reflect reactive changes from adjacent hepatic metastatic disease or peritoneal carcinomatosis. 5. Hepatic masses have increased in size and number.
[2025-06-10] MEDS: iohexol 350 mg/mL 500 mL Btl (per mL) PO (12:30)
[2025-06-10] MEDS: iohexol 350 mg/mL 500 mL Btl (per mL) IV (12:30)
[2025-06-10] MEDS: BEVACIZUMAB BVZR IV (13:26)
[2025-06-10] MEDS: SODIUM CHLORIDE 0.9% IV (13:26)
[2025-06-10 14:01] VITALS: BP 151/82; PULSE 76; RESP 17; TEMP 36.8; O2SAT 97
--- NOTE | 2025-06-11 14:00 | CT_ITS ---
WS: [id number] CT chest wo con [id number] HISTORY: air bubble noted on CT films during Radiologist read TECHNIQUE: Axial imaging performed through the thorax. Coronal and sagittal reformats are submitted. All CT scans at [facility] use at least one of these dose optimization techniques: automated exposure control; mA and/or kV adjustment per patient size (includes targeted exams where dose is matched to clinical indication); or iterative reconstruction. CONTRAST: None DLP: 419.99 mGy.cm COMPARISON: 06/10/2025, 03/13/2025 Lungs and central airway: RIGHT internal jugular Port-A-Cath with tip in the distal SVC. Pleura: Normal. No pleural effusion. Heart and pericardium: Numerous bilateral pulmonary nodules are reidentified. These were described 1 day prior to this examination and have not changed in size. These nodules range in size from a few millimeters to 15 mm. Mediastinum and nelson: No adenopathy. Reidentified is a tubular focus of air in the anterior mediastinal fat of uncertain etiology. This is unchanged since 06/10/2025 and new since 03/13/2025. There is no stranding in the mediastinal fat or adenopathy. No fluid collection. Vessels: Mild atherosclerosis aorta. No aneurysm. Dilated pulmonary artery. Chest wall and lower neck: Negative. Upper abdomen: Numerous pulmonary hepatic masses have been previously described. These are better visualized on the recent postcontrast CT that was performed on 06/10/2025. Some of these masses are hyperdense and some hypodense. Prior cholecystectomy. No adrenal mass. Osseous structures: Lytic lesion in T12 is unchanged. Subchondral lytic lesion in T2. CT/CT chest wo con [id number] IMPRESSION: 1. Noncontrast CT of the chest is performed to evaluate the tubular gas struct ure in the mediastinum. Tubular focus is still present without interval change since 06/10/2025. Etiology of the mediastinal air is not apparent. Etiologies to consider are air from the esophagus, trachea or lung. Potentially could be a s mall amount of air dissecting from SC joint arthritis. There is a small amount of air in the LEFT SC joint. Mediastinitis should always be considered with air present. There are no secondary findings of inflammation in the mediastinal fa t. 2. No pneumothorax. 3. No change in the numerous pulmonary nodules that were recently described. 4. Known metastatic lesions in the liver.
[2025-06-24 08:05] LABS: Hematocrit 32.9 % (36-47); Hemoglobin 10.90 g/dL (11.27-16.99); Mean Corpuscular HGB Conc 33.1 g/dL (30-55); Mean Corpuscular Hemoglobin 33.6 pg (27-33); Mean Corpuscular Volume 101.5 fl (85-98); Nucleated Red Blood Cells % 0 %; Platelet Count 70 10^3/cmm (157-399); Red Blood Count 3.24 10^6/uL (3.85-5.65); White Blood Count 1.55 10^3/uL (3.29-11.43)
[2025-06-24 08:30] LABS: Alanine Aminotransferase 25 U/L (0-33); Albumin Level 3.6 g/dL (3.5-5.2); Alkaline Phosphatase 274 U/L (35-105); Anion Gap 14.6 (5-19); Aspartate Amino Transferase 29 U/L (0-32); Blood Urea Nitrogen 8 mg/dL (8-23); Calcium 9.2 mg/dL (8.5-10.5); Carbon Dioxide 28 mmol/L (22-29); Chloride 99 mmol/L (98-107); Creatinine Clr Calc Pharmacy 92.0164; Ferritin 131 ng/mL (15-150); Globulin 4.1 g/dL (1.3-4.6); Glucose 127 mg/dL (65-115); Osmolality Calculated 286 mOsm/kg (285-295); Potassium 3.6 mmol/L (3.5-5.1); Sodium 138 mmol/L (136-145); Total Protein 7.7 g/dL (6.6-8.7)
[2025-06-24 08:44] LABS: Vitamin B12 282 pg/mL (232-1245)
[2025-06-24 09:04] LABS: Carcinoembryonic Antigen 443.5 ng/mL (0.0-4.7)
[2025-07-01 08:41] LABS: Hematocrit 32.4 % (36-47); Hemoglobin 10.80 g/dL (11.27-16.99); Mean Corpuscular HGB Conc 33.3 g/dL (30-55); Mean Corpuscular Hemoglobin 34.4 pg (27-33); Mean Corpuscular Volume 103.2 fl (85-98); Nucleated Red Blood Cells % 0 %; Platelet Count 65 10^3/cmm (157-399); Red Blood Count 3.14 10^6/uL (3.85-5.65); White Blood Count 2.75 10^3/uL (3.29-11.43)
[2025-07-01 09:02] LABS: Alanine Aminotransferase 19 U/L (0-33); Albumin Level 3.4 g/dL (3.5-5.2); Alkaline Phosphatase 254 U/L (35-105); Anion Gap 11.5 (5-19); Aspartate Amino Transferase 27 U/L (0-32); Blood Urea Nitrogen 12 mg/dL (8-23); Calcium 8.9 mg/dL (8.5-10.5); Carbon Dioxide 28 mmol/L (22-29); Chloride 95 mmol/L (98-107); Creatinine Clr Calc Pharmacy 107.6377; Ferritin 222 ng/mL (15-150); Globulin 4.2 g/dL (1.3-4.6); Glucose 113 mg/dL (65-115); Iron 71 ug/dL (37-145); Osmolality Calculated 273 mOsm/kg (285-295); Potassium 3.5 mmol/L (3.5-5.1); Sodium 131 mmol/L (136-145); Total Iron Binding Capacity 268 mcg/dl; Total Protein 7.6 g/dL (6.6-8.7); Unsaturated Iron Binding 197 ug/dL (112-347)
[2025-07-01 09:43] LABS: Carcinoembryonic Antigen 543.7 ng/mL (0.0-4.7)
[2025-07-01 11:32] LABS: Thyroid Stimulating Hormone 3.59 uIU/mL (0.27-4.20)
== END 2025-07-04 23:59 | disposition home or self-care (01) ==
PROVIDERS: Nurse Practitioner; Nurse Practitioner Family; PCP Family Medicine; Visit Provider Internal Medicine Medical Oncology
DX: Z53.9 Procedure and treatment not carried out, unspecified reason; C18.7 Malignant neoplasm of sigmoid colon; C78.7 Secondary malignant neoplasm of liver and intrahepatic bile duct; C78.01 Secondary malignant neoplasm of right lung; C78.02 Secondary malignant neoplasm of left lung; R60.0 Localized edema; R53.83 Other fatigue; R03.0 Elevated blood-pressure reading, without diagnosis of hypertension; K59.00 Constipation, unspecified; Z95.828 Presence of other vascular implants and grafts; Z87.891 Personal history of nicotine dependence
CPT/HCPCS: 36591; 71250; 71260; 74177; 80053; 81001; 82378; 82607; 82728; 82746; 83010; 83540; 83550; 84443; 85025; 96413; 99213; 99214; 99215; J7050; Q5118

== ENCOUNTER 2025-07-29 13:00 | Oncology outpatient (recurring) (ONCR) | payer MEDICARE, SELFPAY ==
[2025-07-08 13:31] LABS: Hematocrit 31.6 % (36-47); Hemoglobin 10.70 g/dL (11.27-16.99); Mean Corpuscular HGB Conc 33.9 g/dL (30-55); Mean Corpuscular Hemoglobin 34.3 pg (27-33); Mean Corpuscular Volume 101.3 fl (85-98); Nucleated Red Blood Cells % 0 %; Platelet Count 52 10^3/cmm (157-399); Red Blood Count 3.12 10^6/uL (3.85-5.65); White Blood Count 3.11 10^3/uL (3.29-11.43)
[2025-07-08 13:58] LABS: Alanine Aminotransferase 19 U/L (0-33); Albumin Level 3.2 g/dL (3.5-5.2); Alkaline Phosphatase 286 U/L (35-105); Anion Gap 12.4 (5-19); Aspartate Amino Transferase 35 U/L (0-32); Blood Urea Nitrogen 9 mg/dL (8-23); Calcium 8.2 mg/dL (8.5-10.5); Carbon Dioxide 27 mmol/L (22-29); Chloride 100 mmol/L (98-107); Creatinine Clr Calc Pharmacy 106.7808; Ferritin 275 ng/mL (15-150); Globulin 4.0 g/dL (1.3-4.6); Glucose 126 mg/dL (65-115); Iron 80 ug/dL (37-145); Magnesium 2.3 mg/dL (1.7-2.3); Osmolality Calculated 282 mOsm/kg (285-295); Potassium 3.4 mmol/L (3.5-5.1); Sodium 136 mmol/L (136-145); Total Iron Binding Capacity 228 mcg/dl; Total Protein 7.2 g/dL (6.6-8.7); Unsaturated Iron Binding 148 ug/dL (112-347)
[2025-07-08 14:11] LABS: Vitamin B12 399 pg/mL (232-1245)
[2025-07-15 13:49] LABS: Hematocrit 35.0 % (36-47); Hemoglobin 11.60 g/dL (11.27-16.99); Mean Corpuscular HGB Conc 33.1 g/dL (30-55); Mean Corpuscular Hemoglobin 34.4 pg (27-33); Mean Corpuscular Volume 103.9 fl (85-98); Nucleated Red Blood Cells % 0 %; Platelet Count 59 10^3/cmm (157-399); Red Blood Count 3.37 10^6/uL (3.85-5.65); White Blood Count 4.27 10^3/uL (3.29-11.43)
[2025-07-15 14:13] LABS: Carcinoembryonic Antigen 789.0 ng/mL (0.0-4.7)
[2025-07-15 14:24] LABS: Alanine Aminotransferase 22 U/L (0-33); Albumin Level 3.3 g/dL (3.5-5.2); Alkaline Phosphatase 287 U/L (35-105); Anion Gap 14.8 (5-19); Aspartate Amino Transferase 35 U/L (0-32); Blood Urea Nitrogen 12 mg/dL (8-23); Calcium 8.7 mg/dL (8.5-10.5); Carbon Dioxide 26 mmol/L (22-29); Chloride 101 mmol/L (98-107); Globulin 3.8 g/dL (1.3-4.6); Glucose 109 mg/dL (65-115); Osmolality Calculated 286 mOsm/kg (285-295); Potassium 3.8 mmol/L (3.5-5.1); Sodium 138 mmol/L (136-145); Total Protein 7.1 g/dL (6.6-8.7)
[2025-07-29 13:01] LABS: Hematocrit 34.0 % (36-47); Hemoglobin 11.60 g/dL (11.27-16.99); Mean Corpuscular HGB Conc 34.1 g/dL (30-55); Mean Corpuscular Hemoglobin 34.5 pg (27-33); Mean Corpuscular Volume 101.2 fl (85-98); Nucleated Red Blood Cells % 0 %; Platelet Count 70 10^3/cmm (157-399); Red Blood Count 3.36 10^6/uL (3.85-5.65); White Blood Count 4.70 10^3/uL (3.29-11.43)
[2025-07-29 13:29] LABS: Alanine Aminotransferase 43 U/L (0-33); Albumin Level 3.1 g/dL (3.5-5.2); Alkaline Phosphatase 292 U/L (35-105); Anion Gap 12.2 (5-19); Aspartate Amino Transferase 58 U/L (0-32); Blood Urea Nitrogen 7 mg/dL (8-23); Calcium 8.2 mg/dL (8.5-10.5); Carbon Dioxide 26 mmol/L (22-29); Chloride 100 mmol/L (98-107); Creatinine Clr Calc Pharmacy 106.7808; Ferritin 269 ng/mL (15-150); Globulin 4.0 g/dL (1.3-4.6); Glucose 106 mg/dL (65-115); Osmolality Calculated 278 mOsm/kg (285-295); Potassium 3.2 mmol/L (3.5-5.1); Sodium 135 mmol/L (136-145); Total Protein 7.1 g/dL (6.6-8.7)
== END 2025-08-03 23:59 | disposition home or self-care (01) ==
PROVIDERS: Internal Medicine Medical Oncology; PCP Family Medicine; Visit Provider Nurse Practitioner
DX: Z53.9 Procedure and treatment not carried out, unspecified reason (principal); C18.7 Malignant neoplasm of sigmoid colon; C78.00 Secondary malignant neoplasm of unspecified lung; C78.7 Secondary malignant neoplasm of liver and intrahepatic bile duct; R03.0 Elevated blood-pressure reading, without diagnosis of hypertension; G89.3 Neoplasm related pain (acute) (chronic); Z95.828 Presence of other vascular implants and grafts; Z87.891 Personal history of nicotine dependence; Z79.899 Other long term (current) drug therapy
CPT/HCPCS: 36591; 80053; 82378; 82607; 82728; 82746; 83010; 83540; 83550; 83615; 83735; 85025; 99214; 99215

== ENCOUNTER → 2025-08-22 15:15 | Outpatient (BNVA) | payer MEDICARE, MEDICAID, SELFPAY | PROVIDERS: PCP Family Medicine; Visit Provider Emergency Medicine | DX: N39.0 Urinary tract infection, site not specified (principal) | CPT/HCPCS: 81000; 87086 ==

== ENCOUNTER 2025-09-02 10:30 | Oncology outpatient (recurring) (ONCR) | payer MEDICARE, MEDICAID, SELFPAY ==
[2025-08-12 12:54] LABS: Hematocrit 35.8 % (36-47); Hemoglobin 12.20 g/dL (11.27-16.99); Mean Corpuscular HGB Conc 34.1 g/dL (30-55); Mean Corpuscular Hemoglobin 33.8 pg (27-33); Mean Corpuscular Volume 99.2 fl (85-98); Nucleated Red Blood Cells % 0 %; Platelet Count 77 10^3/cmm (157-399); Red Blood Count 3.61 10^6/uL (3.85-5.65); White Blood Count 4.34 10^3/uL (3.29-11.43)
[2025-08-12 13:19] LABS: Carcinoembryonic Antigen 622.5 ng/mL (0.0-4.7)
[2025-08-12 13:30] LABS: Alanine Aminotransferase 35 U/L (0-33); Albumin Level 3.3 g/dL (3.5-5.2); Alkaline Phosphatase 325 U/L (35-105); Anion Gap 13.2 (5-19); Aspartate Amino Transferase 63 U/L (0-32); Blood Urea Nitrogen 9 mg/dL (8-23); Calcium 8.5 mg/dL (8.5-10.5); Carbon Dioxide 25 mmol/L (22-29); Chloride 101 mmol/L (98-107); Globulin 4.4 g/dL (1.3-4.6); Glucose 146 mg/dL (65-115); Magnesium 1.8 mg/dL (1.7-2.3); Osmolality Calculated 283 mOsm/kg (285-295); Potassium 3.2 mmol/L (3.5-5.1); Sodium 136 mmol/L (136-145); Total Protein 7.7 g/dL (6.6-8.7)
--- NOTE | 2025-09-02 10:30 | CTR_ITS ---
PROCEDURE INFORMATION: Exam: CT Chest With Contrast; Diagnostic Exam date and time: 09/02/2025 11:12 AM Age: 59 years old Clinical indication: Condition or disease; Other: Cancer of sigmoid colon; Prior surgery; Surgery date: 6+ months; Surgery type: Port, tubal; HX of colon, liver and bone cancer TECHNIQUE: Imaging protocol: Diagnostic computed tomography of the chest with contrast. Radiation optimization: All CT scans at this facility use at least one of these dose optimization techniques: automated exposure control; mA and/or kV adjustment per patient size (includes targeted exams where dose is matched to clinical indication); or iterative reconstruction. Contrast material: OMNI 350; Contrast volume: 100 ml; Contrast route: INTRAVENOUS (IV); COMPARISON: CT chest wo con [id number] 06/11/2025 2:03 PM RADIATION DOSE METRICS: Total DLP (mGy-cm): 966.08 FINDINGS: Tubes, catheters and devices: Betsy catheter in the right chest wall terminating in the superior vena cava. Lungs: Numerous bilateral pulmonary nodules some of which are slightly increased in size. Some examples include a left apical nodule measuring 7 mm in greatest dimension, previously 6 mm; right lower lobe nodule 12 mm, previously 11 mm; right middle lobe nodule 16 mm, previously 14 mm. Other nodules are not significantly changed. Pleural spaces: Unremarkable. No pneumothorax. No pleural effusion. Heart: Unremarkable. No cardiomegaly. No pericardial effusion. Lymph nodes: 1.3 x 1.1 cm nodule or lymph node along the anterior pericardium is increased, previously 1 x 0.8 cm. Vasculature: Unremarkable. No aortic aneurysm. Bones/joints: There is a lucent lesion in the T12 vertebral body with slight sclerosis along its periphery. It measures 1.7 cm in greatest dimension, previously 1.2 cm. Soft tissues: Unremarkable. PROCEDURE INFORMATION: Exam: CT Abdomen And Pelvis With Contrast Exam date and time: 09/02/2025 11:12 AM Age: 59 years old Clinical indication: Condition or disease; Other: Cancer of sigmoid colon; Prior surgery; Surgery date: 6+ months; Surgery type: Port, tubal; HX of colon, liver and bone cancer TECHNIQUE: Imaging protocol: Computed tomography of the abdomen and pelvis with contrast. Radiation optimization: All CT scans at this facility use at least one of these dose optimization techniques: automated exposure control; mA and/or kV adjustment per patient size (includes targeted exams where dose is matched to clinical indication); or iterative reconstruction. Contrast material: OMNI 350; Contrast volume: 100 ml; Contrast route: INTRAVENOUS (IV); COMPARISON: CT abdomen pelvis w con* [id number] 09/04/2022 1:29 PM RADIATION DOSE METRICS: Total DLP (mGy-cm): 966.08 FINDINGS: Liver: Multiple low-density lesions in the liver are again seen, mostly lower in density which may be post therapeutic. Some are also larger in size. For example right hepatic mass inferiorly measures 7.6 cm in greatest dimension, previously 6.1 cm. Also left hepatic mass measures 5.5 cm, previously 5.2 cm. And lesion adjacent to the gallbladder fossa measures 2.9 cm, previously 2.3 cm. Gallbladder and biliary ducts: Slight gallbladder thickening is noted without gallbladder enlargement. Pancreas: Normal. No ductal dilation. Spleen: Normal. No splenomegaly. Adrenal glands: Normal. No mass. Kidneys and ureters: Normal. No hydronephrosis. Stomach and bowel: Soft tissue density with calcification in the sigmoid mesocolon without significant change. Focal wall thickening of the sigmoid colon is again seen. This could represent the colonic neoplasm. Appendix: No evidence of appendicitis. Intraperitoneal space: Unremarkable. No free air. No significant fluid collection. Vasculature: Unremarkable. No abdominal aortic aneurysm. Lymph nodes: Portacaval node measures 1.3 cm in short axis previously 1.1 cm. Urinary bladder: Unremarkable as visualized. Reproductive: Unremarkable as visualized. Bones/joints: Focal lesion in the left iliac bone superiorly measures 3.5 cm, previously 3.0 cm. Slight sclerosis is seen in addition to lucency.. Soft tissues: Small fat containing umbilical hernia.. CT/CT chest abdpel w/*[id number] IMPRESSION: 1. Numerous pulmonary nodules or metastases which are stable to slightly increased in size. 2. Increased anterior pericardial nodule or lymph node. 3. Increased lucent or lytic lesion in the T12 vertebral body which may represent osseous metastatic involvement. Consider further evaluation with whole-body bone scintigraphy or lumbar spine MRI. IMPRESSION: 1. Multiple hepatic metastases which are slightly increased in size. Lower density may represent posttreatment change. 2. Slight increase in portacaval adenopathy. 3. Slight gallbladder wall thickening without gallbladder enlargement. This is nonspecific. 4. Focal soft tissue density with calcification in the sigmoid mesocolon. 5. Left iliac bone lesion is slightly larger and could represent osseous metastatic disease.
[2025-09-02] MEDS: iohexol 350 mg/mL 500 mL Btl (per mL) IV (11:20)
[2025-09-02] MEDS: iohexol 350 mg/mL 500 mL Btl (per mL) PO (11:20)
== END 2025-09-03 23:59 | disposition home or self-care (01) ==
LOC: RAD 09-03 00:01 → ONCMED 09-03 09:23
PROVIDERS: PCP Family Medicine; Visit Provider Nurse Practitioner
DX: Z53.9 Procedure and treatment not carried out, unspecified reason; C18.7 Malignant neoplasm of sigmoid colon; C78.7 Secondary malignant neoplasm of liver and intrahepatic bile duct; K82.8 Other specified diseases of gallbladder; M89.9 Disorder of bone, unspecified; R59.9 Enlarged lymph nodes, unspecified
CPT/HCPCS: 36591; 71260; 74177; 80053; 82378; 83615; 83735; 85025; 99214